=== PATIENT | female | born 1965 | race Caucasian/White ===

== ENCOUNTER → 2017-02-03 | Outpatient (CLI) | payer OTHER ==
[~2017-02-03] MED LIST: ADVIN50/60 INH; AMLO-114 PO; ATV/1 PO; BUPR100T8 PO; CALC600T9 PO; CALCTAB7 PO; CLON0.5T3 PO; CYCL10TA6 PO; CYM/30 PO; DSY/150 PO; DULO60CA44 PO; ERGO500037 PO; GABA-1218 PO; HYDR-3983 PO; HYDR-5688 PO; LISI-725 PO; LISI1TAB3 PO; LISI40TA PO; OMEP20CA9 PO; PRED20TA2 PO; PRLSR20 PO; SIMV20TA2 PO; SIMV20TA5 PO; TRAM-10 PO; TRAZ50TA35 PO; VNTHFA/IN INH
--- NOTE | 2017-02-03 10:56 | DIAGNOSTIC IMAGING REPORT ---
CERVICAL SPINE CT CT DOSE: 288.15 mGy.cm HISTORY: Pain. Neuropathy. THIN Slice, cervical Spondylosis, large OSTEOPHYTE TECHNIQUE: Multiaxial CT images of the cervical spine were performed and reformatted in the sagittal and coronal plane without the use of contrast. COMPARISON: None. FINDINGS: Vertebral body stature is normal. Reversal of normal cervical curvature. Significant degenerative disc change from C4 through C7. Mild degenerative change of the anterior arch of the C1-C2 complex. No significant compromise of the neuroforamina or spinal canal. C2-C3 level demonstrates very subtle posterior osteophytic formation showing no significant impact upon the cervical canal or neural contents. C3-C4 level is unremarkable. C4-C5 level shows mild posterior osteophytic reaction partially effacing the anterior subarachnoid space. Neural foramina are generally patent bilaterally. C5-C6 level shows broad-based posterior osteophytic reaction showing a slight impact with anterior cervical cord. There is minimal osteophytic narrowing of the neuroforamina bilaterally. C6-C7 level also shows posterior osteophytic reaction considered mild. Impact upon the anterior subarachnoid space is mild. No significant compromise of the neuroforamina. IMPRESSION: 1. Significant degenerative disc change from C4 through C7. 2. Broad-based posterior osteophytic reaction at C4-C5, C5-C6, and to a lesser extent C6-C7. 3. At all levels this shows partial effacement of the anterior subarachnoid space with mild impact upon the anterior cervical cord at C5-C6. 4. No significant compromise of the neuroforamina Electronically signed by: Jaciel Novoa M.D. 02/03/2017 10:55 AM Dictated Date/Time: 02/03/2017 10:50 AM
== END | disposition home or self-care (01) ==
LOC: C.CTS 10:34
PROVIDERS: ATTEND Orthopaedic Surgery Orthopaedic Surgery of the Spine
DX: M47.812 Spondylosis without myelopathy or radiculopathy, cervical region (principal); M50.321 Other cervical disc degeneration at C4-C5 level; M50.322 Other cervical disc degeneration at C5-C6 level; M50.323 Other cervical disc degeneration at C6-C7 level; M25.78 Osteophyte, vertebrae

== ENCOUNTER → 2017-02-17 | Outpatient (CLI) | payer OTHER ==
[~2017-02-17] MED LIST changes: -ATV/1 PO; -GABA-1218 PO; -LISI-725 PO; +OPTIRAY 320 IV PRN; -TRAM-10 PO
--- NOTE | 2017-02-17 15:18 | DIAGNOSTIC IMAGING REPORT ---
CT OF THE CHEST WITH IV CONTRAST CLINICAL HISTORY: Abnormal chest x-ray COMPARISON STUDY: Chest x-ray dated 02/16/2017 TECHNIQUE: Following the IV administration of 93 mL of Optiray-320, CT of the thorax was performed from the thoracic inlet to the lung bases. Images are reviewed in the axial, sagittal, and coronal planes. IV contrast was administered without complication. CT DOSE: 1067.99 mGy.cm FINDINGS: Thyroid: Imaged portions of the thyroid gland are normal in appearance. Thoracic aorta: The thoracic aorta is normal in course and caliber, noting standard 3-vessel arch anatomy. No aneurysm or dissection is seen. Pulmonary vasculature: The pulmonary trunk is normal in caliber. There are no central filling defects identified to suggest pulmonary embolus. Note that this examination was not protocoled for the evaluation of pulmonary emboli. HEART: The heart is normal in size and configuration, without pericardial effusion. Lungs and pleural spaces: No pleural effusions are visualized. There are no right infrahilar opacities to correlate with the chest x-ray finding. This was an all likelihood an artifact. There is mild pulmonary emphysema. There is a mixed solid and groundglass right apical opacity measuring 3 cm in long axis. A 6 week follow-up CT scan is recommended. Mediastinum: Right paratracheal lymph nodes are the upper limits of normal in diameter. Snow: There is no evidence of pathologic hilar adenopathy Axilla: There is no evidence of pathologic axillary adenopathy Upper abdomen: There is hepatic steatosis. Skeletal structures: There are no lytic or blastic osseous lesions. IMPRESSION: 1. CT scanning fails to confirm the presence of a right infrahilar opacity. This was in all likelihood artifactual 2. Incidentally identified partially solid and groundglass 3 cm right apical opacity. This could either be atelectatic, inflammatory, or neoplastic. A 6 week follow-up CT scan is recommended. 3. Hepatic steatosis Electronically signed by: Myron Ventura M.D. 02/17/2017 3:17 PM Dictated Date/Time: 02/17/2017 3:08 PM
== END | disposition home or self-care (01) ==
LOC: C.CTS 14:32
PROVIDERS: ATTEND Internal Medicine
DX: R91.8 Other nonspecific abnormal finding of lung field (principal); K76.0 Fatty (change of) liver, not elsewhere classified

== ENCOUNTER 2017-02-22 05:22 | Inpatient (IN) | payer OTHER ==
[2017-02-16 11:08] VITALS: BMI 47.0
--- NOTE | 2017-02-16 11:37 | PAT Medication Instructions ---
Service Date Feb 16, 2017. Current Home Medication List Albuterol Hfa (Ventolin Hfa), 2 PUFFS INH Q6H Amlodipine (Norvasc), 10 MG PO QAM Bupropion (Wellbutrin Sr), 250 MG PO QAM Bupropion (Wellbutrin Sr), 100 MG PO QPM Calcium Carbonate-Vitamin D (Calcium + D), 1 TAB PO BID Clonazepam (Klonopin), 0.5 MG PO BID PRN for RN Cyclobenzaprine Hcl (Flexeril), 10 MG PO TID Duloxetine HCl (Cymbalta), 1 CAP PO QAM Ergocalciferol (Vitamin D 82717 Unit), 50,000 UNIT PO WK Fluticasone Prop/Salmeterol (Advair Diskus 500/50 60 Dose), 1 PUFF INH BID Hydrocodone/Acetaminophen 5MG/325MG ([place] 5MG/325MG), 1 TABLET PO TID PRN for N Lisinopril (Zestril), 40 MG PO QAM Omeprazole (Prilosec), 20 MG PO BID Simvastatin (Zocor), 20 MG PO HS Trazodone Hcl (Trazodone), 150 MG PO HS Medication Instructions For Your Scheduled Surgery - Hold the following medications the morning of surgery: Lisinopril (Zestril), 40 MG PO QAM Ergocalciferol (Vitamin D 12514 Unit), 50,000 UNIT PO WK Calcium Carbonate-Vitamin D (Calcium + D), 1 TAB PO BID Cyclobenzaprine Hcl (Flexeril), 10 MG PO TID - Take the following medications the morning of surgery with a sip of water OTHERWISE NOTHING TO EAT OR DRINK AFTER MIDNIGHT: Amlodipine (Norvasc), 10 MG PO QAM Bupropion (Wellbutrin Sr), 250 MG PO QAM Albuterol Hfa (Ventolin Hfa), 2 PUFFS INH Q6H (use if needed; BRING TO HOSPITAL) Omeprazole (Prilosec), 20 MG PO BID Fluticasone Prop/Salmeterol (Advair Diskus 500/50 60 Dose), 1 PUFF INH BID Hydrocodone/Acetaminophen 5MG/325MG ([place] 5MG/325MG), 1 TABLET PO TID PRN ( may take if needed up to 4 hours prior to surgery) Duloxetine HCl (Cymbalta), 1 CAP PO QAM Clonazepam (Klonopin), 0.5 MG PO BID PRN - Take the following medications as scheduled the night before surgery: Bupropion (Wellbutrin Sr), 100 MG PO QPM Simvastatin (Zocor), 20 MG PO HS Trazodone Hcl (Trazodone), 150 MG PO HS Albuterol Hfa (Ventolin Hfa), 2 PUFFS INH Q6H Omeprazole (Prilosec), 20 MG PO BID Fluticasone Prop/Salmeterol (Advair Diskus 500/50 60 Dose), 1 PUFF INH BID Hydrocodone/Acetaminophen 5MG/325MG ([place] 5MG/325MG), 1 TABLET PO TID PRN for N Clonazepam (Klonopin), 0.5 MG PO BID PRN Calcium Carbonate-Vitamin D (Calcium + D), 1 TAB PO BID Cyclobenzaprine Hcl (Flexeril), 10 MG PO TID If you have any questions please call us at [phone] or [phone] or [phone]
[2017-02-16 12:10] LABS: URINE APPEARANCE CLEAR (CLEAR); URINE BILIRUBIN NEG (NEG); URINE COLOR YELLOW; URINE NITRITE NEG (NEG); URINE SPECIFIC GRAVITY 1.015 (1.000-1.030); UROBILINOGEN NEG (NEG)
[2017-02-16 12:12] LABS: BASO % 0.3 %; BASO ABS # 0.02 K/uL (0-0.2); COMPLETE YES; EOS % 2.9 %; HEMATOCRIT 41.8 % (37-47); LYMPH % 35.6 %; MEAN CELL VOLUME 92.7 fL (80-100); MEAN CORPUSCULAR HEMOGLOBIN 30.6 pg (25-34); MEAN PLATELET VOLUME 10.3 fL (7.4-10.4); MONO % 5.3 %; NEUT % 55.9 %; PLATELET COUNT 244 K/uL (130-400); RED BLOOD COUNT 4.51 M/uL (4.2-5.4); WHITE BLOOD COUNT 6.18 K/uL (4.8-10.8)
[2017-02-16 12:18] LABS: MANUAL MICROSCOPIC REQUIRED? NO; REVIEW REQ? NO
[2017-02-16 12:19] LABS: INR 0.9 (0.9-1.1); PARTIAL THROMBOPLASTIN RATIO 1.2
--- NOTE | 2017-02-16 12:22 | DIAGNOSTIC IMAGING REPORT ---
CHEST PREADMISSION(PA/LAT) CLINICAL HISTORY: Preoperative evaluation. COMPARISON STUDY: Chest radiograph December 04, 2012. FINDINGS: Lung volumes are normal. There is right infrahilar fullness which has developed since prior exam of December 04, 2012. A 2.2 cm nodular density is noted. No pneumothorax or pleural effusion is present. Cardiac size is normal. Mediastinal contours are normal. There is no evidence of pulmonary edema. IMPRESSION: Right infrahilar opacity which has developed since prior exam. While possibly artifactual, this raises the possibility of airspace disease or a pulmonary nodule. A chest CT is recommended. Electronically signed by: Deandre Luke M.D. 02/16/2017 12:20 PM Dictated Date/Time: 02/16/2017 12:17 PM
[2017-02-16 13:32] LABS: BUN/CREATININE RATIO 12.7 (10-20); CALCIUM 8.9 mg/dl (8.5-10.1); CREATININE 0.98 mg/dl (0.60-1.20); POTASSIUM 4.6 mmol/L (3.5-5.1)
--- NOTE | 2017-02-19 14:18 | HISTORY & PHYSICAL EXAMINATION ---
DATE OF ADMISSION: 02/22/2017 HISTORY OF PRESENT ILLNESS: She is being preoperatively prepared for an anterior cervical discectomy and fusion C4-C5 and C5-C6 cervical spine. She has had conservative care, she has failed with these efforts. She has a combination of cervical spine pain, neck and upper extremity difficulties and cervical headaches. PAST MEDICAL HISTORY: Positive for hypertension, high cholesterol, difficulty walking up the hill, numbness and tingling, anxiety. No liver or kidney disease, no carcinoma. Has had acid reflux and obesity. PAST SURGICAL HISTORY: Tubal ligation, bunion surgery. ALLERGIES: Negative. MEDICATIONS: Include hydrocodone, Flexeril, Wellbutrin, simvastatin, lisinopril, and trazodone. REVIEW OF SYSTEMS: She denies any blurred vision, double vision. Does have significant headaches. Denies any fevers, sweats, chills. Denies unexplained weight loss, gain. Denies chest pain, palpitations, angina. Denies asthma, wheezing, shortness of breath. Denies nausea, vomiting, urgency, frequency, dysuria. Her major complaint is musculoskeletal, neck and arm pain. OBJECTIVE: GENERAL: She is alert, oriented. She is 5 feet 5 inches, 220 pounds. She is in distress. HEENT: Essentially normal. Vascular structures normal. CARDIAC: Normal S1, S2, no S3. LUNGS: Clear to auscultation. No rales, rhonchi or wheezing. ABDOMEN: Soft, nontender. 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 Images demonstrate significant spondylosis at C4-C5, C5-C6, lesser at C6-C7. ASSESSMENT: Severe degenerative changes cervical spine with mild instability C4-C5 and C5-C6 with spinal cord compression. DISPOSITION: Includes a 2-level ACDF with iliac crest bone graft C4-C5 and C5-C6 cervical spine at [facility] coming up on February 22.
[2017-02-22] VITALS (16 sets, daily range): BP systolic 115–163; BP diastolic 62–79; PULSE 77–91; TEMP 36.2–36.8; O2SAT 92–96; Ht 162.6 cm; Wt 125.3 kg
[~2017-02-22] VITALS: Ht 162.6 cm; Wt 125.3 kg
[~2017-02-22 05:22] MED LIST changes: -CALCTAB7 PO; -DSY/150 PO; -DULO60CA44 PO; -HYDR-3983 PO; -LISI1TAB3 PO; -OPTIRAY 320 IV PRN; -PRED20TA2 PO; -PRLSR20 PO; -SIMV20TA2 PO
[2017-02-22] MEDS ORDERED: LACTATED RINGER'S 1000ML IV SCH (06:00)
[2017-02-22] MEDS ORDERED: NSS 1000ML IV SCH (06:00)
[2017-02-22] MEDS ORDERED: CEFAZOLIN 3000 MG/65 ML D5W 65 ML IV SCH (06:00)
[2017-02-22] MEDS ORDERED: GELATIN SPONGE SZ 100 ONE (06:50)
[2017-02-22] MEDS ORDERED: THROMBIN FOR SOLN 20000 UNIT KIT ONE (06:50)
[2017-02-22] MEDS ORDERED: BUPIVACAINE/EPINEPHRINE 0.5% MPF 1:200,000 30 ML VIAL ONE (06:50)
[2017-02-22] MEDS ORDERED: BACITRACIN 50000 UNIT VIAL ONE (06:51)
[2017-02-22] MEDS ORDERED: PROPOFOL IV EMULSION 10 MG/ML 20 ML VIAL IV ONE (07:01)
[2017-02-22] MEDS ORDERED: DEXAMETHASONE SOD INJ 4 MG/ML VIAL ONE (07:01)
[2017-02-22] MEDS ORDERED: MIDAZOLAM HCL 1 MG/ML 2ML VIAL ONE (07:01)
[2017-02-22] MEDS ORDERED: LIDOCAINE HCL 2% 2 ML VIAL (20MG/ML) ONE (07:01)
[2017-02-22] MEDS ORDERED: ONDANSETRON INJ 2 MG/ML 2 ML VIAL ONE (07:01)
[2017-02-22] MEDS ORDERED: FENTANYL CITRATE INJ 50 MCG/1 ML 2 ML VIAL ONE (07:01)
[2017-02-22] MEDS ORDERED: ROCURONIUM BROMIDE 10 MG/ML 5 ML VIAL ONE (07:02)
[2017-02-22] MEDS ORDERED: GLYCOPYRROLATE INJ 0.2 MG/ML VIAL ONE (07:02)
[2017-02-22] MEDS ORDERED: NEOSTIGMINE METHYLSULFATE 5 MG/5 ML SYR ONE (07:02)
[2017-02-22] MEDS ORDERED: MoRPHine SULFATE 2 MG/ML CARP ONE ×3 (07:05→10:46)
[2017-02-22] MEDS ORDERED: ATROPINE SULFATE 0.1 MG/ML 5ML SYR IV PRN (07:15)
[2017-02-22] MEDS ORDERED: ONDANSETRON INJ 2 MG/ML 2 ML VIAL IV PRN ×2 (07:15→10:00)
[2017-02-22] MEDS ORDERED: EpHEDrine SULFATE INJ 50 MG/ML AMP IV PRN (07:15)
--- NOTE | 2017-02-22 07:16 | History & Physical Bridge Note ---
H&P Re-Evaluation Bridge Note: I have examined the patient, reviewed the History & Physical and in the interval since the performance of the History & Physical I have noted the following changes of clinical significance: No changes noted
[2017-02-22] MEDS ORDERED: ALBUTEROL HFA INHALER 8.5 GM INH ONE (07:45)
[2017-02-22] MEDS ORDERED: LARYING-O-JET KIT (LTA) ONE ×2 (07:45)
[2017-02-22] MEDS ORDERED: VANCOMYCIN HCL 1000MG/20ML VIAL ONE (08:31)
--- NOTE | 2017-02-22 09:46 | DIAGNOSTIC IMAGING REPORT ---
INTRAOPERATIVE CERVICAL SPINE 3 VIEWS (no charge) CLINICAL HISTORY: ACDF C4-6 COMPARISON STUDY: No previous studies for comparison. FINDINGS: 3 intraoperative fluoroscopic spot images are provided for interpretation. 27 seconds of fluoroscopic time was utilized. The first image is inadequate from a technical standpoint for localization purposes. The subsequent 2 images demonstrate the first 3 cervical vertebral bodies. IMPRESSION: 3 intraoperative fluoroscopic spot images were acquired. Electronically signed by: Myron Ventura M.D. 02/22/2017 9:45 AM Dictated Date/Time: 02/22/2017 9:42 AM
--- NOTE | 2017-02-22 09:56 | [facility] Post Operative Brief Note ---
Immediate Operative Summary Operative Date Feb 22, 2017. Pre-Operative Diagnosis : Severe degenerative changes cervical spine with mild instability C4-C5 and C5-C6 with spinal cord compression Post-Operative Diagnosis : Severe degenerative changes cervical spine with mild instability C4-C5 and C5-C6 with spinal cord compression Procedure(s) Performed C4-C5, C5-C6, C6-C7 Anterior Cervical Discectomy and Fusion Surgeon Dr. Mirza García Plunger Scoop Operator Surgeon(s) Rom Howard PA-C Estimated Blood Loss 5 ml Findings cord compression cervical spine Specimens none per surgeon Complication(s) None Disposition Recovery Room / PACU
[2017-02-22] MEDS ORDERED: NALOXONE HCL 0.4 MG/1 ML VIAL/CARP IV PRN (10:00)
[2017-02-22] MEDS ORDERED: ACETAMINOPHEN IV 1,000 MG in EMPTY BAG 0 ML IV PRN (10:00)
[2017-02-22] MEDS ORDERED: RACEPINEPHRINE 2.25% NEBU SOLN 0.5 ML VIAL INH PRN (10:00)
[2017-02-22] MEDS ORDERED: MAGNESIUM HYDROXIDE SUSP 30 ML UDC PO PRN (10:00)
[2017-02-22] MEDS ORDERED: DEXAMETHASONE INJ 8 MG in SYRINGE 0 ML IV PRN (10:00)
[2017-02-22] MEDS: FENTANYL CITRATE INJ 50 MCG/1 ML 2 ML VIAL IV PRN ×4 (10:10→10:25)
[2017-02-22] MEDS: HYDROmorphone INJ 1 MG/ML SYR IV PRN ×11 (10:30→21:00)
[2017-02-22] MEDS ORDERED: ACETAMINOPHEN 1000 MG/100 ML IV IV ONE ×2 (10:41→10:45)
--- NOTE | 2017-02-22 11:08 | Anesthesiology Progress Note ---
Anesthesia Post Op Note Date & Time Feb 22, 2017 at 11:08 Vital Signs Pain Intensity: 9 Vital Signs Past 12 Hours Date Time Temp Pulse Resp B/P (MAP) Pulse Ox O2 Delivery O2 Flow Rate FiO2 02/22/17 10:21 159/93 02/22/17 10:18 83 16 02/22/17 10:18 83 16 94 02/22/17 10:16 161/75 02/22/17 10:13 80 19 93 02/22/17 10:13 80 19 02/22/17 10:10 163/84 02/22/17 10:08 80 19 02/22/17 10:08 80 19 93 02/22/17 10:07 163/84 02/22/17 10:03 85 20 02/22/17 10:03 85 20 96 02/22/17 10:02 160/100 02/22/17 09:58 79 20 02/22/17 09:58 79 20 92 02/22/17 09:57 152/98 02/22/17 09:55 151/78 02/22/17 09:53 36.1 80 15 151/78 94 Mask 10 02/22/17 05:41 36.5 77 18 118/65 Room Air 95 Notes Mental Status: alert / awake / arousable, participated in evaluation Pt Amnestic to Procedure: Yes Nausea / Vomiting: adequately controlled Pain: improving with treatment Airway Patency, RR, SpO2: stable & adequate BP & HR: stable & adequate Hydration State: stable & adequate Anesthetic Complications: no major complications apparent
[2017-02-22] MEDS ORDERED: IV FLUIDS COMPLETED PRN (11:15)
[2017-02-22] MEDS: SODIUM CHLORIDE 0.9% 1000ML 1,000 ML IV SCH (11:50)
--- NOTE | 2017-02-22 13:32 | OPERATIVE REPORT ---
DATE OF OPERATION: 02/22/2017 PREOPERATIVE DIAGNOSES: Cord compression, cervical spine C4-C5, C5-C6 with severe degenerative changes C6-C7. POSTOPERATIVE DIAGNOSES: Same. PROCEDURES: Include an anterior cervical discectomy and decompression of spinal cord at C4-5 and C5-C6 along with a decompression and fusion at C4-5, C5-C6, C6-C7 with a 3-level construct of the cervical spine, 3-level discectomy and fusion. SURGEON: Dr. García. GUSSET MAKER: Rom Howard PA-C. COMPLICATIONS: Zero. BLOOD LOSS: 5 mL. No graft taken from the iliac crest. IMPLANTS USED: By the [employer] called [employer]. The patient was taken to the operating room. She was placed and kept supine on the spinal table. We taped her down, put her in some 5 pounds of traction. We protected all soft tissues and skin areas with padding. We scrubbed her first and then prepped her as well, the cervical spine region. We draped her sterile. We commenced with surgery. We made a transverse skin incision roughly at the C5-C6 interval, dissecting the soft tissue. In the same plane was a fairly delicate dissection. She had significant to moderate amount of venous vessels in the pathway. We then were able to get to the 3-4 interval, marked this with a spinal needle. We then moved in a caudal direction for doing a complete discectomy at C4-5, C5-6 and C6-C7. At each and every level, we were back to and through the posterior longitudinal ligament. We were out laterally to the uncovertebral joints, all visible disc material was removed. I was able to fashion out each and every segment. We used the [employer] implant system. This was packed with the patient's own bone or autograft. These were placed into the vacated discectomy sites at C6-7, C5-6, C4-5. I also used some DBM demineralized bone matrix to also fill up the interspaces. The soft tissues were clear. We irrigated thoroughly, closed with 4-0 Monocryl suture. Sterile dressings applied all over a Ilan drain. The patient was then extubated to PACU stable in a cervical collar with no apparent complications with the procedure. The sponge and needle count was correct at the close. I attest to the content of the Intraoperative Record and any orders documented therein. Any exception s are noted below.
[2017-02-22] MEDS ORDERED: ALBUTEROL HFA 8 GM INHALER INH PRN (14:00)
[2017-02-22] MEDS: DEXAMETHASONE INJ 6 MG in SYRINGE 0 ML IV SCH ×2 (14:08→21:19)
[2017-02-22] MEDS: HYDROCODONE/ACETAMOPHEN 5/325MG TAB PO PRN ×3 (14:56→23:34)
[2017-02-22] MEDS: CEFAZOLIN IV 3,000 MG in DEXTROSE 5% 50ML 50 ML IV SCH ×2 (15:45→23:34)
[2017-02-22] MEDS: LORAZEPAM INJ 0.5 MG in SYRINGE 0.75 ML IV PRN (19:34)
[2017-02-22] MEDS: FLUTICASONE/SALMETEROL (ADVAIR) 500/50 INH 14 PUFF INH SCH (20:56)
[2017-02-22] MEDS: BuPROPion SR 100 MG TABCR PO SCH (20:57)
[2017-02-22] MEDS: DOCUSATE SODIUM 100 MG CAP PO SCH (20:58)
[2017-02-22] MEDS: CLONAZEPAM 0.5 MG TAB PO PRN (20:59)
[2017-02-22] MEDS: CALCIUM 600MG + VIT D 400 IU TAB PO SCH (21:18)
[2017-02-22] MEDS: SIMVASTATIN 20 MG TAB PO SCH (21:18)
[2017-02-23] VITALS (19 sets, daily range): BP systolic 103–160; BP diastolic 63–80; PULSE 71–96; TEMP 36.4–36.8; O2SAT 92–97
[2017-02-23] MEDS: SODIUM CHLORIDE 0.9% 1000ML 1,000 ML IV SCH (00:39)
[2017-02-23] MEDS: HYDROmorphone INJ 1 MG/ML SYR IV PRN ×5 (00:57→20:56)
[2017-02-23] MEDS ORDERED: COUGH DROP (SUGAR FREE) LOZ 24 LOZ/1 BOX PO PRN (01:30)
[2017-02-23] MEDS ORDERED: NURSING DECISION MEDICATION ORDER SCH (01:30)
[2017-02-23] MEDS: LORAZEPAM INJ 0.5 MG in SYRINGE 0.75 ML IV PRN (03:18)
[2017-02-23] MEDS: DEXAMETHASONE INJ 6 MG in SYRINGE 0 ML IV SCH (06:31)
[2017-02-23] MEDS: CEFAZOLIN IV 3,000 MG in DEXTROSE 5% 50ML 50 ML IV SCH (07:23)
--- NOTE | 2017-02-23 07:40 | Discharge Instructions ---
Discharge Instructions Date of Service Feb 23, 2017. Admission Reason for Admission: Cervical Spondylosis Discharge Discharge Diagnosis / Problem: cord compression Discharge Goals Goal(s): Improve function Activity Recommendations Activity Limitations: as noted below Lifting Limitations: until after follow-up appointment Exercise/Sports Limitations: until after follow-up appointment May Resume Sexual Activity: after follow-up appointment Shower/Bathe: keep incision dry . Instructions / Follow-Up Instructions / Follow-Up MEDICATIONS: Please take your prescriptions as instructed at your pre-op appointment. SPECIAL CARE: The following information is intended to answer some of the common questions and concerns regarding your surgery. Each patient is an individual and receives individual counselling throughout the course of treatment, from diagnosis to surgery all the way through recovery. What follows is not an exhaustive list, but should be a useful guide to some of the common questions and concerns patients have regarding their surgeries. These are not provided to keep you from calling us; rather, they give you something accurate and concrete to reference as you recover from your procedure. If you need us, we are available to you. As always, if you are not sure about something, call us at [phone]. MEDICAL EMERGENCIES: For these conditions, call 911 or go to your local hospital-based Emergency Department - not [facility] or equivalent. * Paralysis * Severe chest pain or difficulty breathing * Swelling or redness of either leg Spine procedures can be rather complex and though complications are rare, they do occur. In such cases, effective advice regarding emergency situations cannot always be addressed over the telephone. You may be referred to the emergency department for more effective management of your problem. Activity Limitations: It is important to give your body time to heal, so please limit your activities : * In general, don't do anything that moves your spine too much. You should avoid contact sports, twisting or heavy lifting while you recover. * 5-10 pounds is all you should attempt to lift. * You should not plan on driving for approximately 3 weeks and you should avoid traveling more than 30-45 minutes at a time. Longer trips should be broken down with walking breaks spaced appropriately. * Physical therapy is not usually required. * Walking and good posture practices will help you recover and regain your function. * Avoid straining or sudden changes in position. * In general, the goal is to take it easy and recover. Don't cause any new problems. Just relax. Showers: * Do not take a bath, use a Jacuzzi or hot tub or otherwise submerge your incision. * It is usually safe to take a shower 4-5 days after your surgery. * Your incision does not require any special creams or ointments. * Simply clean it with soap and water, dry and re-dress with a clean bandage afterwards. Incision: * Keep incision clean, dry and protected until your first follow-up appointment. * Some amount of drainage and redness is normal. Any drainage should be fairly clear and not have a foul odor. * If you feel anything is wrong or you have excessive drainage, please call us. * Your stitches and tony will be removed 10-14 days after your surgery. At the time of your first post-op visit. * Neck surgeries are typically closed with a suture underneath the skin. The steri-strips over the incision should be maintained until we see you in the office. Bracing: * You may be provided with a back or neck brace to encourage good posture and prevent injury. It will remind you not to do too much as you heal and will alert others to the fact that you have had a surgery. * Back braces may be removed for showers and when you are resting at home. They must be worn when you are walking around for any period of time or for travel. * For neck surgery, you will likely be provided with two cervical collars. The soft collar ([place] or foam rubber) is worn most commonly throughout the day and while sleeping. The plastic collar (provided at the hospital) is for showering/bathing. * Except while eating, collars should remain in place. More specifically, bracing is provided for a purpose and should be worn. * Please obtain your brace or collars prior to your operation and bring them to the hospital with you on the day of surgery. * You should also bring your collars to your post-op appointment with Dr. García. You should always take good care of your body and practice healthy habits, especially following surgery. You should: * Follow your doctor's treatment plan * Sit and stand properly with good posture (ears over shoulders, shoulders over hips) Don't slouch * Learn to lift correctly * Exercise regularly (low-impact aerobic exercise is especially good, but check with your doctor first) * Generally, be up and walking for 5-10 minutes at a time at least 3-4 times per day from the day you get home * Increasing walking to tolerance until you can walk for 20-30 minutes at a time * Attain and maintain a healthy body weight * Eat healthy foods ( a well-balanced, low-fat diet rich in fruits and vegetables) and get enough calcium * Avoid excessive use of alcohol When to call our office - If you notice any of the following: * Increased pain not relieve by pain medicine * Fevers greater then 100 degrees F, chills or flu symptoms * Increased redness around incision * Drainage from the incision that is not clear * Any foul smelling drainage * Swelling or fluid collection beneath the skin Miscellaneous: * In the hospital, you may be given a walker or cane for support while walking. These are temporary needs and are intended to prevent injuries due to falls. You may discontinue them when you feel strong and steady enough on your feet. * Sleep in a comfortable position. We find that many patients find a lounge chair or recliner with several pillows to be beneficial in the early post-operative period. * The support stockings should be used for 7-10 days and may be discontinued when you are back to walking more and conducting usual household activities. No problem is insignificant. We are here to help you and get you well. Contact us at [phone]. Definitions: Foraminotomy: If part of the disc or a bone spur (osteophyte) is pressing on a nerve as it leaves the vertebra (through an exit called the foramen), a foraminotomy may be done. Otomy means "to make an opening." A foraminotomy is making the opening of the foramen larger, so the nerve can exit without being compressed. Laminotomy: Similar to the foraminotomy, a laminotomy makes a larger opening, this time in your bony plate protecting your spinal canal and spinal cord (the lamina). The lamina may be pressing on your nerve, so the surgeon may make more room for the nerves using a laminotomy. Laminectomy: Sometimes, a laminotomy is not sufficient. The surgeon may need to remove all or part of the lamina. This procedure is called a laminectomy. This can often be done at many levels without any harmful effects. Current Hospital Diet Patient's current hospital diet: Regular Diet Discharge Diet Recommended Diet: Regular Diet Procedures Procedures Performed: C4-C5, C5-C6, C6-C7 Anterior Cervical Discectomy and Fusion Pending Studies Studies pending at discharge: no Medical Emergencies . Who to Call and When: Medical Emergencies: If at any time you feel your situation is an emergency, please call 911 immediately. . Non-Emergent Contact Non-Emergency issues call your: Surgeon Call Non-Emergent contact if: you have any medication questions . "Provider Documentation" section prepared by Mirza García. . VTE Core Measure Inpt VTE Proph given/why not?: Treatment not indicated
--- NOTE | 2017-02-23 08:10 | PROGRESS NOTE ---
DATE: 02/23/2017 SUBJECTIVE: Moderate complaints of pain, no confusion, shortness of breath, extremity difficulties. OBJECTIVE: Vital signs stable. Blood pressure is stable. Lab work not indicated. ASSESSMENT: Status post lumbar spine fusion L5-S1. DISPOSITION: Instructions, precautions, education here today. Up and ambulatory with walker. Tentatively discharged home for tomorrow.
--- NOTE | 2017-02-23 08:12 | PROGRESS NOTE ---
DATE: 02/23/2017 SUBJECTIVE: Moderate complaints of pain. No chest pain, shortness of breath or confusion. OBJECTIVE: Vital signs are stable. Blood pressure is stable. No significant swallowing difficulty. Lungs are clear. ASSESSMENT: Multilevel anterior cervical discectomy in an obese individual. DISPOSITION: We will watch her closely for 24 hours. She should be able to go home tomorrow, which will be 24 of February.
[2017-02-23] MEDS: FLUTICASONE/SALMETEROL (ADVAIR) 500/50 INH 14 PUFF INH SCH ×2 (08:31→20:59)
[2017-02-23] MEDS: DULOXETINE (CYMBALTA) 30 MG CAP PO SCH (08:32)
[2017-02-23] MEDS: DOCUSATE SODIUM 100 MG CAP PO SCH ×2 (08:32→21:00)
[2017-02-23] MEDS: AMLODIPINE BESYLATE 5 MG TAB PO SCH (08:33)
[2017-02-23] MEDS: BUPROPION PO SCH ×2 (08:33)
[2017-02-23] MEDS: LISINOPRIL 40 MG TAB PO SCH (08:34)
[2017-02-23] MEDS: CLONAZEPAM 0.5 MG TAB PO PRN (09:04)
[2017-02-23] MEDS: CALCIUM 600MG + VIT D 400 IU TAB PO SCH ×2 (09:04→21:00)
[2017-02-23] MEDS: HYDROCODONE/ACETAMOPHEN 5/325MG TAB PO PRN ×2 (11:04→17:07)
[2017-02-23] MEDS: BuPROPion SR 100 MG TABCR PO SCH (21:00)
[2017-02-23] MEDS: SIMVASTATIN 20 MG TAB PO SCH (21:00)
[2017-02-24] VITALS (7 sets, daily range): BP systolic 117–144; BP diastolic 67–82; PULSE 67–83; TEMP 36.5–36.6; O2SAT 90–99
[2017-02-24] MEDS: HYDROCODONE/ACETAMOPHEN 5/325MG TAB PO PRN ×2 (03:37→07:35)
[2017-02-24] MEDS ORDERED: BISACODYL 5 MG TABEC PO PRN (06:00)
[2017-02-24] MEDS ORDERED: BISACODYL 10 MG SUPP PR PRN (06:00)
[2017-02-24] MEDS: DOCUSATE SODIUM 100 MG CAP PO SCH (08:36)
[2017-02-24] MEDS: BUPROPION PO SCH ×2 (08:36)
[2017-02-24] MEDS: AMLODIPINE BESYLATE 5 MG TAB PO SCH (08:36)
[2017-02-24] MEDS: FLUTICASONE/SALMETEROL (ADVAIR) 500/50 INH 14 PUFF INH SCH (08:36)
[2017-02-24] MEDS: DULOXETINE (CYMBALTA) 30 MG CAP PO SCH (08:36)
[2017-02-24] MEDS: LISINOPRIL 40 MG TAB PO SCH (08:36)
[2017-02-24] MEDS: CALCIUM 600MG + VIT D 400 IU TAB PO SCH (08:37)
--- NOTE | 2017-02-24 09:13 | DISCHARGE SUMMARY ---
SUBJECTIVE: Minimal complaints of pain. Alert, oriented, no shortness of breath. No swallowing difficulty, appropriate speech. Neurologically intact. ASSESSMENT: Status post anterior cervical multilevel decompression and fusion for cord compression, stable. DISPOSITION: We will discharge her home today on all of her routine meds. She has a walker for support, [place] prescription. Followup examination in 10 days. Instructions, precautions have been provided. AMINAH
== END 2017-02-24 09:23 | disposition home or self-care (01) | DRG 473 ==
LOC: C.ACU 05:22 → C.3E 10:00 → ENRESERV 10:57
PROVIDERS: ADMIT Orthopaedic Surgery Orthopaedic Surgery of the Spine; ATTEND Orthopaedic Surgery Orthopaedic Surgery of the Spine
PROC: 0RT30ZZ Resection of Cervical Vertebral Disc, Open Approach (ICD-10-PCS; principal; 2017-02-22 07:30)
PROC: 0RG20AJ Fusion of 2 or more Cervical Vertebral Joints with Interbody Fusion Device, Posterior Approach, Anterior Column, Open Approach (ICD-10-PCS; principal; 2017-02-22 07:30)
DX: M47.12 Other spondylosis with myelopathy, cervical region (principal); I10 Essential (primary) hypertension; E78.5 Hyperlipidemia, unspecified; E66.9 Obesity, unspecified; K21.9 Gastro-esophageal reflux disease without esophagitis

== ENCOUNTER → 2017-04-07 | Outpatient (CLI) | payer OTHER ==
[~2017-04-07] MED LIST changes: +CALCTAB7 PO; +DSY/150 PO; +DULO60CA44 PO; +HYDR-3983 PO; +LISI1TAB3 PO; +OPTIRAY 320 IV PRN; +PRED20TA2 PO; +PRLSR20 PO; +SIMV20TA2 PO
--- NOTE | 2017-04-07 10:17 | DIAGNOSTIC IMAGING REPORT ---
(CHEST) THORAX WITH CT DOSE: 621.55 mGycm HISTORY: Lung nodule R91.8 Abnormal finding on lung imaging f/u to 3 cm right apical l TECHNIQUE: Multiaxial CT images of the chest were performed following the intravenous administration of contrast. A dose lowering technique was utilized adhering to the principles of ALARA. COMPARISON: 02/17/2017 FINDINGS: Unchanging groundglass density right pulmonary apex. No new or interval findings are present. Lungs otherwise are clear. No significant mediastinal or hilar adenopathy. Thoracic aorta is normal in course and caliber. Fatty infiltration of liver is again noted. IMPRESSION: Stable groundglass nodule right pulmonary apex. A [address] follow-up is suggested. The above report was generated using voice recognition software. It may contain grammatical, syntax or spelling errors. Electronically signed by: Jaciel Novoa M.D. 04/07/2017 10:16 AM Dictated Date/Time: 04/07/2017 10:10 AM
== END | disposition home or self-care (01) ==
LOC: C.CTS 09:46
PROVIDERS: ATTEND Internal Medicine
DX: R91.8 Other nonspecific abnormal finding of lung field (principal)

== ENCOUNTER 2017-06-13 14:49 | Emergency (ER) | payer OTHER ==
[~2017-06-13] VITALS: Ht 157.5 cm; Wt 131.7 kg
[~2017-06-13 14:49] MED LIST changes: -CALCTAB7 PO; -DSY/150 PO; -DULO60CA44 PO; -HYDR-3983 PO; -LISI1TAB3 PO; -OPTIRAY 320 IV PRN; -PRED20TA2 PO; -PRLSR20 PO; -SIMV20TA2 PO
[2017-06-13 14:58] VITALS: TEMP 36.8; Ht 157.5 cm; Wt 131.7 kg
[2017-06-13] MEDS ORDERED: KETOROLAC TROMETHAMINE 30 MG/ML VIAL IV STA (15:19)
[2017-06-13] MEDS ORDERED: ONDANSETRON INJ 2 MG/ML 2 ML VIAL IV STA (15:19)
[2017-06-13] MEDS ORDERED: MoRPHine SULFATE 4 MG/ML 1 ML CARP\\VIAL IV STA ×2 (15:19→16:54)
[2017-06-13 15:37] LABS: BASO % 0.3 %; BASO ABS # 0.02 K/uL (0-0.2); COMPLETE YES; EOS % 2.2 %; HEMATOCRIT 39.8 % (37-47); IG% 0.1 %; LYMPH % 40.6 %; LYMPH ABS # 2.97 K/uL (1.2-3.4); MEAN CELL VOLUME 92.8 fL (80-100); MEAN CORPUSCULAR HEMOGLOBIN 30.8 pg (25-34); MEAN CORPUSCULAR HGB CONC 33.2 g/dl (32-36); MONO % 5.6 %; NEUT % 51.2 %; PLATELET COUNT 239 K/uL (130-400); RED BLOOD COUNT 4.29 M/uL (4.2-5.4); WHITE BLOOD COUNT 7.31 K/uL (4.8-10.8)
[2017-06-13] MEDS ORDERED: PRLSR20 PO (15:39)
[2017-06-13] MEDS ORDERED: HYDR-3983 PO (15:39)
[2017-06-13] MEDS ORDERED: BUPR100T8 PO ×2 (15:39)
[2017-06-13] MEDS ORDERED: CYCL10TA6 PO (15:39)
[2017-06-13] MEDS ORDERED: SIMV20TA2 PO (15:39)
[2017-06-13] MEDS ORDERED: ADVIN50/60 INH (15:39)
[2017-06-13] MEDS ORDERED: CALC600T9 PO (15:39)
[2017-06-13] MEDS ORDERED: LISI1TAB3 PO (15:39)
[2017-06-13] MEDS ORDERED: DSY/150 PO (15:39)
[2017-06-13] MEDS ORDERED: ERGO500037 PO (15:39)
[2017-06-13] MEDS ORDERED: DULO60CA44 PO (15:39)
[2017-06-13] MEDS ORDERED: VNTHFA/IN INH (15:39)
[2017-06-13] MEDS ORDERED: AMLO-114 PO (15:39)
[2017-06-13 16:02] LABS: ALT/SGPT 53 U/L (12-78); AST/SGOT 23 U/L (15-37); BLOOD UREA NITROGEN 13 mg/dl (7-18); BUN/CREATININE RATIO 14.3 (10-20); CARBON DIOXIDE 23 mmol/L (21-32); CHLORIDE 108 mmol/L (98-107); CREATININE 0.94 mg/dl (0.60-1.20); GLUCOSE 142 mg/dl (70-99); POTASSIUM 4.1 mmol/L (3.5-5.1); SODIUM 140 mmol/L (136-145)
--- NOTE | 2017-06-13 16:03 | DIAGNOSTIC IMAGING REPORT ---
R PELVIS/UNILATERAL HIP 2-3VIEWS HISTORY: 51 years-old Female r hip pain acute right-sided hip pain status post fall COMPARISON: None available TECHNIQUE: AP view of the pelvis with 2 views of the right hip FINDINGS: The bony pelvis is intact without acute fracture or dislocation. 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 No acute fracture or dislocation is identified. Surgical clips are seen within the central pelvis. IMPRESSION: Mild degenerative changes of the hips and pelvis without acute fracture or dislocation identified. The above report was generated using voice recognition software. It may contain grammatical, syntax or spelling errors. Electronically signed by: Gilson Sahni M.D. 06/13/2017 4:02 PM Dictated Date/Time: 06/13/2017 4:00 PM
[2017-06-13 16:04] LABS: ALKALINE PHOSPHATASE 100 U/L (45-117)
[2017-06-13 16:13] LABS: URINE APPEARANCE CLEAR (CLEAR); URINE BILIRUBIN NEG (NEG); URINE COLOR YELLOW; URINE EPITHELIAL CELL AUTO >30 /lpf (0-5); URINE NITRITE NEG (NEG); URINE PH 5.5 (4.5-7.5); URINE SPECIFIC GRAVITY 1.016 (1.000-1.030); UROBILINOGEN NEG (NEG); ZZUR CULT IF INDIC CLEAN CATCH NO
[2017-06-13 16:20] LABS: MANUAL MICROSCOPIC REQUIRED? NO; REVIEW REQ? NO
--- NOTE | 2017-06-13 16:28 | DIAGNOSTIC IMAGING REPORT ---
BILATERAL LOWER EXTREMITY VENOUS DOPPLER HISTORY: Acute right-sided leg pain. r leg pain COMPARISON STUDY: None. FINDINGS: There is normal compressibility, flow, and augmentation within the right lower extremity deep venous system. IMPRESSION: No sonographic evidence of deep venous thrombosis within the right lower extremity. Electronically signed by: Gilson Sahni M.D. 06/13/2017 4:26 PM Dictated Date/Time: 06/13/2017 4:25 PM
[2017-06-13 16:46] VITALS: BP 121/56; PULSE 74; O2SAT 98
[2017-06-13] MEDS ORDERED: MoRPHine SULFATE 2 MG/ML CARP ONE (17:01)
--- NOTE | 2017-06-13 20:08 | EMERGENCY ROOM VISIT NOTE ---
History Report prepared by Fawad: Tyra Quevedo Under the Supervision of: Dr. Jerrod Winters D.O. First contact with patient: 15:00 Chief Complaint: GROIN PAIN Stated Complaint: PULLING IN GROIN R LEG History of Present Illness The patient is a 51 year old female who presents to the Emergency Room with complaints of persistent groin pain starting yesterday. She describes the pain as a pulling which goes down her right leg. She was not doing anything when the pain started. She has never had this before. She denies any weakness, numbness, difficulty urinating, change in bowel movement, fever, abdominal pain, nausea, vomiting, dysuria, or new back pain. She denies any recent trauma. She has a history of back pain. She denies any history of cancer. Pain is worse with movement and improves with resting. Absolutely no abdominal pain. Source of History: patient Onset: yesterday Position: other (groin) Quality: other (pulling) Timing: other (persistent) Associated Symptoms: No fevers, No nausea, No vomiting, No abdominal pain, No back pain, No urinary symptoms, No weakness, No numbness Note: Pt reports right leg pain. Pt denies change in bowel movement. Review of Systems See HPI for pertinent positives & negatives. A total of 10 systems reviewed and were otherwise negative. Past Medical & Surgical Medical Problems: (1) Cervical stenosis of spinal canal (2) Dyslipidemia (3) GERD (gastroesophageal reflux disease) (4) HTN (hypertension) (5) Hypertension Nos (6) Leg pain (7) Lumbago (8) Lumbar radiculopathy (9) Lumbar radiculopathy (10) Right Achilles tendinitis (11) Tobacco Use Disorder Surgical Problems: (1) H/O tubal ligation (2) Status post bunionectomy Family History Cancer Diabetes mellitus FH: lung disease Heart disease Hypertension Kidney disease Kidney stones Social History Smoking Status: Current Every Day Smoker Alcohol Use: none Marital Status: Occupation Status: unemployed Current/Historical Medications Scheduled Albuterol Hfa (Ventolin Hfa), 2 PUFFS INH Q6H Amlodipine (Norvasc), 10 MG PO DAILY Bupropion (Wellbutrin Sr), 250 MG PO QAM Bupropion (Wellbutrin Sr), 100 MG PO QPM Calcium Carbonate-Vitamin D (Calcium + D), 1 TAB PO BID Cyclobenzaprine Hcl (Flexeril), 10 MG PO TID Duloxetine Hcl (Cymbalta), 60 MG PO DAILY Ergocalciferol (Vitamin D 22703 Unit), 50,000 UNIT PO WK Fluticasone Prop/Salmeterol (Advair Diskus 500/50 60 Dose), 1 PUFF INH BID Lisinopril (Zestril), 30 MG PO DAILY Omeprazole (Prilosec), 20 MG PO DAILY Simvastatin (Zocor), 20 MG PO QPM Trazodone HCl (Trazodone HCl), 150 MG PO HS Scheduled PRN Hydrocodone/Acetaminophen 7.5MG/325MG ([place] 7.5MG/325MG), 1 TAB PO TID PRN for Pain Allergies Coded Allergies: Aspirin (Verified Allergy, Unknown, HIVES, 06/13/17) Physical Exam Vital Signs Date Time Temp Pulse Resp B/P (MAP) Pulse Ox O2 Delivery O2 Flow Rate FiO2 06/13/17 16:46 74 18 121/56 98 Room Air 06/13/17 14:58 36.8 86 20 149/84 97 Room Air Physical Exam GENERAL: morbidly obese, sitting up in bed, disheveled, no acute distress. EYE EXAM: normal conjunctiva OROPHARYNX: no exudate, no erythema, lips, buccal mucosa, and tongue normal and mucous membranes are moist NECK: supple, no nuchal rigidity, no adenopathy, non-tender LUNGS: Clear to auscultation. Normal chest wall mechanics HEART: no murmurs, S1 normal and S2 normal ABDOMEN: abdomen soft, non-tender, normo-active bowel sounds, no masses, no rebound or guarding. BACK: Back is symmetrical on inspection and there is no deformity, no midline tenderness, no CVA tenderness. SKIN: no rashes and no bruising UPPER EXTREMITIES: upper extremities are grossly normal. LOWER EXTREMITIES: Flexion extension of the hip, knee, ankle, EHL 5/5 bilaterally. Tenderness on the right medial leg tracking down to the medial knee and posterior right calf. NEURO EXAM: Normal sensorium, cranial nerves II-XII grossly intact, normal speech, no gross weakness of arms. Medical Decision & Procedures ER Provider Diagnostic Interpretation: Radiology results as stated below per my review and the radiologist's interpretation: R PELVIS/UNILATERAL HIP 2-3VIEWS HISTORY: 51 years-old Female r hip pain acute right-sided hip pain status post fall COMPARISON: None available TECHNIQUE: AP view of the pelvis with 2 views of the right hip FINDINGS: The bony pelvis is intact without acute fracture or dislocation. 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 No acute fracture or dislocation is identified. Surgical clips are seen within the central pelvis. IMPRESSION: Mild degenerative changes of the hips and pelvis without acute fracture or dislocation identified. The above report was generated using voice recognition software. It may contain grammatical, syntax or spelling errors. Electronically signed by: Gilson Sahni M.D. 06/13/2017 4:02 PM Dictated Date/Time: 06/13/2017 4:00 PM BILATERAL LOWER EXTREMITY VENOUS DOPPLER HISTORY: Acute right-sided leg pain. r leg pain COMPARISON STUDY: None. FINDINGS: There is normal compressibility, flow, and augmentation within the right lower extremity deep venous system. IMPRESSION: No sonographic evidence of deep venous thrombosis within the right lower extremity. Electronically signed by: Gilson Sahni M.D. 06/13/2017 4:26 PM Dictated Date/Time: 06/13/2017 4:25 PM Laboratory Results 06/13/17 15:20 Red Blood Count 4.29, Mean Corpuscular Volume 92.8, Mean Corpuscular Hemoglobin 30.8, Mean Corpuscular Hemoglobin Concent 33.2, Mean Platelet Volume 10.0, Neutrophils (%) (Auto) 51.2, Lymphocytes (%) (Auto) 40.6, Monocytes (%) (Auto) 5.6, Eosinophils (%) (Auto) 2.2, Basophils (%) (Auto) 0.3, Neutrophils # (Auto) 3.74, Lymphocytes # (Auto) 2.97, Monocytes # (Auto) 0.41, Eosinophils # (Auto) 0.16, Basophils # (Auto) 0.02 06/13/17 15:20 Test 06/13/17 15:20 06/13/17 16:00 White Blood Count 7.31 K/uL (4.8-10.8) Red Blood Count 4.29 M/uL (4.2-5.4) Hemoglobin 13.2 g/dL (12.0-16.0) Hematocrit 39.8 % (37-47) Mean Corpuscular Volume 92.8 fL (80-100) Mean Corpuscular Hemoglobin 30.8 pg (25-34) Mean Corpuscular Hemoglobin Concent 33.2 g/dl (32-36) Platelet Count 239 K/uL (130-400) Mean Platelet Volume 10.0 fL (7.4-10.4) Neutrophils (%) (Auto) 51.2 % Lymphocytes (%) (Auto) 40.6 % Monocytes (%) (Auto) 5.6 % Eosinophils (%) (Auto) 2.2 % Basophils (%) (Auto) 0.3 % Neutrophils # (Auto) 3.74 K/uL (1.4-6.5) Lymphocytes # (Auto) 2.97 K/uL (1.2-3.4) Monocytes # (Auto) 0.41 K/uL (0.11-0.59) Eosinophils # (Auto) 0.16 K/uL (0-0.5) Basophils # (Auto) 0.02 K/uL (0-0.2) RDW Standard Deviation 44.2 fL (36.4-46.3) RDW Coefficient of Variation 13.1 % (11.5-14.5) Immature Granulocyte % (Auto) 0.1 % Immature Granulocyte # (Auto) 0.01 K/uL (0.00-0.02) Anion Gap 9.0 mmol/L (3-11) Est Creatinine Clear Calc Drug Dose 91.5 ml/min Estimated GFR () 80.8 Estimated GFR (Non- 69.8 BUN/Creatinine Ratio 14.3 (10-20) Calcium Level 9.0 mg/dl (8.5-10.1) Total Bilirubin 0.2 mg/dl (0.2-1) Direct Bilirubin < 0.1 mg/dl (0-0.2) Aspartate Amino Transf (AST/SGOT) 23 U/L (15-37) Alanine Aminotransferase (ALT/SGPT) 53 U/L (12-78) Alkaline Phosphatase 100 U/L (45-117) Total Protein 7.1 gm/dl (6.4-8.2) Albumin 3.9 gm/dl (3.4-5.0) Lipase 98 U/L (73-393) Urine Color YELLOW Urine Appearance CLEAR (CLEAR) Urine pH 5.5 (4.5-7.5) Urine Specific [place] 1.016 (1.000-1.030) Urine Protein NEG (NEG) Urine Glucose (UA) NEG (NEG) Urine Ketones NEG (NEG) Urine Occult Blood NEG (NEG) Urine Nitrite NEG (NEG) Urine Bilirubin NEG (NEG) Urine Urobilinogen NEG (NEG) Urine Leukocyte Esterase NEG (NEG) Urine WBC (Auto) 0 /hpf (0-5) Urine RBC (Auto) 10-30 /hpf (0-4) Urine Hyaline Casts (Auto) 0 /lpf (0-5) Urine Epithelial Cells (Auto) >30 /lpf (0-5) Urine Bacteria (Auto) NEG (NEG) Urine Test NEG (NEG) Laboratory results per my review. Medications Administered Medications (Trade) Dose Ordered Sig/Miranda Route Start Time Stop Time Status Last Admin Dose Admin Ketorolac Tromethamine (Toradol Inj) 30 mg NOW STAT IV 06/13/17 15:19 06/13/17 15:20 DC 06/13/17 15:34 30 MG Ondansetron HCl (Zofran Inj) 4 mg NOW STAT IV 06/13/17 15:19 06/13/17 15:20 DC 06/13/17 15:33 4 MG Morphine Sulfate (MoRPHine SULFATE INJ) 4 mg NOW STAT IV 06/13/17 15:19 06/13/17 15:20 DC 06/13/17 15:34 4 MG Morphine Sulfate (MoRPHine SULFATE INJ) 2 mg STK-MED ONCE .ROUTE 06/13/17 17:01 06/13/17 17:02 DC 06/13/17 17:08 2 MG ED Course ED COURSE: Vital signs were reviewed and showed hypertension. The patients medical record was reviewed The above diagnostic studies were performed and reviewed. ED treatments and interventions as stated above. 1511: The patient was evaluated in room C10. A complete history and physical examination was performed. 1519: Morphine Sulfate 4 mg IV, Zofran Inj 4 mg IV, Toradol Inj 30 mg IV. 1648: Upon reevaluation, the patient is resting comfortably. I discussed my findings with the patient and she understands and agrees with the treatment plan. Based on the patients age, coexisting illnesses, exam and lab findings the decision to treat as an outpatient was made. The patient remained stable while under my care. The patient appeared well at the time of discharge. Medical Decision Differential diagnosis: Etiologies such as fracture, dislocation, neurovascular compromise, compartment syndrome, soft tissue injury, as well as others were entertained. Patient is a 51-year-old female who presents to ER for pulling in her right groin. No recorded trauma. On exam she has acute reproducible tenderness within right groin tracking distally to her knee and then into the posterior right calf. No weakness on exam. Neurologically intact. No abdominal pain. No partial hernia. Duplex was negative. X-ray show no acute fractures. Patient is able to and bili. Patient was updated at bedside and discharged to follow-up with PCP following morphine, Toradol and Zofran. Discussed with Pt concerning signs and symptoms to watch out for. Pt was instructed to follow up with their PCP and discussed with the patient their option to return to the ED at anytime for persistent or worsening symptoms. The appropriate anticipatory guidance and out-patient management, including indications for return to the emergency department, were explained at length to the patient and understood. Medication Reconcilliation Current Medication List: was personally reviewed by me Blood Pressure Screening Patient's blood pressure: Elevated blood pressure Blood pressure disposition: Elevated BP felt to be situational Impression Primary Impression: Muscle strain Scribe Attestation The scribe's documentation has been prepared under my direction and personally reviewed by me in its entirety. I confirm that the note above accurately reflects all work, treatment, procedures, and medical decision making performed by me. Departure Information Dispostion Home / Self-Care Referrals No Doctor, Assigned Forms HOME CARE DOCUMENTATION FORM, IMPORTANT VISIT INFORMATION, WORK / SCHOOL INSTRUCTIONS Patient Instructions ED Strain Groin, My [facility] Additional Instructions Please follow up with your primary care doctor with in the next 24 hours. Any worsening of your symptoms, please return to the ED immediately. This includes any fevers greater than 100.4, worsening pain, chest pain, shortness breath, persistent nausea, vomiting, blood in your stool, unable to eat or drink, or any other concerning signs or symptoms from your standpoint.
== END 2017-06-13 16:56 | disposition home or self-care (01) ==
LOC: C.EDB 14:50 → C.EDC 16:56
DX: S86.911A Strain of unspecified muscle(s) and tendon(s) at lower leg level, right leg, initial encounter (principal); X58.XXXA Exposure to other specified factors, initial encounter; I10 Essential (primary) hypertension; E78.5 Hyperlipidemia, unspecified; K21.9 Gastro-esophageal reflux disease without esophagitis; F17.200 Nicotine dependence, unspecified, uncomplicated; Z79.899 Other long term (current) drug therapy; Z98.51 Tubal ligation status; Z98.890 Other specified postprocedural states; Z88.6 Allergy status to analgesic agent; Z80.9 Family history of malignant neoplasm, unspecified; Z83.3 Family history of diabetes mellitus; Z82.49 Family history of ischemic heart disease and other diseases of the circulatory system; Z84.1 Family history of disorders of kidney and ureter

== ENCOUNTER 2017-06-22 20:40 | Emergency (ER) | payer OTHER ==
[~2017-06-22] VITALS: Ht 157.5 cm; Wt 132.4 kg
[~2017-06-22 20:40] MED LIST changes: -CLON0.5T3 PO; -CYM/30 PO; +DSY/150 PO; +DULO60CA44 PO; +HYDR-3983 PO; -HYDR-5688 PO; +LISI1TAB3 PO; -LISI40TA PO; -OMEP20CA9 PO; +PRLSR20 PO; +SIMV20TA2 PO; -SIMV20TA5 PO; -TRAZ50TA35 PO
[2017-06-22 20:52] VITALS: TEMP 36.9; Ht 157.5 cm; Wt 132.4 kg
[2017-06-22] MEDS ORDERED: KETOROLAC TROMETHAMINE 60 MG/2 ML VIAL IM STA (21:49)
--- NOTE | 2017-06-22 22:21 | DIAGNOSTIC IMAGING REPORT ---
AP PELVIS AND RIGHT HIP 3 VIEWS CLINICAL HISTORY: right hip pain COMPARISON STUDY: 06/13/2017 FINDINGS: There are surgical clips within the pelvis. No acute fractures or visualized. There are no erosive or destructive changes. There are minimal degenerative changes. There is no SI joint diastases. Degenerative changes are present within the lower lumbar spine. IMPRESSION: Mild degenerative change. No acute fractures or subluxations. Electronically signed by: Myron Ventura M.D. 06/22/2017 10:20 PM Dictated Date/Time: 06/22/2017 10:19 PM
[2017-06-22] MEDS ORDERED: CALCTAB7 PO (22:31)
[2017-06-22] MEDS ORDERED: PRED20TA2 PO (22:59)
[2017-06-22 23:12] VITALS: BP 134/70; PULSE 77; O2SAT 98
--- NOTE | 2017-06-23 06:04 | EMERGENCY ROOM VISIT NOTE ---
History First contact with patient: 21:34 Chief Complaint: SWELLING TO EXTREMITY Stated Complaint: RT LEG SWELLING History of Present Illness The patient is a 51 year old female who presents to the Emergency Room with complaints of worsening pain in her right hip. The patient has been seen and evaluated with this complaint previously in the emergency department. She evidently has a long-standing history of mid and upper back pain and takes Vicodin on a regular basis. This is not significantly improved her symptoms. The patient indicates that she was here about 10 days ago where ultrasound and x -ray were normal. She states that she did have a fall about 8 days ago, and continues to have persistent pain. She has a walker at home but does not regularly use this. She does not have numbness or paresthesias. No fever or chills. She rates her discomfort 8/10 that worsens with walking. Review of Systems More than 10 systems were reviewed and otherwise negative with the exception of history of present illness. Past Medical/Surgical History Medical Problems: (1) Cervical stenosis of spinal canal (2) Dyslipidemia (3) GERD (gastroesophageal reflux disease) (4) HTN (hypertension) (5) Hypertension Nos (6) Leg pain (7) Lumbago (8) Lumbar radiculopathy (9) Lumbar radiculopathy (10) Right Achilles tendinitis (11) Tobacco Use Disorder Surgical Problems: (1) H/O tubal ligation (2) Status post bunionectomy Family History Cancer Diabetes mellitus FH: lung disease Heart disease Hypertension Kidney disease Kidney stones Social History Smoking Status: Current Every Day Smoker Alcohol Use: none Marital Status: Occupation Status: unemployed Current/Historical Medications Scheduled Amlodipine (Norvasc), 10 MG PO DAILY Bupropion (Wellbutrin Sr), 250 MG PO QAM Bupropion (Wellbutrin Sr), 100 MG PO QPM Calcium Carbonate-Vitamin D (Calcium + D), 1 TAB PO BID Calcium Carbonate-Vitamin D W/ (Caltrate 600 Plus), 1 TAB PO DAILY Cyclobenzaprine Hcl (Flexeril), 10 MG PO TID Duloxetine Hcl (Cymbalta), 60 MG PO DAILY Fluticasone Prop/Salmeterol (Advair Diskus 500/50 60 Dose), 1 PUFF INH BID Lisinopril (Zestril), 30 MG PO DAILY Omeprazole (Prilosec), 20 MG PO BID Prednisone (Prednisone Tab), 2 TAB PO DAILY Simvastatin (Zocor), 20 MG PO QPM Trazodone HCl (Trazodone HCl), 150 MG PO HS Scheduled PRN Albuterol Hfa (Ventolin Hfa), 2 PUFFS INH Q6H PRN for Shortness of Breath Hydrocodone/Acetaminophen 7.5MG/325MG ([place] 7.5MG/325MG), 1 TAB PO TID PRN for Pain Physical Exam Vital Signs Date Time Temp Pulse Resp B/P (MAP) Pulse Ox O2 Delivery O2 Flow Rate FiO2 06/22/17 23:12 77 16 134/70 98 06/22/17 20:52 36.9 92 20 167/81 98 Room Air Physical Exam VITALS: Vitals are noted on the nurse's note and reviewed by myself. Vital signs stable. GENERAL: Well-developed, well-nourished, obese white female, who is in no acute distress and resting comfortably. Patient is cooperative with the examination. HEART: Regular rate and rhythm without murmurs gallops or rubs. LUNGS: Clear to auscultation bilaterally without wheezes, rales or rhonchi. No retractions or accessory muscle use. MUSCULOSKELETAL: Mild tenderness appreciated throughout the right hip and proximal femur. The patient is able to internally and externally rotate. There is no shortening of either leg. No evidence of right knee or posterior calf tenderness. No significant lower lumbar spine tenderness. No saddle paresthesias. NEURO: Patient was alert and oriented to person place and time. CN II through XII grossly intact. Deep tendon reflexes 2+ throughout. Medical Decision & Procedures ER Provider Diagnostic Interpretation: AP PELVIS AND RIGHT HIP 3 VIEWS CLINICAL HISTORY: right hip pain COMPARISON STUDY: 06/13/2017 FINDINGS: There are surgical clips within the pelvis. No acute fractures or visualized. There are no erosive or destructive changes. There are minimal degenerative changes. There is no SI joint diastases. Degenerative changes are present within the lower lumbar spine. IMPRESSION: Mild degenerative change. No acute fractures or subluxations. Medications Administered Medications (Trade) Dose Ordered Sig/Miranda Route Start Time Stop Time Status Last Admin Dose Admin Ketorolac Tromethamine (Toradol Inj) 60 mg NOW STAT IM 06/22/17 21:49 06/22/17 21:50 DC 06/22/17 21:58 60 MG Prednisone (PredniSONE TAB) 40 mg NOW STAT PO 06/22/17 22:58 06/22/17 22:59 DC 06/22/17 23:11 40 MG ED Course Physical exam and history were performed. Nursing notes, EMR, and Medication List were personally reviewed. Patient appears to have right hip pain ongoing for the past several weeks. She has been seen and evaluated in this department previously with this complaint. She evidently has had a fall since her last ER visit. She was given 60 mg IM Toradol. Hip and pelvis x-rays were performed. The patient's x-rays do not show evidence of acute fracture. She does have some arthritis which appears similar to previous. The patient did have some mild improvement of symptoms after the Toradol. Overall the patient appears well for discharge home. She has a walker at home that she has not been using regularly. She was instructed to do this. The patient has Vicodin at home which she may also continue. The patient needs to follow with her primary care physician or orthopedist for further care and management. She was otherwise invited back to the ER with any new, worsening, or concerning symptoms. The chart was completed utilizing [employer] Speech Voice Recognition Software. Grammatical errors, random word insertions, pronoun errors, and incomplete sentences are an occasional consequence of this system due to software limitations, ambient noise, and hardware issues. Any formal questions or concerns about the content, text, or information contained within the body of this dictation should be directly addressed to the provider for clarification. . Medical Decision Differential diagnosis includes, but is not limited to: Sprain, strain, fracture , dislocation, subluxation, contusion, infection, sciatica, and others [place] Drug Monitoring Program Search Results: patient reviewed within database Medication Reconcilliation Current Medication List: was personally reviewed by or Blood Pressure Screening Patient's blood pressure: Normal blood pressure Impression Primary Impression: Right hip pain Departure Information Dispostion Home / Self-Care Condition GOOD Prescriptions Prednisone (Prednisone Tab) 20 Mg Tab 2 TAB PO DAILY for 4 Days, #8 TAB Prov: Kalyan Prater PA-C 06/22/17 Forms HOME CARE DOCUMENTATION FORM, IMPORTANT VISIT INFORMATION Patient Instructions My [facility] Additional Instructions You were seen and evaluated today on an emergency basis only. This is not a substitute for, or an effort to provide, complete comprehensive medical care. It is not possible to recognize and treat all injuries or illnesses in a single emergency department visit. For this reason it is recommended that you followup with your primary care physician this week for ongoing care and evaluation. Continue your Vicodin and Flexeril at home as previously prescribed. Take prednisone 40 mg daily for the next 4 days. You are welcome to return to the emergency department anytime with new, worsening, or concerning symptoms.
== END 2017-06-22 23:12 | disposition home or self-care (01) ==
LOC: C.EDB 20:42 → C.EDC 23:12
DX: M25.551 Pain in right hip (principal); E78.5 Hyperlipidemia, unspecified; N88.2 Stricture and stenosis of cervix uteri; K21.9 Gastro-esophageal reflux disease without esophagitis; I10 Essential (primary) hypertension; M54.16 Radiculopathy, lumbar region; Z83.3 Family history of diabetes mellitus; Z82.49 Family history of ischemic heart disease and other diseases of the circulatory system; F17.200 Nicotine dependence, unspecified, uncomplicated

== ENCOUNTER 2019-10-14 22:25 | Inpatient (IN) ==
[2019-10-14] MEDS ORDERED: OPTIRAY 320 125ml IV PRN (22:56)
--- NOTE | 2019-10-14 23:09 | CT Scan Report ---
CT SCAN OF THE BRAIN WITHOUT IV CONTRAST CLINICAL HISTORY: Strokelike symptoms. COMPARISON STUDY: No priors. TECHNIQUE: Unenhanced axial CT scan of the brain is performed from the vertex to the skull base. A d ose lowering technique was utilized adhering to the principles of ALARA. FINDINGS: Brain parenchyma: There is mild subcortical and periventricular microangiopathic disease. There is no hemorrhage, mass effect, or evidence of acute territorial ischemia by CT criteria. Pollard-white matter differentiation is preserved. No extra-axial fluid collection is seen. Ventricles, sulci, cisterns: Normal in configuration. Intracranial vasculature: There is atherosclerotic calcification of the cavernous carotid arteries. Calvarium: Unremarkable. Sinuses and mastoids: The visualized paranasal sinuses are clear. The mastoid air cells are well pneu matized. Orbits: The bony orbits are grossly intact. IMPRESSION: There is no hemorrhage, mass effect, or evidence of acute territorial ischemia by CT deana coker. ACT 112: Negative or not required by law. Electronically signed by: Dave Giraldo M.D. 10/14/2019 11:07 PM
--- NOTE | 2019-10-14 23:22 | CT Scan Report ---
CT ANGIOGRAM OF THE BRAIN; CT ANGIOGRAM OF THE NECK CLINICAL HISTORY: Slurred speech. Left-sided weakness. COMPARISON STUDY: Unenhanced CT of the brain performed concurrently on 10/14/2019. TECHNIQUE: Following the IV administration of 118 of Optiray 320, CT angiogram of the head and neck w as performed from the aortic arch to the vertex. Images are reviewed in the axial, sagittal, and galilea nal planes. 3-D MIPS images are created and assessed. IV contrast was administered without complicati on. All measurements were calculated based on NASCET criteria. A dose lowering technique was utilize d adhering to the principles of ALARA. CT DOSE: 1254.15 mGy.cm FINDINGS: Brain parenchyma: The brain parenchyma is normal in appearance. There is no hemorrhage, mass effect, or evidence of acute territorial ischemia by CT criteria. There is no evidence of enhancing mass lesi on on the angiogram phase images. The ventricles, sulci, and cisterns are normal in configuration. Gr ay-white matter differentiation is preserved. No extra-axial fluid collection is seen. Thoracic aorta: There is mild atherosclerotic calcification of the thoracic aorta. Visualized portion s of the thoracic aorta are normal in caliber. The aortic arch demonstrates bovine variant anatomy. Right carotid arterial system: The right common carotid artery is widely patent, as are the right int ernal and external carotid arteries. There is tortuosity of the distal right internal carotid artery. There is a 3 mm aneurysm of the distal internal carotid artery in the neck, best seen on image #[id number]. Left carotid arterial system: The left common carotid artery is widely patent, as are the left internal control consultant al and external carotid arteries. Minimal calcified plaque is noted in the carotid bulb. Vertebral arteries: The vertebral arteries are widely patent bilaterally and codominant. Subclavian arteries: Widely patent bilaterally. Intracranial vasculature: There is atherosclerotic calcification of the cavernous carotid arteries. T he internal carotid arteries are patent at the skull base, as are the anterior and middle cerebral ar teries bilaterally. The vertebrobasilar system and posterior cerebral arteries are widely patent. The vertebral arteries are codominant. There is no aneurysm, high-grade stenosis, or focal vessel cut of f seen throughout the intracranial circulation. Jugular veins: Patent bilaterally. Dural sinuses: Patent. Lung apices: Mild emphysematous change is noted. The visualized upper lobe lung parenchyma is otherwi se clear as imaged. Soft tissues: The visualized pharyngeal soft tissues are normal in appearance noting angiographic pha se technique. The oropharyngeal airway appears widely patent. The salivary and thyroid glands are nor mal in appearance. No cervical lymphadenopathy is seen. Skeletal structures: The calvarium appears intact. The cervical spine is maintained noting multilevel spondylosis with evidence of multilevel anterior fusion. No lytic or blastic lesion is seen. Sinuses and mastoids: There is trace mucosal thickening in the right maxillary antrum. The paranasal sinuses are otherwise clear. The mastoid air cells are well pneumatized. IMPRESSION: 1. There is no hemorrhage, mass effect, or evidence of acute territorial ischemia by CT criteria noti ng angiographic phase technique. 2. Unremarkable CT angiogram of the brain. 3. There is a 3 mm aneurysm arising from the distal cervical portion of the right internal carotid ar olinda. 4. Otherwise unremarkable CT angiogram of the neck. ACT 112: Negative or not required by law. Electronically signed by: Dave Giraldo M.D. 10/14/2019 11:21 PM
[2019-10-14 23:23] LABS: Basophils # (auto) 0.02 K/uL (0-0.2); Basophils % (auto) 0.3 %; Eosinophils % (auto) 1.3 %; Hematocrit (blood only) 37.1 % (37-47); Hemoglobin 12.8 g/dL (12.0-16.0); Immature Granulocytes # (auto) 0.01 K/uL (0.00-0.02); Immature Granulocytes % (auto) 0.1 %; Lymphocytes # (auto) 1.74 K/uL (1.2-3.4); Lymphocytes % (auto) 22.9 %; Mean Corpuscular Hemoglobin 31.8 pg (25-34); Mean Corpuscular Hgb Conc 34.5 g/dL (32-36); Mean Corpuscular Volume 92.3 fL (80-100); Mean Platelet Volume 10.1 fL (7.4-10.4); Monocytes # (auto) 0.34 K/uL (0.11-0.59); Monocytes % (auto) 4.5 %; Neutrophils # (auto) 5.38 K/uL (1.4-6.5); Neutrophils % (auto) 70.9 %; Platelet Count 254 K/uL (130-400); RDW Coefficient of Variation 13.1 % (11.5-14.5); RDW Standard Deviation 44.4 fL (36.4-46.3); Red Blood Count 4.02 M/uL (4.2-5.4); White Blood Count 7.59 K/uL (4.8-10.8)
[2019-10-14 23:38] LABS: Partial Thromboplastin Ratio 0.8; Partial Thromboplastin Time 21.9 Seconds (21.0-31.0); Prothrombin Time 10.4 Seconds (9.0-12.0)
[2019-10-14 23:45] LABS: Alanine Aminotransferase 39 U/L (12-78); Albumin Level 3.6 gm/dl (3.4-5.0); Aspartate Aminotransferase 15 U/L (15-37); BUN Creatinine Ratio 16.1 (10-20); Blood Urea Nitrogen 24 mg/dl (7-18); Calcium 9.2 mg/dl (8.5-10.1); Carbon Dioxide 21 mmol/L (21-32); Chloride 105 mmol/L (98-107); Creatinine Clr Calc Pharmacy 56.1 ml/min; Est GFR (African American) 46.8; Est GFR (Non-African American) 40.4; Glucose 196 mg/dl (70-99); Magnesium 1.5 mg/dl (1.8-2.4); Potassium 3.4 mmol/L (3.5-5.1); Sodium 135 mmol/L (136-145)
[2019-10-14] MEDS ORDERED: POTASSIUM CHLORIDE 10 MEQ TABCR PO STA (23:47)
[2019-10-14 23:50] LABS: Albumin Globulin Ratio 1.2 (0.9-2); Alkaline Phosphatase 73 U/L (45-117); Bilirubin,Total 0.2 mg/dl (0.2-1); Globulin 2.9 gm/dl (2.5-4.0); Total Protein 6.5 gm/dl (6.4-8.2); Troponin I < 0.015 ng/ml (0-0.045)
[2019-10-14] MEDS ORDERED: OXYCODONE HCL IR 5 MG TAB (IMMEDIATE RELEASE) PO STA (23:59)
[2019-10-15] MEDS: MAGNESIUM SULFATE / D5W 1 GM/100 ML BAG IV SCH ×2 (00:18→01:15)
--- NOTE | 2019-10-15 01:38 | History & Physical Report ---
Date of Service October 15, 2019 Assessment & Plan (1) Acute cerebrovascular accident (CVA): Rabia Nowak is a 53 year old female with past medical hx of HTN, HLD, Chronic hip pain, DM2, Anxiety, current smoker 40 pack year hx, GERD who presented to [facility] with Slurred Speech and left sided weakness/numbness. - Concerning for CVA given symptoms with left sided weakness/numbness and suspect Broca's asphasia. Asphasia is resolving but weakness and numbness persist. Possible Left MCA infarct vs. Lacunar infarct in setting of a patient with DM and HTN. 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 - Neuro checks ordered per protocol - Allergy to ASA, will continue with Plavix - MRI and TTE ordered - Lipid panel and Hgb A1C ordered - NPO, speech consult, dysphagia screen ordered - Neuro consulted - Imaging here unremarkable except for 3mm aneurysm arising from the distal cervical portion of the right internal carotid artery on Neck/Head CTA - Fall precautions and Aspiration precautions - Other stroke w/o TPA protocols ordered per order set Code: Full Code DVT ppx: SCDs FENGI: NPO, Type 2 DM diet once passes dysphagia screen Dispo: PCU/Tele, Full admit (2) Hypomagnesemia: 1.5 in ED Treated in ED with IV Mag 1gm Trend in AM (3) Acute hypokalemia: 3.4 in ED Treated in ED with KCl 40meq PO Trend in AM (4) Elevated serum creatinine: Unsure of previous baseline, appears ENZO Will give IV Fluids NSS at 125ml/hr (5) Aneurysm of right internal carotid artery: 3 mm aneurysm arising from the distal cervical portion of the right internal carotid artery on Neck/Head CTA (6) Tobacco abuse: Smoking cessation education while here 40 pack year history Notes she has been cutting down (7) DM2 (diabetes mellitus, type 2): Hold home meds, she is on Metformin 1000mg qHS and GLP-1 agonist SS Novolog ordered Type 2 DM diet once passes dysphagia screen Cannot recall last A1C, Hgb A1C ordered for AM (8) Chronic right hip pain: Did receive Roxicodone in ED Will hold narcotic Analgesics to ensure accurate neuro checks History of Present Illness Chief Complaint: Left sided weakness/numbness/slurred speech Primary Care Provider: Ubaldo Jeronimo Caveat: History Limited by - Patient is vague historian. Rabia Nowak is a 53 year old female with past medical hx of HTN, HLD, Chronic hip pain, DM2, Anxiety, current smoker 40 pack year hx, GERD who presented to [facility] with Slurred Speech. Family member noticed slurred speech at approx 8pm, but notes that son noticed patient was having slurred speech earlier in the day and it is not known exactly what time patient's symptoms started. She notes that she had syncopal episode on Wednesday about 4 days ago and hit her right side of head. She went to see her PCP who ordered a workup with TTE, US Doppler, MRI, started her on Plavix because she is allergic to ASA. She had workup studies scheduled to be completed in 10 days. She did start taking her Plavix yesterday and took it today. She does not recall when symptoms started today. Currently, family notes her slurred speech is resolved. But she notes left sided numbness on entire right side of body from face to toes. She did not receive TPA here in ED. She had unremarkable imaging with Head CT, Head/Neck CTA except for a 3 mm aneurysm arising from the distal cervical portion of the right internal carotid artery. She denies chest pain. She notes she has hx of shortness of breath and nausea/vomiting. Allergies Allergy/AdvReac Type Severity Reaction Status Date / Time aspirin Allergy Unknown HIVES Verified 06/11/19 23:12 Home Medications Home Medications Medication Instructions Recorded Confirmed Type amlodipine 10 mg PO DAILY 05/26/18 10/14/19 History duloxetine 60 mg PO DAILY 05/26/18 10/14/19 History lisinopril 30 mg PO DAILY 05/26/18 10/14/19 History omeprazole 20 mg PO BID 05/26/18 10/14/19 History cyclobenzaprine 10 mg PO TID PRN 06/11/19 10/14/19 History albuterol sulfate [Ventolin HFA] 2 puff INHALATION Q6H PRN 10/14/19 10/14/19 History amitriptyline 25 mg PO HS 10/14/19 10/14/19 History bupropion HCl 150 mg PO BID 10/14/19 10/14/19 History fluticasone propion-salmeterol 1 inh INHALATION BID 10/14/19 10/14/19 History [Advair Diskus] hydrocodone-acetaminophen 1 tab PO Q12H PRN 10/14/19 10/14/19 History hydroxyzine HCl 25 mg PO QID PRN 10/14/19 10/14/19 History nystatin 1 applic TOPICAL BID 10/14/19 10/14/19 History simvastatin 20 mg PO HS 10/14/19 10/14/19 History trazodone 50 mg PO HS 10/14/19 10/14/19 History triamcinolone acetonide 1 applic TOPICAL BID 10/14/19 10/14/19 History Past Med/Surg History Medical History Fall (Inactive) Injury of hip, right (Inactive) Lumbar radiculopathy (Chronic) Surgical History H/O tubal ligation (Resolved) Status post bunionectomy (Resolved) Family History Other Cancer Diabetes Heart disease Hypertension Social History Preferred Language: Chinese Communication Ability: Effective 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: No Beliefs That Will Affect Care: None Current Living Situation: Family Other Information That Helps Us Care for You: No Feels Safe at Home: Yes Safety Concerns: Feels Safe At This Time Smoking Status: Current some day smoker Tobacco Type: cigarettes ; Cigarettes Per Day: 1 ; Do You Dip or Chew Tobacco: No ; Second Hand Exposure: No ; Tobacco Cessation Education Requested by Patient: No Hx Alcohol Use: No Hx Substance Use: No Review of Systems Review of Systems: All systems reviewed & are unremarkable except as noted in HPI & below Constitutional: no fever and no chills Eyes: no diplopia and no worsening vision Ear, Nose, Mouth, Throat: no nasal congestion and no sore throat Respiratory: no cough and no chest congestion Cardiovascular: + syncope; no chest pain Gastrointestinal: as per Subjective / HPI; no abdominal pain Genitourinary: no dysuria and no difficulty urinating Neurologic: as per Subjective / HPI Physical Exam Constitutional: + morbidly obese, cooperative and comfortable; no acute distress Eyes: PERRL, conjunctivae normal, anicteric sclerae ENMT: external ear and nose normal, oropharynx normal Neck: normal visual inspection and trachea midline Respiratory: normal respiratory effort, lungs clear to auscultation Cardiovascular: Rate/Rhythm: regular rate and regular rhythm Gastrointestinal (Abdomen): Percussion/Palpation: abdomen soft; abdomen nontender, no guarding and abdomen not rigid Musculoskeletal: Head/Neck/Chest: normocephalic right parietal tenderness without palpable hematoma Skin: warm and dry Neurologic: moves all extremities and awake Cranial Nerves: EOM intact bilaterally and symmetric palate elevation; + not able to elevate shoulders (left sided weakness) 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 Weakness to flexion/extension of LUE; Weakness to plantar/dorsi flexion. Psychiatric: A+Ox3, euthymic affect Results & Data Vital Signs (Past 12 Hours) Vital Signs Temp Pulse Resp BP Pulse Ox 10/15/19 00:31 80 21 131/83 95 10/15/19 00:26 84 20 140/77 97 10/14/19 23:40 79 20 114/66 96 10/14/19 23:30 81 17 118/81 97 10/14/19 23:29 81 20 123/70 93 10/14/19 23:08 81 19 109/64 97 10/14/19 22:46 85 14 119/57 L 100 10/14/19 22:31 36.5 C 95 H 16 116/66 99 Code Status & VTE Plan Code Status Full Code VTE Prophylaxis Plan VTE Prophylaxis will be ordered: Yes Supervising Physician Co-Signing Physician Notes Patient was seen and examined by me personally. I reviewed the chart, the orders and discussed the case in detail with Dr. Omer Antonio DO . I read this H&P and agree with its contents to entirety. Resident Activity Tracking Resident Involvement: Resident Care Provided Care Provided: Adult Hospital Medicine
--- NOTE | 2019-10-15 02:33 | Emergency Department Note ---
Entered by Braden Gomez acting as a scribe for History of Present Illness General Chief complaint: Stroke/CVA Symptoms Stated complaint: DIFFICULTY SPEAKING, WALKING, LIGHTHEADED Time Seen by Provider: 10/14/19 22:50 Source: patient and family History of Present Illness Onset (ago): hour(s) (sx noticed at 2100 (2 hours ago); last known well 1999 (3 hours ago)) Location: upper extremity, lower extremity and left Pain Consistency: + constant Maximum Pain Intensity: 9 Quality: + other (weakness and numbness) Associated symptoms: + other (slurred speech) The patient is a 53 y/o female who presents to the ED w/ CC of constant left sided weakness and numbness to her upper and lower extremities beginning at 2100 this evening. The patient's states she lost consciousness four days ago and fell. He notes he fell from standing height and his roman saw her hit her head. He states there was no bump to her head though. The states she described it as "everything went black" He reports she was evaluated by her PCP today and was supposed to have several tests conducted including a CT. The notes he last heard her speak normally three hours ago at 1999. He states he did not hear her speak again until 2099 when she was looking over her paperwork from today. The patient reports at this time she felt her speech slurring as well, and she developed a headache at this time. She notes she can understand what is being said, but she is having trouble expressing herself. The patient states she cannot feel anything on her left side, and she cannot lift her left arm or leg very well. The reports he had to help the patient walk to the ED, and she normally walks with a walker. He notes she did not have weakness or slurring her words this morning. The states the patient has been taking 81mg of aspirin and was just started on Plavix today for an unknown reason. He reports she is not on anything stronger than Plavix. The denies a history of a stroke and a history of bleeding. Home Medications Home Medications Medication Instructions Recorded Confirmed Type amlodipine 10 mg PO DAILY 05/26/18 10/14/19 History duloxetine 60 mg PO DAILY 05/26/18 10/14/19 History lisinopril 30 mg PO DAILY 05/26/18 10/14/19 History omeprazole 20 mg PO BID 05/26/18 10/14/19 History cyclobenzaprine 10 mg PO TID PRN 06/11/19 10/14/19 History albuterol sulfate [Ventolin HFA] 2 puff INHALATION Q6H PRN 10/14/19 10/14/19 History amitriptyline 25 mg PO HS 10/14/19 10/14/19 History bupropion HCl 150 mg PO BID 10/14/19 10/14/19 History fluticasone propion-salmeterol 1 inh INHALATION BID 10/14/19 10/14/19 History [Advair Diskus] hydrocodone-acetaminophen 1 tab PO Q12H PRN 10/14/19 10/14/19 History hydroxyzine HCl 25 mg PO QID PRN 10/14/19 10/14/19 History nystatin 1 applic TOPICAL BID 10/14/19 10/14/19 History simvastatin 20 mg PO HS 10/14/19 10/14/19 History trazodone 50 mg PO HS 10/14/19 10/14/19 History triamcinolone acetonide 1 applic TOPICAL BID 10/14/19 10/14/19 History Allergies Allergy/AdvReac Type Severity Reaction Status Date / Time aspirin Allergy Unknown HIVES Verified 06/11/19 23:12 Past Med/Surg History Medical History Fall (Inactive) Injury of hip, right (Inactive) Lumbar radiculopathy (Chronic) Surgical History H/O tubal ligation (Resolved) Status post bunionectomy (Resolved) Family History Other Cancer Diabetes Heart disease Hypertension Social History Preferred Language: Bruneian Feels Safe at Home: Yes Smoking Status: Former smoker Review of Systems See HPI for pertinent positives & negatives. and A total of 10 systems reviewed and were otherwise negative Physical Exam Vital Signs Vital Signs - 24 hr 10/14/19 22:31 10/14/19 22:46 10/14/19 23:08 Temperature 36.5 C Temperature Source Oral Pulse Rate 95 H 85 81 Pulse Rate from SpO2 Sensor 85 81 Respiratory Rate 16 14 19 Respiratory Effort / Characteristics Non-Labored Spontaneous Respiratory Depth Normal Respiratory Pattern Regular Blood Pressure 116/66 119/57 L 109/64 Blood Pressure Mean 82 74 75 Blood Pressure Position Sitting Pulse Oximetry 99 100 97 Oxygen Delivery Method Room Air Room Air Room Air Sepsis Recent Fever Within 48 Hours No Sepsis Action Taken by Nursing No Action Required 10/14/19 23:29 10/14/19 23:30 10/14/19 23:40 Temperature Temperature Source Pulse Rate 81 81 79 Pulse Rate from SpO2 Sensor 74 81 79 Respiratory Rate 20 17 20 Respiratory Effort / Characteristics Respiratory Depth Respiratory Pattern Blood Pressure 123/70 118/81 114/66 Blood Pressure Mean 78 100 77 Blood Pressure Position Pulse Oximetry 93 97 96 Oxygen Delivery Method Room Air Room Air Room Air Sepsis Recent Fever Within 48 Hours Sepsis Action Taken by Nursing 10/15/19 00:26 10/15/19 00:31 10/15/19 01:00 Temperature Temperature Source Pulse Rate 84 80 78 Pulse Rate from SpO2 Sensor 85 81 78 Respiratory Rate 20 21 21 Respiratory Effort / Characteristics Respiratory Depth Respiratory Pattern Blood Pressure 140/77 131/83 134/74 Blood Pressure Mean 95 98 105 Blood Pressure Position Pulse Oximetry 97 95 95 Oxygen Delivery Method Sepsis Recent Fever Within 48 Hours Sepsis Action Taken by Nursing 10/15/19 01:30 Temperature Temperature Source Pulse Rate 74 Pulse Rate from SpO2 Sensor 75 Respiratory Rate 17 Respiratory Effort / Characteristics Respiratory Depth Respiratory Pattern Blood Pressure 118/76 Blood Pressure Mean 96 Blood Pressure Position Pulse Oximetry 94 Oxygen Delivery Method Sepsis Recent Fever Within 48 Hours Sepsis Action Taken by Nursing Constitutional: Vital signs reviewed. Eyes: Pupils are equal round reactive to light. Conjunctiva are noninjected. ENT: Pharynx is clear without erythema or exudate. Mucous membranes are moist. N fawad supple without meningeal signs. Respiratory: Clear to auscultation bilaterally. Breath sounds are equal bilaterally. Cardiovascular: Regular rate and rhythm. No rubs or gallops. GI: Soft, nondistended and nontender. Bowel sounds are present. Musculoskeletal: No peripheral edema. No lower extremity tenderness. Integumentary: No cyanosis. Neurological: The patient is awake and alert. Cranial nerves II-XII are intact. Motor is 5 out of 5 to the right upper and lower extremities. Sensation is i ntact to light touch to the right extremities. Left sided pronator drift. No limb ataxia. Diminished sensation with neglect of the entire left side of the body. 3/5 strength in the left upper and left lower extremities. Slurred speech with some difficulty finding words and naming objects. Psychiatric: Normal affect. Course Course 2246: Past medical records reviewed. The patient was evaluated in room B01. A complete history and physical exam was performed. 2257: I discussed the patient's case with Lois Banerjee Tele-Stroke Neurology. She states the patient sounds like a tPA candidate. She will evaluate the patient via the Stroke Cart. 2301: I discussed the patients case with her and the risks and benefits of tPA administration. 2307: Dr. Miranda is evaluating the patient at this time. 2331: The patient was examined by Dr. Miranda. 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 Using shared decision making between the neurologist, myself, the patient, and the patient's , tPA was not administered. 2348: I reviewed the patient's case with Dr. Painting, [facility] Hospitalist. He will evaluate the patient for further management. 2355: I updated the patient of the treatment plan and of her symptoms. Her aphasia has improved. She is complaining of chronic back and hip pain. She is requesting oxycodone. Administered Medications Ioversol (Optiray 320 125ml) 118 ml IV ONCE PRN PRN Reason: Interaction Checking Stop: 10/18/19 22:55 Last Admin: 10/14/19 22:56 Dose: 118 ml Documented by: [id number] Discontinued Medications Magnesium Sulfate/Dextrose (Magnesium Sulfate / D5w) 1 gm in 100 mls @ 100 mls/hr IV Q1H [facility] Stop: 10/15/19 01:44 Last Infusion: 10/15/19 02:23 Dose: 0 mls/hr Documented by: [id number] Admin: 10/15/19 01:15 Dose: 100 mls/hr Documented by: [id number] Infusion: 10/15/19 01:15 Dose: 100 mls/hr Documented by: [id number] Admin: 10/15/19 00:18 Dose: 100 mls/hr Documented by: [id number] Oxycodone HCl (Roxicodone Immediate Rel) 5 mg PO NOW STA Stop: 10/15/19 00:00 Last Admin: 10/15/19 00:17 Dose: 5 mg Documented by: [id number] Potassium Chloride (Klor-Con M10) 40 meq PO NOW STA Stop: 10/14/19 23:48 Last Admin: 10/15/19 00:17 Dose: 40 meq Documented by: [id number] Critical Care Time Critical Care Time: Yes Total Critical Care Time: 40 I have personally spent 40 minutes of critical care time in the direct managem ent of this patient. This includes bedside care, interpretation of diagnostic studies, and testing, discussion with consultants, patient, and family members, and other required patient management activities. This 40 minutes is in excess of all separately billable procedures. Medical Decision Making Differential Diagnosis Differential diagnosis includes: CVA, atypical migraine, ICH, intracranial mass, metabolic derangement Medical Records Attestation: I reviewed the patient's medical records. I did perform a limited focused review of portions of the patient's old chart on the electronic medical record. The patient has had no recent pertinent visits to this hospital. Home Medications Current Medication List: was personally reviewed by me Laboratory Data Attestation: I reviewed the patient's lab results. Result diagrams: 10/14/19 23:13 10/14/19 23:13 Lab Results 10/14/19 10/14/19 10/14/19 Range/Units 23:13 23:13 23:13 WBC 7.59 (4.8-10.8) K/uL RBC 4.02 L (4.2-5.4) M/uL Hgb 12.8 (12.0-16.0) g/dL Hct 37.1 (37-47) % MCV 92.3 (80-100) fL MCH 31.8 (25-34) pg MCHC 34.5 (32-36) g/dL RDW Std Deviation 44.4 (36.4-46.3) fL RDW Coeff of Elizabeth 13.1 (11.5-14.5) % Plt Count 254 (130-400) K/uL MPV 10.1 (7.4-10.4) fL Immature Gran % (Auto) 0.1 % Neut % (Auto) 70.9 % Lymph % (Auto) 22.9 % Blair % (Auto) 4.5 % Eos % (Auto) 1.3 % Baso % (Auto) 0.3 % Immature Gran # (Auto) 0.01 (0.00-0.02) K/uL Neut # (Auto) 5.38 (1.4-6.5) K/uL Lymph # (Auto) 1.74 (1.2-3.4) K/uL Blair # (Auto) 0.34 (0.11-0.59) K/uL Eos # (Auto) 0.10 (0-0.5) K/uL Baso # (Auto) 0.02 (0-0.2) K/uL PT 10.4 (9.0-12.0) Seconds POC INR (0.9-1.1) INR 1.0 (0.9-1.1) APTT 21.9 (21.0-31.0) Seconds PTT Ratio 0.8 Sodium 135 L (136-145) mmol/L Potassium 3.4 L (3.5-5.1) mmol/L Chloride 105 (98-107) mmol/L Carbon Dioxide 21 (21-32) mmol/L Anion Gap 9.0 (3-11) BUN 24 H (7-18) mg/dl Creatinine 1.46 H (0.6-1.2) mg/dl Est Cr Clr Drug Dosing 56.1 ml/min Est GFR ( Amer) 46.8 Est GFR (Non-Af Amer) 40.4 BUN/Creatinine Ratio 16.1 (10-20) Glucose 196 H (70-99) mg/dl Calcium 9.2 (8.5-10.1) mg/dl Magnesium 1.5 L (1.8-2.4) mg/dl Total Bilirubin 0.2 (0.2-1) mg/dl AST 15 (15-37) U/L ALT 39 (12-78) U/L Alkaline Phosphatase 73 (45-117) U/L Troponin I < 0.015 (0-0.045) ng/ml Total Protein 6.5 (6.4-8.2) gm/dl Albumin 3.6 (3.4-5.0) gm/dl Globulin 2.9 (2.5-4.0) gm/dl Albumin/Globulin Ratio 1.2 (0.9-2) Blood Type Antibody Screen 10/14/19 10/14/19 Range/Units 23:13 23:22 WBC (4.8-10.8) K/uL RBC (4.2-5.4) M/uL Hgb (12.0-16.0) g/dL Hct (37-47) % MCV (80-100) fL MCH (25-34) pg MCHC (32-36) g/dL RDW Std Deviation (36.4-46.3) fL RDW Coeff of Elizabeth (11.5-14.5) % Plt Count (130-400) K/uL MPV (7.4-10.4) fL Immature Gran % (Auto) % Neut % (Auto) % Lymph % (Auto) % Blair % (Auto) % Eos % (Auto) % Baso % (Auto) % Immature Gran # (Auto) (0.00-0.02) K/uL Neut # (Auto) (1.4-6.5) K/uL Lymph # (Auto) (1.2-3.4) K/uL Blair # (Auto) (0.11-0.59) K/uL Eos # (Auto) (0-0.5) K/uL Baso # (Auto) (0-0.2) K/uL PT (9.0-12.0) Seconds POC INR 0.9 (0.9-1.1) INR (0.9-1.1) APTT (21.0-31.0) Seconds PTT Ratio Sodium (136-145) mmol/L Potassium (3.5-5.1) mmol/L Chloride (98-107) mmol/L Carbon Dioxide (21-32) mmol/L Anion Gap (3-11) BUN (7-18) mg/dl Creatinine (0.6-1.2) mg/dl Est Cr Clr Drug Dosing ml/min Est GFR ( Amer) Est GFR (Non-Af Amer) BUN/Creatinine Ratio (10-20) Glucose (70-99) mg/dl Calcium (8.5-10.1) mg/dl Magnesium (1.8-2.4) mg/dl Total Bilirubin (0.2-1) mg/dl AST (15-37) U/L ALT (12-78) U/L Alkaline Phosphatase (45-117) U/L Troponin I (0-0.045) ng/ml Total Protein (6.4-8.2) gm/dl Albumin (3.4-5.0) gm/dl Globulin (2.5-4.0) gm/dl Albumin/Globulin Ratio (0.9-2) Blood Type O Positive Antibody Screen NEGATIVE Imaging Data Radiologist's Impression: Radiology results as stated below per my review and the radiologist's interpretation: CT SCAN OF THE BRAIN WITHOUT IV CONTRAST CLINICAL HISTORY: Strokelike symptoms. COMPARISON STUDY: No priors. TECHNIQUE: Unenhanced axial CT scan of the brain is performed from the vertex to the skull base. A dose lowering technique was utilized adhering to the principles of ALARA. FINDINGS: Brain parenchyma: There is mild subcortical and periventricular microangiopathic disease. There is no hemorrhage, mass effect, or evidence of acute territorial ischemia by CT criteria. Pollard-white matter differentiation is preserved. No extra-axial fluid collection is seen. Ventricles, sulci, cisterns: Normal in configuration. Intracranial vasculature: There is atherosclerotic calcification of the mal nous carotid arteries. Calvarium: Unremarkable. Sinuses and mastoids: The visualized paranasal sinuses are clear. The mastoid air cells are well pneumatized. Orbits: The bony orbits are grossly intact. IMPRESSION: There is no hemorrhage, mass effect, or evidence of acute territorial ischemia by CT criteria. ACT 112: Negative or not required by law. Electronically signed by: Dave Giraldo M.D. 10/14/2019 11:[address] ANGIOGRAM OF THE BRAIN; CT ANGIOGRAM OF THE NECK CLINICAL HISTORY: Slurred speech. Left-sided weakness. COMPARISON STUDY: Unenhanced CT of the brain performed concurrently on 10/14/2019. TECHNIQUE: Following the IV administration of 118 of Optiray 320, CT angiogram of the head and neck was performed from the aortic arch to the vertex. Images are reviewed in the axial, sagittal, and coronal planes. 3-D MIPS images are created and assessed. IV contrast was administered without complication. All measurements were calculated based on NASCET criteria. A dose lowering technique was utilized adhering to the principles of ALARA. CT DOSE: 1254.15 mGy.cm FINDINGS: Brain parenchyma: The brain parenchyma is normal in appearance. There is no hemorrhage, mass effect, or evidence of acute territorial ischemia by CT criteria. There is no evidence of enhancing mass lesion on the angiogram phase images. The ventricles, sulci, and cisterns are normal in configuration. Pollard- white matter differentiation is preserved. No extra-axial fluid collection is seen. Thoracic aorta: There is mild atherosclerotic calcification of the thoracic aorta. Visualized portions of the thoracic aorta are normal in caliber. The aortic arch demonstrates bovine variant anatomy. Right carotid arterial system: The right common carotid artery is widely patent, as are the right internal and external carotid arteries. There is tortuosity of the distal right internal carotid artery. There is a 3 mm aneurysm of the distal internal carotid artery in the neck, best seen on image #278. Left carotid arterial system: The left common carotid artery is widely patent, as are the left internal and external carotid arteries. Minimal calcified plaque is noted in the carotid bulb. Vertebral arteries: The vertebral arteries are widely patent bilaterally and codominant. Subclavian arteries: Widely patent bilaterally. Intracranial vasculature: There is atherosclerotic calcification of the cavernous carotid arteries. The internal carotid arteries are patent at the skull base, as are the anterior and middle cerebral arteries bilaterally. The vertebrobasilar system and posterior cerebral arteries are widely patent. The vertebral arteries are codominant. There is no aneurysm, high-grade stenosis, or focal vessel cut off seen throughout the intracranial circulation. Jugular veins: Patent bilaterally. Dural sinuses: Patent. Lung apices: Mild emphysematous change is noted. The visualized upper lobe lung parenchyma is otherwise clear as imaged. Soft tissues: The visualized pharyngeal soft tissues are normal in appearance noting angiographic phase technique. The oropharyngeal airway appears widely patent. The salivary and thyroid glands are normal in appearance. No cervical lymphadenopathy is seen. Skeletal structures: The calvarium appears intact. The cervical spine is maintained noting multilevel spondylosis with evidence of multilevel anterior fusion. No lytic or blastic lesion is seen. Sinuses and mastoids: There is trace mucosal thickening in the right maxillary antrum. The paranasal sinuses are otherwise clear. The mastoid air cells are well pneumatized. IMPRESSION: 1. There is no hemorrhage, mass effect, or evidence of acute territorial ischemia by CT criteria noting angiographic phase technique. 2. Unremarkable CT angiogram of the brain. 3. There is a 3 mm aneurysm arising from the distal cervical portion of the ri ght internal carotid artery. 4. Otherwise unremarkable CT angiogram of the neck. ACT 112: Negative or not required by law. Electronically signed by: Dave Giraldo M.D. 10/14/2019 11:21 PM ECG Data Attestation: I personally reviewed and interpreted this ECG as follows: Indication: + other (stroke symptoms) Rate (beats per minute): 82 Rhythm: + normal sinus ECG Intervals/blocks: + Prolonged QT ECG ST segments: + Nonspecific ST abnormalities (and nonspecific T wave abnormalities in the anterioseptal leads.); no ST elevation ECG Findings: no PVCs Blood Pressure Blood Pressure Findings: Normal blood pressure Blood Pressure Disposition: did not require urgent referral Head Trauma GCS Score: 14 MDM Narrative A stroke alert for this patient was called by the triage nurse. I did immediately evaluate the patient as noted above. She is having strokelike symptoms which started at 9 PM. She has left-sided neglect and weakness with dysarthria and expressive aphasia I did call the pharmacy and had them mix IV TPA in anticipation of giving it. I did speak to the neurologist from [place] after initial evaluation. IV access was established. The patient was placed on a continuous contracts officer. I did order a stat CT of the head and CT angiogram of the head and neck. I did review the images myself as well as the radiology report as described above. There is no acute intracranial abnormality. CT angiogram was concerning for a 3 mm aneurysm of the right internal carotid artery. I did order and personally review the patient's 12- lead EKG as described above. She has no acute ischemia. I did order a urine analysis. I did order and review the patient's blood work as noted in the electronic medical record. Lab work is remarkable for some mild electrolyte abnormalities. She had low magnesium and potassium. I did treat her with IV magnesium as well as oral potassium. The patient was evaluated by Dr. Mendez of neurology from [facility]. After discussion with the patient and her it was decided that IV TPA would not be indicated at this time based on analysis of risks and benefits as well as the aneurysm in her right carotid artery. I did discuss the case with the hospitalist and behavioral health case manager. When I reassessed the patient her symptoms seem to be improving. Her speech seemed significantly improved and she is able to move her left arm much better than she was earlier. She is on Plavix but she was not given aspirin as she gets hives when she takes aspirin. Impression & Plan Acute cerebrovascular accident (CVA), Hypomagnesemia, Acute hypokalemia, Elevated serum creatinine, Aneurysm of right internal carotid artery, Acute headache, Syncope, Acute head injury Discharge Plan Visit Data Chief Complaint: Stroke/CVA Symptoms Stated Complaint: DIFFICULTY SPEAKING, WALKING, LIGHTHEADED ED Provider: Bunny Ovalles Discharge Problem: Acute cerebrovascular accident (CVA), Hypomagnesemia, Acute hypokalemia, Elevated serum creatinine, Aneurysm of right internal carotid artery, Acute he adache, Syncope, Acute head injury Patient Disposition: Being Evaluated by Hospitalist Discharge Problem: Acute headache Qualifiers: Headache type: unspecified Intractability: not intractable Qualified Code(s): R51 - Headache Syncope Qualifiers: Syncope type: unspecified Qualified Code(s): R55 - Syncope and collapse Acute head injury Qualifiers: Encounter type: initial encounter Qualified Code(s): S09.90XA - Unspecified injury of head, initial encounter The scribe's documentation has been prepared under my direction and personally reviewed by me in its entirety. I confirm that the note above accurately reflects all work, treatment, procedures, and medical decision making performed by me.
[2019-10-15] MEDS ORDERED: GLUCOSE 10 TABS/TUBE PO PRN (02:56)
[2019-10-15] MEDS ORDERED: CARBOHYDRATES FOR HYPOGLYCEMIA PO PRN (02:56)
[2019-10-15] MEDS ORDERED: DC ALL PREVIOUSLY ORDERED DIABETES MEDS ONE (02:56)
[2019-10-15] MEDS ORDERED: ALBUTEROL HFA 8 GM INHALER INH PRN (02:56)
[2019-10-15] MEDS ORDERED: CYCLOBENZAPRINE HCL 10 MG TAB PO PRN (02:56)
[2019-10-15] MEDS ORDERED: MAGNESIUM HYDROXIDE SUSP 30 ML UDC PO PRN (02:56)
[2019-10-15] MEDS ORDERED: ONDANSETRON INJ 2 MG/ML 2 ML VIAL IV PRN (02:56)
[2019-10-15] MEDS ORDERED: GLUCAGON FOR INJ 1 MG VIAL SQ PRN (02:56)
[2019-10-15] MEDS ORDERED: POLYETHYLENE (MIRALAX) 17 GM PACK PO PRN (02:56)
[2019-10-15] MEDS ORDERED: PHARMACIST DISCHARGE MED REC CONSULT PRN (02:56)
[2019-10-15] MEDS ORDERED: GLUCOSE 40% GEL 15 GM TUBE PO PRN (02:56)
[2019-10-15] MEDS ORDERED: NITROGLYCERIN SL 0.4 MG/TAB TAB SL PRN (02:56)
[2019-10-15] MEDS ORDERED: DEXTROSE 50% 50 ML SYRINGE IV PRN (02:56)
[2019-10-15] MEDS ORDERED: ACETAMINOPHEN 325 MG TAB PO PRN (02:56)
[2019-10-15] MEDS ORDERED: ALUMINUM/MAGNESIUM SUSP 30 ML UDC PO PRN (02:56)
[2019-10-15] MEDS: SODIUM CHLORIDE 0.9% 1000ML 1,000 ML IV SCH ×3 (04:07→22:23)
[2019-10-15] MEDS: INSULIN ASPART 100 UNITS/ML 3 ML PEN SC SCH ×5 (04:33→20:16)
[2019-10-15 05:15] LABS: Chol HDL Ratio 4; Cholesterol 174 mg/dl (0-200); HDL Cholesterol 45 mg/dl; LDL Cholesterol Calculated 80 mg/dl; Triglycerides 246 mg/dl (0-150); VLDL Cholesterol 49 mg/dl
--- NOTE | 2019-10-15 06:04 | Billing Data ---
Date of Service October 15, 2019 Coding Level of Care Code 98940 Initial Inpt Care Lvl 3
--- NOTE | 2019-10-15 08:40 | Neurology Consultation ---
Date of Consultation October 15, 2019 Assessment & Plan (1) Transient neurological symptoms: Rabia Nowak is a 53 yo woman w/ PMH of anxiety/depression, HTN, HLD, COPD, tobacco abuse, DM, h/o migraines, chronic pain syndrome/fibromyalgia with prior misuse of controlled medications, morbid obesity, and cervical/lumbar spinal stenosis who p/t [facility] with acute onset of L-sided numbness/weakness in LUE/LLE. # Transient LUE/LLE numbness a/w weakness, dysarthria and word finding difficulty: interestingly, aphasia localizes to a lesion in the left hemisphere usually, whereas L-sided weakness/numbness would localize to a lesion on the right hemisphere (with the one exception of thalamic aphasia). Given the associated headache with symptoms, cannot rule out migraine variant. Presentation a little suspicious for functional neurological disorder given that symptoms improved after she asked for and received oxycodone (and they did not localize well to a single lesion). If MRI brain confirms old lacunar strokes in bilateral centrum semiovale region, could represent recrudescence. If no acute infarct, would have PT evaluate for home services and ok to discharge from a neurological standpoint. Suspect that she may have had an event yesterday, however current symptoms are predominantly functional (except for headache). Symptom localization: L-sided weakness/numbness localizes to right hemisphere, aphasia/language difficulties localize to right hemisphere Stroke mechanism: n/a WorkUp: - CT head: no hemorrhage, small hypodensities in bilateral centrum semiovale (L>R) and mild to moderate SVID. - CTA head/neck: no LVO or high grade stenosis, tortuosity of bilateral ICAs, no clear aneurysm of either distal cervical ICA, dominant left vertebral artery - MRI brain: pending - TTE: pending - Telemetry: pending - A1c: pending - FLP: 80 - UDS: pending - Troponin, TSH: negative, pending - UA: pending Management: - Continuous cardiac monitoring, will consider Holter monitor as outpatient if telemetry here unrevealing - Vitals, Neurochecks, NIHSS per unit routine - BP parameters: SBP CAP 220, hold home anti-hypertensives for permissive HTN, IV Labetalol/Hydralazine PRN - Obtain MRI brain to evaluate for any acute stroke (CTH appears to show small, chronic lacunar infarcts) - Complete ischemic stroke workup with TTE without bubble, TSH, UDS - Consult speech, PT, OT for supportive management - Will baby counselor concerning stroke education, smoking cessation, healthy diet, physical activity, weight loss - Follow up with PCP for assistance with outpatient goals (BP <135/85, LDL <70, A1c <7) - Follow up in neurology clinic in 6-8 weeks Secondary Stroke Prevention: - Antiplatelet: plavix 75mg daily - Anticoagulation: Not indicated at this time - Statin: change to atorvastatin 40mg daily HTN: - BP parameters, as above - Hold home BP meds (lisinopril, amlodipine) for now in favor of permissive HTN, ok to restart home medications after 8pm on 10/15/19 with goal of lowering BP to normotension over next 3-4 days FEN/GI: - Diet: NPO until cleared by Speech evaluation - Monitor lytes and replete PRN Glucose Control: - Sliding scale insulin and accuchecks per primary team to avoid hyperglycemia Thank you for this interesting consult. Plan of care was discussed with primary team. Please call with any questions. (2) Migraine: (3) Tobacco abuse: (4) DM2 (diabetes mellitus, type 2): (5) Elevated serum creatinine: History of Present Illness Attending Physician: Aries Dickerson History of Present Illness Rabia Nowak is a 53 yo woman w/ PMH of anxiety/depression, HTN, HLD, COPD, tobacco abuse, DM, h/o migraines, chronic pain syndrome/fibromyalgia with prior misuse of controlled medications, morbid obesity, and cervical/lumbar spinal stenosis who p/t [facility] with acute onset of L-sided numbness/weakness in LUE/LLE. [employer] ~8pm on 10/14/19. Was evaluated earlier that day by PCP for syncopal event that occurred several days prior with plan to obtain an outpatient stroke workup. In the evening, she noticed dysarthria followed by headache, followed by word finding difficulty and LUE/LLE numbness. At baseline, she used a walker to ambulate. She is on aspirin 81mg daily and was started on plavix on 10/14/19. In the ED, BP 116/66, HR 95, afebrile, RR 16, satting 99% on room air. Labs notable for WBC 7.59, Hb 12.8, Plts 254, Na 135, K 3.4, BUN 24, Cr 1.46, glucose 196, INR 1.0, troponin negative, LFTs WNL, Mg low at 1.5. Independent review of CTH shows no hemorrhage, hypodensities in bilateral centrum semiovale (L>R) and mild to moderate SVID. CTA H&N shows no LVO or high grade stenosis, tortuosity of bilateral ICAs, no clear aneurysm of either distal cervical ICA, dominant left vertebral artery. She was not given tPA given concern for possible aneurysm and rapidly improving symptoms. She was admitted to the ICU for further management. MRI brain and A1c pending, LDL 80. On examination today, she reports that symptoms initially started a few days ago when she felt unwell and had a syncopal event. Endorses hitting her head during the event. Saw her PCP on for this, who ordered several tests in cluding an MRI brain that was scheduled for 10/25/19. She reports that she was feeling unwell again yesterday and had a severe, stabbing headache in the right frontal region a/w nausea, dizziness (like she was going to pass out) and unsteady gait. She later developed slurred speech, word finding difficulty and numbness/weakness in the left face/arm/leg. Unclear [employer] as found her around 8pm but pt reports that symptoms started earlier than that. She also endorses feeling "out of it" like brain fog. She does not take aspirin at home and was only recently started on plavix (2 days prior to presentation). She reports smoking 1-2 cigarettes per day. Did recently stop lexapro but denies any other medication changes. Denies fever, chills, URI symptoms. ROS+ for right hip pain (asking about a hip replacement), mild right sided headache (rates it 5/10), and being hungry. Allergies Allergy/AdvReac Type Severity Reaction Status Date / Time aspirin Allergy Unknown HIVES Verified 06/11/19 23:12 Home Medications Home Medications Medication Instructions Recorded Confirmed Type amlodipine 10 mg PO DAILY 05/26/18 10/14/19 History duloxetine 60 mg PO DAILY 05/26/18 10/14/19 History lisinopril 30 mg PO DAILY 05/26/18 10/14/19 History omeprazole 20 mg PO BID 05/26/18 10/14/19 History cyclobenzaprine 10 mg PO TID PRN 06/11/19 10/14/19 History albuterol sulfate [Ventolin HFA] 2 puff INHALATION Q6H PRN 10/14/19 10/14/19 History amitriptyline 25 mg PO HS 10/14/19 10/14/19 History bupropion HCl 150 mg PO BID 10/14/19 10/14/19 History fluticasone propion-salmeterol 1 inh INHALATION BID 10/14/19 10/14/19 History [Advair Diskus] hydrocodone-acetaminophen 1 tab PO Q12H PRN 10/14/19 10/14/19 History hydroxyzine HCl 25 mg PO QID PRN 10/14/19 10/14/19 History nystatin 1 applic TOPICAL BID 10/14/19 10/14/19 History simvastatin 20 mg PO HS 10/14/19 10/14/19 History trazodone 50 mg PO HS 10/14/19 10/14/19 History triamcinolone acetonide 1 applic TOPICAL BID 10/14/19 10/14/19 History Patient History Medical History Fall (Inactive) Injury of hip, right (Inactive) Lumbar radiculopathy (Chronic) Surgical History H/O tubal ligation (Resolved) Status post bunionectomy (Resolved) Family History Other Cancer Diabetes Heart disease Hypertension Social History Preferred Language: Peruvian Communication Ability: Effective Beaming Inspector Required: No Beliefs That Will Affect Care: None Current Living Situation: Family Other Information That Helps Us Care for You: No Feels Safe at Home: Yes Safety Concerns: Feels Safe At This Time Smoking Status: Current some day smoker Tobacco Type: cigarettes ; Cigarettes Per Day: 1 ; Do You Dip or Chew Tobacco: No ; Second Hand Exposure: No ; Tobacco Cessation Education Requested by Patient: No Hx Alcohol Use: No Hx Substance Use: No Review of Systems Review of Systems: 14 point review of systems completed and negative except as in HPI. Physical Exam Physical Exam: General Exam: GEN: NAD, sitting down in examination bed. CV: RRR on monitor, no significant peripheral edema. PULM: Nonlabored respirations on room air. Neuro Exam: MS: Awake and Alert. Oriented to person, place, and date. Speech fluent and appropriate without dysarthria or paraphasic errors. Language intact including naming, comprehension, repetition. Cognition and memory grossly intact. Attention intact. No neglect. CN: Visual hidalgo full. No extinction to double simultaneous stimuli. Normal fundoscopic exam. PERRLA OU. EOMI without nystagmus. Reports decreased facial sensation in the left V1/V2/V3, however, has splitting vibration (eg functional loss). Facial muscles full and symmetric. Hearing intact to conversation. Uvula midline with symmetric palatal elevation. Shoulder shrug normal. Tongue midline. MOTOR: Normal bulk and tone. Functional pronator drift in the LUE (drifts but does not pronate). RUE strength 5/5 at deltoids, biceps, triceps, wrist flexors and extensors, and hand grasp. LUE strength 5/5 at deltoids, biceps, triceps, wrist flexors and extensors, and hand grasp with giveaway weakness. BLE strength 5/5 at iliopsoas, hamstrings, quadriceps, tibialis anterior, and gastrocnemius bilaterally with giveaway weakness noted in the left iliopsoas/hamstrings/TA and positive jean-paul sign. REFLEXES: 1+ at biceps, triceps, brachioradialis, trace patella, and absent Achilles bilaterally. Flexor plantar responses bilaterally. SENSORY: Intact to LT throughout, no clear extinction to double simultaneous stimuli. Reports diminished sensation in left face/arm/leg to vibration, temperature and light tough (however does have splitting vibration in forehead and reports normal sensation in left hand distally) COORDINATION: No dysmetria or ataxia on [id number] bilaterally. Normal Mark bilaterally. GAIT: Deferred due to physical status. NIH STROKE SCALE 1A. Level of Consciousness (0-3) = 0 1B. LOC Questions (0-2) = 0 1C. LOC Commands (0-2) = 0 2. Best Horizontal Gaze (0-2) = 0 3. Visual Hidalgo (0-3) = 0 4. Facial Palsy (0-3) = 0 5. Motor Arm Right (0-4) = 0 Left (0-4) = 0 6. Motor Leg Right (0-4) = 0 Left (0-4) = 0 7. Limb Ataxia (0-2) = 0 8. Sensory (0-2) = 1 (though functional) 9. Best Language (0-3) = 0 10. Dysarthria (0-2) = 0 11. Extinction and Inattention (0-2) = 0 NIHSS TOTAL = 1 Results & Data Vital Signs (Past 12 Hours) Vital Signs Temp Pulse Pulse Resp BP BP Pulse Ox 10/15/19 03:30 36.4 C L 65 18 126/51 L 10/15/19 01:30 74 17 118/76 94 10/15/19 01:00 78 21 134/74 95 10/15/19 00:31 80 21 131/83 95 10/15/19 00:26 84 20 140/77 97 10/14/19 23:40 79 20 114/66 96 10/14/19 23:30 81 17 118/81 97 10/14/19 23:29 81 20 123/70 93 10/14/19 23:08 81 19 109/64 97 10/14/19 22:46 85 14 119/57 L 100 10/14/19 22:31 36.5 C 95 H 16 116/66 99 PG Care Time/CCT Total # of Minutes Spent Total Time Spent with Patient: Total time spent is greater than 50% in coordination of care (as documented) at patient's floor/unit and/or counseling patient: Coding Level of Care Code 76624 Inpt Consult Level 5 Diagnoses Transient neurological symptoms R29.818 Migraine G43.909 Tobacco abuse Z72.0 DM2 (diabetes mellitus, type 2) E11.9 Elevated serum creatinine R79.89
[2019-10-15] MEDS: PANTOprazole 40 MG TAB PO SCH ×2 (08:47→20:13)
[2019-10-15] MEDS: CLOPIDOGREL BISULFATE 75 MG TAB PO SCH (08:47)
[2019-10-15] MEDS: BuPROPion SR 150 MG TABCR PO SCH ×2 (08:47→20:13)
[2019-10-15] MEDS ORDERED: DULOXETINE HCL 60 MG CAP PO SCH (09:00)
--- NOTE | 2019-10-15 11:11 | XCELERA ---
[id number] [email or web address]\[email or web address]\[id number]
[2019-10-15] MEDS: FLUTICASONE/VILANTEROL 100/25MCG 14 PUFFS/INHALER INH SCH (12:38)
[2019-10-15] MEDS ORDERED: Nursing to Pharmacy Communication ONE (14:20)
[2019-10-15] MEDS ORDERED: OXYCODONE HCL IR 5 MG TAB (IMMEDIATE RELEASE) PO PRN ×2 (14:29)
--- NOTE | 2019-10-15 15:19 | Magnetic Resonance Report ---
MRI OF THE BRAIN COMBO CLINICAL HISTORY: Left-sided weakness and numbness. COMPARISON STUDY: CT of the brain dated 10/14/2019. TECHNIQUE: MRI of the brain was performed utilizing various T1 and T2-weighted sequences in the axial , sagittal, and coronal planes. Contrast-enhanced sequences were acquired following the administratio n of 12 cc of Gadavist. The examination is modestly degraded by motion artifact. FINDINGS: Brain parenchyma: There is mild/moderate and age advanced subcortical and periventricular microangiop athic disease. There is no hemorrhage or mass effect. There is no restricted diffusion to suggest acu te ischemia. No enhancing mass lesion is identified on the postcontrast images. Pollard-white matter dif ferentiation is preserved. No extra-axial fluid collection is seen. The cerebellar tonsils are normal in configuration. Ventricles, sulci, and cisterns: Normal in configuration. Pituitary and sella: Unremarkable. Intracranial vasculature: Normal flow voids are maintained at the skull base. Orbits: The bony orbits are grossly intact. Orbital contents are normal in appearance. Sinuses and mastoids: Clear. Calvarium: Unremarkable. Cervical cord: Partially visualized cervical spinal cord is normal in morphology and signal intensity . IMPRESSION: No acute intracranial abnormality. ACT 112: Negative or not required by law. Electronically signed by: Dave Giraldo M.D. 10/15/2019 3:12 PM
[2019-10-15] MEDS ORDERED: SIMVASTATIN 20 MG TAB PO SCH (21:00)
[2019-10-15] MEDS ORDERED: AMITRIPTYLINE HCL 25 MG TAB PO SCH (21:00)
--- NOTE | 2019-10-15 21:57 | Electrocardiogram Report ---
Test Reason : Blood Pressure : / mmHG Vent. Rate : 082 BPM Atrial Rate : 082 BPM P-R Int : 142 ms QRS Dur : 076 ms QT Int : 462 ms P-R-T Axes : 051 030 050 degrees QTc Int : 539 ms Normal sinus rhythm Nonspecific ST and T wave abnormality Prolonged QT Abnormal ECG When compared with ECG of 16-FEB-2017 11:48, T wave inversion more evident in Anterior leads QT has lengthened Confirmed by Ti Ritter ([id number]) on 10/15/2019 9:57:02 PM Referred By: REFERRED SELF Confirmed By:Ti Ritter
[2019-10-16 05:50] LABS: Basophils # (auto) 0.03 K/uL (0-0.2); Basophils % (auto) 0.4 %; Eosinophils # (auto) 0.25 K/uL (0-0.5); Eosinophils % (auto) 3.5 %; Hematocrit (blood only) 37.2 % (37-47); Hemoglobin 12.6 g/dL (12.0-16.0); Immature Granulocytes # (auto) 0.01 K/uL (0.00-0.02); Immature Granulocytes % (auto) 0.1 %; Lymphocytes # (auto) 2.96 K/uL (1.2-3.4); Lymphocytes % (auto) 41.2 %; Mean Corpuscular Hemoglobin 31.3 pg (25-34); Mean Corpuscular Hgb Conc 33.9 g/dL (32-36); Mean Corpuscular Volume 92.3 fL (80-100); Monocytes # (auto) 0.49 K/uL (0.11-0.59); Monocytes % (auto) 6.8 %; Neutrophils # (auto) 3.44 K/uL (1.4-6.5); Platelet Count 273 K/uL (130-400); RDW Standard Deviation 43.8 fL (36.4-46.3); Red Blood Count 4.03 M/uL (4.2-5.4); White Blood Count 7.18 K/uL (4.8-10.8)
[2019-10-16 06:28] LABS: Albumin Globulin Ratio 1.1 (0.9-2); Albumin Level 3.4 gm/dl (3.4-5.0); Bilirubin,Total 0.4 mg/dl (0.2-1); Calcium 8.9 mg/dl (8.5-10.1); Creatinine Clr Calc Pharmacy 85.7 ml/min; Est GFR (African American) 78.7; Est GFR (Non-African American) 67.9; Magnesium 1.9 mg/dl (1.8-2.4); Phosphorus 3.4 mg/dl (2.5-4.9); Potassium 4.3 mmol/L (3.5-5.1); Total Protein 6.4 gm/dl (6.4-8.2)
[2019-10-16 06:42] LABS: Estimated Average Glucose 108 mg/dl; Hemoglobin A1C 5.4 % (4.5-5.6)
--- NOTE | 2019-10-16 07:38 | Communication Note ---
Date of Service: October 15, 2019 Discussed with Neurologist who states that her exam does not appear to be of TIA or stroke origin. This appears to be functional. It is difficult to convince patient's that this is functional until all of the workup is completed. MRI is still pending. Patient though was able to move her two leg to move the food tray towards her when she was seated. However, she had weakness to extend her knee on examination. Her dorsiflex, plantar flex, eversion and inversion of ankle/foot were inconsistent during my examination. Awaiting MRI results.
[2019-10-16] MEDS: INSULIN ASPART 100 UNITS/ML 3 ML PEN SC SCH (07:59)
[2019-10-16] MEDS: BuPROPion SR 150 MG TABCR PO SCH (08:00)
[2019-10-16] MEDS: PANTOprazole 40 MG TAB PO SCH (08:00)
[2019-10-16] MEDS: CLOPIDOGREL BISULFATE 75 MG TAB PO SCH (08:00)
[2019-10-16] MEDS: FLUTICASONE/VILANTEROL 100/25MCG 14 PUFFS/INHALER INH SCH (08:00)
[2019-10-16] MEDS ORDERED: ESCITALOPRAM OXALATE 20 MG TAB PO SCH (09:00)
--- NOTE | 2019-10-16 09:37 | Discharge Summary ---
Date of Service October 16, 2019 Admission HPI Per Admitting Provider Caveat: History Limited by - Patient is vague historian. Rabia Nowak is a 53 year old female with past medical hx of HTN, HLD, Chronic hip pain, DM2, Anxiety, current smoker 40 pack year hx, GERD who presented to [facility] with Slurred Speech. Family member noticed slurred speech at approx 8pm, but notes that son noticed patient was having slurred speech earlier in the day and it is not known exactly what time patient's symptoms started. She notes that she had syncopal episode on Wednesday about 4 days ago and hit her right side of head. She went to see her PCP who ordered a workup with TTE, US Doppler, MRI, started her on Plavix because she is allergic to ASA. She had workup studies scheduled to be completed in 10 days. She did start taking her Plavix yesterday and took it today. She does not recall when symptoms started today. Currently, family notes her slurred speech is resolved. But she notes left sided numbness on entire right side of body from face to toes. She did not receive TPA here in ED. She had unremarkable imaging with Head CT, Head/Neck CTA except for a 3 mm aneurysm arising from the distal cervical portion of the right internal carotid artery. She denies chest pain. She notes she has hx of shortness of breath and nausea/vomiting. Principal Diagnosis Acute neurological symptoms, either TIA vs migraine variant Discharge Exam Constitutional WD/WN, vitals as above Eyes PERRL, conjunctivae normal, anicteric sclerae ENMT external ear and nose normal, oropharynx normal Neck trachea midline, no thyromegaly Respiratory normal respiratory effort, lungs clear to auscultation Cardiovascular RRR, no murmur, no edema Gastrointestinal (Abdomen) normal bowel sounds, soft, nontender, no hepatosplenomegaly Musculoskeletal no cyanosis or clubbing, extremities motor strength 5/5 Skin no rashes, warm and dry Neurologic patellar DTR's 2+ bilat, sensation intact and PERRL, EOMI, accommodation nl, no face palsy, no dysarthria Psychiatric A+Ox3, euthymic affect Lymphatic no cervical or axillary lymphadenopathy Discharge Data Allergies Allergy/AdvReac Type Severity Reaction Status Date / Time aspirin Allergy Unknown HIVES Verified 06/11/19 23:12 Consultations 10/14/19 23:47 ED Decision to Admit Stat 10/15/19 02:56 Consult Case Management - Discharge Planning Routine Consult Neurology Routine Ordered Studies 10/14/19 22:51 CT angio head w con Stat CT angio neck with con Stat CT head/brain wo con Stat 10/15/19 02:56 MR brain wo/w con Routine Hospital Course (1) Transient neurological symptoms: MRI brain without evidence of acute ischemic stroke symptoms completely resolved either represents a small TIA or migraine variant stroke work up performed, no evidence of carotid stenosis no afib on monitor normal echocardiogram Hb A1c at goal of 5.4%, diet controlled will treat with Plavix 75mg daily, Lipitor 40mg daily blood pressure control instructed to follow up with PCP in one week, neurology clinic in a month (2) Hypomagnesemia: resolved with replacement (3) Acute hypokalemia: resolved with replacement (4) Elevated serum creatinine: Cr at baseline at the time of discharge (5) 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 will need followed periodically (6) Tobacco abuse: patient quit smoking using Chantix she denies any active smoking again, discussed importance of no tobacco use as it raises risk of stroke (7) DM2 (diabetes mellitus, type 2): diet controlled HbA1c 5.4% (8) Chronic right hip pain: Total Time Total Time Spent Total Time Spent (In Minutes): 32 minutes Total Time Includes: Examination of the Patient, Discharge Planning, Medication Reconciliation and Communication With Other Providers Discharge Plan Discharge Items Patient Disposition: Home - Self-Care Reason For Visit: CVA Discharge Diagnosis: TIA Possible migraine variant Condition on Discharge: Good Goals: continue blood pressure control continue cholesterol control with Lipitor improve strength and mobility Activity: Resume your previous activity Non-emergency contact: Primary Care Provider Call non-emergency contact if: you have any medication questions and your symptoms worsen Follow-up/Referrals: Ubaldo Jeronimo PA-C [Primary Care Provider] - Diet: Carb Consistent or DM2 and Heart Healthy Addtl Attending Provider Instructions: Medications: - CLOPIDOGREL: 75mg daily for antiplatelet therapy, to prevent further TIA or stroke - ATORVASTATIN: 40mg daily, this replaces simvastatin, better prevention of future stroke or heart attack - PANTOPRAZOLE: replaces omeprazole because of interaction with clopidogrel Acute neurological deficits, either TIA or migraine variant MRI brain with no acute findings of stroke no severe carotid stenosis on imaging no atrial fibrillation on monitor HbA1c is at goal of 5.4% blood pressure is at goal recommendations from neurology for secondary stroke prevention continue Plavix 75mg daily change to atorvastatin 40mg daily continue lisinopril and amlodipine for blood pressure control continue low carb diet to control diabetes continue to abstain from cigarettes FOLLOW UP - call for appt with PCP in one week - follow up with neurology clinic in one month, [phone] Risk Factors for Stroke: You can reduce your chances of stroke by working with your medical provider to adopt a healthy lifestyle. Some specific ways to lower your chance of stroke are: * If you are a smoker, now is the time to stop smoking cigarettes * If you are diabetic, improve the control of your blood sugars * Avoid excessive amounts of alcohol * Control high blood pressure * Lose weight if you are overweight * Be sure to lead an active lifestyle * Eat a healthy diet low in salt, cholesterol and fat You should know about other risk factors for stroke that you are unable to control. These include: * Age 55 years or older * Male gender * Certain racial groups: , or / * Family History of Stroke, Mini stroke or Heart Attack * Sickle Cell Disease Follow Up: It is important for you to keep your follow up appointments with your medical provider. Who to Call and When: Medical Emergencies: Call 911 immediately if you experience any of the following warning signs and symptoms of Stroke: * Sudden numbness or weakness of the face, arm or leg, especially on one side of the body * Sudden confusion, trouble speaking or understanding * Sudden trouble seeing in one or both eyes * Sudden trouble walking, dizziness, loss of balance or coordination * Sudden severe headache with no cause Do not delay calling 911 if you experience any warning signs or symptoms of a stroke. Delay in seeking medical attention may affect what treatments can be given to you. . Pending Studies at Discharge: No Stand-Alone Forms: [facility], Smoking Cessation Medications and DC Order Prescriptions: New atorvastatin 40 mg tablet 40 mg PO DAILY 30 Days Qty: 30 RF: 3 clopidogrel 75 mg tablet 75 mg PO DAILY 30 Days Qty: 30 RF: 3 pantoprazole 40 mg Tablet,Delayed Release (Dr/Ec) 40 mg PO DAILY 30 Days Qty: 30 RF: 0 escitalopram oxalate 20 mg Tablet 20 mg PO QAM 30 Days Qty: 30 RF: 0 Continued hydrocodone-acetaminophen 7.5-325 mg Tablet 1 tab PO Q12H PRN (Reason: Pain) RF: 0 trazodone 50 mg Tablet 50 mg PO HS RF: 0 triamcinolone acetonide 0.1 % Cream 1 applic TOPICAL BID RF: 0 hydroxyzine HCl 25 mg Tablet 25 mg PO QID PRN (Reason: pruritis) RF: 0 albuterol sulfate [Ventolin HFA] 90 mcg/actuation Hfa Aerosol Inhaler 2 puff INHALATION Q6H PRN (Reason: sob/wheezing) RF: 0 fluticasone propion-salmeterol [Advair Diskus] 500-50 mcg/dose Blister With Device 1 inh INHALATION BID RF: 0 nystatin 100,000 unit/gram Cream 1 applic TOPICAL BID RF: 0 lisinopril 30 mg Tablet 30 mg PO DAILY RF: 0 amlodipine 10 mg Tablet 10 mg PO DAILY RF: 0 cyclobenzaprine 10 mg Tablet 10 mg PO TID PRN (Reason: muscle spasms) RF: 0 Discontinued amitriptyline 25 mg Tablet 25 mg PO HS RF: 0 bupropion HCl 150 mg Tablet Sustained-Release 12 Hr 150 mg PO BID RF: 0 simvastatin 20 mg Tablet 20 mg PO HS RF: 0 omeprazole 20 mg Capsule,Delayed Release(Dr/Ec) 20 mg PO BID RF: 0 duloxetine 60 mg Capsule,Delayed Release(Dr/Ec) 60 mg PO DAILY RF: 0 Discharge Orders: Discharge Order (Routine); Ordered 10/16/19 Ordered By: Jonh Hollis Admission Data Admit Date/Time: 10/15/19 01:22 Attending Provider: Jonh Hollis Admit Provider: Omer Antonio Primary Care Provider: Ubaldo Jeronimo Other Providers: Maciej Painting ; Ivette Reyes Other Interventions: Discharge Summary Assessment (RN) Last Done: 10/16/19 09:44 DC Date/Time DO NOT enter until pt leaves facility: 10/16/19 11:45 Coding Level of Care Code D/C Day Management >30 mins Diagnoses Transient neurological symptoms R29.818 Hypomagnesemia E83.42 Acute hypokalemia E87.6 Elevated serum creatinine R79.89 Aneurysm of right internal carotid artery I67.1 Tobacco abuse Z72.0 DM2 (diabetes mellitus, type 2) E11.9 Chronic right hip pain M25.551; G89.29
[2019-10-16] MEDS ORDERED: STROKE PATIENT DISCHARGE STA (09:43)
--- NOTE | 2019-10-16 09:43 | Neurology Progress Note ---
Date of Service October 16, 2019 Assessment & Plan (1) Transient neurological symptoms: Resolved left-sided weakness, etiology not entirely clear although patient may have had a TIA. Reported functional overlay to initial symptomatology confounds interpretation of symptoms to some extent. Nonetheless, patient does have evidence of chronic cerebrovascular disease on her neuroimaging and has a history of cardiovascular risk factors including type 2 diabetes mellitus, and tobacco use. To what extent her reported recent concussion contributed to her symptomatology is not entirely clear. She does appear to be back at her baseline at this point in time. Her MRI was negative for acute or subacute infarct. She does not endorse any postconcussive symptoms at this time. Patient should continue with clopidogrel 75 mg/day. This patient's recent hemoglobin A1c of 5.4 suggest that her diabetes is either well controlled or borderline, it looks like she is on metformin at home according to the admission history. Smoking cessation will need to be stressed in this patient. She should continue with simvastatin, consider increasing dosage to 40 mg/day. Patient's blood pressure does appear to be adequately controlled. No further immediate neurological recommendations. Patient may follow-up with Dr. Tanner in neurology clinic in 6 to 8 weeks. (2) Aneurysm of right internal carotid artery: Incidentally discovered 3 mm aneurysm arising from the distal cervical portion of the right internal carotid artery. Continued monitoring of this patient's blood pressure in the outpatient setting will be important. An aneurysm of the small size would not require surgical intervention. A follow-up CT angiogram of the head and neck in 6 to 12 months would be reasonable. Consider nonurgent outpatient neurosurgical referral as well. Subjective Follow-up for strokelike symptoms The patient is a 53-year-old female who had presented to the [facility] with acute left-sided weakness, slurred speech, and word finding difficulty. She had reported a syncopal episode about 4 days prior to her presentation to the emergency department likely complicated by concussion. Past medical history further complicated by anxiety, depression, migraines, chronic pain/fibromyalgia, prior misuse of controlled medications and some functional overlay with her symptoms including improvement in apparent neurologic deficits with administration of narcotic analgesics. The patient has completed the requested follow-up brain MRI. The study was done yesterday. I reviewed the images as well as the radiologist interpretation of this test. There is no evidence of acute or subacute infarct. There is mild to moderate subcortical and periventricular microangiopathic disease. The previously completed CT angiography of the head and neck revealed an incidental 3 mm aneurysm arising from the distal cervical portion of the right internal carotid artery and is otherwise unremarkable. An echocardiogram completed yesterday reveals a normal ejection fraction, 55 to 60%, no regional wall motion abnormalities. No atrial septal defect, PFO not completely excluded. Patient does have some cardiovascu lar risk factors including type 2 diabetes mellitus and tobacco use. She is taking several antihypertensives and a statin as an outpatient. She was recently started on clopidogrel. Currently, the patient indicates that she is feeling much improved. No headache, weakness, dysarthria, or speech changes reported at this time. I observed the patient ambulating in the hallway with a walker and with physical therapy this morning. Review of Systems Constitutional: no fever and no chills Neurologic: as per Subjective / HPI; no localized weakness, no loss of sensation, no headache(s), no confusion and no memory loss Physical Exam Physical Exam: The patient is a well-developed, well-nourished elderly female. She is alert and fully oriented. Recent and remote memory intact. Attention and concentration normal. Patient exhibits a normal spontaneous speech pattern. She is able to name objects and repeat phrases. Patient exhibits an age- appropriate fund of knowledge and normal comprehension of vocabulary. Visual lobato full to confrontation. Visual acuity normal. Pupils equal round reactive to light and accommodation. Eye movements normal. There is no facial droop or weakness. Hearing intact. Palate elevates to midline. Shoulder shrug intact. Tongue protrudes to midline. Sensation intact all modalities in all 4 limbs. Deep tendon reflexes intact and symmetrical for the arms and legs bilaterally. There is no dysdiadochokinesia or dysmetria [id number] or [id number] bilaterally. Gait and station normal. Patient exhibits normal muscle strength and tone for all 4 limbs. No atrophy. No abnormal movements observed. Results & Data Vital Signs (Past 12 Hours) Vital Signs Temp Pulse Pulse Resp BP BP Pulse Ox 10/16/19 07:05 36.5 C 76 20 121/71 96 10/16/19 03:18 36.9 C 59 L 18 119/60 95 10/16/19 00:11 65 10/15/19 23:18 37.0 C 65 18 124/50 L 91 PG Care Time/CCT Total # of Minutes Spent Total Time Spent with Patient: Total time spent is greater than 50% in coordi nation of care (as documented) at patient's floor/unit and/or counseling patient: Coding Level of Care Code 72174 Subseq Hosp Care Lvl 2 Diagnoses Transient neurological symptoms R29.818 Aneurysm of right internal carotid artery I67.1
--- NOTE | 2019-10-16 10:27 | Pharmacy Report ---
Pharmacist Stroke Counseling - Date of Service October 16, 2019 - Scope: Pharmacy has been consulted to provide medication discharge counseling for this patient admitted with [ischemic stroke] [hemorrhagic stroke] [transient ischemic attack] as per the Pharmacist Discharge Counseling for Stroke Patients Prot ocol. - Medications on Discharge: Home Medications Medication Instructions Recorded Confirmed amlodipine 10 mg PO DAILY 05/26/18 10/14/19 lisinopril 30 mg PO DAILY 05/26/18 10/14/19 cyclobenzaprine 10 mg PO TID PRN 06/11/19 10/14/19 albuterol sulfate [Ventolin HFA] 2 puff INHALATION Q6H PRN 10/14/19 10/14/19 fluticasone propion-salmeterol 1 inh INHALATION BID 10/14/19 10/14/19 [Advair Diskus] hydrocodone-acetaminophen 1 tab PO Q12H PRN 10/14/19 10/14/19 hydroxyzine HCl 25 mg PO QID PRN 10/14/19 10/14/19 nystatin 1 applic TOPICAL BID 10/14/19 10/14/19 trazodone 50 mg PO HS 10/14/19 10/14/19 triamcinolone acetonide 1 applic TOPICAL BID 10/14/19 10/14/19 New Rx's Medication Instructions Recorded atorvastatin 40 mg PO DAILY 30 Days #30 tab 10/16/19 clopidogrel 75 mg PO DAILY 30 Days #30 tab 10/16/19 escitalopram oxalate 20 mg PO QAM 30 Days #30 tab 10/16/19 - ON PRIOR TO ADMISSION pantoprazole 40 mg PO DAILY 30 Days #30 tab 10/16/19 - Action: The above medications, specifically ones for stroke treatment/prophylaxis, have been reviewed in detail with the patient and/or patient brand representative(s) prior to discharge. This includes indication, common adverse reactions, drug interactions, and medication administration. Medication counseling has been employed using the teach-back method to ensure understanding. - Outcome: The patient and/or patient brand representative(s) have demonstrated understanding of the medications. Please note, they are aware that the pharmacist will call them within 72 hours post-discharge to confirm that the appropriate medications are being taken and answer any further medication related questions the patient might have at that time. Contact information Individual to be contacted: patient Relationship to patient (if applicable): n/a Phone number: [phone] Best time to call: any Additional comments: Contacted provider and changing omeprazole to pantoprazole due to drug interaction with plavix. Patient aware that protonix replaces omeprazole and that atorvastatin replaces simvastatin. Talked about organizing pill bottles at home. When reviewing medication list on discharge patient states she is no longer on amitriptyline, duloxetine, or buproprion. States duloxetine got replaced with lexapro 20 mg daily - did notify discharging provider to these changes so discharge papers up to date. Neuro recommending plavix and smoking ce ssation on discharge. Of note, patient with allergy to aspirin. Patient aware that we will call her post discharge to follow up. Thank you for allowing pharmacy to be involved in the care of this patient. Please call [phone] or [phone] with any additional questions
--- NOTE | 2019-10-18 14:49 | Pharmacy Report ---
Pharmacist Post D/C Phone Note - Phone Note: Date of phone call: October 18, 2019. Individual with whom pharmacist spoke to: SHREE TEJEDA The following questions were reviewed during the phone call with responses listed below each: Can you tell me the medications that you are currently taking as well as when and how you take each medication? -See Table Below When have you missed any doses of your medications? - no What side effects are you having from your medications, specifically, the new medications you were started on? - none What questions do you have about your medications? - none What problems are you having obtaining your medications? - atorvastatin is costing her more than simvastatin - she is paying out of pocket so told her to try and check around with different pharmacies When is your next appointment with your primary care doctor? - 10/26 Additional comments: - Patient friendly to talk with today. Was able to review all of her medications with her on discharge and did update medication to reflect all of the medications she is currently taking. Told her to take an updated medication list with her to her PCP's visit. Patient agreed. Has replaced her simvastatin with atorvastatin and than replaced her omeprazole with protonix. Patient feeling better - no concerns/questions. As per the Pharmacist Discharge Counseling for Stroke Patients Protocol, this phone call has been completed within 72 hours of discharge. Thank you for allowing us to be involved in the care of this patient. - Home Medications: Home Medications Medication Instructions Recorded Confirmed amlodipine 10 mg PO DAILY 05/26/18 10/14/19 cyclobenzaprine 10 mg PO TID PRN 06/11/19 10/14/19 albuterol sulfate [Ventolin HFA] 2 puff INHALATION Q6H PRN 10/14/19 10/14/19 fluticasone propion-salmeterol 1 inh INHALATION BID 10/14/19 10/14/19 [Advair Diskus] hydrocodone-acetaminophen 1 tab PO Q12H PRN 10/14/19 10/14/19 hydroxyzine HCl 25 mg PO QID PRN 10/14/19 10/14/19 nystatin 1 applic TOPICAL BID 10/14/19 10/14/19 trazodone 150 mg PO HS 10/14/19 10/18/19 triamcinolone acetonide 1 applic TOPICAL BID 10/14/19 10/14/19 cholecalciferol (vitamin D3) 50,000 unit PO WK 10/18/19 10/18/19 gabapentin 600 mg PO TID 10/18/19 10/18/19 lisinopril-hydrochlorothiazide 1 tab PO DAILY 10/18/19 10/18/19 metformin 1,000 mg PO DAILY 10/18/19 10/18/19 semaglutide [Ozempic] 0.5 mg SUBCUT WK 10/18/19 10/18/19 sucralfate [Carafate] 1 g PO QID 10/18/19 10/18/19 topiramate 50 mg PO BID 10/18/19 10/18/19 New Rx's Medication Instructions Recorded atorvastatin 40 mg PO DAILY 30 Days #30 tab 10/16/19 clopidogrel 75 mg PO DAILY 30 Days #30 tab 10/16/19 escitalopram oxalate 20 mg PO QAM 30 Days #30 tab 10/16/19 pantoprazole 40 mg PO DAILY 30 Days #30 tab 10/16/19
== END 2019-10-16 11:45 | disposition home or self-care (01) | DRG 69 ==
LOC: ED 22:25 → SUATTDRO 10-15 01:22 → 1E 10-15 01:22 → 2E 10-15 14:17

== ENCOUNTER 2020-10-17 14:57 | Inpatient (IN) ==
[2020-10-17] MEDS ORDERED: ONDANSETRON INJ 2 MG/ML 2 ML VIAL IV STA (15:18)
[2020-10-17] MEDS ORDERED: MoRPHine SULFATE 4 MG/ML 1 ML CARP\\VIAL IV STA ×3 (15:18→18:08)
--- NOTE | 2020-10-17 15:21 | Emergency Department Note ---
History of Present Illness General Chief complaint: Ankle Pain Stated complaint: L ANKLE INJURY Time Seen by Provider: 10/17/20 15:11 History of Present Illness Maximum Pain Intensity: 8 This is a 54-year-old female that presents to the emergency department via private vehicle with complaints "left ankle injury". The patient notes earlier today at 1 PM she was accidentally knocked to the ground when dogs struck the back of her leg. She notes that she fell. She twisted the left ankle. She notes that the left ankle was in an odd position after the injury. She rates current pain is an 8/10. She noted initially some numbness/tingling in the foot but that seems to have improved and notes pain with any movement. She denies any left knee or left proximal [place]in[place] pain. She denies striking the head or loss of consciousness. Pain is worse with movement or attempting ambulation. Home Medications Medication Instructions Recorded Confirmed Type amlodipine 10 mg PO QAM 05/26/18 10/17/20 History albuterol sulfate [Ventolin HFA] 2 puff INHALATION Q6H PRN 10/14/19 10/17/20 History nystatin 1 applic TOPICAL BID 10/14/19 10/17/20 History triamcinolone acetonide 1 applic TOPICAL BID 10/14/19 10/17/20 History atorvastatin 40 mg PO DAILY 30 Days #30 tab 10/16/19 10/17/20 Rx cholecalciferol (vitamin D3) 50,000 unit PO WK 10/18/19 10/17/20 History gabapentin 600 mg PO TID 10/18/19 10/17/20 History lisinopril-hydrochlorothiazide 1 tab PO QAM 10/18/19 10/17/20 History semaglutide [Ozempic] 0.5 mg SUBCUT WK 10/18/19 10/17/20 History sucralfate [Carafate] 1 g PO QID 10/18/19 10/17/20 History clopidogrel 75 mg PO QAM 10/17/20 10/17/20 History cyclobenzaprine 10 mg PO TID PRN 10/17/20 10/17/20 History escitalopram oxalate 20 mg PO QAM 10/17/20 10/17/20 History ibuprofen 800 mg PO TID PRN 10/17/20 10/17/20 History lorazepam 0.5 mg PO BID PRN 10/17/20 10/17/20 History ondansetron HCl 4 mg PO .Q6-8HRS PRN 10/17/20 10/17/20 History pantoprazole 20 mg PO BID 10/17/20 10/17/20 History trazodone 150 mg PO HS 10/17/20 10/17/20 History Allergies Allergy/AdvReac Type Severity Reaction Status Date / Time aspirin Allergy Unknown Hives Verified 10/17/20 18:30 Past Med/Surg History Medical History (Updated 10/17/20 @ 22:47 by Nilo Todd PA-C) Fall Injury of hip, right Lumbar radiculopathy Surgical History H/O tubal ligation Status post bunionectomy Family History Other Cancer Diabetes Heart disease Hypertension Social History Smoking Status: Current every day smoker Tobacco Type: Cigarettes Cigarettes Per Day: 3; Second Hand Exposure: Yes; Do You Dip or Chew Tobacco: No; Tobacco Cessation Education Requested by Patient: No Hx Alcohol Use: No Hx Substance Use: No Preferred Language: [place] Communication Ability: Effective 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 Household Appliances Required: No Beliefs That Will Affect Care: None marital status: Current Living Situation: Spouse and Family Other Information That Helps Us Care for You: No Feels Safe at Home: Yes Safety Concerns: Feels Safe At This Time Assistive Devices: Glasses Assistive Devices Comment: uses CPAP, not with patient Review of Systems A total of 10 systems reviewed and were otherwise negative Physical Exam Vital Signs Vital Signs - 24 hr 10/17/20 15:09 Temperature 36.3 C L Temperature Source Temporal Artery Scan Pulse Rate 76 Respiratory Rate 18 Respiratory Effort / Characteristics Non-Labored Spontaneous Respiratory Depth Normal Respiratory Pattern Regular Blood Pressure 119/77 Blood Pressure Mean 91 Blood Pressure Position Sitting Pulse Oximetry 98 Oxygen Delivery Method Room Air Sepsis Recent Fever Within 48 Hours No Sepsis New/Unexplained Change in Mental Status N/A Sepsis Action Taken by Nursing No Action Required VITAL SIGNS - Vital signs and nursing notes were reviewed. Stable and afebrile. GENERAL -54-year-old female appearing her stated age who is in no acute distress. Communicates well with provider and answers questions appropriately. SKIN -small superficial 2 cm in length abrasion to the left anterior ankle. No evidence of open fracture or large break in the integument. HEAD - NC/AT. EXTREMITIES - No clubbing or peripheral cyanosis. No pretibial edema present. Skin as above. Circumferential left ankle edema. Left ankle tenderness. No mid or proximal left trinidad tenderness. No left knee tenderness. Left dorsalis pedis pulse intact. Cap refill of the left foot toes within normal limits. +5/5 strength noted in UE/LE bilaterally. Course Administered Medications Oxycodone/Acetaminophen (Oxycodone/Acetaminophen 5mg/325mg Tab) 1 - 2 tab PO Q4H PRN PRN Reason: Pain Stop: 10/31/20 21:31 Last Admin: 10/17/20 22:21 Dose: 2 tab Documented by: [id number] Topiramate (Topiramate 50 Mg Tab) 50 mg PO BID SAMMI Stop: 11/16/20 21:31 Last Admin: 10/17/20 22:07 Dose: Not Given Documented by: [id number] Discontinued Medications Morphine Sulfate (Morphine Sulfate 4 Mg/Ml 1 Ml Carp\\Vial) 4 mg IV NOW STA Stop: 10/17/20 15:19 Last Admin: 10/17/20 15:32 Dose: 4 mg Documented by: [id number] Morphine Sulfate (Morphine Sulfate 4 Mg/Ml 1 Ml Carp\\Vial) 4 mg IV NOW STA Stop: 10/17/20 16:26 Last Admin: 10/17/20 17:05 Dose: 4 mg Documented by: [id number] Morphine Sulfate (Morphine Sulfate 4 Mg/Ml 1 Ml Carp\\Vial) 4 mg IV NOW STA Stop: 10/17/20 18:09 Last Admin: 10/17/20 18:17 Dose: 4 mg Documented by: [id number] Ondansetron HCl (Ondansetron Inj 2 Mg/Ml 2 Ml Vial) 4 mg IV NOW STA Stop: 10/17/20 15:19 Last Admin: 10/17/20 15:32 Dose: 4 mg Documented by: [id number] Medical Decision Making Imaging Data Radiologist's Impression: LEFT ANKLE 3 VIEWS CLINICAL HISTORY: Fall with left ankle injury. FINDINGS: 3 views of the left ankle are obtained. No prior studies are available for comparison at the time of dictation. The skeletal structures are well mineralized. There is a comminuted oblique fracture of the distal fibular shaft which extends to the joint space. There is lateral distraction of the talus at the tibiotalar articulation. The medial joint space is widened measuring approximately 1 cm. No tibial fracture is clearly identified. There is a joint effusion. A large plantar calcaneal enthesophyte is observed. IMPRESSION: 1. Distal fibular fracture as above with associated ankle joint dislocation. 2. There is associated joint effusion and soft tissue edema. Electronically signed by: Dave Giraldo M.D. 10/17/2020 3:41 PM XR ankle LT min 3V routine CLINICAL HISTORY: post reduction. Left ankle fracture. COMPARISON STUDY: Left ankle 10/17/2020. FINDINGS: Slight improved anatomic alignment status post reduction of the oblique, displaced distal left fibular fracture. 8 mm of lateral displacement of the talus in relation to the tibia remains. There is diffuse soft tissue swelling. Overlying splint material obscures fine bony detail. There is a plantar heel spur. IMPRESSION: Slight improved anatomic alignment status post reduction of the lateral malleolus fracture. 8 mm of lateral displacement of the talus remains. ACT 112: Negative or not required by law. Electronically signed by: Jorge Barnard M.D. 10/17/2020 8:19 PM MDM Narrative Patient was seen and evaluated as above in room C9. Review was performed of nursing notes and vital signs. I did review pertinent previous visits and patient history. After obtaining a thorough history and physical examination the above work up was performed. Patient presents to us today with an isolated left ankle injury. This occurred after she was knocked down earlier today by dogs. She denies any dog bite or scratch. On examination the patient does have circumferential edema to the left ankle. She is neurovascularly intact distal to this. This appears to be an isolated injury noting no tenderness or evidence of injury to the mid or proximal left trin[place] or left foot. There is an abrasion overlying the left anterior trinidad but this appears to be superficial and does not appear to be associated with deep structures and do not suspect open fracture. This area was cleansed and was verified to be superficial. Options of care were discussed with the patient. Given her level of pain it was felt that IV analgesics would be reasonable. She was given IV morphine and Zofran. Ice packs were ordered. X-ray of the left ankle was ordered. Distal fibular fracture as above with associated ankle joint dislocation noted. Patient was given several rounds of IV analgesics. I discussed the findings with the on-call orthopedist, Dr. Hernandez. We agreed upon attempting reduction as well as well-padded splint. Decision was then made to admit the patient for surgical intervention tomorrow. This was felt to be the patient's best interest. Patient also in agreement. Procedure: Consent was obtained. Patient was medicated with IV morphine. With the patient's left knee in a slightly flexed position I then dorsiflex the left foot passively and was able to reduce the left ankle. A well-padded splint was applied. She was neurovascularly intact. Repeat x-ray was obtained. Unfortunately, there was only minimally improvement. I discussed this with her orthopedist. At this time given her plan for surgical intervention with neurovascular status preserved it is felt that this would be acceptable for the time being with surgical intervention tomorrow While in the department, I personally reevaluated the patient several times and each time the patient was found to be resting comfortably. Please refer to further documentation regarding her stay. In the evaluation and treatment of this patient, the following differential diagnoses were considered: Ankle Fracture, Ankle Sprain, Distal Fibula Fracture, Distal Tibia Fracture, Foot Fracture, [place] Fracture, among others.. Impression & Plan Closed left ankle fracture Discharge Plan Visit Data Chief Complaint: Ankle Pain Stated Complaint: L ANKLE INJURY ED Provider: Gabriel Penaloza ED Midlevel Provider: Nilo Todd Discharge Problem: Closed left ankle fracture Patient Disposition: Admitted As Inpatient Discharge Instructions Interventions: ED Discharge Assessment Last Done: 10/17/20 21:18
--- NOTE | 2020-10-17 15:42 | XRay Report ---
LEFT ANKLE 3 VIEWS CLINICAL HISTORY: Fall with left ankle injury. FINDINGS: 3 views of the left ankle are obtained. No prior studies are available for comparison at th e time of dictation. The skeletal structures are well mineralized. There is a comminuted oblique frac ture of the distal fibular shaft which extends to the joint space. There is lateral distraction of th e talus at the tibiotalar articulation. The medial joint space is widened measuring approximately 1 c m. No tibial fracture is clearly identified. There is a joint effusion. A large plantar calcaneal ent hesophyte is observed. IMPRESSION: 1. Distal fibular fracture as above with associated ankle joint dislocation. 2. There is associated joint effusion and soft tissue edema. Electronically signed by: Dave Giraldo M.D. 10/17/2020 3:41 PM
[2020-10-17] MEDS ORDERED: PHARMACY GLYCEMIC MGMT CONSULT PRN (17:48)
--- NOTE | 2020-10-17 17:56 | History & Physical Report ---
Date of Service October 17, 2020 Assessment & Plan (1) Closed left ankle fracture: Patient was informed that she has an ankle fracture of her left ankle that is going to require surgical fixation. Decision for surgery was made and the patient will be admitted to [facility]. The risks, benefits, recovery time were discussed with the patient and we will proceed with fixation tomorrow afternoon. She will be NPO after midnight. Try to discharge her to home tomorrow night or Wednesday morning. Dr. Rom Hernandez was at bedside during interview and exam. Plan was agreed upon by all parties. Present on Admission?: Yes History of Present Illness Patient is a 54 year old female who injured her left ankle this afternoon. She states that she was struck in the back of her legs by a dog and fell. She twisted her left ankle and felt a lot of pain. She was unable to ambulate. She arrived a [facility] ER for evaluation. She denies any prior injury or surgery to her left ankle. Primary Care Provider: Ubaldo Jeronimo Allergies Allergy/AdvReac Type Severity Reaction Status Date / Time aspirin Allergy Unknown Hives Verified 10/17/20 18:30 Home Medications Medication Instructions Recorded Confirmed Type amlodipine 10 mg PO QAM 05/26/18 10/17/20 History albuterol sulfate [Ventolin HFA] 2 puff INHALATION Q6H PRN 10/14/19 10/17/20 History nystatin 1 applic TOPICAL BID 10/14/19 10/17/20 History triamcinolone acetonide 1 applic TOPICAL BID 10/14/19 10/17/20 History atorvastatin 40 mg PO DAILY 30 Days #30 tab 10/16/19 10/17/20 Rx cholecalciferol (vitamin D3) 50,000 unit PO WK 10/18/19 10/17/20 History gabapentin 600 mg PO TID 10/18/19 10/17/20 History lisinopril-hydrochlorothiazide 1 tab PO QAM 10/18/19 10/17/20 History semaglutide [Ozempic] 0.5 mg SUBCUT WK 10/18/19 10/17/20 History sucralfate [Carafate] 1 g PO QID 10/18/19 10/17/20 History clopidogrel 75 mg PO QAM 10/17/20 10/17/20 History cyclobenzaprine 10 mg PO TID PRN 10/17/20 10/17/20 History escitalopram oxalate 20 mg PO QAM 10/17/20 10/17/20 History ibuprofen 800 mg PO TID PRN 10/17/20 10/17/20 History lorazepam 0.5 mg PO BID PRN 10/17/20 10/17/20 History ondansetron HCl 4 mg PO .Q6-8HRS PRN 10/17/20 10/17/20 History pantoprazole 20 mg PO BID 10/17/20 10/17/20 History trazodone 150 mg PO HS 10/17/20 10/17/20 History Past Med/Surg History Medical History Fall Injury of hip, right Lumbar radiculopathy Surgical History H/O tubal ligation Status post bunionectomy Family History Other Cancer Diabetes Heart disease Hypertension Social History Smoking Status: Current every day smoker Tobacco Type: Cigarettes Cigarettes Per Day: 3; Second Hand Exposure: Yes; Do You Dip or Chew Tobacco: No; Tobacco Cessation Education Requested by Patient: No Hx Alcohol Use: No Hx Substance Use: No Preferred Language: Pashto Communication Ability: Effective Plant Operator/Shift Supervisor Required: No Beliefs That Will Affect Care: None marital status: Current Living Situation: Spouse and Family Other Information That Helps Us Care for You: No Feels Safe at Home: Yes Safety Concerns: Feels Safe At This Time Assistive Devices: Glasses Assistive Devices Comment: uses CPAP, not with patient Review of Systems Review of Systems: All systems reviewed & are unremarkable except as noted in HPI & below Physical Exam Constitutional: WD/WN, vitals as above + obese Eyes: PERRL, conjunctivae normal, anicteric sclerae ENMT: external ear and nose normal, oropharynx normal Neck: trachea midline, no thyromegaly Respiratory: normal respiratory effort Cardiovascular: RRR, no murmur, no edema Gastrointestinal (Abdomen): normal bowel sounds, soft, nontender, no hepatosplenomegaly Musculoskeletal: Left ankle swelling; eccymosis around ankle joint. Neurovascularly intact; Limited ROM with pain. Moderate deformity Skin: no rashes, warm and dry Psychiatric: A+Ox3, euthymic affect Results & Data Results & Data ([facility]) Vital Signs (Past 12 Hours) Vital Signs Temp Pulse Resp BP Pulse Ox 10/17/20 15:09 36.3 C L 76 18 119/77 98 Diagnostic Findings X-rays of the left ankle show a fracture of the distal fibula. There is lateral translation of the tibiotalar joint. There is some medial clear space widening. Code Status & VTE Plan VTE Prophylaxis Plan VTE Prophylaxis will be ordered: No Supervising Physician Co-Signing Physician Notes I personally was present for the history and physical examination of the patient. We discussed the surgery including risk, benefits, and alternatives to the procedure. We elected to admit her to the hospital for open reduction internal fixation the following day. I agree with the above history and physical examination.
--- NOTE | 2020-10-17 20:20 | XRay Report ---
XR ankle LT min 3V routine CLINICAL HISTORY: post reduction. Left ankle fracture. COMPARISON STUDY: Left ankle 10/17/2020. FINDINGS: Slight improved anatomic alignment status post reduction of the oblique, displaced distal l eft fibular fracture. 8 mm of lateral displacement of the talus in relation to the tibia remains. The re is diffuse soft tissue swelling. Overlying splint material obscures fine bony detail. There is a p lantar heel spur. IMPRESSION: Slight improved anatomic alignment status post reduction of the lateral malleolus fractu re. 8 mm of lateral displacement of the talus remains. ACT 112: Negative or not required by law. Electronically signed by: Jorge Barnard M.D. 10/17/2020 8:19 PM
[2020-10-17] MEDS ORDERED: ACETAMINOPHEN 325 MG TAB PO PRN (21:32)
[2020-10-17] MEDS ORDERED: NON-FORMULARY MEDICATION (Semaglutide [Ozempic] 0.25 mg or 0.5 mg(2 mg/1.5 mL) Pen Injecto SQ SCH (21:32)
[2020-10-17] MEDS ORDERED: ONDANSETRON INJ 2 MG/ML 2 ML VIAL IV PRN (21:32)
[2020-10-17] MEDS ORDERED: HYDROmorphone HCL 2 MG TAB PO PRN (21:32)
[2020-10-17] MEDS ORDERED: hydrOXYzine HCl 25 MG TAB PO PRN (21:32)
[2020-10-17] MEDS ORDERED: ALBUTEROL HFA 8 GM INHALER INH PRN (21:32)
[2020-10-17] MEDS ORDERED: CYCLOBENZAPRINE HCL 10 MG TAB PO PRN (21:38)
[2020-10-17] MEDS ORDERED: DEXTROSE 50% 50 ML SYRINGE IV PRN (21:45)
[2020-10-17] MEDS ORDERED: GLUCOSE 10 TABS/TUBE PO PRN (21:45)
[2020-10-17] MEDS ORDERED: CARBOHYDRATES FOR HYPOGLYCEMIA PO PRN (21:45)
[2020-10-17] MEDS ORDERED: GLUCOSE 40% GEL 15 GM TUBE PO PRN (21:45)
[2020-10-17] MEDS ORDERED: GLUCAGON FOR INJ 1 MG VIAL IM PRN (21:45)
[2020-10-17] MEDS: TOPIRAMATE 50 MG TAB PO SCH (22:07)
[2020-10-17] MEDS: oxyCODONE/ACETAMINOPHEN 5mg/325mg TAB PO PRN (22:21)
[2020-10-17] MEDS ORDERED: INSULIN ASPART 100 UNITS/ML 3 ML PEN SC ONE (23:00)
[2020-10-17 23:05] LABS: Basophils # (auto) 0.04 K/uL (0-0.2); Basophils % (auto) 0.3 %; Eosinophils # (auto) 0.22 K/uL (0-0.5); Eosinophils % (auto) 1.6 %; Hematocrit (blood only) 41.1 % (37-47); Hemoglobin 14.1 g/dL (12.0-16.0); Immature Granulocytes # (auto) 0.02 K/uL (0.00-0.02); Immature Granulocytes % (auto) 0.1 %; Lymphocytes # (auto) 2.85 K/uL (1.2-3.4); Lymphocytes % (auto) 21.1 %; Mean Corpuscular Hemoglobin 32.3 pg (25-34); Mean Corpuscular Hgb Conc 34.3 g/dL (32-36); Mean Corpuscular Volume 94.3 fL (80-100); Mean Platelet Volume 10.7 fL (7.4-10.4); Monocytes # (auto) 0.81 K/uL (0.11-0.59); Neutrophils # (auto) 9.56 K/uL (1.4-6.5); Neutrophils % (auto) 70.9 %; Platelet Count 272 K/uL (130-400); Red Blood Count 4.36 M/uL (4.2-5.4)
[2020-10-17 23:13] LABS: Prothrombin Time 10.1 Seconds (9.0-12.0)
[2020-10-17 23:22] LABS: BUN Creatinine Ratio 15.2 (10-20); Calcium 9.3 mg/dl (8.5-10.1); Creatinine Clr Calc Pharmacy 66.8 ml/min; Est GFR (African American) 56.6; Est GFR (Non-African American) 48.9
[2020-10-17] MEDS: TRIAMCINOLONE ACET 0.1% CR 15 GM TUBE TOP SCH (23:41)
[2020-10-17] MEDS: GABAPENTIN 600 MG TAB PO SCH (23:41)
[2020-10-17] MEDS: traZODone HCL 100 MG TAB PO SCH (23:41)
[2020-10-17] MEDS: SUCRALFATE 1 GM TAB PO SCH (23:41)
[2020-10-17] MEDS: NYSTATIN CR 15 GM TUBE EXT SCH (23:42)
[2020-10-18] MEDS: oxyCODONE/ACETAMINOPHEN 5mg/325mg TAB PO PRN ×2 (02:51→07:32)
--- NOTE | 2020-10-18 06:33 | History & Physical Report ---
Date of Service October 18, 2020 Assessment & Plan (1) Closed left ankle fracture: She will be admitted to the orthopedic service. We will plan to do an open reduction internal fixation of the left ankle tomorrow. She understands the risk, benefits, and alternatives to procedures like to proceed. Questions were answered at bedside. Postoperatively she will be placed in a splint and either discharged home on Wednesday or Wednesday. She is currently n.p.o. We will hold her Plavix for now. History of Present Illness Chief Complaint: Left ankle fracture. Primary Care Provider: Ubaldo Jeronimo Rabia Reagan is a pleasant 54-year-old female who was struck in the back of her leg by her dog yesterday. She fell to the ground. She had a twisting injury to her left ankle. She had immediate pain. She came to the emergency room and radiographs demonstrated a unstable left ankle fracture. Orthopedics was consulted to evaluate and treat.. Allergies Allergy/AdvReac Type Severity Reaction Status Date / Time aspirin Allergy Unknown Hives Verified 10/17/20 18:30 Home Medications Medication Instructions Recorded Confirmed Type amlodipine 10 mg PO QAM 05/26/18 10/17/20 History albuterol sulfate [Ventolin HFA] 2 puff INHALATION Q6H PRN 10/14/19 10/17/20 History nystatin 1 applic TOPICAL BID 10/14/19 10/17/20 History triamcinolone acetonide 1 applic TOPICAL BID 10/14/19 10/17/20 History atorvastatin 40 mg PO DAILY 30 Days #30 tab 10/16/19 10/17/20 Rx cholecalciferol (vitamin D3) 50,000 unit PO WK 10/18/19 10/17/20 History gabapentin 600 mg PO TID 10/18/19 10/17/20 History lisinopril-hydrochlorothiazide 1 tab PO QAM 10/18/19 10/17/20 History semaglutide [Ozempic] 0.5 mg SUBCUT WK 10/18/19 10/17/20 History sucralfate [Carafate] 1 g PO QID 10/18/19 10/17/20 History clopidogrel 75 mg PO QAM 10/17/20 10/17/20 History cyclobenzaprine 10 mg PO TID PRN 10/17/20 10/17/20 History escitalopram oxalate 20 mg PO QAM 10/17/20 10/17/20 History ibuprofen 800 mg PO TID PRN 10/17/20 10/17/20 History lorazepam 0.5 mg PO BID PRN 10/17/20 10/17/20 History ondansetron HCl 4 mg PO .Q6-8HRS PRN 10/17/20 10/17/20 History pantoprazole 20 mg PO BID 10/17/20 10/17/20 History trazodone 150 mg PO HS 10/17/20 10/17/20 History Past Med/Surg History Medical History Fall Injury of hip, right Lumbar radiculopathy Surgical History H/O tubal ligation Status post bunionectomy Family History Other Cancer Diabetes Heart disease Hypertension Social History Smoking Status: Current every day smoker Tobacco Type: Cigarettes Cigarettes Per Day: 3; Second Hand Exposure: Yes; Do You Dip or Chew Tobacco: No; Tobacco Cessation Education Requested by Patient: No Hx Alcohol Use: No Hx Substance Use: No Preferred Language: Maltese Communication Ability: Effective Turret Lathe Set Up Operator Required: No Beliefs That Will Affect Care: None marital status: Current Living Situation: Spouse and Family Other Information That Helps Us Care for You: No Feels Safe at Home: Yes Safety Concerns: Feels Safe At This Time Assistive Devices: Glasses Assistive Devices Comment: uses CPAP, not with patient Review of Systems All systems reviewed & are unremarkable except as noted in HPI & below. Physical Exam On physical examination of the left ankle, there is some moderate deformity. There are no abrasions, lesions, or lacerations of the skin. There are no open wounds. She has motion of all of her toes. She is neurovascularly intact.. Constitutional WD/WN, vitals as above Eyes PERRL, conjunctivae normal, anicteric sclerae ENMT external ear and nose normal, oropharynx normal Neck trachea midline, no thyromegaly Respiratory normal respiratory effort Cardiovascular RRR, no murmur, no edema Gastrointestinal (Abdomen) normal bowel sounds, soft, nontender, no hepatosplenomegaly Psychiatric A+Ox3, euthymic affect Results & Data Results & Data Laboratory Results H & H 10/17/20 Range/Units 22:47 Hgb 14.1 (12.0-16.0) g/dL Hct 41.1 (37-47) % Coagulation 10/17/20 Range/Units 22:47 INR 1.0 (0.9-1.1) . Diagnostic Findings X-rays of the left ankle show a laterally displaced left ankle fracture. Is a fracture of the distal aspects of the fibula. There is some translation l aterally of the tibiotalar joint. There is some medial clear space widening.. PG Care Time/CCT Total # of Minutes Spent Total Time Spent with Patient: Total time spent is greater than 50% in coordination of care (as documented) at patient's floor/unit and/or counseling patient: Coding Level of Care Code 09797 Initial Inpt Care Lvl 2 (57 - DECISION FOR SURGERY) Diagnoses Closed left ankle fracture S82.892A
[2020-10-18] MEDS: INSULIN ASPART 100 UNITS/ML 3 ML PEN SC SCH ×4 (06:50→21:00)
--- NOTE | 2020-10-18 07:27 | XRay Report ---
XR chest 1V portable CLINICAL HISTORY: Preoperative evaluation. COMPARISON STUDY: Chest CT April 07, 2017. FINDINGS: Lung volumes are normal. Lungs are clear. There is no pneumothorax or pleural effusion. Car diac size is normal. Mediastinal contours are normal. There is no evidence for pulmonary edema. Incid ental note is made of postoperative findings within the cervical spine. IMPRESSION: No acute cardiopulmonary findings. ACT 112: Negative or not required by law. Electronically signed by: Deandre Luke M.D. 10/18/2020 7:26 AM
[2020-10-18] MEDS: FLUTICASONE/VILANTEROL 200/25MCG 14 PUFFS/INHALER INH SCH (07:33)
--- NOTE | 2020-10-18 08:34 | Anesthesiology Consultation ---
Date of Service October 18, 2020 Assessment & Plan Chart Review Chart Review: Acceptable Risk for Surgery and Patient NOT seen in Pre Admission Testing Consults Requested none History Surgery Operation Date: 10/18/20 09:35 Proposed Procedures p Left Open Reduction Internal Fixation Distal Fibula - Kalyan Caldera MD Height/Weight Height: 5 ft 4 in Weight: 124.3 kg Allergies Allergy/AdvReac Type Severity Reaction Status Date / Time aspirin Allergy Unknown Hives Verified 10/17/20 18:30 Medications Home Medications Medication Instructions Recorded Confirmed Last Taken amlodipine 10 mg PO QAM 05/26/18 10/17/20 10/17/20 albuterol sulfate [Ventolin HFA] 2 puff INHALATION Q6H PRN 10/14/19 10/17/20 Unknown nystatin 1 applic TOPICAL BID 10/14/19 10/17/20 Unknown triamcinolone acetonide 1 applic TOPICAL BID 10/14/19 10/17/20 Unknown atorvastatin 40 mg PO DAILY 30 Days #30 tab 10/16/19 10/17/20 10/17/20 cholecalciferol (vitamin D3) 50,000 unit PO WK 10/18/19 10/17/20 10/11/20 gabapentin 600 mg PO TID 10/18/19 10/17/20 10/17/20 12:30 lisinopril-hydrochlorothiazide 1 tab PO QAM 10/18/19 10/17/20 10/17/20 semaglutide [Ozempic] 0.5 mg SUBCUT WK 10/18/19 10/17/20 10/11/20 sucralfate [Carafate] 1 g PO QID 10/18/19 10/17/20 10/17/20 12:30 clopidogrel 75 mg PO QAM 10/17/20 10/17/20 10/17/20 cyclobenzaprine 10 mg PO TID PRN 10/17/20 10/17/20 Unknown escitalopram oxalate 20 mg PO QAM 10/17/20 10/17/20 10/17/20 ibuprofen 800 mg PO TID PRN 10/17/20 10/17/20 Unknown lorazepam 0.5 mg PO BID PRN 10/17/20 10/17/20 Unknown ondansetron HCl 4 mg PO .Q6-8HRS PRN 10/17/20 10/17/20 Unknown pantoprazole 20 mg PO BID 10/17/20 10/17/20 10/17/20 AM DOSE trazodone 150 mg PO HS 10/17/20 10/17/20 10/16/20 Active Medications Generic Name Dose Route Start Last Admin Trade Name Freq PRN Reason Stop Dose Admin Fluticasone/Vilanterol 1 puffs 10/18/20 09:00 10/18/20 07:33 Fluticasone/Vilanterol 200/25mcg 14 Puffs/Inhaler INH 11/17/20 08:59 1 puffs DAILY SAMMI Administration Gabapentin 600 mg 10/17/20 21:32 10/17/20 23:41 Gabapentin 600 Mg Tab PO 11/16/20 21:31 600 mg TID SAMMI Administration Insulin Aspart 0 units 10/18/20 06:00 10/18/20 06:50 Insulin Aspart 100 Units/Ml 3 Ml Pen SC 11/17/20 05:59 Not Given Q6 SAMMI Nystatin 1 appln 10/17/20 21:32 10/17/20 23:42 Nystatin Cr 15 Gm Tube EXT 11/16/20 21:31 1 appln BID SAMMI Administration Ondansetron HCl 4 mg 10/17/20 21:32 10/18/20 07:44 Ondansetron Inj 2 Mg/Ml 2 Ml Vial IV 11/16/20 21:31 4 mg Q6H PRN Administration Nausea/Vomiting Oxycodone/Acetaminophen 1 - 2 tab 10/17/20 21:32 10/18/20 07:32 Oxycodone/Acetaminophen 5mg/325mg Tab PO 10/31/20 21:31 2 tab Q4H PRN Administration Pain Sucralfate 1 gm 10/17/20 21:32 10/17/20 23:41 Sucralfate 1 Gm Tab PO 11/16/20 21:31 1 gm QID SAMMI Administration Topiramate 50 mg 10/17/20 21:32 10/17/20 22:07 Topiramate 50 Mg Tab PO 11/16/20 21:31 Not Given BID SAMMI Trazodone HCl 150 mg 10/17/20 21:40 10/17/20 23:41 Trazodone Hcl 100 Mg Tab PO 11/16/20 21:39 150 mg HS SAMMI Administration Triamcinolone Acetonide 1 appln 10/17/20 21:32 10/17/20 23:41 Triamcinolone Acet 0.1% Cr 15 Gm Tube TOP 11/16/20 21:31 1 appln BID SAMMI Administration NPO Date Last Intake of Fluids: 10/17/20 Time Last Intake of Fluids: 23:30 Date Last Intake of Solids: 10/17/20 Time Last Intake of Solids: 22:00 Past Medical History Medical History Fall Injury of hip, right Lumbar radiculopathy Exercise / Class Metabolic Activity III < 4 Walking/Shop/Light housework Past Family History Family History Other Cancer Diabetes Heart disease Hypertension Past Surgical History Surgical History H/O tubal ligation Status post bunionectomy Past Anesthesia History No Hx of Anesthesia Complications and No Family Hx of Anesthesia Complications History of PONV No Hx of PONV and No Hx of Motion Sickness Social History Smoking Status: Current every day smoker tobacco type: cigarettes Smoking cigarettes per day: 3 Do You Dip or Chew Tobacco: No Hx Alcohol Use: No Hx Substance Use: No Physical Exam Vital Signs Last Vital Signs Temp 36.3 C L 10/18/20 07:19 Pulse 72 10/18/20 07:19 Resp 16 10/18/20 07:19 BP 99/61 L 10/18/20 07:19 Pulse Ox 92 10/18/20 07:19 Testing Laboratory Results 10/17/20 22:47 10/17/20 22:47 PT 10.1 Seconds (9.0-12.0) 10/17/20 22:47 INR 1.0 (0.9-1.1) 10/17/20 22:47 Blood Type O Positive 10/17/20 22:47 Antibody Screen NEGATIVE 10/17/20 22:47 10/18/20 10/17/20 06:42 22:16 POC Glucose 111 H 109 H Electrocardiogram Date: 10/18/20 Findings: + NSR @ (at 68;NS T wave abnl.;prolonged QT) Chest X-Ray Date: 10/18/20 Findings: + NAD Echocardiogram Date: 10/15/19 EF: 55% LV Function: normal RWMA: + none Other Findings: + diastolic dysfunction (grade 1) Valvular Disease: + no significant valvular disease
[2020-10-18] MEDS ORDERED: ERGOCALCIFEROL 50,000 UNITS 1250 MCG CAP PO SCH (09:00)
[2020-10-18] MEDS ORDERED: CLOPIDOGREL BISULFATE 75 MG TAB PO SCH (09:00)
[2020-10-18] MEDS ORDERED: metFORMIN HCL 500 MG TAB PO SCH (09:00)
--- NOTE | 2020-10-18 12:02 | History & Physical Bridge Note ---
Date of Service October 18, 2020 History & Physical Bridge Note I have examined the patient, reviewed the History & Physical and in the interval since the performance of the History & Physical I have noted the following changes of clinical significance: no changes noted
[2020-10-18] MEDS ORDERED: fentaNYL citrate 100 MCG/2 ML VIAL ONE ×2 (12:25→12:51)
[2020-10-18] MEDS ORDERED: PROPOFOL IV EMULSION 10 MG/ML 20 ML VIAL IV ONE (12:25)
[2020-10-18] MEDS ORDERED: MIDAZOLAM HCL 1 MG/ML 2ML VIAL ONE (12:25)
[2020-10-18] MEDS ORDERED: BUPIVACAINE/EPINEPHRINE 0.5% MPF 1:200,000 30 ML VIAL ONE (12:25)
[2020-10-18] MEDS ORDERED: BACITRACIN INJ 50,000 UNIT VIAL ONE (12:26)
[2020-10-18] MEDS ORDERED: ROCURONIUM BROMIDE 10 MG/ML 5 ML VIAL IV ONE (13:02)
[2020-10-18] MEDS ORDERED: ONDANSETRON INJ 2 MG/ML 2 ML VIAL ONE (13:02)
[2020-10-18] MEDS ORDERED: SUCCINYLCHOLINE 100MG/5ML SYR IV ONE (13:02)
--- NOTE | 2020-10-18 13:37 | Electrocardiogram Report ---
Test Reason : Blood Pressure : / mmHG Vent. Rate : 068 BPM Atrial Rate : 068 BPM P-R Int : 148 ms QRS Dur : 080 ms QT Int : 442 ms P-R-T Axes : 066 039 013 degrees QTc Int : 469 ms Normal sinus rhythm Nonspecific T wave abnormality Prolonged QT Abnormal ECG When compared with ECG of 14-OCT-2019 22:50, Nonspecific T wave abnormality now evident in Inferior leads QT has shortened Confirmed by Deangelo Franklin ([id number]) on 10/18/2020 1:36:41 PM Referred By: REFERRED SELF Confirmed By:Deangelo Franklin
--- NOTE | 2020-10-18 13:57 | Fluoroscopy Report ---
FL ankle LT 2V HISTORY: 54 years-old Female LT ORIF DISTAL FIBULA FX COMPARISON: Left ankle radiographs 10/17/2020 TECHNIQUE: 4 spot fluoroscopic images of the left ankle were obtained utilizing 10.1 seconds fluorosc opy time FINDINGS: Lateral plate and screw fusion of the distal fibula fixating the acute distal fibular fracture which now demonstrates improved near anatomic alignment. Hardware appears intact. Expected postsurgical sof t tissue swelling and deep tissue air. Mild marginal spurring of the ankle with mild tibiotalar osteo arthritis. IMPRESSION: Fluoroscopic assistance as above. ACT 112: Negative or not required by law. The above report was generated using voice recognition software. It may contain grammatical, syntax o r spelling errors. Electronically signed by: Gilson Sahni M.D. 10/18/2020 1:56 PM
[2020-10-18] MEDS ORDERED: GLYCOPYRROLATE 0.2 MG/ML VIAL ONE (14:03)
[2020-10-18] MEDS ORDERED: NEOSTIGMINE METHYLSULFATE 5 MG/5 ML SYR ONE (14:03)
--- NOTE | 2020-10-18 14:16 | Pharmacy Report ---
Glycemic Ortho Sign Off Note - Date of Service October 18, 2020 - Scope Glycemic Pharmacist consulted for glycemic control and to write orders per [facility] inpatient glycemic control protocol. - Objective Accuchecks BSG (last 24hrs):: 10/17/20 10/17/20 10/18/20 22:16 22:47 06:42 Glucose 126 H POC Glucose 109 H 111 H - Assessment * Pt is maintained antidiabeticagentas anoutpatient with excellent control per recent A1c * Recommended regimen for inpatient use is SQ insulin * Low stress weight based insulin dosing appropriate since patient has minimal risk factors for insulin resistance (i.e. no steroids). * Appropriate to DC insulin and resume outpatient antidiabetic regimen at discharge * Goal is to maintain BSGs <200 mg/dl (ideally <150 mg/dl) to prevent post op complications - Plan For Inpatient Glycemic Control * Basal insulin * Not needed based on A1c, pre-op BSGs, and minimal risk factors for insulin resistance * Bolus insulin * Utilize low stress weight based NovoLog parameters per scale ACHS * Plan to utilize Novolog 110-140 / CF 35 / CR 12 * Pharmacy has entered glycemic orders and is signing off of the glycemic consult. We will no longer be making adjustments to inpatient regimen. Please feel free to re-consult if needed. Thank you.
--- NOTE | 2020-10-18 14:24 | Operative Report ---
Post Operative Report Pre & Post Diagnosis Operation Date: 10/18/20 09:35 Pre-Op Diagnosis: Left unstable King B/distal Fibula Fracture Post-Op Diagnosis: Left unstable King Bdistal Fibula Fracture I identified the patient and participated in the time-out.: Yes Procedure Operation Date: 10/18/20 09:35 Actual Procedures p Open Reduction Internal Fixation Left Distal Fibula Fracture(Left) - Kalyan Caldera MD Surgeon Kalyan Caldera MD Mechanical Design Drafter CHIQUIS Melvin Estimated Blood Loss 20 Findings Consistent with Post-Op Diagnosis Fluids 900 cc. Specimens None. Drains None. Anesthesia Type General Complications none Disposition Accompanied Patient To Recovery: No Disposition: Recovery Room Indications Patient is a 54-year-old female with multiple medical comorbidities who sustained a fall yesterday. She is brought to the emergency room where x-rays were obtained of the ankle revealed an unstable King B ankle fracture with disruption of the mortise. Patient was unable to get around safely and was admitted to the hospital, medically optimized, and indicated for surgical treatment. Description of Procedure Operative implants consist of: 1. Synthes 8 hole one third semitubular stainless steel locking plate. 2. 3.5 fully threaded cortical screws x4. 3. 4.0 partially-threaded cancellous lag screw x1. 4. 4.0 fully threaded cancellous screws x2. The patient was taken to the operating identified and placed on the operating table supine position but all contact areas were properly padded. IV antibiotics tried by anesthesia team. A general anesthetic was implemented as this patient is on Plavix preoperatively. The left lower extremity splint was then removed. A left thigh tourniquet was then placed. The left lower extremity was then scrubbed with Hibiclens and then prepped with ChloraPrep and draped in usual sterile fashion. The left leg was elevated exsanguinated with use of an Esmarch and turns placed at 300 mmHg. A direct lateral approach to the fibula was then performed to longitudinal tibial incision over the posterior lateral border the fibula. Sharp dissection was carried out through subcutaneous tissue down to the bone. I then identified the fracture easily. The lateral fibula was cleaned of soft tissues. The fracture was opened up and the clot was removed. I then reduced the fracture and held it with 2 reduction clamps. I placed a single anterior to posterior cancellous lag screw to temporarily fix the fracture. 8 hole one third semitubular plate was then contoured to the lateral aspect of the fibula and fixed proximally with four 3.5 fully threaded cortical screws and distally with two 4.0 fully threaded cancellous screws. X-rays brought in. The fracture is anatomically aligned. I stressed the mortise and there were no signs of gapping of the syndesmosis or medial clear space. She did have what appeared to have fracture at the distal tib-fib syndesmosis probably one of the inferior tib-fib ligament avulsion. This was put back in approximate placed and I did not feel this required additional fixation. The mortise was stable to stress testing. Attention drawn toward closing. The wound was irrigated cups ounce of normal saline. I did inject locally with 30 cc of half percent Marcaine with epinephrine. The periosteum of the lateral aspect of the fibula was then closed with 0 Vicryl suture in [id number] fashion but the tourniquet was then let down for tourniquet time of 34 minutes. Hemostasis assured use electrocautery. The wounds once again irrigated the subcutaneous tissue was then closed with 2 Dexon suture in a buried interrupted fashion skin was closed with 3-0 nylon suture in simple fashion. The leg was then cleaned and dried a sterile dressing composed Xeroform, 4 x 4's, sterile cast padding and a well-padded posterior and stirrup splint were applied. Patient then brought out of general incision transferred to the patient tolerated procedure well and there were no complications. Barry Melvin, my physician ssn/ssbn assistant navigator, was present for the entire procedure. His assistance was required for proper patient positioning, prepping and draping, retraction, performing the technical details of the operation, reducing the fracture, placement of the hardware, closure of the wound, and placement of the sterile bandage. I attest to the content of the Intraoperative Record and any orders documented therein. Any exceptions are noted below.
[2020-10-18] MEDS ORDERED: FLUMAZENIL 0.1 MG/1 ML 10 ML VIAL IV PRN (14:28)
[2020-10-18] MEDS ORDERED: NALOXONE HCL 0.4 MG/1 ML VIAL/CARP IV PRN ×2 (14:28→15:50)
[2020-10-18] MEDS ORDERED: HYDROmorphone INJ 1 MG/ML SYRINGE IV PRN (14:28)
[2020-10-18] MEDS ORDERED: PROMETHAZINE HCL 12.5 MG in SODIUM CHLORIDE 0.9% 50 ML IV PRN (14:28)
[2020-10-18] MEDS ORDERED: ePHEDrine sulfate 50 MG/ML AMP IV PRN (14:28)
[2020-10-18] MEDS ORDERED: ATROPINE SULFATE 0.1 MG/ML 10ML SYR IV PRN (14:28)
[2020-10-18] MEDS ORDERED: LABETALOL HCL IV 5 MG/ML 20ML IV PRN (14:28)
[2020-10-18] MEDS ORDERED: ONDANSETRON INJ 2 MG/ML 2 ML VIAL IV PRN ×2 (14:28→15:50)
[2020-10-18] MEDS ORDERED: ROPIVACAINE 0.5% 5 MG/ML 30 ML VIAL ONE (14:33)
[2020-10-18] MEDS ORDERED: HYDROmorphone INJ 2 MG/ML SYR/VIAL ONE (14:34)
[2020-10-18] MEDS ORDERED: BUPIVACAINE 0.5 % 5 MG/1 ML MPF 30ML VIAL ONE (14:34)
[2020-10-18] MEDS ORDERED: EPINEPHrine INJ 1 MG/ML AMP ONE (14:34)
[2020-10-18] MEDS ORDERED: diphenhydrAMINE 50 MG/ML VIAL ONE (14:53)
[2020-10-18] MEDS ORDERED: diphenhydrAMINE 50 MG/ML VIAL IV PRN (15:00)
--- NOTE | 2020-10-18 15:15 | Anesthesiology Progress Note ---
Date of Service October 18, 2020 Anesthesia Post Procedure Vital Signs Vital Signs: Temp Pulse Pulse Resp BP Pulse Ox 10/18/20 15:05 90 16 134/71 94 10/18/20 14:55 90 19 144/68 H 96 10/18/20 14:45 83 13 154/69 H 96 10/18/20 14:35 90 14 165/74 H 96 10/18/20 14:25 89 16 156/71 H 97 10/18/20 14:17 36.5 C 90 19 158/69 H 92 10/18/20 10:54 36.6 C 71 18 129/65 93 10/18/20 07:19 36.3 C L 72 16 99/61 L 92 10/17/20 23:35 36.4 C L 70 14 101/65 92 10/17/20 21:35 36.7 C 85 15 110/79 92 10/17/20 19:10 72 18 103/69 94 Pain Intensity Left Ankle: Pain Intensity: 8 Left Leg: Pain Intensity: 4 Transfer of Care Handoff Completed per policy Notes Mental Status: alert / awake / arousable Patient Amnestic to Procedure: Yes Nausea / Vomiting: adequately controlled Pain: adequately controlled Airway Patency, RR, SpO2: stable & adequate BP & HR: stable & adequate Hydration State: stable & adequate Anesthetic Complications: no major complications apparent
[2020-10-18] MEDS ORDERED: ALUMINUM/MAGNESIUM SUSP 30 ML UDC PO PRN (15:50)
[2020-10-18] MEDS ORDERED: LORazepam 0.5 MG TAB PO PRN (15:50)
[2020-10-18] MEDS ORDERED: METOCLOPRAMIDE HCL INJ 5 MG/ML 2 ML VIAL IV PRN (15:50)
[2020-10-18] MEDS ORDERED: bisacodyL 10 MG SUPP PR PRN (15:50)
[2020-10-18] MEDS ORDERED: FLEXERIL HOME PACK 10 MG VIAL PO PRN (15:50)
[2020-10-18] MEDS ORDERED: MAGNESIUM HYDROXIDE SUSP 30 ML UDC PO PRN (15:50)
[2020-10-18] MEDS ORDERED: ONDANSETRON 4 MG OD TAB PO PRN (15:59)
[2020-10-18] MEDS: HYDROmorphone INJ 0.5 MG/0.5 ML SYR IV PRN ×2 (16:21→20:51)
[2020-10-18] MEDS: SUCRALFATE 1 GM TAB PO SCH ×3 (16:57→20:53)
[2020-10-18] MEDS: TRIAMCINOLONE ACET 0.1% CR 15 GM TUBE TOP SCH ×2 (16:57→20:54)
[2020-10-18] MEDS: ATORVASTATIN 40 MG TAB PO SCH (16:57)
[2020-10-18] MEDS: GABAPENTIN 600 MG TAB PO SCH ×2 (16:58→20:53)
[2020-10-18] MEDS: amLODIPine BESYLATE 5 MG TAB PO SCH (16:58)
[2020-10-18] MEDS: LISINOPRIL/HCTZ 20/25MG 1 TAB PO SCH (16:58)
[2020-10-18] MEDS: NYSTATIN CR 15 GM TUBE EXT SCH ×2 (16:58→20:54)
[2020-10-18] MEDS: TOPIRAMATE 50 MG TAB PO SCH ×2 (16:59→20:54)
[2020-10-18] MEDS: SODIUM CHLORIDE 0.9% 1000ML 1,000 ML IV SCH (17:11)
[2020-10-18] MEDS: KETOROLAC 30 MG/ML VIAL IV SCH ×2 (17:12→23:12)
[2020-10-18] MEDS: diphenhydrAMINE Capsule 25 MG CAP PO PRN (17:12)
[2020-10-18] MEDS: traZODone HCL 100 MG TAB PO SCH (20:52)
[2020-10-18] MEDS: PANTOprazole 40 MG TAB PO SCH (20:53)
[2020-10-18] MEDS: DOCUSATE SODIUM 100 MG CAP PO SCH (20:53)
[2020-10-18] MEDS ORDERED: SENNA 8.6 MG TAB PO SCH (21:00)
[2020-10-18] MEDS ORDERED: traZODone HCL 50 MG TAB PO SCH (21:00)
[2020-10-18] MEDS ORDERED: PANTOprazole 40 MG TAB PO SCH (21:00)
[2020-10-18] MEDS: ceFAZolin 2000MG 2,000 MG/15 ML SYR IV SCH (23:07)
[2020-10-19] MEDS: SODIUM CHLORIDE 0.9% 1000ML 1,000 ML IV SCH (02:11)
[2020-10-19] MEDS: KETOROLAC 30 MG/ML VIAL IV SCH (05:11)
[2020-10-19] MEDS: ceFAZolin 2000MG 2,000 MG/15 ML SYR IV SCH (05:11)
[2020-10-19] MEDS: SUCRALFATE 1 GM TAB PO SCH ×2 (07:59→11:47)
[2020-10-19] MEDS: diphenhydrAMINE Capsule 25 MG CAP PO PRN (08:02)
[2020-10-19] MEDS: oxyCODONE/ACETAMINOPHEN 5mg/325mg TAB PO PRN ×2 (08:02→11:47)
[2020-10-19] MEDS ORDERED: MULTIVITAMIN TAB PO SCH (09:00)
[2020-10-19] MEDS ORDERED: ESCITALOPRAM OXALATE 20 MG TAB PO SCH (09:00)
[2020-10-19] MEDS ORDERED: CLOPIDOGREL BISULFATE 75 MG TAB PO SCH (09:00)
[2020-10-19] MEDS: INSULIN ASPART 100 UNITS/ML 3 ML PEN SC SCH (09:12)
[2020-10-19] MEDS: FLUTICASONE/VILANTEROL 200/25MCG 14 PUFFS/INHALER INH SCH (09:14)
[2020-10-19] MEDS: DOCUSATE SODIUM 100 MG CAP PO SCH (09:15)
[2020-10-19] MEDS: TRIAMCINOLONE ACET 0.1% CR 15 GM TUBE TOP SCH (09:16)
[2020-10-19] MEDS: ATORVASTATIN 40 MG TAB PO SCH (09:17)
[2020-10-19] MEDS: GABAPENTIN 600 MG TAB PO SCH (09:18)
[2020-10-19] MEDS: amLODIPine BESYLATE 5 MG TAB PO SCH (09:19)
[2020-10-19] MEDS: NYSTATIN CR 15 GM TUBE EXT SCH (09:19)
[2020-10-19] MEDS: LISINOPRIL/HCTZ 20/25MG 1 TAB PO SCH (09:20)
[2020-10-19] MEDS: PANTOprazole 40 MG TAB PO SCH (09:20)
[2020-10-19] MEDS: TOPIRAMATE 50 MG TAB PO SCH (09:21)
--- NOTE | 2020-10-19 09:52 | Progress Notes ---
DATE: 10/19/2020 SUBJECTIVE: A 54-year-old white female postop day 1 from ORIF of the left ankle fracture. She is doing pretty well. Pain seems to be improved significantly. No new complaints. No chest pain or shortness of breath. Not feeling dizzy or lightheaded. OBJECTIVE: VITAL SIGNS: Temperature 36.6. Vital signs stable. GENERAL: Shows a pleasant, middle-aged female. She is sitting up in bed, looks pretty comfortable this morning. EXTREMITIES: Examination of the left leg reveals the splint to be in place. No drainage. Fairly minimal toe swelling. She can dorsiflex and plantarflex her foot appropriately. She is neurologically intact. ASSESSMENT: A 54-year-old female with multiple medical comorbidities postop day 1 from ORIF of a left ankle fracture. She seems to be doing okay pain dang. She needs some therapy. PLAN: 1. DVT prophylaxis including thigh-high TEDs, SCDs, and she is back on her Plavix. 2. PT/OT. She is going to be strictly nonweightbearing on this left leg for 2 weeks to get the wound healed. 3. Pain control, doing well with current pain regimen. 4. Disposition: Plan to discharge to home later today after therapy.
--- NOTE | 2020-10-25 08:46 | Discharge Summary ---
Date of Service October 25, 2020 Discharge Data Consultations 10/17/20 21:32 Consult Case Management - Discharge Planning Routine 10/18/20 15:50 Consult Case Management - Discharge Planning Routine Procedures Performed Operation Date: 10/18/20 09:35 Actual Procedures p Open Reduction Internal Fixation Left Distal Fibula Fracture(Left) - Kalyan Caldera MD Hospital Course (1) Closed left ankle fracture: This patient is a 55 year old female admitted on 10/17/20 and underwent open reduction internal fixation of her left ankle fracture on 10/18/20. She tolerated the procedure well and there were no complications. Transferred to the PACU post op and later to the orthopedic floor for further care. She was given ancef for antibiotic prophylaxis. She was also given CONY stockings, SCDs, and plavix for DVT prophylaxis. Hemoglobin, hematocrit, and vital signs were monitored during her hospital stay and remained stable. Did not require any blood transfusions. There were no complications during her hospital stay. By post op day #1 the patient was tolerating a diabetic diet, pain was reasonably controlled with oral pain medicine, and she was participating in physical therapy. On post op day #1 the patient was discharged home. She was given printed discharge instructions including prescriptions for extra strength tylenol, and dilaudid. Continue physical therapy, Non weight bearing left lower extremity. Continue CONY stockings. Follow up approximately 2 weeks post op or sooner if there are problems or concerns. Coding Level of Care Code None Diagnoses Closed left ankle fracture S82.892A
--- NOTE | 2020-10-30 10:07 | Coding Query ---
BMI To promote full compliance with coding requirements relating to patient care, physician participation is requested in all cases of children's institution attendant uncertainty. Please assist us with the question(s) below: Please place an X within the parenthesis (x). If other, please document: BMI 47 was documented in this record for this patient and the Anesthesia Record documents Morbid Obesity. If the BMI is significant, please check the box that provides a more specific associated diagnosis: ( ) Overweight/Obese ( ) Obesity (x ) Morbid obesity ( ) Obesity Hypoventilation Syndrome (OHS) ( ) Heathy weight, not significant ( ) Underweight/Thin ( ) Other, please specify Thank you Tati BURR
== END 2020-10-19 12:38 | disposition home or self-care (01) | DRG 493 ==
LOC: ED 14:57 → 3N 17:43

== ENCOUNTER 2023-12-26 22:55 | Inpatient (IN) ==
--- OUTSIDE RECORDS SUMMARY | 2023-12-26 23:00 | External Medical Summary | Summary of Care ---
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 90 Tab 1 05/10/2017 Active Additional Information Patient not taking.Reported on 10/03/2020 ADVAIR DISKUS 500-50 MCG/DOSE inhaler Inhale 1 Puff by mouth 2 times a day. 3 05/19/2017 Active VENTOLIN HFA 108 (90 Base) MCG/ACT inhaler INHALE 2 PUFFS EVERY 4-6 HOURS NEEDED. 5 05/29/2017 Active nystatin 464959 UNIT/GM creamIndications:James matitis APPLY TOPICALLY TO AFFECTED AREA 2 TIMES A DAY. 45 g 2 07/06/2017 Active triamcinolone acetonide (ARISTOCORT) 0.1 % creamIndications:James matitis APPLY TOPICALLY TO AFFECTED AREA 2 TIMES A DAY. TO AFFECTED AREA. 60 g 2 08/11/2017 Active traZODone (DESYREL) 50 MG TabletIndications:In somnia, unspecified type TAKE 1 TAB BY MOUTH AT BEDTIME. 30 Tab 5 08/09/2017 Active Additional Information Patient not taking.Reported on 10/03/2020 cyclobenzaprine (FLEXERIL) 10 MG TabletIndications:Ba ckache TAKE 1 TAB BY MOUTH 3 TIMES A DAY NEEDED FOR MUSCLE SPASMS. 30 Tab 5 09/29/2017 Active amLODIPine (NORVASC) 10 MG Tablet TAKE 1 TAB BY MOUTH DAILY. 90 Tab 1 06/10/2018 Active Cholecalciferol (D3-50) 1.25 MG (55300 UT) Capsule 0 11/22/2017 Active escitalopram (LEXAPRO) 20 MG Tablet 20 mg daily. 0 11/13/2019 Active Lisinopril-hydroCHLO ROthiazide 20-25 MG per tablet Take by mouth daily. 0 07/26/2019 Acti ve ibuprofen (MOTRIN) 800 MG Tablet 800 mg 3 times a day as needed. 0 11/01/2018 Active pantoprazole (PROTONIX) 20 MG TBEC Take 20 mg by mouth 2 times a day. 0 11/15/2019 Active ondansetron (ZOFRAN) 4 MG Tablet every 8 hours as needed for Nausea. 0 03/12/2019 Active Semaglutide,0.25 or 0.5MG/DOS, (OZEMPIC, 0.25 OR 0.5 MG/DOSE,) 2 MG/1.5ML SOPN once a week. 0 02/16/2019 Active sucralfate (CARAFATE) 1 GM Tablet 4 times a day. 0 11/14/2019 Active Varenicline Tartrate (CHANTIX CONTINUING MONTH RUSS) 1 MG Tablet 0 06/13/2019 Active traZODone (DESYREL) 150 MG Tablet 0 Active atorvaSTATin (LIPITOR) 40 MG Tablet Take by mouth. 0 10/16/2019 Active Pregabalin (LYRICA) 150 MG Capsule Take 150 mg by mouth 2 times a day. 0 Active QUEtiapine Fumarate 50 MG Oral Tablet (SEROquel) Take 50 mg by mouth at bedtime. 0 Active documented as of this encounter (statuses as of 09/27/2023) Active Problems Problem Noted Date Diagnosed Date MEDICATION USE AGREEMENT 09/01/2017 Body mass index (BMI) of 45.0 to 49.9 in adult 1 Overview: Per Obesity protocol #1 Unspecified inflammatory spondylopathy, lumbar r egion 06/07/2017 Unspecified inflammatory spondylopathy, lumbar r egion 04/22/2017 [facility] RESEARCH OTHER*[id number] 11/27/2015 TERMINATED MEDICATION USAGE AGREEMENT 11/12/2015 Depression 03/01/2015 DDD (degenerative disc disease), lumbar 11/30/19 15 HTN, goal below 140/90 02/02/2012 Tobacco use disorder 02/12/2009 Esophageal reflux 01/07/2009 Anxiety state 01/07/2009 Menstruation, irregular 01/07/2009 Dysmenorrhea 01/07/2009 Absence of menstruation 01/07/2009 documented as of this encounter (statuses as of 09/27/2023) Resolved Problems Problem Noted Date Diagnosed Date Resolved Date Body mass index (BMI) of 40. 0 to 44.9 in adult 04/22/2017 06/17/2017 Overview: Per Obesity protocol #1 ICD-10 update of inactive term MEDICATION USE AGREEMENT 11/01/2014 Encounter for examination fo r normal comparison and control in clinical research program 10/06/2012 02/23/2013 Overview: Diagnosis changed due to Research Module. Go to Snapshot for study details. BMI 40.0-44.9, adult 02/09/2012 015 BMI 35-39 ISOLATED (SEE ACTUAL BMI) 02/24/2010 01/31/2020 Overview: Per Obesity Protocol, #19 documented as of this encounter (statuses as of 09/27/2023) Immunizations Name Administration Dates Next Due COVID-19 mRNA, LNP-s, No Pre serve, 2-Dose Series (Peak 10) 07/23/2021,12/12/2020,11/16/2020 Pneumococcal Polysaccharide PPV23 (Pneumovax) 11/29/2014 Seasonal Influenza, PF, 6 M & above, IM , (FluLaval or Fluzone) 08/30/2020,06/07/2017 Seasonal Influenza, Quadriva lent, No Preserve, IM 06/19/2016 Seasonal Influenza, Split, I IV3, With Preserve, Inj 05/27/2015,06/28/2010 TDAP (age 10 and older)(Boostrix) 08/25/2016 TDAP (age 11 and older)(Adacel) 06/16/2010(Defer red: Patient Refused) documented as of this encounter Social History Tobacco Use Types Packs/Day Years Used Date Smoking Tobacco: Former Cigarettes 30 Q uit: 11/02/2019 Smokeless Tobacco: Never Alcohol Use Standard Drinks/Week Comments No 0 (1 standard drink = 0.6 oz pur e alcohol) Sex and Gender Information Value Date Recorded Sex Assigned at Not on file Gender Identity Not on file Sexual Orientation Not on file documented as of this encounter Plan of Treatment Health Maintenance Due Date Last Done Comments Hepatitis B (1 of 3 - 3-dose series) 1964 HIV Screening 1979 Albumin/Creatinine Ratio 1982 Hepatitis C Screening 1982 HPV/Co-Test 1994 Mammogram 2004 Cologuard 2009 Colonoscopy 2009 Colorectal Cancer Screening 2009 Fecal Occult Blood Test 2009 Sigmoidoscopy 2009 Zoster Vaccines (1 of 2) 2014 GFR 11/26/2016 11/27/2015, 02/11, 12/31/2014, Additional history exists Cervical Cancer Screening 12/31/2017 Pap Smear 12/31/2017 12/31/2014, 12/13, 01/07/2009, Additional history exists Depression Screening 06/07/2018 06/07/2017 Diabetes Screening 11/26/2018 11/27/2015, 0 11/27/2015, 03/01/2015, Additional history exists Lipid Panel 11/26/2020 11/27/2015, 02/11, 12/31/2014, Additional history exists COVID-19 Vaccine ( season) 2023 07/23/2021, 12/12/2020, 11/16/2020 Influenza Vaccine (FLU shot) (#1) 2023 08/30/2020, 08/29/2020, 06/13/2019, Additional history exists DTaP,Tdap,and Td Vaccines (2 - Td or Tdap) 08/25/2026 08/25/2016 Pneumococcal Vaccine: Pediatrics (0 to 5 Years) and At-Risk Patients (6 to 64 Years) Aged Out 11/01/2018, 11/29/2014 No longer eligibl e based on patient's age to complete this topic GARDASIL-HPV IMMUNIZATION SERIES Aged Out No longer eligible based on patient's age to complete this topic MENINGOCOCCAL (MENACTRA/MENVEO) Aged Out No longer eligible based on patient's age to complete this topic documented as of this encounter Medical Devices Not on filedocumented as of this encounter 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
--- OUTSIDE RECORDS SUMMARY | 2023-12-26 23:00 | External Medical Summary | Continuity of Care Document ---
Author Name Unknown Organization [place] Address [address] [place] [address] Phone [phone] Problems Active Problems Provider Date Mixed hyperlipidemia Ralph Braxton DO Onset : 09/21/2017 Essential hypertension Ralph Braxton DO Ons et: 09/21/2017 Chronic pain syndrome Ralph Braxton DO Onse t: 09/21/2017 Body mass index 40+ - severely obese Ralph Nguyen DO Onset: 09/21/2017 Vitamin D deficiency Ralph Braxton DO Onset : 10/05/2017 Spinal stenosis of lumbosacral region Ralph Braxton DO Onset: 10/05/2017 Tobacco user Ralph Braxton DO Onset: Morbid obesity Ralph Braxton DO Onset: Localized, primary osteoarthritis Ubaldo eaton PA-C Onset: 03/22/2018 Type II diabetes mellitus uncontrolled Ubaldo Jeronimo PA-C Onset: 03/22/2018 Localized, primary osteoarth ritis of the pelvic region and thigh Ubaldo Jeronimo PA-C Onset: 06/21/2018 Gastro-esophageal reflux dis ease with esophagitis Ubaldo Jeronimo PA-C Onset: 09/20/2018 Moderate recurrent major depression Ubaldo Smith PA-C Onset: 09/20/2018 Nicotine dependence, cigaret millicent, with other nicotine-induced disorders Ubaldo Jeronimo PA-C Onset: 11/01/2018 Screening mammography Ubaldo Jeronimo PA-C On set: 02/16/2019 Screening for malignant neoplasm of colon Ubaldo Jeronimo PA-C Onset: 02/16/2019 Arthralgia of the pelvic region and thigh Ubaldo Jeronimo PA-C Onset: 06/13/2019 Polyneuropathy Ubaldo Jeronimo PA-C Onset: 1 Generalized anxiety disorder Ubaldo Jeronimo PA-C Onset: 10/20/2019 Smoker Ubaldo Jeronimo PA-C Onset: 0 11/01/2018 History of cerebrovascular accident Ubaldo Smith PA-C Onset: 07/30/2022 Solitary sacroiliitis Ubaldo Jeronimo PA-C On set: 07/30/2022 Social History Type Date Description Comments Sex Unknown Tobacco Use Reviewed: 08/19/23 Current Cigar ette Smoker 1 Pack Daily Smoking Status Reviewed: 08/19/23 Current Cigar ette Smoker 1 Pack Daily Tobacco Use Reviewed: 08/19/23 Never Smoked Cigars Tobacco Use Reviewed: 08/19/23 Never Smoked A Pipe Smokeless Tobacco 08/19/2023 Never Used Smokeless To bacco ETOH Use Denies alcohol use Recreational Drug Use Denies Drug Use Allergies and adverse reactions Active Allergies Criticality Reaction | Severity Comments Date Aspirin Unable to assess criticality Urticaria 09/21/2017 Medications Active Medications SIG Qnty Indications Order ing Provider Date Tiqywlucep91bh Tablets two tablets x 5 days then one tablet daily x 5 days 15tabs Mishel Bernabe MD 10/08/2023 Amoxicillin/Clavulan ate Lbnnwfize164-876zz Tablets Take 1 Tablet By Mouth Twice A Day For 10 Days 20tabs Mishel Bernabe MD 10/08/2023 Wyecebdv098tv Tablets one by mouth now repeat one week as needed 2tabs Mishel Bernabe MD 10/08/2023 Brxenaoo530958Tyqm/G M Cream Apply To Affected Area Twice A Day 90units Mishel Bernabe MD 10/05/2023 Trazodone ZRC569qc Tablets Take 1 Tablet AT Bedtime 90tabs Mishel Bernabe MD 04/25/2023 Ozempic (0.25 Or 0.5 MG/Dose)2mg/3ML Solution Pen-Inject 0.5mg sq weekly 9ml E11.65 Mishel newberry MD 03/21/2023 Freestyle Yevgeniy 3/Sensor/Glucose Monitoring Fnwfsu8Uupjuz Misc use as directed e11.65 3units Mishel Bernabe MD 12/16/2022 Quetiapine Fhmxhbqk31ye Tablets Take 1 Tablet By Mouth Everyday AT Bedtime 90tabs Mishel Bernabe MD 11/05/2022 Clotrimazole/Betamet hasone Dipropionate1-0.05% Cream Apply To Affected Area Twice A Day as Needed 135units Mishel Bernabe MD 10/20/2022 Vijmzsnjwsief063eh Tablets Take 1 Tablet By Mouth Twice A Day as Needed 180tabs Mishel Bernabe MD 10/19/2022 Vitamin D3 1,250 mcgCapsule Take 1 Capsule By Mouth Once A Week 12caps E55.9 Mishel Bernabe MD 07/13/2022 Klor-Con F7367Mnc Tablets ER Take 1 Tablet By Mouth Every Day AT Night 90tabs E87.6 Mishel Bernabe MD 06/23/2022 Tramadol GGU39ez Tablets Take 1 Tablet By Mouth Twice A Day as Needed For Severe Pain 45tabs Mishel Bernabe MD 06/19/2022 Ljgjrkpvryu34pf Tablets Take 1 Tablet By Mouth AT Bedtime For Sleep 90tabs Mishel Bernabe MD 04/10/2022 Lidocaine Viscous HCL2% Solution apply 2ml to both cheeks, then swish and swallow up to three times daily 300units Mishel Bernabe MD 03/12/2022 Albuterol Sulfate MLW657(90Base) mcg/Act Aerosol Inhale 2 Puffs By Mouth Every 4-6 Hours as Needed Wheezing 25.5units Juventino Sibley MD 12/19/[address] Take 1 Tablet By Mouth Every Day 90tabs K21.0 Rolf Snell JR, MD 12/04/2021 Chexpkoalo22ui Tablets Take 1 Tablet By Mouth Every Day 90tabs Juventino Sibley MD 11/17/2021 Pjgbhrcfis61dw Tablets Take 1 By Mouth Every Day as Needed For Fluid 90tabs Juventino Sibley MD 02/17/2021 Rollator Ultra-LightMisc use as directed 1units Juventino Sibley MD 021 Aqfcpdnapb3so Tablets Take 1 Tablet By Mouth Four Times A Day 360tabs Juventino Sibley MD 12/04/2020 Trelegy Zuftlgj408-67.5-25mc g/Act Aerosol Inhale 1 puff By Mouth Daily 60units Juventino Sibley MD 12/03/2020 Clopidogrel Vcrviuylh42wg Tablets Take 1 Tablet By Mouth Every Day 90tabs Juventino Sibley MD 03/24/2020 Triamcinolone Acetonide0.1% Cream Apply To Affected Area Twice A Day Until Resolved--Then Use When Flaring 30units Rolf Snell JR, MD 11/30/2019 Net Zero AquaLifetoBiotronics3D Ultra 2w/Device Kit test sugars as advised dx: e11.65 1units Rolf Snell JR, MD 11/23/2019 Onetouch UltraStrips Use To Test Twice Daily Dx: E11.65 100units Rolf Snell JR, MD 11/23/2019 Onetouch Ultrasoft LancetsMisc use up to 2 times daily Dx: E11.9 100units Rolf Snell JR, MD 11/23/2019 Escitalopram Akntizp96yy Tablets Take 1 Tablet By Mouth Every Day 90tabs F33.1 Mishel Bernabe MD 11/13/2019 Amlodipine Ezigrfho67vy Tablets Take 1 Tablet By Mouth Every Day 90tabs Mishel Bernabe MD 10/31/2019 Atorvastatin Lsuqasj16lq Tablets Take 1 Tablet By Mouth Every Day 90tabs Juventino Sibley MD 10/16/2019 Ondansetron HCL4mg Tablets Take 1 Tablet By Mouth Every 6-8 Hours as Needed For Nausea 45tabs Mishel Bernabe MD 03/12/2019 Pen [place] 5/16"31G X 8 mm Misc use daily with Victoza 100units E11.65 Rolf Snell JR, MD 11/01/2018 Crzkdhdil663am Tablets take one tablet by mouth three times a day with food for pain 90tabs Mishel Bernabe MD 11/01/2018 Glucometer One Touch UltraDevice use to test once daily and when symptomatic. 1units E11.9 Rolf Snell JR, MD 11/03/2017 [place]ets [facility] [place] Use to test once daily and when symptomatic. 60units Ralph J Irais, DO 11/03/2017 Test Strips For Glucose MeterStrips Check sugars daily and when symptomatic 60units Ralph Ramos Irais, DO 11/03/2017 History Medications Amoxicillin/Clavulanate Zgqwconxt893-282dy Tablets Take 1 Tablet By Mouth Twice A Day For 10 Days 20tabs Mishel Bernabe MD 04/21/2023 - 08/19/2023 Medications Administered in Office Medication SIG Qnty Indications Ordering Provider Date Injection Kenalog 10 MG NDC [id number] Ubaldo Jeronimo, P A-C 08/19/2023 Injection Kenalog 10 MG NDC [id number] Ubaldo Jeronimo, P A-C 03/12/2022 Injection Kenalog 10 MG NDC [id number] Ubaldo Jeronimo, P A-C 01/15/2022 Injection Kenalog 10 MG NDC [id number] Ubaldo Jeronimo, P A-C 10/27/2021 Injection Kenalog 10 MG NDC [id number] Ubaldo Jeronimo, P A-C 07/17/2021 Injection Kenalog 10 MG NDC [id number] Ubaldo Jeronimo, P A-C 04/29/2021 Injection Kenalog 10 MG NDC [id number] Ubaldo Jeronimo, P A-C 02/17/2021 Injection Kenalog 10 MG NDC [id number] Ubaldo Jeronimo, P A-C 12/03/2020 Injection Kenalog 10 MG NDC [id number] Ubaldo Jeronimo, P A-C 08/30/2020 Injection Kenalog 10 MG NDC [id number] Ubaldo Jeronimo, P A-C 05/30/2020 Injection Kenalog 10 MG NDC [id number] Ubaldo Jeronimo, P A-C 02/13/2020 Injection Dexamethasone Sodium Phosphate, 1 MGInjection Ubaldo Jeronimo, PA-C 10/2019 Injection Kenalog 10 MG NDC [id number] Ubaldo Landon Lazdafnea, P A-C 11/30/2019 Injection Kenalog 10 MG NDC [id number] Ubaldo Landon Lazorka, P A-C 06/21/2018 Injection Kenalog 10 MG NDC [id number] Ubaldo Landon Lazorka, P A-C 06/21/2018 Injection Kenalog 10 MG NDC [id number] Ubaldo Landon Lazorka, P A-C 12/02/2017 Injection Kenalog 10 MG NDC [id number] Ubaldo Landon Lazdafnea, P A-C 12/02/2017 Injection Dexamethasone Sodium Phosphate, 1 MGInjection Ubaldo Landon Lazorka, PA-C 11/12 Injection Dexamethasone Sodium Phosphate, 1 MGInjection Ubaldo Landon Lazorka, PA-C 11/12 Immunizations CPT Code Status Date Vaccine Lot # [id number] Given 08/19/2023 Influenza Virus Vaccine, Quadrivalent (Cciiv4), Derived From Cell [id number] Given 07/23/2021 Pfizer Sars-Cov -2 (Cov-19) vacc 30mcg/0.3ML 12Y+ EMR Doc Only [id number] Given 07/17/2021 Influenza Virus Vaccine, Quadrivalent (Cciiv4), Derived From 6 Given 12/12/2020 Pfizer Sars-Cov -2 (Cov-19) vacc 30mcg/0.3ML 12Y+ EMR Doc Only 51511 Given 11/16/2020 Pfizer Sars-Cov -2 (Cov-19) vacc 30mcg/0.3ML 12Y+ EMR Doc Only U-FLU Given 08/30/2020 Influenza,Unspecified [id number] Given 08/30/2020 Influenza Virus Vaccine, Quadrivalent (Cciiv4), Derived From 1 Given 06/13/2019 Influenza Virus Vaccine, Quadrivalent (Cciiv4), Derived From Cell [id number] U-FLU Given 06/13/2019 Influenza,Unspecified 87831 Given 11/01/2018 Pneumococcal Vaccine/Pneu movax 23 [id number] 84762 Given 09/20/2018 Influenza Virus Vaccine, Quadrivalent (Cciiv4), Derived From Cell U-FLU Given 06/07/2017 Influenza,Unspecified 37591 Given 08/25/2016 Tdap (Tetanus, diphtheria & acel. pertussis) Adacel or Boostrix U-FLU Given 06/19/2016 Influenza,Unspecified U-FLU Given 05/27/2015 Influenza,Unspecified 73246 Given 11/29/2014 Pneumococcal Vaccine/Pneu movax 23 U-FLU Given 06/28/2010 Influenza,Unspecified Vital Signs Date Vital Result Comment 10/08/2023 10:27am Body Temperature 99.4 F Heart Rate 78 /min Respiratory Rate 22 /min Weight 180.00 lb Weight 81.648 kg 08/19/2023 11:14am BP Systolic 130 mmHg BP Diastolic 82 mmHg Body Temperature 97.5 F Heart Rate 98 /min Respiratory Rate 17 /min Weight 182.38 lb Weight 82.725 kg Height 64 inches 5'4" BMI (Body Mass Index) 31.3 kg/m2 O2 % BldC Oximetry 99 % [place] Body Weight 120 lb Results Test Acquired Date Facility Test Result H/L Range N ote CBC W/Diff 08/19/2023 [facility] [address] [place] [address] [phone] WBC 8.7 10^3/M3 3.1-9.2 RBC 4.34 10^6/M3 3.70-5.50 HGB 14.3 GR/DL 11.5-16.1 HCT 43.0 % 34.5-47.8 MCV 99.1 CUMICR High 82.6-95.8 MCH 33.1 PICOGR High 27.9-32.9 MCHC 33.3 % 32.6-35.4 RDW 14.8 % High 11.4-14.6 PLT 281 10^3/M3 140-350 MPV 9.6 CUMICR 7.0-10.6 %Neut 65.7 % 40.0-75.0 %Lymph 26.9 % 17.0-45.0 %[place] 4.7 % 1.0-11.0 %Eos 1.5 % 0.0-6.0 %[place] 1.2 % 0.0-2.0 #Neut 5.7 10^3/M3 1.5-8.0 #Lymph 2.3 10^3/M3 0.8-3.2 #[place] 0.4 10^3/M3 0.0-0.8 #Eos 0.1 10^3/m3 0.0-0.4 #Baso 0.1 10^3/m3 0.0-0.2 Comp. Met 08/19/2023 [facility] [address] [place], [place] [id number] [phone] Glucose 107 mg/dL 70-110 BUN 16 mg/dL 6-25 Creatinine 0.9 mg/dL 0.5-1.2 Sodium 141 mEq/L 135-145 Potassium 3.1 mEq/L Low 3.5-5.0 Chloride 108 mEq/L High 95-107 Co-2 19 mEq/L Low 24-31 Alk Phos 61 IU/L 43-122 Alt(SGPT) 18 IU/L 10-40 Ast(Sgot) 15 IU/L 3-42 T.Bilirubin 0.5 mg/dL 0.1-1.3 Calcium 10.2 mg/dL 8.5-10.6 Tot.Protein 6.5 g/dL 5.8-8.0 Albumin 4.5 g/dL 3.0-5.2 Globulin 2.0 g/dL 2.0-3.4 GFR 68 ML/MIN/1.73SQM >60 Lipid 08/19/2023 [facility] [address] [place] [address] [phone] Cholesterol 186 mg/dL 0-200 1 Triglyceride 152 mg/dL High 0-150 2 HDLD 59 mg/dL See Comment 3 Measured LDL 99 mg/dL 0-130 4 Calc VLDL 30.4 mg/dL See Comment 5 Chol/HDL 3.2 RATIO See Comment 6 Non-HDL 127 mg/dL See Comment 7 Laboratory test finding 08/19/2023 [facility] [address] [place] [address] [phone] TSH 1.27 uIU/mL 0.50-6.00 Urinalysis,Cult If Indicated 08/19/2023 [facility] [address] [place], [place] [id number] [phone] RFLX Culture NO Hba1c 08/19/2023 [facility] [address] [place] [address] [phone] A1c 4.50 % Low 4.70-6.50 8 Microalbumin Urine 08/19/2023 [facility] [address] [place] [address] [phone] Urine Creat 226 mg/dL Comment Microalbumin 3.9 mg/dL High 0.0-1.8 9 ug/mgCREATININE 17 ug/mg 0-29 Iron Panel([employer]) 08/19/2023 [facility] [address] [place], [place] [id number] [phone] Iron 127 g /dL 25-140 % Saturation 40 % High 30-35 Tibc 08/19/2023 [facility] [address] [place] [address] [phone] Tibc 316 g /dL 260-400 Transferrin 226 mg/dL 200-400 Urinalysis 08/19/2023 [facility] [address] [place], [place] [id number] [phone] Color YELLOW Appearance CLEAR Clear Spec.Grav. 1.028 High 1.005-1.025 Leukocytes SMALL Abnormal Negative Nitrite NEGATIVE Negative PH 6.5 6.0-7.5 Protein TRACE Abnormal Negative Urine Glucose NEGATIVE Negative Ketone NEGATIVE Negative Urobilinogen NORMAL E.U./DL Normal Bilirubin NEGATIVE Negative Blood NEGATIVE Negative WBC-U 3-5 /HPF 0-5/HPF RBC-U NONE SEEN /HPF 0-5/HPF Bacteria TRACE None Seen Hyaline Casts 21-50 /LPF Abnormal None Seen Squamous 3-5 /HPF 0-5/HPF Granular Cast 0-5 /LPF Abnormal Not Present Caox Crystal 1+ /HPF Abnormal Not Present 1 CHOLESTEROL Less than 200mg/dl Low risk 201-239 mg/dl Borderline risk Equal to or greater 240mg/dl High risk 2 TRIGLYCERIDES Less than 150mg/dl Normal 150-199mg/dl Borderline 200-499mg/dl High Greater than 500mg/dl Very High 3 HDL <40mg/dl Elevated Risk 41-59mg/dl Risk >=60mg/dl Least Risk 4 LDL <100mg/dl Optimal 100-129mg/dl Near Optimal 130-159mg/dl Borderline High 160-189mg/dl High >=190 Very High 5 VLDL Less than 30mg/dl Normal 6 CHOL/HDL <4.0 Optimal 4.0-5.0 Borderline >6.0 High Risk 7 NON-HDL 30mg/dl higher than LDL Target 8 MEAN GLUCOSE IN mg/d L/A1c% POOR CONTROL FAIR CONTROL GOOD CONTROL EXCELLENT CONTROL 360-14 210-9 180-8 120-6 330-13 150-7 90-5 300-12 270-11 240-10 9 *[facility] USES MICROALBUMIN/CREATINE RATIO : *<30 ug/mg CREATININE IS CLASSIFIED NORMAL *30-300 ug/mg CREATININE IS CLASSIFIED CLINICAL MICROALBUMINURIA *>300 ug/mg CREATININE IS CLASSIFIED CLINICAL ALBUMINURIA CLASSIFICATION OF A PATIENT SHOULD BE BASED ON TWO OF THREE ABNORMAL RESULTS COLLECTED WITHIN A 3 TO 6 MONTH TIME FRAME* Procedures Date Code Description Status 08/19/2023 J3301 Injection Kenalog 10 MG [facility] [id number] Completed 08/19/2023 G0008 Influenza Admin Completed 08/19/2023 18292 Venipuncture Routine Complet ed 08/19/2023 3079F PVRP Diastolic BP 80-89 MMHG Completed 08/19/2023 3075F PVRP Systolic BP 130 To 139 MMHG Completed 08/19/2023 3044F PVRP HGB-A1c <7.0% Completed 08/19/2023 93824 Inject/Drain Arthrocentesis Major Joint/Bursa Completed 04/21/2023 3078F PVRP Diastolic BP <80 mmHg C ompleted 04/21/2023 3074F PVRP Systolic BP <130 mmHg C ompleted 04/21/2023 3044F PVRP HGB-A1c <7.0% Completed Medical Devices Description No Information Available Encounters Type Date Location Provider Dx Diagnosis Office Visit 10/08/2023 10:15a Mil Jeronimo PA-C J01.00 Acute maxillary sinusitis, unspecified J20.9 Acute bronchitis, un specified Office Visit 08/19/2023 11:15a Mil Jeronimo PA-C E11.9 Type 2 diabetes mellitus without complications R53.83 Other fatigue I10 Essential (primary) hypertension E78.2 Mixed hyperlipidemia D64.9 Anemia, unspecified K92.1 Melena R04.2 Hemoptysis E11.65 Type 2 diabetes millie itus with hyperglycemia Z23 Encounter for immuni zation Office Visit 04/21/2023 12:00p [place] Ubaldo Jeronimo, PA-C I10 Essential (primary) hypertension E78.2 Mixed hyperlipidemia E11.65 Type 2 diabetes millie itus with hyperglycemia M70.52 Other bursitis of kn ee, left knee J01.00 Acute maxillary sinu sitis, unspecified E11.42 Type 2 diabetes millie itus with diabetic polyneuropathy Assessments Date Code Description Provider 10/08/2023 J01.00 Acute maxillary sinusitis, u nspecified Ubaldo Jeronimo, PA-C 10/08/2023 J20.9 Acute bronchitis, unspecifie d Ubaldo Jeronimo, PA-C 08/19/2023 E11.9 Type 2 diabetes mellitus without complications BRENDA Lawton-C 08/19/2023 R53.83 Other fatigue Ubaldo eaton, PA-C 08/19/2023 I10 Essential (primary) hyperten sarwat Jeronimo, PA-C 08/19/2023 E78.2 Mixed hyperlipidemia Ubaldo Jeronimo, PA-C 08/19/2023 D64.9 Anemia, unspecified Ubaldo Jeronimo, PA-C 08/19/2023 K92.1 Melena Ubaldo medrano, PA-C 08/19/2023 R04.2 Hemoptysis Ubaldo medrano, PA-C 08/19/2023 E11.65 Type 2 diabetes mellitus wit h hyperglycemia BRENDA Lawton-C 08/19/2023 Z23 Encounter for immunization Rachel Jeronimo, PA-C 04/21/2023 I10 Essential (primary) hyperten sarwat Ubaldo Jeronimo, PA-C 04/21/2023 E78.2 Mixed hyperlipidemia Ubaldo Jeronimo, PA-C 04/21/2023 E11.65 Type 2 diabetes mellitus wit h hyperglycemia Ubaldo Jeronimo, PA-C 04/21/2023 M70.52 Other bursitis of knee, left knee BRENDA Lawton-C 04/21/2023 J01.00 Acute maxillary sinusitis, u nspecified Ubaldo Jeronimo PA-C 04/21/2023 E11.42 Type 2 diabetes mellitus with diabetic polyneuropathy Ubaldo Jeronimo PA-C Plan of Treatment Future Appointment(s):* 11/18/2023 1:00 pm - Ubaldo Jeronimo PA-C at [place] 10/08/2023 - Ubaldo Jeronimo PA-C* J01.00 Acute maxillary sinusitis, unspecified* Comments:* Antihistamine if needed Increase rest and fluids Probiotics Finish entire course ofantibiotics * Follow up:* As needed if symptoms not resolving * Recommendations:* Drink plenty of fluids. Thnx-tlq-ghznplw decongestant as needed. Call the office if worsening or noimprovement. * J20.9 Acute bronchitis, unspecified* Comments:* Cough and deep breathe Advised smoking cessation * All* New Medication:* Amoxicillin/Clavulanate Potassium 875-125 mg - TAKE 1 TABLET BY MOUTH TWICE A DAY FOR 10 DAYS * Prednisone 10 mg - two tablets x 5 days then one tablet daily x 5 days * Diflucan 150 mg - one by mouth now repeat one week as needed Functional Status Description No Information Available Mental Status Description No Information Available Referrals Refer to Reason for Referral Status Appt Saima Miguel PA-C Closed [facility] Gastroenterology [address] [place] [address] [address] [phone]
--- OUTSIDE RECORDS SUMMARY | 2023-12-26 23:00 | External Medical Summary | Continuity of Care Document ---
Author Name Unknown Organization [place] Address [address] [place] [address] Phone [phone] Problems Active Problems Provider Date Mixed hyperlipidemia Ralph Braxton DO Onset : 09/21/2017 Essential hypertension Ralph Braxton DO Ons et: 09/21/2017 Chronic pain syndrome Ralph Braxton DO Onse t: 09/21/2017 Body mass index 40+ - severely obese Ralph Nguyen DO Onset: 09/21/2017 Vitamin D deficiency Ralph Braxton DO Onset : 10/05/2017 Spinal stenosis of lumbosacral region Rlaph Braxton DO Onset: 10/05/2017 Tobacco user Ralph [...] SIG Qnty Indications Order ing Provider Date Qldbgsyfin83am Tablets two tablets x 5 days then one tablet daily x 5 days 15tabs Mishel Bernabe MD 10/08/2023 Amoxicillin/Clavulan ate Vtxiedmcj003-443du Tablets Take 1 Tablet By Mouth Twice A Day For 10 Days 20tabs Mishel Bernabe MD 10/08/2023 Igotofme910mv Tablets one by mouth now repeat one week as needed 2tabs Mishel Bernabe MD 10/08/2023 Zpkmdytq889541Lifv/G M Cream Apply To Affected Area Twice A Day 90units Mishel Bernabe MD 10/05/2023 Trazodone JVG702ng Tablets Take 1 Tablet AT Bedtime 90tabs Mishel Bernabe MD 04/25/2023 Ozempic (0.25 Or 0.5 MG/Dose)2mg/3ML Solution Pen-Inject 0.5mg sq weekly 9ml E11.65 Mishel newberry MD 03/21/2023 Freestyle Yevgeniy 3/Sensor/Glucose Monitoring Rwxgal4Hrynjp Misc use as directed e11.65 3units Mishel Bernabe MD 12/16/2022 Quetiapine Exdisqki64hn Tablets Take 1 Tablet By Mouth Everyday AT Bedtime 90tabs Mishel Bernabe MD 11/05/2022 Clotrimazole/Betamet hasone Dipropionate1-0.05% Cream Apply To Affected Area Twice A Day as Needed 135units Mishel Beranbe MD 10/20/2022 Jptkrpdncgndy780on Tablets Take 1 Tablet By Mouth Twice A Day as Needed 180tabs Mishel Bernabe MD 10/19/2022 Vitamin D3 1,250 mcgCapsule Take 1 Capsule By Mouth Once A Week 12caps E55.9 Mishel Bernabe MD 07/13/2022 Klor-Con S9468Bly Tablets ER Take 1 Tablet By Mouth Every Day AT Night 90tabs E87.6 Mishel Bernabe MD 06/23/2022 Tramadol KJD16jn Tablets Take 1 Tablet By Mouth Twice A Day as Needed For Severe Pain 45tabs Mishel Bernabe MD 06/19/2022 Qkohdyejsza88tu Tablets Take 1 Tablet By Mouth AT Bedtime For Sleep 90tabs Mishel Bernabe MD 04/10/2022 Lidocaine Viscous HCL2% Solution apply 2ml to both cheeks, then swish and swallow up to three times daily 300units Mishel Bernabe MD 03/12/2022 Albuterol Sulfate IFR629(90Base) mcg/Act Aerosol Inhale 2 Puffs By Mouth Every 4-6 Hours as Needed Wheezing 25.5units Juventino Sibley MD 12/19/[address] Take 1 Tablet By Mouth Every Day 90tabs K21.0 Rolf Snell JR, MD 12/04/2021 Ygsuxjyjwm33mp Tablets Take 1 Tablet By Mouth Every Day 90tabs Juventino Sibley MD 11/17/2021 Xwtzdaslxu71zr Tablets Take 1 By Mouth Every Day as Needed For Fluid 90tabs Juventino Sibley MD 02/17/2021 Rollator Ultra-LightMisc use as directed 1units Juventino Sibley MD 021 Cuhetazpwn6az Tablets Take 1 Tablet By Mouth Four Times A Day 360tabs Juventino Sibley MD 12/04/2020 Trelegy Ephbxmj043-00.5-25mc g/Act Aerosol Inhale 1 puff By Mouth Daily 60units Juventino Sibley MD 12/03/2020 Clopidogrel Duppcwkij45zu Tablets Take 1 Tablet By Mouth Every Day 90tabs Juventino Sibley MD 03/24/2020 Triamcinolone Acetonide0.1% Cream Apply To Affected Area Twice A Day Until Resolved--Then Use When Flaring 30units Rolf Snell JR, MD 11/30/2019 [employer] Ultra 2w/Device Kit test sugars as advised dx: e11.65 1units Rolf Snell JR, MD 11/23/2019 Onetouch UltraStrips Use To Test Twice Daily Dx: E11.65 100units Rolf Snell JR, MD 11/23/2019 [employer] Ultrasoft LancetsMisc use up to 2 times daily Dx: E11.9 100units Rolf Snell JR, MD 11/23/2019 Escitalopram Jhnzcba19fw Tablets Take 1 Tablet By Mouth Every Day 90tabs F33.1 Mishel Bernabe MD 11/13/2019 Amlodipine Tkmahcsv23fm Tablets Take 1 Tablet By Mouth Every Day 90tabs Mishel Bernabe MD 10/31/2019 Atorvastatin Czgikxu94re Tablets Take 1 Tablet By Mouth Every Day 90tabs Juventino Sibley MD 10/16/2019 Ondansetron HCL4mg Tablets Take 1 Tablet By Mouth Every 6-8 Hours as Needed For Nausea 45tabs Mishel Bernabe MD 03/12/2019 Pen Brady 5/16"31G X 8 mm Misc use daily with Victoza 100units E11.65 Rolf Snell JR, MD 11/01/2018 Zrwgjqbas768zf Tablets take one tablet by mouth three times a day with food for pain 90tabs Mishel Bernabe MD 11/01/2018 Glucometer One Touch UltraDevice use to test once daily and when symptomatic. 1units E11.9 Rolf Snell JR, MD 11/03/2017 Lancets [facility] Safety[place]isc Use to test once daily and when symptomatic. 60units Ralph J Irais, DO 11/03/2017 Test Strips For Glucose MeterStrips Check sugars daily and when symptomatic 60units Ralph Ramos Irais, DO 11/03/2017 History Medications Amoxicillin/Clavulanate Qjunppxoj077-174fh Tablets Take 1 Tablet By Mouth Twice A Day For 10 Days 20tabs Mishel Bernabe MD 04/21/2023 - 08/19/2023 Medications Administered in Office Medication SIG Qnty Indications Ordering Provider Date Injection Kenalog 10 MG NDC [id number] Ubaldo Jeronimo, P A-C 08/19/2023 Injection Kenalog 10 MG NDC [id number] Ubaldo Jeronimo, P A-C 03/12/2022 Injection Kenalog 10 MG NDC 49410831701Eufidbfsv Ubaldo Jeronimo, P A-C 01/15/2022 Injection Kenalog 10 MG NDC [id number] Ubaldo Jeronimo, P A-C 10/27/2021 Injection Kenalog 10 MG NDC [id number] Ubaldo Jeronimo, P A-C 07/17/2021 Injection Kenalog 10 MG NDC 35166492795Gtdcltmxd Ubaldo Jeronimo, P A-C 04/29/2021 Injection Kenalog 10 MG NDC 16104802097Faujoihhp Ubaldo Jeronimo, P A-C 02/17/2021 Injection Kenalog 10 MG NDC [id number] Ubaldo Jeronimo, P A-C 12/03/2020 Injection Kenalog 10 MG NDC [id number] Ubaldo Jeronimo, P A-C 08/30/2020 Injection Kenalog 10 MG NDC [id number] Ubaldo Jeronimo, P A-C 05/30/2020 Injection Kenalog 10 MG NDC [id number] Ubaldo Jeronimo, P A-C 02/13/2020 Injection Dexamethasone Sodium Phosphate, 1 MGInjection Ubaldo Jeronimo, PA-C 10/2019 Injection Kenalog 10 MG NDC 72049477036Esvlgcwjg Ubaldo Landon Lazdafnea, P A-C 11/30/2019 Injection Kenalog 10 MG NDC [id number] Ubaldo Landon Lazorka, P A-C 06/21/2018 Injection Kenalog 10 MG NDC [id number] Ubaldo Landon Lazorka, P A-C 06/21/2018 Injection Kenalog 10 MG NDC [id number] Ubaldo Landon Lazorka, P A-C 12/02/2017 Injection Kenalog 10 MG NDC [id number] Ubaldo Landon Lazdafnea, P A-C 12/02/2017 Injection Dexamethasone Sodium Phosphate, 1 MGInjection Ubaldo Landon Lazorka, PA-C 11/12 Injection Dexamethasone Sodium Phosphate, 1 MGInjection Ubaldo Landon Lazorka, PA-C 11/12 Immunizations CPT Code Status Date Vaccine Lot # [id number] Given 08/19/2023 Influenza Virus Vaccine, Quadrivalent (Cciiv4), Derived From Cell [id number] Given 07/23/2021 Pfizer Sars-Cov -2 (Cov-19) vacc 30mcg/0.3ML 12Y+ EMR Doc Only 91633 Given 07/17/2021 Influenza Virus Vaccine, Quadrivalent (Cciiv4), Derived From 9 Given 12/12/2020 Pfizer Sars-Cov -2 (Cov-19) vacc 30mcg/0.3ML 12Y+ EMR Doc Only 74761 Given 11/16/2020 Pfizer Sars-Cov -2 (Cov-19) vacc 30mcg/0.3ML 12Y+ EMR Doc Only U-FLU Given 08/30/2020 Influenza,Unspecified [phone] 68641 Given 08/30/2020 Influenza Virus Vaccine, Quadrivalent (Cciiv4), Derived From 7 Given 06/13/2019 Influenza Virus Vaccine, Quadrivalent (Cciiv4), Derived From Cell [id number] U-FLU Given 06/13/2019 Influenza,Unspecified 87086 Given 11/01/2018 Pneumococcal Vaccine/Pneu movax 23 [id number] 16504 Given 09/20/2018 Influenza Virus Vaccine, Quadrivalent (Cciiv4), Derived From Cell U-FLU Given 06/07/2017 Influenza,Unspecified 10291 Given 08/25/2016 Tdap (Tetanus, diphtheria & acel. pertussis) Adacel or Boostrix U-FLU Given 06/19/2016 Influenza,Unspecified U-FLU Given 05/27/2015 Influenza,Unspecified 28644 Given 11/29/2014 Pneumococcal Vaccine/Pneu movax 23 U-FLU [...] kg/m2 O2 % BldC Oximetry 99 % [place] Body Weight 120 lb Results Test Acquired Date Facility Test Result H/L Range N ote CBC W/Diff 08/19/2023 [facility] [address] [place] [address] [phone] WBC 8.7 10^3/M3 3.1-9.2 RBC 4.34 10^6/M3 3.70-5.50 HGB 14.3 GR/DL 11.5-16.1 HCT 43.0 % 34.5-47.8 MCV 99.1 CUMICR High 82.6-95.8 MCH 33.1 PICOGR High 27.9-32.9 MCHC 33.3 % 32.6-35.4 RDW 14.8 % High 11.4-14.6 PLT 281 10^3/M3 140-350 MPV 9.6 CUMICR 7.0-10.6 %Neut 65.7 % 40.0-75.0 %Lymph 26.9 % 17.0-45.0 %Adams 4.7 % 1.0-11.0 %Eos 1.5 % 0.0-6.0 %Baso 1.2 % 0.0-2.0 #Neut 5.7 10^3/M3 1.5-8.0 #Lymph 2.3 10^3/M3 0.8-3.2 #Adams 0.4 10^3/M3 0.0-0.8 #Eos 0.1 10^3/m3 0.0-0.4 #Baso 0.1 10^3/m3 0.0-0.2 Comp. Met 08/19/2023 [facility] [address] [place], [place] [id number] [phone] Glucose 107 mg/dL 70-110 BUN 16 mg/dL [...] 2.0-3.4 GFR 68 ML/MIN/1.73SQM >60 Lipid 08/19/2023 [facility] [address] [place] [address] [phone] Cholesterol 186 mg/dL 0-200 1 Triglyceride 152 mg/dL High 0-150 2 HDLD 59 mg/dL See Comment 3 Measured LDL 99 mg/dL 0-130 4 Calc VLDL 30.4 mg/dL See Comment 5 Chol/HDL 3.2 RATIO See Comment 6 Non-HDL 127 mg/dL See Comment 7 Laboratory test finding 08/19/2023 [facility] [address] [place] [address] [phone] TSH 1.27 uIU/mL 0.50-6.00 Urinalysis,Cult If Indicated 08/19/2023 [facility] [address] [place], [place] [id number] [phone] RFLX Culture NO Hba1c 08/19/2023 [facility] [address] [place] [address] [phone] A1c 4.50 % Low 4.70-6.50 8 Microalbumin Urine 08/19/2023 [facility] [address] [place] [address] [phone] Urine Creat 226 mg/dL Comment Microalbumin 3.9 mg/dL High 0.0-1.8 9 ug/mgCREATININE 17 ug/mg 0-29 Iron Panel([employer]) 08/19/2023 [facility] [address] [place], [place] [id number] [phone] Iron 127 g /dL 25-140 % Saturation 40 % High 30-35 Tibc 08/19/2023 [facility] [address] [place] [address] [phone] Tibc 316 g /dL 260-400 Transferrin 226 mg/dL 200-400 Urinalysis 08/19/2023 [facility] [address] [place], [place] [id number] [phone] Color YELLOW Appearance CLEAR Clear Spec.Grav. 1.028 [...] 150-7 90-5 300-12 270-11 240-10 9 *[facility] [employer] USES MICROALBUMIN/CREATINE RATIO : *<30 ug/mg CREATININE IS CLASSIFIED NORMAL *30-300 ug/mg CREATININE IS CLASSIFIED CLINICAL MICROALBUMINURIA *>300 ug/mg CREATININE IS CLASSIFIED CLINICAL ALBUMINURIA CLASSIFICATION OF A PATIENT SHOULD BE BASED ON TWO OF THREE ABNORMAL RESULTS COLLECTED WITHIN A 3 TO 6 MONTH TIME FRAME* Procedures Date Code Description Status 08/19/2023 J3301 Injection Kenalog 10 MG [facility] [id number] Completed 08/19/2023 G0008 Influenza Admin Completed 08/19/2023 50942 Venipuncture Routine Complet ed 08/19/2023 3079F PVRP Diastolic BP 80-89 MMHG Completed 08/19/2023 3075F PVRP Systolic BP 130 To 139 MMHG Completed 08/19/2023 3044F PVRP HGB-A1c <7.0% Completed 08/19/2023 39424 Inject/Drain Arthrocentesis Major Joint/Bursa Completed 04/21/2023 3078F [...] for immuni zation Office Visit 04/21/2023 12:00p [place] Ubaldo Jeronimo, PA-C I10 Essential (primary) hypertension [...] 1:00 pm - Ubaldo Jeronimo PA-C at [place] 10/08/2023 - Ubaldo Jeronimo PA-C* J01.00 Acute maxillary sinusitis, unspecified* Comments:* Antihistamine if needed Increase rest and fluids Probiotics Finish entire course ofantibiotics * Follow up:* As needed if symptoms not resolving * Recommendations:* Drink plenty of fluids. Vsfj-ejo-nhdewrq decongestant as needed. Call the office if [...] Referral Status Appt Saima Miguel PA-C Closed [facility] [address] [place] [address] [address] [phone]
--- OUTSIDE RECORDS SUMMARY | 2023-12-26 23:00 | External Medical Summary | Summary of Care ---
Author Name Unknown Organization [facility] Address [address] [facility] [place] [address] Phone [phone] Care Team Providers Care Applied Anthropologist Name Role Phone Ubaldo Jeronimo PA-C Primary Care Provide r Encounter Details Date Type Department Care Team (Late st Contact Info) Description 11/02/2023 Population Health External Data Unspecified Department Allergies Active Allergy Reactions Criticality Noted Date Comments Aspirin 09/08/2001 documented as of this encounter (statuses as of 11/03/2023) Medications Medication Sig Dispensed Refills Start Date [...] 4-6 HOURS NEEDED. 5 05/29/2017 Active nystatin 648224 UNIT/GM creamIndications:James matitis APPLY TOPICALLY TO AFFECTED [...] 1 06/10/2018 Active Cholecalciferol (D3-50) 1.25 MG (76167 UT) Capsule 0 11/22/2017 Active escitalopram (LEXAPRO) [...] as of this encounter (statuses as of 11/03/2023) Active Problems Problem Noted Date Diagnosed Date MEDICATION USE AGREEMENT 09/01/2017 Body mass index (BMI) of 45.0 to 49.9 in adult 1 Overview: Per Obesity protocol #1 Unspecified inflammatory spondylopathy, lumbar r egion 06/07/2017 Unspecified inflammatory spondylopathy, lumbar r egion 04/22/2017 [employer] OTHER*[id number] 11/27/2015 TERMINATED MEDICATION USAGE AGREEMENT 11/12/2015 Depression 03/01/2015 DDD (degenerative disc disease), lumbar 11/30/19 15 HTN, goal below 140/90 02/02/2012 Tobacco use disorder 02/12/2009 Esophageal reflux 01/07/2009 Anxiety state 01/07/2009 Menstruation, irregular 01/07/2009 Dysmenorrhea 01/07/2009 Absence of menstruation 01/07/2009 documented as of this encounter (statuses as of 11/03/2023) Resolved Problems Problem Noted Date Diagnosed Date [...] as of this encounter (statuses as of 11/03/2023) Immunizations Name Administration Dates Next Due COVID-19 mRNA, LNP-s, No Pre serve, 2-Dose Series ([employer]) 07/23/2021,12/12/2020,11/16/2020 Pneumococcal Polysaccharide PPV23 (Pneumovax) 11/29/2014 Seasonal [...] Used Date Smoking Tobacco: Former Cigarettes 30 0 11/02/1989 - 11/02/2019 Smokeless Tobacco: Never Alcohol Use Standard Drinks/Week Comments No 0 (1 standard drink = 0.6 oz pur e alcohol) Sex and Gender Information Value Date Recorded Sex Assigned at Not on file Gender Identity Not on file Sexual Orientation Not on file documented as of this encounter Plan of Treatment Health Maintenance Due Date Last Done Comments HIV Screening 1979 Albumin/Creatinine Ratio 1982 Hepatitis C Screening 1982 Hepatitis B (1 of 3 - 19+ 3-dose series) 1983 HPV/Co-Test 1994 Mammogram 2004 Cologuard 2009 Colonoscopy [...] filedocumented as of this encounter Care Teams Applied Anthropologist Relationship Specialty Start Date End Date Ubaldo Jeronimo PA-C PCP - General Physician Log Feeder 12/01/19 documented as of this encounter
--- OUTSIDE RECORDS SUMMARY | 2023-12-26 23:00 | External Medical Summary | Summary of Care ---
Author Name Unknown Organization [facility] Address [address] [facility] [place] [address] Phone [phone] Care Team Providers Care Museum Host/Hostess Name Role Phone Ubaldo Jeronimo PA-C Primary Care Provide r Encounter Details Date Type Department Care Team (Late st Contact Info) Description 12/09/2023 Population Health External Data Unspecified Department Allergies Active Allergy Reactions Criticality Noted Date Comments Aspirin 09/08/2001 documented as of this encounter (statuses as of 12/14/2023) Medications Medication Sig Dispensed Refills Start Date [...] 4-6 HOURS NEEDED. 5 05/29/2017 Active nystatin 254408 UNIT/GM creamIndications:James matitis APPLY TOPICALLY TO AFFECTED [...] 1 06/10/2018 Active Cholecalciferol (D3-50) 1.25 MG (40921 UT) Capsule 0 11/22/2017 Active escitalopram (LEXAPRO) [...] as of this encounter (statuses as of 12/14/2023) Active Problems Problem Noted Date Diagnosed Date MEDICATION USE AGREEMENT 09/01/2017 Body mass index (BMI) of 45.0 to 49.9 in adult 1 Overview: Per Obesity protocol #1 Unspecified inflammatory spondylopathy, lumbar r egion 06/07/2017 Unspecified inflammatory spondylopathy, lumbar r egion 04/22/2017 [employer] OTHER*[id number] 11/27/2015 TERMINATED MEDICATION USAGE AGREEMENT 11/12/2015 Depression 03/01/2015 DDD (degenerative disc disease), lumbar 11/30/19 15 HTN, goal below 140/90 02/02/2012 Tobacco use disorder 02/12/2009 Esophageal reflux 01/07/2009 Anxiety state 01/07/2009 Menstruation, irregular 01/07/2009 Dysmenorrhea 01/07/2009 Absence of menstruation 01/07/2009 documented as of this encounter (statuses as of 12/14/2023) Resolved Problems Problem Noted Date Diagnosed Date [...] as of this encounter (statuses as of 12/14/2023) Immunizations Name Administration Dates Next Due COVID-19 mRNA, LNP-s, No Pre serve, 2-Dose Series ([employer]) 07/23/2021,12/12/2020,11/16/2020 Pneumococcal Polysaccharide PPV23 (Pneumovax) 11/29/2014 Seasonal [...] filedocumented as of this encounter Care Teams Museum Host/Hostess Relationship Specialty Start Date End Date Ubaldo Jeronimo PA-C PCP - General Physician Biomedical Equipment Support Specialist 12/01/19 documented as of this encounter
--- NOTE | 2023-12-26 23:16 | Emergency Department Note ---
History of Present Illness General Chief complaint: Vomiting Stated complaint: VOMITING, DIARRHEA, ABD PAIN Time Seen by Provider: 12/26/23 23:06 History of Present Illness Maximum Pain Intensity: 8 This 58-year-old female presents ER complaining of abdominal pain, weakness, nausea, vomiting, unintentional weight loss for the past few months steadily getting worse. She states she feels quite weak. She is on Ozempic. She continues to smoke. Patient denies fever, chills, cough, congestion, flulike illness. Home Medications Medication Instructions Recorded Confirmed Type amlodipine 10 mg tablet 10 mg PO QAM 05/26/18 12/27/23 History albuterol sulfate 90 mcg/actuation 2 puff inhalation Q6H PRN 10/14/19 12/27/23 History aerosol inhaler (Ventolin HFA) Shortness Of Breath Or Wheezing nystatin 100,000 unit/gram topical 1 applic topical BID PRN fungal 10/14/19 12/27/23 History cream rash cholecalciferol (vitamin D3) 1,250 50,000 unit PO WK 10/18/19 12/27/23 History mcg (50,000 unit) capsule lisinopril 20 1 tab PO QAM 10/18/19 12/27/23 History mg-hydrochlorothiazide 25 mg tablet sucralfate 1 gram tablet (Carafate) 1 g PO QID 10/18/19 12/27/23 History clopidogrel 75 mg tablet 75 mg PO QAM 10/17/20 12/27/23 History cyclobenzaprine 10 mg tablet 10 mg PO TID PRN Muscle Spasm 10/17/20 12/27/23 History escitalopram oxalate 20 mg tablet 20 mg PO QAM 10/17/20 12/27/23 History ibuprofen 800 mg tablet 800 mg PO TID PRN Pain 10/17/20 12/27/23 History lorazepam 0.5 mg tablet 0.5 mg PO BID PRN Severe Anxiety 10/17/20 12/27/23 History ondansetron HCl 4 mg tablet 4 mg PO .Q6-8HRS PRN Nausea 10/17/20 12/27/23 History pantoprazole 20 mg tablet,delayed 20 mg PO BID 10/17/20 12/27/23 History release trazodone 150 mg tablet 150 mg PO HS 10/17/20 12/27/23 History tramadol 50 mg tablet 50 mg PO Q6 PRN pain #30 tabs 11/13/20 12/27/23 Rx atorvastatin 40 mg tablet 40 mg PO HS 12/27/23 12/27/23 History fluticasone fur. 200 mcg-umeclid 1 inh inhalation DAILY PRN 12/27/23 12/27/23 History 62.5 mcg-vilant 25 mcg Shortness Of Breath Or Wheezing inhalat.powder (Trelegy Ellipta) methocarbamol 750 mg tablet 750 mg PO BID PRN Muscle Spasm 12/27/23 12/27/23 History potassium chloride 10 mEq 10 meq PO HS 12/27/23 12/27/23 History tablet,extended release(part/cryst) (Siria Jackson) Allergies Allergy/AdvReac Type Severity Reaction Status Date / Time aspirin Allergy Unknown Hives Verified 10/17/20 18:30 Past Med/Surg History Medical History Closed left ankle fracture Fall Injury of hip, right Lumbar radiculopathy Surgical History Status post bunionectomy H/O tubal ligation Family History Other Cancer Diabetes Heart disease Hypertension Social History Smoking Status: Current every day smoker Tobacco Type: Cigarettes Cigarettes Per Day: 3; Second Hand Exposure: Yes; Do You Dip or Chew Tobacco: No; Hx Alcohol Use: No Hx Substance Use: No Preferred Language: Uzbek Communication Ability: Effective Health Care Marketing Manager Required: No Beliefs That Will Affect Care: None marital status: Current Living Situation: Spouse and Family Feels Safe at Home: Yes Assistive Devices: Glasses Review of Systems A total of 10 systems reviewed and were otherwise negative Physical Exam Vital Signs Vital Signs - 24 hr 12/26/23 23:01 Temperature 36.4 C L Temperature Source Temporal Artery Scan Pulse Rate 69 Respiratory Rate 20 Respiratory Effort / Characteristics Non-Labored Spontaneous Respiratory Depth Normal Blood Pressure 94/62 L Blood Pressure Mean 72 Blood Pressure Position Sitting Pulse Oximetry 100 Oxygen Delivery Method Room Air Sepsis Recent Fever Within 48 Hours No Sepsis New/Unexplained Change in Mental Status N/A Sepsis Action Taken by Nursing No Action Required VITALS: Vitals are noted on the nurse's note and reviewed by myself. Vital signs stable. GENERAL: Pleasant female with family present, in no acute distress, nondiaphoretic, well-developed well-nourished. SKIN: Capillary reflex less than 2 seconds. HEENT: Normocephalic. PERRLA. EOMI. Nares patent. Mucous membranes moist. Neck is supple without nuchal rigidity. HEART: Regular rate and rhythm LUNGS: Clear to auscultation bilaterally without wheezes, rales or rhonchi. No retractions or accessory muscle use. ABDOMEN: Positive bowel sounds x 4. Normal tympanic percussion. Soft, tender mid abdomen, without masses or organomegaly. No guarding or rebound tenderness. no CVA tenderness MUSCULOSKELETAL: No gross musculoskeletal defects. NEURO: Patient was alert and oriented to person place and time. No focal neurological deficits. Course Administered Medications Potassium Chloride (K Deejay / Wtr) 10 meq in 100 mls @ 100 mls/hr IV Q1H SAMMI Stop: 12/27/23 03:44 Last Admin: 12/27/23 01:15 Dose: 100 mls/hr Documented By: Infusion: 12/27/23 00:55 Dose: Infused Documented By: Admin: 12/26/23 23:55 Dose: 100 mls/hr Documented By: KG Discontinued Medications Sodium Chloride (Nss) 1,000 mls @ 999 mls/hr IV .Q1H1M STA Stop: 12/27/23 00:12 Last Admin: 12/26/23 23:38 Dose: 999 mls/hr Documented By: KG Famotidine (Pepcid 20mg Iv Push) 20 mg in 5 mls @ 2.5 mls/min IV NOW STA Stop: 12/26/23 23:13 Last Admin: 12/26/23 23:39 Dose: 2.5 mls/min Documented By: KG Magnesium Sulfate/Dextrose (Magnesium Sulfate / D5w) 1 gm in 100 mls @ 100 mls/hr IV NOW STA Stop: 12/27/23 00:44 Last Admin: 12/27/23 01:16 Dose: 100 mls/hr Documented By: Infusion: 12/27/23 00:54 Dose: Infused Documented By: Admin: 12/26/23 23:54 Dose: 100 mls/hr Documented By: KG Lactated Ringer's (Lr) 1,000 mls @ 999 mls/hr IV .Q1H1M ONE Stop: 12/27/23 00:45 Last Admin: 12/26/23 23:55 Dose: 999 mls/hr Documented By: KG Ondansetron HCl (Ondansetron Inj 2 Mg/Ml 2 Ml Vial) 4 mg IV NOW STA Stop: 12/26/23 23:13 Last Admin: 12/26/23 23:39 Dose: 4 mg Documented By: KG Potassium Chloride (Potassium Chloride 20 Meq/15 Ml Udc) 40 meq PO NOW STA Stop: 12/26/23 23:45 Last Admin: 12/26/23 23:54 Dose: 40 meq Documented By: KG Critical Care Time Critical Care Time: Yes Total Critical Care Time: 35 I have personally spent 35 minutes of critical care time in the direct management of this patient. This includes bedside care, interpretation of diagnostic studies, and testing, discussion with consultants, patient, and family members, and other required patient management activities. This 35 minutes is in excess of all separately billable procedures. Medical Decision Making Medical Records Attestation: I reviewed the patient's medical records. Home Medications Current Medication List: was personally reviewed by me Laboratory Data Attestation: I reviewed the patient's lab results. 12/26/23 23:10 12/26/23 23:10 Lab Results 12/26/23 12/26/23 12/26/23 Range/Units 23:10 23:35 23:40 WBC 13.71 H (4.8-10.8) K/ul RBC 3.52 L (4.20-5.40) M/uL Hgb 11.6 L (12.0-16.0) g/dl POC Hgb 10.5 L (12.0-16.0) g/dl Hct 32.6 L (37.0-47.0) % POC Hct 31 L (37-47) % MCV 92.6 (80.0-100.0) fL MCH 33.0 (25.0-34.0) pg MCHC 35.6 (32.0-36.0) g/dL RDW Std Deviation 43.1 (36.4-46.3) fL RDW Coeff of Elizabeth 12.7 (11.5-14.5) % Plt Count 324 (130-400) K/uL MPV 10.3 (9.4-12.4) fL Immature Gran % (Auto) 0.5 % Neut % (Auto) 66.6 % Lymph % (Auto) 26.6 % Yancey % (Auto) 5.0 % Eos % (Auto) 0.9 % Baso % (Auto) 0.4 % Neut # (Auto) 9.13 H (1.40-6.50) K/uL Lymph # (Auto) 3.65 H (1.20-3.40) K/uL Yancey # (Auto) 0.68 H (0.11-0.59) K/uL Eos # (Auto) 0.13 (0.00-0.50) K/uL Baso # (Auto) 0.05 (0.00-0.20) K/uL Immature Gran # (Auto) 0.07 (0.01-0.20) K/uL VBG pH 7.16 L (7.36-7.41) VBG pCO2 26 L (38-50) mmHg VBG pO2 31 mmHg VBG HCO3 9 mmol/L VBG O2 Saturation 61.3 % VBG Base Excess -17.8 mEq/L POC Sodium 140 (135-144) mmol/L Sodium 136 (136-145) mmol/L POC Potassium 2.2 L* (3.3-5.0) mmol/L Potassium 2.4 L* (3.5-5.1) mmol/L POC Chloride 119 H (101-112) mmol/L Chloride 116 H (98-107) mmol/L Carbon Dioxide 10 L (21-32) mmol/L POC Total CO2 11 L (24-31) mmol/L Anion Gap 10 (3-11) POC Anion Gap 13.0 L (16-25) mmol/L POC BUN 30 H (7-18) mg/dl BUN 35 H (6-23) mg/dl Creatinine 2.48 H (0.6-1.2) mg/dl POC Creatinine 2.7 H (0.6-1.3) mg/dl Est Cr Clr Drug Dosing 23.9 ml/min Est GFR ( Amer) 23.8 ml/min Est GFR (Non-Af Amer) 20.5 ml/min BUN/Creatinine Ratio 14.1 (10-20) Glucose 100 H (70-99(Fasting)) mg/dl POC Glucose (other) 89 (70-99) mg/dl Calcium 10.6 H (8.6-10.3) mg/dl POC Ioniz Calcium Donnell 1.61 H* (1.12-1.32) mmol/l Magnesium 1.1 L (1.7-2.4) mg/dl Total Bilirubin 0.3 (0.2-1.0) mg/dl AST 19 (13-39) U/L ALT 13 (7-52) U/L Alkaline Phosphatase 54 (34-104) U/L Troponin I High Sens 8.5 (0-14) pg/ml Total Protein 6.8 (6.0-8.3) gm/dl Albumin 4.4 (3.4-5.0) gm/dl Globulin 2.4 L (2.5-4.0) gm/dl Albumin/Globulin Ratio 1.8 (0.9-2) Lipase 43 (11-82) U/L Imaging Data Attestation: I personally reviewed and interpreted this imaging study as follows: Radiologist's Impression: Abdomen/Pelvis CT 12/26/23 23:46 Exam(s): CT ABDOMEN + PELVIS Without Contrast EXAM: CT Abdomen and Pelvis Without Intravenous Contrast CLINICAL HISTORY: Reason for exam: mid abd pain, unintentional weight loss,ENZO. TECHNIQUE: Axial computed tomography images of the abdomen and pelvis without intravenous contrast. CTDI is 25.16 mGy and DLP is 1159.71 mGy-cm. Automated exposure control was utilized for the study. A dose lowering technique was utilized adhering to the principles of ALARA. COMPARISON: No relevant prior studies available. FINDINGS: ABDOMEN: Liver: Unremarkable. Gallbladder and bile ducts: Gallstones. No gallbladder wall thickening or pericholecystic edema or fluid. No ductal dilation. Pancreas: Unremarkable. No ductal dilation. Spleen: Unremarkable. No splenomegaly. Adrenals: Unremarkable. No mass. Kidneys and ureters: Unremarkable. No obstructing stones. No hydronephrosis. Stomach and bowel: Unremarkable. No obstruction. No mucosal thickening. PELVIS: Appendix: No findings to suggest acute appendicitis. Bladder: Unremarkable. No stones. ABDOMEN and PELVIS: Intraperitoneal space: Unremarkable. No free air. No significant fluid collection. Bones/joints: No acute findings. Soft tissues: Unremarkable. Vasculature: Unremarkable. No abdominal aortic aneurysm. Lymph nodes: Unremarkable. No enlarged lymph nodes. IMPRESSION: No acute findings in the abdomen or pelvis. Gallstones. Electronically signed by: Rolf Morin MD 12/27/23 00:56 AM MDM Narrative Prior records/ancillary studies reviewed and summarized above. Nursing notes reviewed. Additional history obtained from family. The patient's history was concerning for unintentional weight loss, nausea, abdominal pain and generalized weakness. Differential diagnosis: Etiologies such as side effect of Ozempic, malignancy, gallbladder, metabolic, infection, hypo/hyperglycemia, electrolyte abnormalities, cardiac sources, intracerebral event, toxicologic, neurologic, as well as others were entertained. Physical examination: As above. ER treatment provided: IV Lock An order was placed for continuous cardiac monitoring. The monitor shows a rate of 60-100 with a sinus rhythm per my interpretation. IV fluids, Zofran, Pepcid, potassium, magnesium and second line was placed On reassessment the patient felt better. Diagnostics interpretation by me: ECG: Ordered for weakness EKG: Normal sinus, U wave in V2 and V3, no acute ST depression, impression sinus bradycardia with U wave present independently interpreted by myself concerning for low potassium and magnesium The labs Independently Interpreted by myself revealed hypokalemia, low magnesium, acute kidney injury I-STAT concerning for acute kidney injury with creatinine of 2.7. Potassium is 2.2 and patient was immediately given potassium by mouth and through the IV. A second line was placed. VBG was reviewed and patient is acidotic Imaging studies: Chest x-ray with no acute consolidation, pneumothorax or free air per my independent interpretation CT as above Consultation: A consultation was placed with the hospitalist. The case was discussed and diagnostics were reviewed. The patient was evaluated in the ER for further treatment. Exam and history seem consistent with metabolic acidosis with hypokalemia, low magnesium and acute kidney injury. She was hydrated as above. Electrolytes were replaced as above. Medicine was consulted and the case was discussed. Patient will be admitted to the medical service for further evaluation and workup. Patient is agreeable. She was reassessed multiple times. She did improve. By the evaluation outlined above emergent etiologies such as cardiac sources, intracerebral event, toxologic, neurologic, as well as others were deemed relatively unlikely. The pt informed about the findings as listed above. All questions were answered and pleased with the treatment. The chart was completed utilizing [employer] Speech voice recognition software. Grammatical errors, random word insertions, pronoun errors, and incomplete sentences are an occassional consequence of this system due to software limitations, ambient noise, and hardware issues. Any formal questions or concerns about the content, text, or information contained within the body of this dictation should be directly addressed to the physician assistant grocery store manager for clarification. Impression & Plan ENZO (acute kidney injury), Hypomagnesemia, Hypokalemia, Metabolic acidosis, Abnormal weight loss, Abdominal pain, acute, Weakness Discharge Plan Visit Data Chief Complaint: Vomiting Stated Complaint: VOMITING, DIARRHEA, ABD PAIN ED Provider: Mendy Lewis ED Midlevel Provider: Viki Ayala Discharge Problem: ENZO (acute kidney injury), Hypomagnesemia, Hypokalemia, Metabolic acidosis, Abnormal weight loss, Abdominal pain, acute, Weakness Patient Disposition: Admitted As Inpatient Condition: Fair Forms Stand Alone Forms: [facility] [place] [employer] Prescriptions Prescriptions: No Action tramadol 50 mg tablet 50 mg PO Q6 PRN (Reason: pain) Qty: 30 0RF albuterol sulfate [Ventolin HFA] 90 mcg/actuation Hfa Aerosol Inhaler 2 puff INHALATION Q6H PRN (Reason: Shortness Of Breath Or Wheezing) nystatin 100,000 unit/gram Cream 1 applic TOPICAL BID PRN (Reason: fungal rash) Rx Instructions: Apply to affected area(s) lisinopril-hydrochlorothiazide 20-25 mg Tablet 1 tab PO QAM sucralfate [Carafate] 1 gram Tablet 1 g PO QID cholecalciferol (vitamin D3) 1,250 mcg (50,000 unit) capsule 50,000 unit PO WK Rx Instructions: TAKE THIS MEDICATION EVERY WEDNESDAY amlodipine 10 mg Tablet 10 mg PO QAM cyclobenzaprine 10 mg tablet 10 mg PO TID PRN (Reason: Muscle Spasm) ibuprofen 800 mg tablet 800 mg PO TID PRN (Reason: Pain) Rx Instructions: TAKE THIS MEDICATION WITH FOOD ondansetron HCl 4 mg tablet 4 mg PO .Q6-8HRS PRN (Reason: Nausea) pantoprazole 20 mg tablet,delayed release (DR/EC) 20 mg PO BID lorazepam 0.5 mg tablet 0.5 mg PO BID PRN (Reason: Severe Anxiety) trazodone 150 mg tablet 150 mg PO HS escitalopram oxalate 20 mg tablet 20 mg PO QAM clopidogrel 75 mg tablet 75 mg PO QAM atorvastatin 40 mg tablet 40 mg PO HS methocarbamol 750 mg tablet 750 mg PO BID PRN (Reason: Muscle Spasm) Trelegy Ellipta 200-62.5-25 mcg blister with device 1 inh INHALATION DAILY PRN (Reason: Shortness Of Breath Or Wheezing) potassium chloride [Klor-Con M10] 10 mEq tablet,ER particles/crystals 10 meq PO HS Referrals Referrals: Ubaldo Jeronimo, PAValdoC [Primary Care Provider] -
[2023-12-26 23:34] LABS: Basophils # (auto) 0.05 K/uL (0.00-0.20); Basophils % (auto) 0.4 %; Eosinophils # (auto) 0.13 K/uL (0.00-0.50); Eosinophils % (auto) 0.9 %; Hematocrit (blood only) 32.6 % (37.0-47.0); Hemoglobin 11.6 g/dl (12.0-16.0); Immature Granulocytes # (auto) 0.07 K/uL (0.01-0.20); Immature Granulocytes % (auto) 0.5 %; Lymphocytes # (auto) 3.65 K/uL (1.20-3.40); Lymphocytes % (auto) 26.6 %; Mean Corpuscular Hgb Conc 35.6 g/dL (32.0-36.0); Mean Corpuscular Volume 92.6 fL (80.0-100.0); Mean Platelet Volume 10.3 fL (9.4-12.4); Monocytes # (auto) 0.68 K/uL (0.11-0.59); Neutrophils # (auto) 9.13 K/uL (1.40-6.50); Neutrophils % (auto) 66.6 %; Platelet Count 324 K/uL (130-400); RDW Coefficient of Variation 12.7 % (11.5-14.5); RDW Standard Deviation 43.1 fL (36.4-46.3); Red Blood Count 3.52 M/uL (4.20-5.40); White Blood Count 13.71 K/ul (4.8-10.8)
[2023-12-26] MEDS: SODIUM CHLORIDE 0.9% 1,000 ML IV STA (23:38)
[2023-12-26] MEDS: ONDANSETRON INJ 2 MG/ML 2 ML VIAL IV STA (23:39)
[2023-12-26] MEDS: FAMOTIDINE 20MG IV PUSH 20 MG/5 ML SYR IV STA (23:39)
[2023-12-26 23:42] LABS: Base Excess VBG -17.8 mEq/L; HCO3 VBG 9 mmol/L; Oxygen Saturation VBG 61.3 %; PCO2 VBG 26 mmHg (38-50); PO2 VBG 31 mmHg; pH VBG 7.16 (7.36-7.41)
[2023-12-26 23:53] LABS: iSTAT Creatinine 2.7 mg/dl (0.6-1.3); iSTAT Hemoglobin 10.5 g/dl (12.0-16.0); iSTAT Ionized Calcium 1.61 mmol/l (1.12-1.32); iSTAT Potassium 2.2 mmol/L (3.3-5.0)
[2023-12-26] MEDS: POTASSIUM CHLORIDE 20 MEQ/15 ML UDC PO STA (23:54)
[2023-12-26] MEDS: MAGNESIUM SULFATE / D5W 1 GM/100 ML BAG IV STA (23:54)
[2023-12-26] MEDS: POTASSIUM CHLORIDE / WTR 10 MEQ/100 ML PLCT IV SCH (23:55)
[2023-12-26] MEDS: LACTATED RINGER'S 1,000 ML IV ONE (23:55)
[2023-12-27 00:16] LABS: Albumin Globulin Ratio 1.8 (0.9-2); Albumin Level 4.4 gm/dl (3.4-5.0); BUN Creatinine Ratio 14.1 (10-20); Bilirubin,Total 0.3 mg/dl (0.2-1.0); Calcium 10.6 mg/dl (8.6-10.3); Creatinine Clr Calc Pharmacy 23.9 ml/min; Est GFR (African American) 23.8 ml/min; Est GFR (Non-African American) 20.5 ml/min; Globulin 2.4 gm/dl (2.5-4.0); Magnesium 1.1 mg/dl (1.7-2.4); Potassium 2.4 mmol/L (3.5-5.1); Total Protein 6.8 gm/dl (6.0-8.3); Troponin I High Sensitivity 8.5 pg/ml (0-14)
--- NOTE | 2023-12-27 00:57 | CT Scan Report ---
Exam(s): CT ABDOMEN + PELVIS Without Contrast EXAM: CT Abdomen and Pelvis Without Intravenous Contrast CLINICAL HISTORY: Reason for exam: mid abd pain, unintentional weight loss,ENZO. TECHNIQUE: Axial computed tomography images of the abdomen and pelvis without intravenous contrast. CTDI is 25.16 mGy and DLP is 1159.71 mGy-cm. Automated exposure control was utilized for the study. A dose lowering technique was utilized adhering to the principles of ALARA. COMPARISON: No relevant prior studies available. FINDINGS: ABDOMEN: Liver: Unremarkable. Gallbladder and bile ducts: Gallstones. No gallbladder wall thickening or pericholecystic edema or fluid. No ductal dilation. Pancreas: Unremarkable. No ductal dilation. Spleen: Unremarkable. No splenomegaly. Adrenals: Unremarkable. No mass. Kidneys and ureters: Unremarkable. No obstructing stones. No hydronephrosis. Stomach and bowel: Unremarkable. No obstruction. No mucosal thickening. PELVIS: Appendix: No findings to suggest acute appendicitis. Bladder: Unremarkable. No stones. ABDOMEN and PELVIS: Intraperitoneal space: Unremarkable. No free air. No significant fluid collection. Bones/joints: No acute findings. Soft tissues: Unremarkable. Vasculature: Unremarkable. No abdominal aortic aneurysm. Lymph nodes: Unremarkable. No enlarged lymph nodes. IMPRESSION: No acute findings in the abdomen or pelvis. Gallstones. Electronically signed by: Rolf Morin MD 12/27/23 00:56 AM
[2023-12-27] MEDS: MAGNESIUM SULFATE / D5W 1 GM/100 ML BAG IV SCH ×2 (01:15→08:29)
[2023-12-27] MEDS ORDERED: NON-FORMULARY MEDICATION (Fluticasone-Umeclidin-Vilanter [Trelegy Ellipta] 200-62.5-25 mcg INH PRN (01:28)
[2023-12-27] MEDS ORDERED: ALBUTEROL HFA 8 GM INHALER INH PRN (01:28)
[2023-12-27] MEDS ORDERED: LORazepam 0.5 MG TAB PO PRN (01:28)
[2023-12-27] MEDS: SODIUM CHLORIDE 0.9% 1,000 ML IV SCH (02:09)
[2023-12-27] MEDS: MAGNESIUM SULFATE / D5W 1 GM/100 ML BAG IV ONE (02:18)
[2023-12-27 02:45] LABS: Phosphorus 3.8 mg/dl (2.5-4.9)
--- NOTE | 2023-12-27 04:07 | History & Physical Report ---
Date of Service December 27, 2023 Assessment & Plan (1) Nausea vomiting and diarrhea: Plan: 58yo female with one week of nausea, vomiting and diarrhea. Patient appears profoundly dehydrated with electrolyte abnormalities. Hypotension on arrival. Significant acidosis with pH=7.16 on VBG. No anion gap on chemistry - likely from diarrhea. -Admit to PCU -Check stool PCR and c. diff -Continue IVF - NSS at 100mL/hr x 3 L ordered -Protonix 40mg IV daily -Continue Sucralfate 1gm PO QID -Zofran PRN - patient with prolonged QT interval on initial EKG. Will repeat in AM to assess QT interval after electrolyte repletion -HCO3=10. If persistent acidosis would consider administration of HCO3 and workup for RTA (2) Hypomagnesemia: Plan: Mg=1.1, likely secondary to poor oral intake and diarrhea losses -4gm Magnesium given -Repeat Mg in AM (3) Hypercalcemia: Plan: Likely secondary to dehydration, patient on HCTZ as well -Check PO4 -Check PTH -Repeat chemistry in AM - hopefully Ca improves with hydration. If persistent would proceed with remainder of hypercalcemia workup - Vitamin D level, PTHrP, etc (4) Acute hypokalemia: Plan: K=2.4 -Given 80mEq so far -Repeat chemistry in AM -Cautious repletion given ENZO (5) ENZO (acute kidney injury): Plan: Likely secondary to pre-renal azotemia, volume loss from persistent diarrhea -Continue IVF -Check urine Na and Cr -Renal dosing where needed -Avoid nephrotoxic agents -Hold Lisinopril/HCTZ (6) Hyperlipidemia: Plan: Chronic. Stable -Continue Atorvastatin (7) DM2 (diabetes mellitus, type 2): Plan: Patient completed 8 months of Ozempic - reports she has lost 130+ pounds. Now not on any medications Admission and Anticipated Discharge Date Admission Date: December 27, 2023 History of Present Illness Chief Complaint: diarrhea, vomiting Primary Care Provider: Ubaldo Camarillo Merary Nowak is a 58yo female with DM, HTN, HLP and prior TIA presenting with one week of nausea, vomiting and diarrhea. Patient reports several daily episodes of non-bloody/non-bilious emesis and multiple episodes of non-bloody diarrhea. Her diarrhea is profuse and watery, occurs throughout the day and at night too. She has had some fecal incontinence. No recent hospitalization or antibiotic use. No sick contacts. Drinks bottled water. She has had some weakness and fatigue. Poor appetite and decreased oral intake for the last 8 months. She was previously on Ozempic and feels that this decreased her appetite - she lost over 130#. She stopped the Ozempic 9 days ago. She has some vague lower abdominal pain Patient denies fever, chills, chest pain, cough or SOB. Denies urinary complaints. No bone pain, sweats. ER Course: NSS x 1L LR x 1L Pepcid 20mg IV Zofran 4mg IV Magnesium x 4 gm KCl 40mEq PO + 10mg IV x 4 runs (80mEq total) Allergies Allergy/AdvReac Type Severity Reaction Status Date / Time aspirin Allergy Unknown Hives Verified 10/17/20 18:30 Home Medications Medication Instructions Recorded Confirmed Type amlodipine 10 mg tablet 10 mg PO QAM 05/26/18 12/27/23 History albuterol sulfate 90 mcg/actuation 2 puff inhalation Q6H PRN 10/14/19 12/27/23 History aerosol inhaler (Ventolin HFA) Shortness Of Breath Or Wheezing nystatin 100,000 unit/gram topical 1 applic topical BID PRN fungal 10/14/19 12/27/23 History cream rash cholecalciferol (vitamin D3) 1,250 50,000 unit PO WK 10/18/19 12/27/23 History mcg (50,000 unit) capsule lisinopril 20 1 tab PO QAM 10/18/19 12/27/23 History mg-hydrochlorothiazide 25 mg tablet sucralfate 1 gram tablet (Carafate) 1 g PO QID 10/18/19 12/27/23 History clopidogrel 75 mg tablet 75 mg PO QAM 10/17/20 12/27/23 History cyclobenzaprine 10 mg tablet 10 mg PO TID PRN Muscle Spasm 10/17/20 12/27/23 History escitalopram oxalate 20 mg tablet 20 mg PO QAM 10/17/20 12/27/23 History ibuprofen 800 mg tablet 800 mg PO TID PRN Pain 10/17/20 12/27/23 History lorazepam 0.5 mg tablet 0.5 mg PO BID PRN Severe Anxiety 10/17/20 12/27/23 History ondansetron HCl 4 mg tablet 4 mg PO .Q6-8HRS PRN Nausea 10/17/20 12/27/23 History pantoprazole 20 mg tablet,delayed 20 mg PO BID 10/17/20 12/27/23 History release trazodone 150 mg tablet 150 mg PO HS 10/17/20 12/27/23 History tramadol 50 mg tablet 50 mg PO Q6 PRN pain #30 tabs 11/13/20 12/27/23 Rx atorvastatin 40 mg tablet 40 mg PO HS 12/27/23 12/27/23 History fluticasone fur. 200 mcg-umeclid 1 inh inhalation DAILY PRN 12/27/23 12/27/23 History 62.5 mcg-vilant 25 mcg Shortness Of Breath Or Wheezing inhalat.powder (Trelegy Ellipta) methocarbamol 750 mg tablet 750 mg PO BID PRN Muscle Spasm 12/27/23 12/27/23 History potassium chloride 10 mEq 10 meq PO HS 12/27/23 12/27/23 History tablet,extended release(part/cryst) (Siria Jackson) Past Med/Surg History Medical History (Updated 12/27/23 @ 03:55 by Miya Caldera DO) Hyperlipidemia DM2 (diabetes mellitus, type 2) HTN (hypertension) Closed left ankle fracture Injury of hip, right Lumbar radiculopathy Surgical History Status post bunionectomy H/O tubal ligation Family History Other Cancer Diabetes Heart disease Hypertension Social History Smoking Status: Current every day smoker Tobacco Type: Cigarettes Cigarettes Per Day: 3; Second Hand Exposure: Yes; Do You Dip or Chew Tobacco: No; Hx Alcohol Use: No Hx Substance Use: No Preferred Language: Norwegian Communication Ability: Effective Chemistry Research Assistant Required: No Beliefs That Will Affect Care: None marital status: Current Living Situation: Spouse and Family Feels Safe at Home: Yes Assistive Devices: Glasses Review of Systems Review of Systems: All systems reviewed & are unremarkable except as noted in HPI & below Physical Exam Physical Exam: General: patient appears frail, chronically ill, NAD, non-toxic in appearance, AA&O x 4 Skin: warm, dry, intact, no rashes or lesions HEENT: NC/AT, PERRL, EOMI, anicteric sclera, conjunctiva without injection, external ear normal to inspection and nontender, nares patent, dry mucus membranes, dentition intact, no oropharyngeal lesions, neck supple, trachea midline, no LAD, no thyromegaly, no JVD Heart: +S1/S2, regular, no m/r/g Lungs: equal air entry bilaterally, no rales/rhonchi/wheezes Abd: +BS, soft, NT/ND, no masses/organomegaly/ascites Ext: warm, 2+ pulses in UE/LE bilaterally, no clubbing/cyanosis or edema Neuro: nonfocal, patient AA&O x 4, speech intact, no facial droop, moving all extremities on command with equal strength 5/5 Results & Data Results & Data Vital Signs (Past 12 Hours) Vital Signs Temp Pulse Resp BP Pulse Ox O2 Del Method 12/26/23 23:30 60 12/26/23 23:01 36.4 C L 69 20 94/62 L 100 Room Air Laboratory Results Laboratory Results WBC 13.71 K/ul (4.8-10.8) H 12/26/23 23:10 RBC 3.52 M/uL (4.20-5.40) L 12/26/23 23:10 Hgb 11.6 g/dl (12.0-16.0) L 12/26/23 23:10 POC Hgb 10.5 g/dl (12.0-16.0) L 12/26/23 23:40 Hct 32.6 % (37.0-47.0) L 12/26/23 23:10 POC Hct 31 % (37-47) L 12/26/23 23:40 MCV 92.6 fL (80.0-100.0) 12/26/23 23:10 MCH 33.0 pg (25.0-34.0) 12/26/23 23:10 MCHC 35.6 g/dL (32.0-36.0) 12/26/23 23:10 RDW Std Deviation 43.1 fL (36.4-46.3) 12/26/23 23:10 RDW Coeff of Elizabeth 12.7 % (11.5-14.5) 12/26/23 23:10 Plt Count 324 K/uL (130-400) 12/26/23 23:10 MPV 10.3 fL (9.4-12.4) 12/26/23 23:10 Immature Gran % (Auto) 0.5 % 12/26/23 23:10 Neut % (Auto) 66.6 % 12/26/23 23:10 Lymph % (Auto) 26.6 % 12/26/23 23:10 [place] % (Auto) 5.0 % 12/26/23 23:10 Eos % (Auto) 0.9 % 12/26/23 23:10 Baso % (Auto) 0.4 % 12/26/23 23:10 Neut # (Auto) 9.13 K/uL (1.40-6.50) H 12/26/23 23:10 Lymph # (Auto) 3.65 K/uL (1.20-3.40) H 12/26/23 23:10 [place] # (Auto) 0.68 K/uL (0.11-0.59) H 12/26/23 23:10 Eos # (Auto) 0.13 K/uL (0.00-0.50) 12/26/23 23:10 Baso # (Auto) 0.05 K/uL (0.00-0.20) 12/26/23 23:10 Immature Gran # (Auto) 0.07 K/uL (0.01-0.20) 12/26/23 23:10 VBG pH 7.16 (7.36-7.41) L 12/26/23 23:35 VBG pCO2 26 mmHg (38-50) L 12/26/23 23:35 VBG pO2 31 mmHg 12/26/23 23:35 VBG HCO3 9 mmol/L 12/26/23 23:35 VBG O2 Saturation 61.3 % 12/26/23 23:35 VBG Base Excess -17.8 mEq/L 12/26/23 23:35 POC Sodium 140 mmol/L (135-144) 12/26/23 23:40 Sodium 136 mmol/L (136-145) 12/26/23 23:10 POC Potassium 2.2 mmol/L (3.3-5.0) L* 12/26/23 23:40 Potassium 2.4 mmol/L (3.5-5.1) L* 12/26/23 23:10 POC Chloride 119 mmol/L (101-112) H 12/26/23 23:40 Chloride 116 mmol/L (98-107) H 12/26/23 23:10 Carbon Dioxide 10 mmol/L (21-32) L 12/26/23 23:10 POC Total CO2 11 mmol/L (24-31) L 12/26/23 23:40 Anion Gap 10 (3-11) 12/26/23 23:10 POC Anion Gap 13.0 mmol/L (16-25) L 12/26/23 23:40 POC BUN 30 mg/dl (7-18) H 12/26/23 23:40 BUN 35 mg/dl (6-23) H 12/26/23 23:10 Creatinine 2.48 mg/dl (0.6-1.2) H 12/26/23 23:10 POC Creatinine 2.7 mg/dl (0.6-1.3) H 12/26/23 23:40 Est Cr Clr Drug Dosing 23.9 ml/min 12/26/23 23:10 Est GFR ( Amer) 23.8 ml/min 12/26/23 23:10 Est GFR (Non-Af Amer) 20.5 ml/min 12/26/23 23:10 BUN/Creatinine Ratio 14.1 (10-20) 12/26/23 23:10 Glucose 100 mg/dl (70-99(Fasting)) H 12/26/23 23:10 POC Glucose (other) 89 mg/dl (70-99) 12/26/23 23:40 Osmolality 290 mOsm/kg (280-300) 12/27/23 Unknown Calcium 10.6 mg/dl (8.6-10.3) H 12/26/23 23:10 POC Ioniz Calcium Donnell 1.61 mmol/l (1.12-1.32) H* 12/26/23 23:40 Phosphorus 3.8 mg/dl (2.5-4.9) 12/26/23 23:10 Magnesium 1.1 mg/dl (1.7-2.4) L 12/26/23 23:10 Total Bilirubin 0.3 mg/dl (0.2-1.0) 12/26/23 23:10 AST 19 U/L (13-39) 12/26/23 23:10 ALT 13 U/L (7-52) 12/26/23 23:10 Alkaline Phosphatase 54 U/L (34-104) 12/26/23 23:10 Total Creatine Kinase 142 U/L (26-192) 12/26/23 23:10 Troponin I High Sens 8.5 pg/ml (0-14) 12/26/23 23:10 Total Protein 6.8 gm/dl (6.0-8.3) 12/26/23 23:10 Albumin 4.4 gm/dl (3.4-5.0) 12/26/23 23:10 Globulin 2.4 gm/dl (2.5-4.0) L 12/26/23 23:10 Albumin/Globulin Ratio 1.8 (0.9-2) 12/26/23 23:10 Lipase 43 U/L (11-82) 12/26/23 23:10 PTH Intact 4.4 pg/ml (12.0-88.0) L 12/27/23 02:12 Impressions Abdomen/Pelvis CT 12/26/23 23:46 Exam(s): CT ABDOMEN + PELVIS Without Contrast EXAM: CT Abdomen and Pelvis Without Intravenous Contrast CLINICAL HISTORY: Reason for exam: mid abd pain, unintentional weight loss,ENZO. TECHNIQUE: Axial computed tomography images of the abdomen and pelvis without intravenous contrast. CTDI is 25.16 mGy and DLP is 1159.71 mGy-cm. Automated exposure control was utilized for the study. A dose lowering technique was utilized adhering to the principles of ALARA. COMPARISON: No relevant prior studies available. FINDINGS: ABDOMEN: Liver: Unremarkable. Gallbladder and bile ducts: Gallstones. No gallbladder wall thickening or pericholecystic edema or fluid. No ductal dilation. Pancreas: Unremarkable. No ductal dilation. Spleen: Unremarkable. No splenomegaly. Adrenals: Unremarkable. No mass. Kidneys and ureters: Unremarkable. No obstructing stones. No hydronephrosis. Stomach and bowel: Unremarkable. No obstruction. No mucosal thickening. PELVIS: Appendix: No findings to suggest acute appendicitis. Bladder: Unremarkable. No stones. ABDOMEN and PELVIS: Intraperitoneal space: Unremarkable. No free air. No significant fluid collection. Bones/joints: No acute findings. Soft tissues: Unremarkable. Vasculature: Unremarkable. No abdominal aortic aneurysm. Lymph nodes: Unremarkable. No enlarged lymph nodes. IMPRESSION: No acute findings in the abdomen or pelvis. Gallstones. Electronically signed by: Rolf Morin MD 12/27/23 00:56 AM Code Status & VTE Plan VTE Prophylaxis Plan VTE Prophylaxis will be ordered: Yes PG Care Time/CCT Total # of Minutes Spent Total Time Spent with Patient: Total time spent is greater than 50% in coordination of care (as documented) at patient's floor/unit and/or counseling patient: Coding Level of Care Code 79678 INT INP/OBS CARE 3/75MIN Diagnoses Nausea vomiting and diarrhea R11.2; R19.7 Hypomagnesemia E83.42 Hypercalcemia E83.52 Acute hypokalemia E87.6 ENZO (acute kidney injury) N17.9 Hyperlipidemia E78.5 DM2 (diabetes mellitus, type 2) E11.9
[2023-12-27 06:47] LABS: Base Excess VBG -19.7 mEq/L; HCO3 VBG 8 mmol/L; Oxygen Saturation VBG 72.7 %; PCO2 VBG 26 mmHg (38-50); PO2 VBG 45 mmHg; pH VBG 7.11 (7.36-7.41)
[2023-12-27] MEDS ORDERED: STAT IV/IM STA (07:05)
--- NOTE | 2023-12-27 07:08 | Hospitalist Progress Note ---
Date of Service December 27, 2023 Assessment & Plan (1) Nausea vomiting and diarrhea: Plan: 58yo female with one week of nausea, vomiting and diarrhea. Patient appears profoundly dehydrated with electrolyte abnormalities. Hypotension on arrival. Significant acidosis with pH=7.16 on VBG. No anion gap on chemistry - likely from diarrhea. -Check stool PCR and c. diff CT abdomen and pelvis with no acute changes, gallstones without changes -Protonix 40mg IV daily -Continue Sucralfate 1gm PO QID replete hypomagnesemia, hypokalemia - (2) Hypercalcemia: Plan: Likely secondary to dehydration, patient on HCTZ as well -suppressed PTH, normal phos, repeat Ca++ - (3) ENZO (acute kidney injury): Plan: Likely secondary to pre-renal azotemia, volume loss from persistent diarrhea -Continue IVF -Check urine Na and Cr -Renal dosing where needed -Avoid nephrotoxic agents -Hold Lisinopril/HCTZ non anion gap acidosis delta delta less than 1, nephrology assisting in managment, on bicarb infusion (4) DM2 (diabetes mellitus, type 2): Plan: Patient completed 8 months of Ozempic - reports she has lost 130+ pounds. Now not on any medications (5) Hyperlipidemia: Plan: Chronic. Stable -Continue Atorvastatin Admission and Anticipated Discharge Date Admission Date: December 27, 2023 Subjective Pt feels somewhat improved able to tolerate some po water and juice appreciate nephrology input no further diarrhea according to patient Physical Exam Physical Exam: pt is awake and alert cardiac is regular lungs are clear abd is soft, hyperactive and non tender Results & Data Results & Data Vital Signs (Past 12 Hours) Vital Signs Temp Pulse Resp BP Pulse Ox O2 Del Method 12/27/23 06:20 50 L 16 98 12/27/23 06:10 51 L 16 96 12/27/23 06:00 89/41 L 12/27/23 06:00 46 L 17 98 12/27/23 05:50 47 L 17 98 12/27/23 05:40 50 L 16 100 12/27/23 05:36 87/54 L 12/27/23 05:36 49 L 17 99 12/27/23 05:30 76/33 L 12/27/23 05:30 49 L 14 98 12/27/23 05:28 47 L 16 98 12/27/23 05:20 47 L 15 98 12/27/23 05:10 46 L 16 98 12/27/23 05:07 50 L 16 98 12/27/23 05:05 47 L 17 99 12/27/23 05:03 47 L 17 12/27/23 05:02 47 L 18 98 12/27/23 05:00 47 L 16 98 12/27/23 04:50 50 L 17 99 12/27/23 04:40 49 L 17 99 12/27/23 04:32 89 18 98 12/27/23 04:32 92/67 L 12/27/23 04:30 17 98 12/27/23 04:20 54 L 15 99 12/27/23 04:10 49 L 17 98 12/27/23 04:00 97/49 L 12/27/23 04:00 52 L 18 98 12/27/23 03:50 50 L 17 97 12/27/23 03:40 51 L 17 96 12/27/23 03:30 51 L 17 98 12/27/23 03:30 92/54 L 12/27/23 03:20 50 L 16 97 12/27/23 03:10 50 L 16 97 12/27/23 03:00 82/51 L 12/27/23 03:00 49 L 18 98 12/27/23 02:50 51 L 17 98 12/27/23 02:40 52 L 18 98 12/27/23 02:30 86/50 L 12/27/23 02:30 51 L 19 99 12/27/23 02:20 52 L 17 98 12/27/23 02:10 54 L 21 99 12/27/23 02:00 56 L 19 98 12/27/23 02:00 90/56 L 12/27/23 01:50 58 L 20 100 12/27/23 01:40 55 L 16 100 12/27/23 01:30 99/53 L 12/27/23 01:30 56 L 22 100 12/27/23 01:20 60 16 100 12/27/23 01:11 18 100 12/27/23 01:00 102/49 L 12/27/23 01:00 69 17 100 12/27/23 00:50 81 18 100 12/27/23 00:46 99/58 L 12/27/23 00:46 69 10 L 12/27/23 00:40 63 18 100 12/27/23 00:30 58 L 16 100 12/27/23 00:26 82 8 L 12/27/23 00:10 62 16 100 12/27/23 00:00 54 L 16 12/27/23 00:00 97/56 L 12/26/23 23:50 63 17 100 12/26/23 23:47 56 L 18 100 12/26/23 23:47 93/45 L 12/26/23 23:40 53 L 20 100 12/26/23 23:31 61 20 98 12/26/23 23:30 98/48 L 12/26/23 23:30 60 12/26/23 23:01 97.5 F L 69 20 94/62 L 100 Room Air Laboratory Results reviewed cbc reviewed chemistry discussed case with nephrology PG Care Time/CCT Total # of Minutes Spent Total Time Spent with Patient: Total time spent is greater than 50% in coordination of care (as documented) at patient's floor/unit and/or counseling patient: Coding Level of Care Code 78469 SUB INP/OBS CARE 2/35MIN Diagnoses Nausea vomiting and diarrhea R11.2; R19.7 Hypercalcemia E83.52 ENZO (acute kidney injury) N17.9 DM2 (diabetes mellitus, type 2) E11.9 Hyperlipidemia E78.5
--- NOTE | 2023-12-27 07:20 | XRay Report ---
XR chest 1V portable CLINICAL HISTORY: Chest pain, nonspecific COMPARISON STUDY: Chest radiograph June 17, 2022. Chest CT September 14, 2023. FINDINGS: Lung volumes are normal. Lungs are clear. There is no pneumothorax or pleural effusion. Car diac size is normal. Mediastinal contours are normal. There is no evidence for pulmonary edema. IMPRESSION: No acute cardiopulmonary findings. ACT 112: Negative or not required by law. Electronically signed by: Deandre Luke M.D. 12/27/2023 7:19 AM
[2023-12-27 07:21] LABS: BUN Creatinine Ratio 16.6 (10-20); Calcium 9.5 mg/dl (8.6-10.3); Est GFR (African American) 37.9 ml/min; Est GFR (Non-African American) 32.7 ml/min; Magnesium 1.8 mg/dl (1.7-2.4); Potassium 2.9 mmol/L (3.5-5.1)
[2023-12-27] MEDS ORDERED: POTASSIUM CHLORIDE / WTR 10 MEQ/100 ML PLCT IV SCH (07:45)
[2023-12-27] MEDS ORDERED: MAGNESIUM SULFATE / D5W 1 GM/100 ML BAG IV ONE (07:45)
[2023-12-27] MEDS: SODIUM BICARB 8.4% INJ 50 MEQ/50 ML SYR IV STA (08:12)
[2023-12-27] MEDS: SODIUM BICARBONATE 8.4% 75 MEQ in SODIUM CHLORIDE 0.45 % 1,000 ML IV SCH (08:12)
[2023-12-27] MEDS: POTASSIUM CHLORIDE CRTAB 20 MEQ TABCR PO SCH (08:29)
--- NOTE | 2023-12-27 08:49 | Electrocardiogram Report ---
Test Reason : Blood Pressure : / mmHG Vent. Rate : 059 BPM Atrial Rate : 059 BPM P-R Int : 148 ms QRS Dur : 092 ms QT Int : 548 ms P-R-T Axes : 055 -02 011 degrees QTc Int : 542 ms Sinus bradycardia with occasional Premature ventricular complexes Nonspecific T wave abnormality Abnormal ECG When compared with ECG of 17-JUN-2022 13:35, Premature ventricular complexes are now Present Borderline criteria for Anterior infarct are no longer Present Borderline criteria for Anterolateral infarct are no longer Present Nonspecific T wave abnormality no longer evident in Lateral leads QT has lengthened Confirmed by Matthew Marcum ([id number]) on 12/27/2023 8:48:28 AM Referred By: REFERRED SELF Confirmed By:Kiel Marcum
[2023-12-27] MEDS: HEPARIN SOD 5,000 UNIT/0.5 ML VIAL SQ SCH (09:01)
[2023-12-27] MEDS: CLOPIDOGREL BISULFATE 75 MG TAB PO SCH (09:01)
[2023-12-27] MEDS: SUCRALFATE 1 GM TAB PO SCH (09:01)
[2023-12-27] MEDS: ESCITALOPRAM OXALATE 20 MG TAB PO SCH (09:01)
[2023-12-27] MEDS: FLUTICASONE FUROATE 200MCG 14 PUFFS/INHALER INH SCH (09:02)
[2023-12-27] MEDS: UMECLIDINIUM/VILANTEROL 62.5/25MCG 7 PUFFS/INHALER INH SCH (09:02)
[2023-12-27 09:07] LABS: Base Excess ABG -15.6 mEq/L (-9-1.8); HCO3 ABG 10 mmol/L (19-24); Oxygen Saturation ABG 98.5 % (90-95); PCO2 ABG 22 mmHg (35-46); PO2 ABG 95 mmHg (80-95); pH ABG 7.25 (7.35-7.45)
[2023-12-27 09:08] LABS: Allen Test Pos (Pos)
--- NOTE | 2023-12-27 09:43 | Nephrology Progress Note ---
Date of Service December 27, 2023 Assessment & Plan (1) Nausea vomiting and diarrhea: Plan: This is a 58 year old female with nausea, vomiting and diarrhea of a week. Upon presentation to the ED she had a non anion gap metabolic acidosis (7.16), electrolyte abnormalities, and elevated creatinine. She has no history of kidney disease, so this is likely a combination of prerenal and acute tubular necrosis causing ENZO in the context of diarrhea, limited oral food intake, and semaglutide use. Her nausea and vomiting has improved, she is able to tolerate food. Diarrhea is still ongoing. -Continue IV fluids, switch from 1/2 NS to NaHCO3 150 mEq/L 125 ml/hr -K repletion to avoid hypokalemia (2) Hypercalcemia: Plan: Likely secondary to dehydration. The patient does not report taking hydroch lorothiazide since the summer. -Ca has improved with hydration (9.5), consider resolved. (3) ENZO (acute kidney injury): Plan: Likely a combination of pre-renal and ATN in the context of persistent diarrhea causing volume depletion. Creatinine levels are improving, reassuring. -Continue IVF -Avoid nephrotoxic agents (4) DM2 (diabetes mellitus, type 2): Plan: The patient completed 8 months of Ozempic and lost 130+ lb. She stopped taking Ozempic a week ago because it was making her feel sick recently. -Urinalysis is negative for ketones, no need for insulin Admission and Anticipated Discharge Date Admission Date: December 27, 2023 Jonh Camarillo is a 58 year old female with a history of DMII who presented last night to the ED with abdominal pain, nausea, vomiting, fatigue, and diarrhea of a week. Labs showed hypomagnesemia (1.1 mg/dl), hypokalemia (2.4 mmol/L), hyperchloremia (116 mmol/L) hypercalcemia (10.6 mg/dl), elevated serum creatinine (2.48 mg/dl), and non-anion gap metabolic acidosis (pH 7.16, pCO2 26 mmHg) likely in the context of ENZO complicated by semaglutide use. She stopped taking her semaglutide a week ago because it was making her feel sick. She has not been able to eat much during this time. Sodium was 136 mmol/L. CT abdomen/pelvis was unremarkable. She received a HCO3 50 meq push and then a combination of 75 meq in 1/2 NS 100 mL/hr. She also received KCl 80 mEq and IV Mg 2 gm. This AM she feels much better. She was able to eat a few pieces of toast and is still having diarrhea. She denies leg edema, difficulty breathing, changes in urination, and cardiac concerns. She does not drink alcohol. She reports that has not taken her lisinopril-hydrochlorothiazide since the summer, and only does so when her ankles are swollen. She takes about 800 mg of ibuprofen every day. AM labs have improved, showing pH of 7.11, HCO3 10 mmol/L, potassium 2.9 mmol/L, chloride 123 mmol/L, creatinine 1.69 mg/dl, magnesium 1.8 mg/dl, calcium 9.5 mg/dl. Urinalysis was negative for ketones but had trace protein, blood, and leukocyte esterase. Review of Systems Review of Systems: All systems reviewed & are unremarkable except as noted in HPI & below Physical Exam Constitutional: WD/WN, vitals as above Respiratory: normal respiratory effort, lungs clear to auscultation Cardiovascular: RRR, no murmur, no edema Extremities: no edema Gastrointestinal (Abdomen): normal bowel sounds, soft, nontender, no hepatosplenomegaly Results & Data Vital Signs (Past 12 Hours) Vital Signs Temp Pulse Resp BP Pulse Ox O2 Del Method 12/27/23 07:26 50 L 12/27/23 06:20 50 L 16 98 12/27/23 06:10 51 L 16 96 12/27/23 06:00 89/41 L 12/27/23 06:00 46 L 17 98 12/27/23 05:50 47 L 17 98 12/27/23 05:40 50 L 16 100 12/27/23 05:36 87/54 L 12/27/23 05:36 49 L 17 99 12/27/23 05:30 76/33 L 12/27/23 05:30 49 L 14 98 12/27/23 05:28 47 L 16 98 12/27/23 05:20 47 L 15 98 12/27/23 05:10 46 L 16 98 12/27/23 05:07 50 L 16 98 12/27/23 05:05 47 L 17 99 12/27/23 05:03 47 L 17 12/27/23 05:02 47 L 18 98 12/27/23 05:00 47 L 16 98 12/27/23 04:50 50 L 17 99 12/27/23 04:40 49 L 17 99 12/27/23 04:32 89 18 98 12/27/23 04:32 92/67 L 12/27/23 04:30 17 98 12/27/23 04:20 54 L 15 99 12/27/23 04:10 49 L 17 98 12/27/23 04:00 97/49 L 12/27/23 04:00 52 L 18 98 12/27/23 03:50 50 L 17 97 12/27/23 03:40 51 L 17 96 12/27/23 03:30 51 L 17 98 12/27/23 03:30 92/54 L 12/27/23 03:20 50 L 16 97 12/27/23 03:10 50 L 16 97 12/27/23 03:00 82/51 L 12/27/23 03:00 49 L 18 98 12/27/23 02:50 51 L 17 98 12/27/23 02:40 52 L 18 98 12/27/23 02:30 86/50 L 12/27/23 02:30 51 L 19 99 12/27/23 02:20 52 L 17 98 12/27/23 02:10 54 L 21 99 12/27/23 02:00 56 L 19 98 12/27/23 02:00 90/56 L 12/27/23 01:50 58 L 20 100 12/27/23 01:40 55 L 16 100 12/27/23 01:30 99/53 L 12/27/23 01:30 56 L 22 100 12/27/23 01:20 60 16 100 12/27/23 01:11 18 100 12/27/23 01:00 102/49 L 12/27/23 01:00 69 17 100 12/27/23 00:50 81 18 100 12/27/23 00:46 99/58 L 12/27/23 00:46 69 10 L 12/27/23 00:40 63 18 100 12/27/23 00:30 58 L 16 100 12/27/23 00:26 82 8 L 12/27/23 00:10 62 16 100 12/27/23 00:00 54 L 16 12/27/23 00:00 97/56 L 12/26/23 23:50 63 17 100 12/26/23 23:47 56 L 18 100 12/26/23 23:47 93/45 L 12/26/23 23:40 53 L 20 100 12/26/23 23:31 61 20 98 12/26/23 23:30 98/48 L 12/26/23 23:30 60 12/26/23 23:01 36.4 C L 69 20 94/62 L 100 Room Air
[2023-12-27 10:05] LABS: Appearance Urine Clear (Clear); Bacteria Urine Automated None Seen (None Seen); Bilirubin Urine Negative (Negative); Blood Urine Trace (Negative); Cast Urine Automated 0-2 /lpf (0-2); Color Urine Yellow; Epithelial Cell Urine Auto 0-2 /hpf (0-2); Glucose Urine UA Negative (Negative); Ketones Urine Negative (Negative); Leukocyte Esterase Urine Trace (Negative); Nitrite Urine Negative (Negative); Protein Urine Trace (Negative); RBC Urine Automated 0-2 /hpf (0-2); Specific Gravity Urine 1.008 (1.000-1.030); Urobilinogen Urine Negative (Negative); WBC Urine Automated 0-5 /hpf (0-5); pH Urine 6.5 (4.5-7.5)
[2023-12-27 11:20] LABS: BUN Creatinine Ratio 17.9 (10-20); Calcium 9.7 mg/dl (8.6-10.3); Creatinine Clr Calc Pharmacy 42.3 ml/min; Est GFR (African American) 47.5 ml/min; Potassium 2.8 mmol/L (3.5-5.1)
[2023-12-27] MEDS: PANTOprazole 40 MG in SYRINGE 0 ML IV SCH (11:23)
[2023-12-27] MEDS: ONDANSETRON INJ 2 MG/ML 2 ML VIAL IV PRN (12:45)
--- NOTE | 2023-12-27 12:46 | Nephrology Consultation ---
Date of Consultation December 27, 2023 Assessment & Plan (1) ENZO (acute kidney injury): Non-oliguric. Baseline creatinine normal. Clinical presentation consistent with dehydration and ATN. Creatinine improving. Volume status acceptable. 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 Medications appropriate for kidney function. Lisinopril held. Avoid NSAIDS. Document strict I/O's and repeat metabolic profile this afternoon. (2) Metabolic acidosis: NAGMA in the setting of GI losses and ENZO. Continue NaHCO3 replacement. IVF switched to w + 150 mEq NaHCO3 @ 150 ml/hr. Monitor potassium closely and replace as needed. (3) Hypercalcemia: In setting of dehydration. Unclear if HCTZ contributing. Rabia Reagan states that she has not been taking the medication. If she had, it would be advised to avoid moving forward pending outpatient follow up. (4) Hypokalemia: Replacement IV and PO provided. Follow up labs pending. (5) Hypomagnesemia: IV replacement provided. Recheck this afternoon. (6) Nausea vomiting and diarrhea: Ozempic discontinued. History of Present Illness Attending Physician: Bunny Guaman MD History of Present Illness Rabia is a 58 year old female with a history of DMII who presented to the ED last night with abdominal pain, nausea, vomiting, fatigue, and diarrhea of a week. Labs showed hypomagnesemia (1.1 mg/dl), hypokalemia (2.4 mmol/L), hyperchloremia (116 mmol/L) hypercalcemia (10.6 mg/dl), elevated serum creatinine (2.48 mg/dl), and non-anion gap metabolic acidosis (pH 7.16, pCO2 26 mmHg) likely in the context of ENZO complicated by semaglutide use. She stopped taking her semaglutide a week ago because it was making her feel sick. She has not been able to eat much during this time. Sodium was 136 mmol/L. CT abdomen/pelvis was unremarkable. She received a HCO3 50 meq push and then a combination of 75 meq in 1/2 NS 100 mL/hr. She also received KCl 80 mEq and IV Mg 2 gm. This AM she feels much better. She was able to eat a few pieces of toast and is still having diarrhea. She denies leg edema, difficulty breathing, changes in urination, and cardiac concerns. She does not drink alcohol. She reports that has not taken her lisinopril-hydrochlorothiazide since the summer, and only does so when her ankles are swollen. She takes about 800 mg of ibuprofen every day. AM labs have improved, showing pH of 7.11, HCO3 10 mmol/L, potassium 2.9 mmol/L, chloride 123 mmol/L, creatinine 1.69 mg/dl, magnesium 1.8 mg/dl, calcium 9.5 mg/dl. Urinalysis was negative for ketones but had trace protein, blood, and leukocyte esterase. The case was discussed with Dr. Guaman this morning. Plan of care reviewed. Rabia Reagan is non-oliguric. She is tolerating IV fluid and electrolyte replacement well. Allergies Allergy/AdvReac Type Severity Reaction Status Date / Time aspirin Allergy Unknown Hives Verified 10/17/20 18:30 Home Medications Medication Instructions Recorded Confirmed Type amlodipine 10 mg tablet 10 mg PO QAM 05/26/18 12/27/23 History albuterol sulfate 90 mcg/actuation 2 puff inhalation Q6H PRN 10/14/19 12/27/23 History aerosol inhaler (Ventolin HFA) Shortness Of Breath Or Wheezing nystatin 100,000 unit/gram topical 1 applic topical BID PRN fungal 10/14/19 12/27/23 History cream rash cholecalciferol (vitamin D3) 1,250 50,000 unit PO WK 10/18/19 12/27/23 History mcg (50,000 unit) capsule lisinopril 20 1 tab PO QAM 10/18/19 12/27/23 History mg-hydrochlorothiazide 25 mg tablet sucralfate 1 gram tablet (Carafate) 1 g PO QID 10/18/19 12/27/23 History clopidogrel 75 mg tablet 75 mg PO QAM 10/17/20 12/27/23 History cyclobenzaprine 10 mg tablet 10 mg PO TID PRN Muscle Spasm 10/17/20 12/27/23 History escitalopram oxalate 20 mg tablet 20 mg PO QAM 10/17/20 12/27/23 History ibuprofen 800 mg tablet 800 mg PO TID PRN Pain 10/17/20 12/27/23 History lorazepam 0.5 mg tablet 0.5 mg PO BID PRN Severe Anxiety 10/17/20 12/27/23 Hi story ondansetron HCl 4 mg tablet 4 mg PO .Q6-8HRS PRN Nausea 10/17/20 12/27/23 History pantoprazole 20 mg tablet,delayed 20 mg PO BID 10/17/20 12/27/23 History release trazodone 150 mg tablet 150 mg PO HS 10/17/20 12/27/23 History tramadol 50 mg tablet 50 mg PO Q6 PRN pain #30 tabs 11/13/20 12/27/23 Rx atorvastatin 40 mg tablet 40 mg PO HS 12/27/23 12/27/23 History fluticasone fur. 200 mcg-umeclid 1 inh inhalation DAILY PRN 12/27/23 12/27/23 History 62.5 mcg-vilant 25 mcg Shortness Of Breath Or Wheezing inhalat.powder (Trelegy Ellipta) methocarbamol 750 mg tablet 750 mg PO BID PRN Muscle Spasm 12/27/23 12/27/23 History potassium chloride 10 mEq 10 meq PO HS 12/27/23 12/27/23 History tablet,extended release(part/cryst) (Klor-Con M) Patient History Medical History Hyperlipidemia DM2 (diabetes mellitus, type 2) HTN (hypertension) Closed left ankle fracture Injury of hip, right Lumbar radiculopathy Surgical History Status post bunionectomy H/O tubal ligation Family History Other Cancer Diabetes Heart disease Hypertension Social History Smoking Status: Current every day smoker Tobacco Type: Cigarettes Cigarettes Per Day: 3; Second Hand Exposure: Yes; Do You Dip or Chew Tobacco: No; Tobacco Cessation Education Requested by Patient: No Hx Alcohol Use: No Hx Substance Use: No Preferred Language: Belgian Communication Ability: Effective 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 Beliefs That Will Affect Care: None marital status: Current Living Situation: Family Other Information That Helps Us Care for You: No Feels Safe at Home: Yes Safety Concerns: Feels Safe At This Time Assistive Devices: None Review of Systems Review of Systems: All systems reviewed & are unremarkable except as noted in HPI & below Physical Exam Constitutional: well developed; no acute distress Eyes: no scleral abnormality and no corneal abnormality ENMT: Mouth: + dry oral mucous membranes Neck: normal visual inspection and trachea midline Respiratory: normal respiratory effort Auscultation: lungs clear to aus cultation bilaterally Cardiovascular: Rate/Rhythm: regular rate and + bradycardic Heart Sounds: normal S1 and normal S2 Extremities: no edema Musculoskeletal: Extremities: no cyanosis and no clubbing Skin: normal turgor; no jaundice Neurologic: Motor/Sensory: no tremor and no asterixis Psychiatric: Orientation: alert and oriented x 3 Results & Data Vital Signs (Past 12 Hours) Vital Signs Temp Pulse Pulse Resp BP BP Pulse Ox 12/27/23 11:33 37.0 C 46 L 17 90/50 L 95 12/27/23 10:00 62 19 102/51 L 12/27/23 09:40 12/27/23 09:01 63 13 12/27/23 09:00 67 18 12/27/23 08:35 56 L 14 85 L 12/27/23 07:26 50 L 12/27/23 07:00 48 L 16 99 12/27/23 06:20 50 L 16 98 12/27/23 06:10 51 L 16 96 12/27/23 06:00 89/41 L 12/27/23 06:00 46 L 17 98 12/27/23 05:50 47 L 17 98 12/27/23 05:40 50 L 16 100 12/27/23 05:36 87/54 L 12/27/23 05:36 49 L 17 99 12/27/23 05:30 76/33 L 12/27/23 05:30 49 L 14 98 12/27/23 05:28 47 L 16 98 12/27/23 05:20 47 L 15 98 12/27/23 05:10 46 L 16 98 12/27/23 05:07 50 L 16 98 12/27/23 05:05 47 L 17 99 12/27/23 05:03 47 L 17 12/27/23 05:02 47 L 18 98 12/27/23 05:00 47 L 16 98 12/27/23 04:50 50 L 17 99 12/27/23 04:40 49 L 17 99 12/27/23 04:32 89 18 98 12/27/23 04:32 92/67 L 12/27/23 04:30 17 98 12/27/23 04:20 54 L 15 99 12/27/23 04:10 49 L 17 98 12/27/23 04:00 97/49 L 12/27/23 04:00 52 L 18 98 12/27/23 03:50 50 L 17 97 12/27/23 03:40 51 L 17 96 12/27/23 03:30 51 L 17 98 12/27/23 03:30 92/54 L 12/27/23 03:20 50 L 16 97 12/27/23 03:10 50 L 16 97 12/27/23 03:00 82/51 L 12/27/23 03:00 49 L 18 98 12/27/23 02:50 51 L 17 98 12/27/23 02:40 52 L 18 98 12/27/23 02:30 86/50 L 12/27/23 02:30 51 L 19 99 12/27/23 02:20 52 L 17 98 12/27/23 02:10 54 L 21 99 12/27/23 02:00 56 L 19 98 12/27/23 02:00 90/56 L 12/27/23 01:50 58 L 20 100 12/27/23 01:40 55 L 16 100 12/27/23 01:30 99/53 L 12/27/23 01:30 56 L 22 100 12/27/23 01:20 60 16 100 12/27/23 01:11 18 100 12/27/23 01:00 102/49 L 12/27/23 01:00 69 17 100 12/27/23 00:50 81 18 100 12/27/23 00:46 99/58 L 12/27/23 00:46 69 10 L Pulse Ox O2 Del Method O2 Del Method 12/27/23 11:33 Room Air 12/27/23 10:00 12/27/23 09:40 95 Room Air 12/27/23 09:01 12/27/23 09:00 12/27/23 08:35 12/27/23 07:26 12/27/23 07:00 12/27/23 06:20 12/27/23 06:10 12/27/23 06:00 12/27/23 06:00 12/27/23 05:50 12/27/23 05:40 12/27/23 05:36 12/27/23 05:36 12/27/23 05:30 12/27/23 05:30 12/27/23 05:28 12/27/23 05:20 12/27/23 05:10 12/27/23 05:07 12/27/23 05:05 12/27/23 05:03 12/27/23 05:02 12/27/23 05:00 12/27/23 04:50 12/27/23 04:40 12/27/23 04:32 12/27/23 04:32 12/27/23 04:30 12/27/23 04:20 12/27/23 04:10 12/27/23 04:00 12/27/23 04:00 12/27/23 03:50 12/27/23 03:40 12/27/23 03:30 12/27/23 03:30 12/27/23 03:20 12/27/23 03:10 12/27/23 03:00 12/27/23 03:00 12/27/23 02:50 12/27/23 02:40 12/27/23 02:30 12/27/23 02:30 12/27/23 02:20 12/27/23 02:10 12/27/23 02:00 12/27/23 02:00 12/27/23 01:50 12/27/23 01:40 12/27/23 01:30 12/27/23 01:30 12/27/23 01:20 12/27/23 01:11 12/27/23 01:00 12/27/23 01:00 12/27/23 00:50 12/27/23 00:46 12/27/23 00:[address] ABDOMEN + PELVIS Without Contrast FINDINGS: ABDOMEN: Liver: Unremarkable. Gallbladder and bile ducts: Gallstones. No gallbladder wall thickening or pericholecystic edema or fluid. No ductal dilation. Pancreas: Unremarkable. No ductal dilation. Spleen: Unremarkable. No splenomegaly. Adrenals: Unremarkable. No mass. Kidneys and ureters: Unremarkable. No obstructing stones. No hydronephrosis. Stomach and bowel: Unremarkable. No obstruction. No mucosal thickening. PELVIS: Appendix: No findings to suggest acute appendicitis. Bladder: Unremarkable. No stones. ABDOMEN and PELVIS: Intraperitoneal space: Unremarkable. No free air. No significant fluid collection. Bones/joints: No acute findings. Soft tissues: Unremarkable. Vasculature: Unremarkable. No abdominal aortic aneurysm. Lymph nodes: Unremarkable. No enlarged lymph nodes. IMPRESSION: No acute findings in the abdomen or pelvis. Gallstones. PG Care Time/CCT Total # of Minutes Spent Total Time Spent with Patient: Total time spent is greater than 50% in coordination of care (as documented) at patient's floor/unit and/or counseling patient: Coding Level of Care Code 10348 IN/OBS CONSULT LVL 4,60M Diagnoses ENZO (acute kidney injury) N17.9 Metabolic acidosis E87.20 Hypercalcemia E83.52 Hypokalemia E87.6 Hypomagnesemia E83.42 Nausea vomiting and diarrhea R11.2; R19.7
[2023-12-27] MEDS: SODIUM BICARBONATE 8.4% 150 MEQ in WATER, STERILE 1,000 ML IV SCH (13:31)
[2023-12-27 15:25] LABS: BUN Creatinine Ratio 16.3 (10-20); Calcium 9.2 mg/dl (8.6-10.3); Est GFR (African American) 47.1 ml/min; Est GFR (Non-African American) 40.7 ml/min; Potassium 2.7 mmol/L (3.5-5.1)
[2023-12-27] MEDS: POTASSIUM CHLORIDE / WTR 10 MEQ/100 ML PLCT IV SCH ×2 (15:56→21:10)
[2023-12-27] MEDS: CYCLOBENZAPRINE HCL 10 MG TAB PO PRN (17:37)
[2023-12-27 18:28] LABS: BUN Creatinine Ratio 15.2 (10-20); Calcium 9.3 mg/dl (8.6-10.3); Creatinine Clr Calc Pharmacy 42.9 ml/min; Est GFR (African American) 48.4 ml/min; Est GFR (Non-African American) 41.7 ml/min; Potassium 2.7 mmol/L (3.5-5.1)
[2023-12-27 20:31] LABS: BUN Creatinine Ratio 15.6 (10-20); Calcium 9.1 mg/dl (8.6-10.3); Creatinine Clr Calc Pharmacy 43.9 ml/min; Est GFR (African American) 49.7 ml/min; Est GFR (Non-African American) 42.9 ml/min; Potassium 2.7 mmol/L (3.5-5.1)
[2023-12-27] MEDS: ATORVASTATIN 40 MG TAB PO SCH (20:41)
[2023-12-27] MEDS: traZODone HCL 50 MG TAB PO SCH (20:41)
[2023-12-27] MEDS: POTASSIUM CHLORIDE CRTAB 20 MEQ TABCR PO ONE (21:10)
[2023-12-27 23:21] LABS: BUN Creatinine Ratio 18.2 (10-20); Calcium 9.1 mg/dl (8.6-10.3); Creatinine Clr Calc Pharmacy 53.8 ml/min; Est GFR (African American) 63.6 ml/min; Est GFR (Non-African American) 54.9 ml/min; Potassium 3.1 mmol/L (3.5-5.1)
[2023-12-28 07:29] LABS: Estimated Average Glucose 88 mg/dl; Hemoglobin A1C 4.7 % (4.5-5.6)
[2023-12-28 07:36] LABS: BUN Creatinine Ratio 17.7 (10-20); Calcium 9.1 mg/dl (8.6-10.3); Creatinine Clr Calc Pharmacy 62.9 ml/min; Est GFR (Non-African American) 64.7 ml/min; Potassium 2.9 mmol/L (3.5-5.1)
[2023-12-28] MEDS: POTASSIUM CHLORIDE CRTAB 20 MEQ TABCR PO SCH ×2 (08:44→20:31)
[2023-12-28] MEDS: POTASSIUM CHLORIDE / WTR 10 MEQ/100 ML PLCT IV SCH ×2 (08:44→18:14)
[2023-12-28] MEDS: MAGNESIUM SULFATE / D5W 1 GM/100 ML BAG IV ONE ×2 (08:45→17:34)
[2023-12-28 09:13] LABS: Adenovirus F 40/41 PCR Not Detected (NotDetected); Astrovirus PCR Not Detected (NotDetected); Campylobacter PCR Not Detected (NotDetected); Cryptosporidium PCR Not Detected (NotDetected); Cyclospora cayetanensis PCR Not Detected (NotDetected); Entamoeba histolytica PCR Not Detected (NotDetected); Enteroaggregative E.coli(EAEC) Not Detected (NotDetected); Enteropathogenic E.coli (EPEC) Not Detected (NotDetected); Enterotoxigenic E.coli (ETEC) Not Detected (NotDetected); Giardia lamblia PCR Not Detected (NotDetected); Norovirus GI/GII PCR Not Detected (NotDetected); Plesiomonas shigelloides PCR Not Detected (NotDetected); Rotavirus A PCR Not Detected (NotDetected); Salmonella PCR Not Detected (NotDetected); Sapovirus PCR Not Detected (NotDetected); Shiga-like Toxin E.coli (STEC) Not Detected (NotDetected); Shigella/Enteroinvasive E.coli Not Detected (NotDetected); Vibrio cholerae PCR Not Detected (NotDetected); Vibrio species PCR Not Detected (NotDetected); Yersinia enterocolitica PCR Not Detected (NotDetected)
[2023-12-28 10:46] LABS: Base Excess VBG -4.9 mEq/L; HCO3 VBG 20 mmol/L; Oxygen Saturation VBG 83.2 %; PCO2 VBG 33 mmHg (38-50); PO2 VBG 48 mmHg; pH VBG 7.38 (7.36-7.41)
--- NOTE | 2023-12-28 11:01 | Nephrology Progress Note ---
Date of Service December 28, 2023 Assessment & Plan (1) ENZO (acute kidney injury): Plan: Clinical presentation consistent with dehydration. Creatinine normalized. Volume status acceptable. Medications appropriate for kidney function. Lisinopril held. Avoid NSAIDS. Document strict I/O's and repeat metabolic profile tomorrow AM. (2) Metabolic acidosis: Plan: NAGMA in the setting of GI losses and ENZO. IVF switched to Plasma-lyte @ 100 ml/hr. Additional IV magnesium and potassium replacement provided this AM. I discussed the plan of care with Dr. Guaman this morning. (3) Hypercalcemia: Plan: Improved with IVF. Prospective monitoring. Avoid thiazide diuretics. (4) Hypokalemia: Plan: Replacement IV and PO provided. Monitor twice daily. (5) Hypomagnesemia: Plan: IV replacement provided. Admission and Anticipated Discharge Date Admission Date: December 27, 2023 Subjective No acute events overnight. Some improvement in appetite -- tolerating clear liquids reasonably well. Nausea improved. Diarrhea improved. Stool remains very loose. Denies melena or hematochezia. No abdominal pain. Denies fluid retention or edema. Review of Systems Review of Systems: All systems reviewed & are unremarkable except as noted in HPI & below Physical Exam Constitutional: well developed; no acute distress Eyes: no scleral abnormality and no corneal abnormality ENMT: external ear and nose normal, oropharynx normal Neck: normal visual inspection and trachea midline Respiratory: normal respiratory effort Auscultation: lungs clear to auscultation bilaterally Cardiovascular: Rate/Rhythm: regular rate and + bradycardic Heart Sounds: normal S1 and normal S2 Extremities: no edema Musculoskeletal: Extremities: no cyanosis and no clubbing Skin: normal turgor; no jaundice Neurologic: Motor/Sensory: no tremor and no asterixis Psychiatric: Orientation: alert and oriented x 3 Results & Data Vital Signs (Past 12 Hours) Vital Signs Temp Pulse Pulse Resp BP BP Pulse Ox 12/28/23 09:34 12/28/23 07:37 36.7 C 62 18 110/62 100 12/28/23 03:33 36.6 C 54 L 18 92/47 L 98 12/27/23 23:43 53 L 12/27/23 23:18 36.4 C L 51 L 16 93/57 L 96 Pulse Ox O2 Del Method O2 Del Method 12/28/23 09:34 98 Room Air 12/28/23 07:37 Room Air 12/28/23 03:33 Room Air 12/27/23 23:43 12/27/23 23:18 Room Air Laboratory Results Laboratory Results - last 24 hr 12/27/23 12/27/23 12/27/23 10:27 14:51 17:04 VBG pH VBG pCO2 VBG pO2 VBG HCO3 VBG O2 Saturation VBG Base Excess Sodium 140 140 141 Potassium 2.8 L 2.7 L 2.7 L Chloride 121 H 123 H 121 H Carbon Dioxide 12 L 12 L 13 L Anion Gap 7 5 7 BUN 25 H 23 21 Creatinine 1.40 H 1.41 H 1.38 H Est Cr Clr Drug Dosing 42.3 42.0 42.9 Est GFR ( Amer) 47.5 47.1 48.4 Est GFR (Non-Af Amer) 41.0 40.7 41.7 BUN/Creatinine Ratio 17.9 16.3 15.2 Glucose 103 H 124 H 104 H Estimat Average Glucose Hemoglobin A1c Calcium 9.7 9.2 9.3 Stl C. cayetanensis PCR Stool Rotavirus A PCR Stl Adenov F 40/41 PCR Stool Astrovirus (PCR) Stool Campylobacter PCR Stl C. diff Tox B Gene Stool Cryptosporidium PCR Stl E.coli Shiga Tox PCR Stl Enterotoxigenic E PCR Stool EPEC (PCR) Stool EAEC (PCR) Stl E. histolytica PCR Stool Giardia Lamblia PCR Stool Salmonella PCR Stool Sapovirus (PCR) Stl P. shigelloides PCR Stl Shigella/EIEC PCR St Y.enterocolitica PCR Stool Vibrio (PCR) Stl Vibrio cholerae PCR Stl Norovirus GI/GII PCR 12/27/23 12/27/23 12/28/23 19:20 22:48 06:09 VBG pH VBG pCO2 VBG pO2 VBG HCO3 VBG O2 Saturation VBG Base Excess Sodium 140 140 143 Potassium 2.7 L 3.1 L 2.9 L Chloride 120 H 121 H 118 H Carbon Dioxide 14 L 14 L 20 L Anion Gap 6 5 5 BUN 21 20 17 Creatinine 1.35 H 1.10 0.96 Est Cr Clr Drug Dosing 43.9 53.8 62.9 Est GFR ( Amer) 49.7 63.6 75.0 Est GFR (Non-Af Amer) 42.9 54.9 64.7 BUN/Creatinine Ratio 15.6 18.2 17.7 Glucose 129 H 94 83 Estimat Average Glucose 88 Hemoglobin A1c 4.7 Calcium 9.1 9.1 9.1 Stl C. cayetanensis PCR Stool Rotavirus A PCR Stl Adenov F 40/41 PCR Stool Astrovirus (PCR) Stool Campylobacter PCR Stl C. diff Tox B Gene Stool Cryptosporidium PCR Stl E.coli Shiga Tox PCR Stl Enterotoxigenic E PCR Stool EPEC (PCR) Stool EAEC (PCR) Stl E. histolytica PCR Stool Giardia Lamblia PCR Stool Salmonella PCR Stool Sapovirus (PCR) Stl P. shigelloides PCR Stl Shigella/EIEC PCR St Y.enterocolitica PCR Stool Vibrio (PCR) Stl Vibrio cholerae PCR Stl Norovirus GI/GII PCR 12/28/23 12/28/23 07:32 10:39 VBG pH 7.38 VBG pCO2 33 L VBG pO2 48 VBG HCO3 20 VBG O2 Saturation 83.2 VBG Base Excess -4.9 Sodium Potassium Chloride Carbon Dioxide Anion Gap BUN Creatinine Est Cr Clr Drug Dosing Est GFR ( Amer) Est GFR (Non-Af Amer) BUN/Creatinine Ratio Glucose Estimat Average Glucose Hemoglobin A1c Calcium Stl C. cayetanensis PCR Not Detected Stool Rotavirus A PCR Not Detected Stl Adenov F 40/ PCR Not Detected Stool Astrovirus (PCR) Not Detected Stool Campylobacter PCR Not Detected Stl C. diff Tox B Gene Negative Cdiff Gene Stool Cryptosporidium PCR Not Detected Stl E.coli Shiga Tox PCR Not Detected Stl Enterotoxigenic E PCR Not Detected Stool EPEC (PCR) Not Detected Stool EAEC (PCR) Not Detected Stl E. histolytica PCR Not Detected Stool Giardia Lamblia PCR Not Detected Stool Salmonella PCR Not Detected Stool Sapovirus (PCR) Not Detected Stl P. shigelloides PCR Not Detected Stl Shigella/EIEC PCR Not Detected St Y.enterocolitica PCR Not Detected Stool Vibrio (PCR) Not Detected Stl Vibrio cholerae PCR Not Detected Stl Norovirus GI/GII PCR Not Detected PG Care Time/CCT Total # of Minutes Spent Total Time Spent with Patient: Total time spent is greater than 50% in coordination of care (as documented) at patient's floor/unit and/or counseling patient: Coding Level of Care Code 07936 SUB INP/OBS CARE 350MIN Diagnoses ENZO (acute kidney injury) N17.9 Metabolic acidosis E87.20 Hypercalcemia E83.52 Hypokalemia E87.6 Hypomagnesemia E83.42
[2023-12-28] MEDS: PLASMA-LYTE A 1,000 ML IV SCH (12:06)
--- NOTE | 2023-12-28 13:59 | Hospitalist Progress Note ---
Date of Service December 28, 2023 Assessment & Plan (1) Nausea vomiting and diarrhea: Plan: 58yo female with one week of nausea, vomiting and diarrhea. Patient appears profoundly dehydrated with electrolyte abnormalities. Hypotension on arrival. Significant acidosis with pH=7.16 on VBG. No anion gap on chemistry - likely from diarrhea. -stool PCR and c. diff negative on 12/28/2023 CT abdomen and pelvis with no acute changes, gallstones without changes -Protonix 40mg IV daily -Continue Sucralfate 1gm PO QID replete hypomagnesemia, hypokalemia -Sodium bicarb drip discontinued on 12/28/2023, Plasma-Lyte initiated (2) Hypercalcemia: Plan: Likely secondary to dehydration, patient on HCTZ as well -suppressed PTH, normal phos, repeat Ca++ now normalized - (3) ENZO (acute kidney injury): Plan: Likely secondary to pre-renal azotemia, volume loss from persistent diarrhea Holding JIE inhibitor and diuretics renal functions improving acid-base balance is also improving non anion gap acidosis delta delta less than 1, nephrology assisting in management, on Plasma-Lyte transitioned from bicarb on 12/28/2023 (4) DM2 (diabetes mellitus, type 2): Plan: Patient completed 8 months of Ozempic - reports she has lost 130+ pounds. Now not on any medications (5) Hyperlipidemia: Plan: Chronic. Stable -Continue Atorvastatin Admission and Anticipated Discharge Date Admission Date: December 27, 2023 Subjective Patient is feeling better able to tolerate p.o. intake Did have 1 loose bowel movement. Renal medicine is following discussed case with him this morning Continue to replete electrolytes continue bicarbonate drip Physical Exam Physical Exam: Awake alert appropriate. Card exam is regular murmur Lungs are clear without wheezes or crackles Abdomen NABS soft nontender Extremities are without edema Results & Data Results & Data Vital Signs (Past 12 Hours) Vital Signs Temp Pulse Pulse Resp BP BP Pulse Ox 12/28/23 11:26 97.9 F 64 18 103/65 100 12/28/23 09:34 12/28/23 08:00 53 L 12/28/23 07:37 98.1 F 62 18 110/62 100 12/28/23 03:33 97.9 F 54 L 18 92/47 L 98 Pulse Ox O2 Del Method O2 Del Method 12/28/23 11:26 Room Air 12/28/23 09:34 98 Room Air 12/28/23 08:00 12/28/23 07:37 Room Air 12/28/23 03:33 Room Air Laboratory Results Reviewed CBC reviewed chemistry reviewed VBG Discussed case with nephrology PG Care Time/CCT Total # of Minutes Spent Total Time Spent with Patient: Total time spent is greater than 50% in coordination of care (as documented) at patient's floor/unit and/or counseling patient: Coding Level of Care Code 07507 SUB INP/OBS CARE 3/50MIN Diagnoses Nausea vomiting and diarrhea R11.2; R19.7 Hypercalcemia E83.52 ENZO (acute kidney injury) N17.9 DM2 (diabetes mellitus, type 2) E11.9 Hyperlipidemia E78.5
[2023-12-28] MEDS: ACETAMINOPHEN 325 MG TAB PO PRN (14:26)
[2023-12-28 15:51] LABS: BUN Creatinine Ratio 16.7 (10-20); Calcium 9.2 mg/dl (8.6-10.3); Est GFR (African American) 81.1 ml/min; Potassium 2.7 mmol/L (3.5-5.1)
[2023-12-28] MEDS ORDERED: LORazepam 0.25 MG in SYRINGE 0.125 ML IV PRN (16:29)
[2023-12-28] MEDS: SODIUM BICARBONATE 650 MG TAB PO SCH (20:31)
[2023-12-29 06:48] LABS: BUN Creatinine Ratio 14.1 (10-20); Creatinine Clr Calc Pharmacy 85.1 ml/min; Est GFR (African American) 108.1 ml/min; Est GFR (Non-African American) 93.2 ml/min; Magnesium 1.6 mg/dl (1.7-2.4); Phosphorus 1.2 mg/dl (2.5-4.9); Potassium 3.3 mmol/L (3.5-5.1)
[2023-12-29] MEDS ORDERED: POTASSIUM PHOS 3 MMOL/1 ML INFUSION IV STA (07:28)
[2023-12-29] MEDS: MAGNESIUM SULFATE / D5W 1 GM/100 ML BAG IV SCH (08:25)
[2023-12-29] MEDS: POTASSIUM PHOSPHATE 24 MMOL in SODIUM CHLORIDE 0.9% 500 ML IV ONE (08:30)
[2023-12-29 08:45] LABS: Estimated Average Glucose 88 mg/dl; Hemoglobin A1C 4.7 % (4.5-5.6)
--- NOTE | 2023-12-29 10:54 | Nephrology Progress Note ---
Date of Service December 29, 2023 Assessment & Plan (1) ENZO (acute kidney injury): Plan: Clinical presentation consistent with dehydration. Creatinine normalized. Volume status acceptable. Medications appropriate for kidney function. Lisinopril held. Avoid NSAIDS. Document strict I/O's and repeat metabolic profile tomorrow AM. (2) Metabolic acidosis: Plan: NAGMA in the setting of GI losses and ENZO. IVF switched to Plasma-lyte @ 100 ml/hr. Additional IV magnesium and potassium replacement provided this AM. I discussed the plan of care with Dr. Guaman this morning. (3) Hypercalcemia: Plan: Improved with IVF. Prospective monitoring. Avoid thiazide diuretics. (4) Hypokalemia: Plan: Replacement IV and PO provided. Monitor twice daily. (5) Hypomagnesemia: Plan: IV replacement provided. (6) Hypophosphatemia: Plan: Replacement ordered. Repeat tomorrow. Admission and Anticipated Discharge Date Admission Date: December 27, 2023 Subjective No acute events overnight. Rabia was seen and evaluated with her at the bedside. She feels well. A couple of loose bowel movements reported. Denies abdominal pain or diarrhea. Appetite improving. No fluid retention or edema. No lightheadedness or dizziness. Review of Systems Review of Systems: All systems reviewed & are unremarkable except as noted in HPI & below Physical Exam Constitutional: well developed; no acute distress Eyes: no scleral abnormality and no corneal abnormality ENMT: external ear and nose normal, oropharynx normal Mouth: oral mucous membranes not dry Neck: normal visual inspection and trachea midline Respiratory: normal respiratory effort Auscultation: lungs clear to auscultation bilaterally Cardiovascular: Rate/Rhythm: regular rate and + bradycardic Heart Sounds: normal S1 and normal S2 Extremities: no edema Musculoskeletal: Extremities: no cyanosis and no clubbing Skin: normal turgor; no jaundice Neurologic: Motor/Sensory: no tremor and no asterixis Psychiatric: Orientation: alert and oriented x 3 Results & Data Vital Signs (Past 12 Hours) Vital Signs Temp Pulse Pulse Resp BP BP Pulse Ox 12/29/23 07:30 36.7 C 58 L 18 92/58 L 99 12/29/23 07:00 76 12/29/23 03:40 36.5 C 55 L 18 108/68 99 12/28/23 23:59 59 L 12/28/23 23:58 36.9 C 55 L 18 96/54 L 97 O2 Del Method 12/29/23 07:30 Room Air 12/29/23 07:00 12/29/23 03:40 Room Air 12/28/23 23:59 12/28/23 23:58 Room Air Laboratory Results Laboratory Results - last 24 hr 12/28/23 12/29/23 15:06 05:55 Sodium 140 143 Potassium 2.7 L 3.3 L D Chloride 114 H 116 H Carbon Dioxide 18 L 22 Anion Gap 8 5 BUN 15 10 Creatinine 0.90 0.71 Est Cr Clr Drug Dosing 67.0 85.1 Est GFR ( Amer) 81.1 108.1 Est GFR (Non-Af Amer) 70.0 93.2 BUN/Creatinine Ratio 16.7 14.1 Glucose 102 H 84 Estimat Average Glucose 88 Hemoglobin A1c 4.7 Osmolality 292 Calcium 9.2 9.0 Phosphorus 1.2 L* Magnesium 1.6 L PG Care Time/CCT Total # of Minutes Spent Total Time Spent with Patient: Total time spent is greater than 50% in coordination of care (as documented) at patient's floor/unit and/or counseling patient: Coding Level of Care Code 58120 SUB INP/OBS CARE 3/50MIN Diagnoses ENZO (acute kidney injury) N17.9 Metabolic acidosis E87.20 Hypercalcemia E83.52 Hypokalemia E87.6 Hypomagnesemia E83.42 Hypophosphatemia E83.39
--- NOTE | 2023-12-29 16:17 | Hospitalist Progress Note ---
Date of Service December 29, 2023 Assessment & Plan (1) Nausea vomiting and diarrhea: Plan: 58yo female with one week of nausea, vomiting and diarrhea. Patient appears profoundly dehydrated with electrolyte abnormalities. Hypotension on arrival. Significant acidosis with pH=7.16 on VBG. No anion gap on chemistry - likely from diarrhea. -stool PCR and c. diff negative on 12/28/2023 CT abdomen and pelvis with no acute changes, gallstones without changes -Protonix 40mg IV daily -Continue Sucralfate 1gm PO QID replete hypomagnesemia, phosphorous -Sodium bicarb drip discontinued on 12/28/2023, Plasma-Lyte initiated (2) Hypercalcemia: Plan: Likely secondary to dehydration, patient on HCTZ as well -suppressed PTH, normal phos, repeat Ca++ now normalized - (3) ENZO (acute kidney injury): Plan: Likely secondary to pre-renal azotemia, volume loss from persistent diarrhea Holding JIE inhibitor and diuretics renal functions improving acid-base balance is also improving non anion gap acidosis delta delta less than 1, nephrology assisting in management, on Plasma-Lyte transitioned from bicarb on 12/28/2023 (4) DM2 (diabetes mellitus, type 2): Plan: Patient completed 8 months of Ozempic - reports she has lost 130+ pounds. Now not on any medications (5) Hyperlipidemia: Plan: Chronic. Stable -Continue Atorvastatin Admission and Anticipated Discharge Date Admission Date: December 27, 2023 Subjective Patient feels very fatigued and tired today, phosphorous is low and will be augmented pt has not diarrhea, eating po well Physical Exam Physical Exam: Awake alert appropriate. Card exam is regular murmur Lungs are clear without wheezes or crackles Abdomen NABS soft nontender Extremities are without edema Results & Data Results & Data Vital Signs (Past 12 Hours) Vital Signs Temp Pulse Pulse Resp BP Pulse Ox O2 Del Method 12/29/23 11:47 98.1 F 54 L 18 103/58 L 99 Room Air 12/29/23 07:30 98.1 F 58 L 18 92/58 L 99 Room Air 12/29/23 07:00 76 Laboratory Results review chemistry replete phos review low magnesium and repleted PG Care Time/CCT Total # of Minutes Spent Total Time Spent with Patient: Total time spent is greater than 50% in coordination of care (as documented) at patient's floor/unit and/or counseling patient: Coding Level of Care Code 20367 SUB INP/OBS CARE 2MIN Diagnoses Nausea vomiting and diarrhea R11.2; R19.7 Hypercalcemia E83.52 ENZO (acute kidney injury) N17.9 DM2 (diabetes mellitus, type 2) E11.9 Hyperlipidemia E78.5
[2023-12-30 07:38] LABS: Albumin Level 3.3 gm/dl (3.4-5.0); BUN Creatinine Ratio 10.1 (10-20); Calcium 9.2 mg/dl (8.6-10.3); Creatinine Clr Calc Pharmacy 89.2 ml/min; Est GFR (African American) 110.4 ml/min; Est GFR (Non-African American) 95.3 ml/min; Magnesium 1.4 mg/dl (1.7-2.4); Phosphorus 2.6 mg/dl (2.5-4.9); Potassium 3.2 mmol/L (3.5-5.1)
[2023-12-30] MEDS: MAGNESIUM SULFATE / D5W 1 GM/100 ML BAG IV SCH (09:18)
[2023-12-30] MEDS: POTASSIUM CHLORIDE / WTR 10 MEQ/100 ML PLCT IV ONE (09:19)
--- NOTE | 2023-12-30 12:19 | Nephrology Progress Note ---
Date of Service December 30, 2023 Assessment & Plan (1) ENZO (acute kidney injury): Plan: Due to dehydration. Creatinine normalized. Volume status acceptable. Medications appropriate for kidney function. Lisinopril held. It would be acceptable to restart the medication at this time but Rabia remains hypotensive. Please arrange outpatient follow up in the nephrology clinic within the next 2 weeks. (2) Metabolic acidosis: Plan: Attributed to GI losses. Improved with replacement. IVF and oral NaHCO3 stopped yesterday. (3) Hypercalcemia: Plan: Improved with IVF. Prospective monitoring. Avoid thiazide diuretics. Outpatient follow up. (4) Hypokalemia: Plan: Additional IV magnesium and potassium replacement ordered this AM. Once potassium acceptable, discharge with outpatient follow up would be considered acceptable. (5) Hypomagnesemia: Plan: IV replacement provided this AM. Repeat labs next week. Follow up in the outpatient nephrology clinic within 2 weeks of discharge. Admission and Anticipated Discharge Date Admission Date: December 27, 2023 Subjective No acute events overnight. Diarrhea resolved. Appetite improved. Rabia states that she feels well this morning. She states that some mild nausea persists but she would really like to go home. Review of Systems Review of Systems: All systems reviewed & are unremarkable except as noted in HPI & below Physical Exam Constitutional: well developed; no acute distress Eyes: no scleral abnormality and no corneal abnormality ENMT: external ear and nose normal, oropharynx normal Mouth: oral mucous membranes not dry Neck: normal visual inspection and trachea midline Respiratory: normal respiratory effort Auscultation: lungs clear to auscultation bilaterally Cardiovascular: Rate/Rhythm: + bradycardic Heart Sounds: normal S1 and normal S2 Extremities: no edema Musculoskeletal: Extremities: no cyanosis and no clubbing Skin: normal turgor; no jaundice Neurologic: Motor/Sensory: no tremor and no asterixis Psychiatric: Orientation: alert and oriented x 3 Results & Data Vital Signs (Past 12 Hours) Vital Signs Temp Pulse Pulse Resp BP BP Pulse Ox 12/30/23 11:36 36.8 C 51 L 18 97/56 L 96 12/30/23 09:04 48 L 12/30/23 07:24 36.9 C 53 L 16 115/74 98 12/30/23 03:12 36.9 C 50 L 16 91/49 L 99 O2 Del Method 12/30/23 11:36 Room Air 12/30/23 09:04 12/30/23 07:24 Room Air 12/30/23 03:12 Room Air Laboratory Results Laboratory Results - last 24 hr 12/30/23 06:32 Sodium 142 Potassium 3.2 L Chloride 116 H Carbon Dioxide 21 Anion Gap 5 BUN 7 Creatinine 0.69 Est Cr Clr Drug Dosing 89.2 Est GFR ( Amer) 110.4 Est GFR (Non-Af Amer) 95.3 BUN/Creatinine Ratio 10.1 Glucose 88 Calcium 9.2 Phosphorus 2.6 D Magnesium 1.4 L Albumin 3.3 L PG Care Time/CCT Total # of Minutes Spent Total Time Spent with Patient: Total time spent is greater than 50% in coordination of care (as documented) at patient's floor/unit and/or counseling patient: Coding Level of Care Code 41350 SUB INP/OBS CARE 3/50MIN Diagnoses ENZO (acute kidney injury) N17.9 Metabolic acidosis E87.20 Hypercalcemia E83.52 Hypokalemia E87.6 Hypomagnesemia E83.42
[2023-12-30] MEDS: MAGNESIUM OXIDE 400 MG TAB PO SCH (13:15)
[2023-12-30] MEDS: POTASSIUM CHLORIDE CRTAB 20 MEQ TABCR PO STA (13:15)
[2023-12-30 15:04] LABS: BUN Creatinine Ratio 10.5 (10-20); Calcium 9.3 mg/dl (8.6-10.3); Est GFR (African American) 99.5 ml/min; Est GFR (Non-African American) 85.9 ml/min; Potassium 3.4 mmol/L (3.5-5.1)
--- NOTE | 2023-12-30 15:49 | Communication Note ---
1.) Toxic GE due to Ozempic therapy causing dehydration, electrolyte deficiencies and acute renal failure 58-year-old female with a several month history of nausea, vomiting, diarrhea, and unintentional weight loss who presents with profound weakness. Metabolic acidosis Risk Factor(s): Age, Ozempic therapy, Treatment: DC of Ozempic, IVF bolus, IV sodium bicarb, IV potassium phosphate, IV potassium, IV Plasma-Lyte, IV Zofran, IV magnesium, IV lactated Ringer's, 2.) Severe malnutrition due to prolonged nausea, vomiting, and diarrhea Several month history of unintentional weight loss of approximately 130 pounds per patient account, patient presents profoundly weak Risk Factor(s): Age, unintentional weight loss, several month history of nausea, vomiting, and diarrhea Treatment: Daily weights, strict I's and O's, discontinuation of Ozempic,
--- NOTE | 2023-12-30 15:55 | Discharge Summary ---
Date of Service December 30, 2023 Admission HPI Per Admitting Provider Rabia Nowak is a 58yo female with DM, HTN, HLP and prior TIA presenting with one week of nausea, vomiting and diarrhea. Patient reports several daily episodes of non-bloody/non-bilious emesis and multiple episodes of non-bloody diarrhea. Her diarrhea is profuse and watery, occurs throughout the day and at night too. She has had some fecal incontinence. No recent hospitalization or antibiotic use. No sick contacts. Drinks bottled water. She has had some weakness and fatigue. Poor appetite and decreased oral intake for the last 8 months. She was previously on Ozempic and feels that this decreased her appetite - she lost over 130#. She stopped the Ozempic 9 days ago. She has some vague lower abdominal pain Patient denies fever, chills, chest pain, cough or SOB. Denies urinary complaints. No bone pain, sweats. ER Course: NSS x 1L LR x 1L Pepcid 20mg IV Zofran 4mg IV Magnesium x 4 gm KCl 40mEq PO + 10mg IV x 4 runs (80mEq total) Discharge Data Allergies Allergy/AdvReac Type Severity Reaction Status Date / Time aspirin Allergy Unknown Hives Verified 10/17/20 18:30 Consultations 12/27/23 00:13 ED Decision to Admit Stat 12/27/23 08:06 Consult Nephrology Routine Ordered Studies 12/26/23 23:46 CT Abdomen and Pelvis [CT abd pelvis wo con] Stat Hospital Course (1) Nausea vomiting and diarrhea: -Toxic GE due to Ozempic therapy causing dehydration, electrolyte deficiencies and acute renal failure - Severe malnutrition due to prolonged nausea, vomiting, and diarrhea 58yo female with one week of nausea, vomiting and diarrhea. Patient appears profoundly dehydrated with electrolyte abnormalities. Hypotension on arrival. Significant acidosis with pH=7.16 on VBG. No anion gap on chemistry - likely from diarrhea. -stool PCR and c. diff negative on 12/28/2023 CT abdomen and pelvis with no acute changes, gallstones without changes -Protonix 40mg IV daily -Continue Sucralfate 1gm PO QID replete hypomagnesemia, phosphorous -Sodium bicarb drip discontinued on 12/28/2023, Plasma-Lyte initiated (2) Hypercalcemia: Likely secondary to dehydration, patient on HCTZ as well -suppressed PTH, normal phos, repeat Ca++ now normalized - (3) ENZO (acute kidney injury): Likely secondary to pre-renal azotemia, volume loss from persistent diarrhea Holding JIE inhibitor and diuretics renal functions improving acid-base balance is also improving non anion gap acidosis delta delta less than 1, nephrology assisting in management, on Plasma-Lyte transitioned from bicarb on 12/28/2023 (4) DM2 (diabetes mellitus, type 2): Patient completed 8 months of Ozempic - reports she has lost 130+ pounds. Now not on any medications (5) Hyperlipidemia: Chronic. Stable -Continue Atorvastatin Discharge Plan Discharge Items Reason For Visit: DIARRHEA, WEAKNESS Condition on Discharge: Fair Follow-up/Referrals: Ubaldo Jeronimo PA-C [Primary Care Provider] - Medications and DC Order Prescriptions: No Action tramadol 50 mg tablet 50 mg PO Q6 PRN (Reason: pain) Qty: 30 0RF albuterol sulfate [Ventolin HFA] 90 mcg/actuation Hfa Aerosol Inhaler 2 puff INHALATION Q6H PRN (Reason: Shortness Of Breath Or Wheezing) nystatin 100,000 unit/gram Cream 1 applic TOPICAL BID PRN (Reason: fungal rash) Rx Instructions: Apply to affected area(s) lisinopril-hydrochlorothiazide 20-25 mg Tablet 1 tab PO QAM sucralfate [Carafate] 1 gram Tablet 1 g PO QID cholecalciferol (vitamin D3) 1,250 mcg (50,000 unit) capsule 50,000 unit PO WK Rx Instructions: TAKE THIS MEDICATION EVERY WEDNESDAY amlodipine 10 mg Tablet 10 mg PO QAM cyclobenzaprine 10 mg tablet 10 mg PO TID PRN (Reason: Muscle Spasm) ibuprofen 800 mg tablet 800 mg PO TID PRN (Reason: Pain) Rx Instructions: TAKE THIS MEDICATION WITH FOOD ondansetron HCl 4 mg tablet 4 mg PO .Q6-8HRS PRN (Reason: Nausea) pantoprazole 20 mg tablet,delayed release (DR/EC) 20 mg PO BID lorazepam 0.5 mg tablet 0.5 mg PO BID PRN (Reason: Severe Anxiety) trazodone 150 mg tablet 150 mg PO HS escitalopram oxalate 20 mg tablet 20 mg PO QAM clopidogrel 75 mg tablet 75 mg PO QAM atorvastatin 40 mg tablet 40 mg PO HS methocarbamol 750 mg tablet 750 mg PO BID PRN (Reason: Muscle Spasm) Trelegy Ellipta 200-62.5-25 mcg blister with device 1 inh INHALATION DAILY PRN (Reason: Shortness Of Breath Or Wheezing) potassium chloride [Klor-Con M10] 10 mEq tablet,ER particles/crystals 10 meq PO HS Admission Data Admit Date/Time: 12/27/23 01:14 Attending Provider: Aries Dickerson Admit Provider: Miya Caldera Primary Care Provider: Ubaldo Jeronimo Other Providers: Miya Caldera; Ricardo Murillo Coding Diagnoses Nausea vomiting and diarrhea R11.2; R19.7 Hypercalcemia E83.52 ENZO (acute kidney injury) N17.9 DM2 (diabetes mellitus, type 2) E11.9 Hyperlipidemia E78.5
[2023-12-30] MEDS: POTASSIUM CHLORIDE CRTAB 20 MEQ TABCR PO SCH (16:28)
== END 2023-12-30 17:05 | disposition home or self-care (01) | DRG 393 ==
LOC: ED 22:55 → SUATTDRO 12-27 01:14 → EDINP 12-27 01:14 → 2S 12-27 01:29

== ENCOUNTER 2024-03-09 05:07 | Observation (INO) ==
--- NOTE | 2024-02-18 16:18 | PAT Medication Instructions ---
Medication Instructions Date of Service February 18, 2024 Home Medications Medication Instructions Recorded magnesium oxide 400 mg (241.3 mg 400 mg PO BID #10 tabs 12/30/23 magnesium) tablet albuterol sulfate 90 mcg/actuation aerosol inhaler (Ventolin HFA) 2 puff inhalation Q6H PRN nystatin 100,000 unit/gram topical cream 1 applic topical BID PRN cholecalciferol (vitamin D3) 1,250 mcg (50,000 unit) capsule 50,000 unit PO WK sucralfate 1 gram tablet (Carafate) 1 g PO QID clopidogrel 75 mg tablet 75 mg PO QAM cyclobenzaprine 10 mg tablet 10 mg PO TID PRN escitalopram oxalate 20 mg tablet 20 mg PO QAM ondansetron HCl 4 mg tablet 4 mg PO .Q6-8HRS PRN pantoprazole 20 mg tablet,delayed release 20 mg PO QAM trazodone 150 mg tablet 150 mg PO HS fluticasone fur. 200 mcg-umeclid 62.5 mcg-vilant 25 mcg inhalat.powder (Trelegy Ellipta) 1 inh inhalation DAILY PRN magnesium oxide 400 mg (241.3 mg magnesium) tablet 400 mg PO BID Continue as directed fluticasone fur. 200 mcg-umeclid 62.5 mcg-vilant 25 mcg inhalat.powder (Trelegy Ellipta) 1 inh inhalation DAILY PRN(if needed) ASK your prescriber and surgeon clopidogrel 75 mg tablet 75 mg PO QAM(in order for spinal or epidural anesthesia, plavix needs to be stopped 7 days before surgery. Please check if okay with doctor that prescribes this to you) STOP taking 24 hours before surgery nystatin 100,000 unit/gram topical cream 1 applic topical BID PRN DO NOT take the morning of surgery cholecalciferol (vitamin D3) 1,250 mcg (50,000 unit) capsule 50,000 unit PO WK sucralfate 1 gram tablet (Carafate) 1 g PO QID magnesium oxide 400 mg (241.3 mg magnesium) tablet 400 mg PO BID Take morning of surgery With a small sip of water, OTHERWISE NOTHING TO EAT OR DRINK AFTER MIDNIGHT: albuterol sulfate 90 mcg/actuation aerosol inhaler (Ventolin HFA) 2 puff inhalation Q6H PRN(use if needed; please bring with you to hospital day of surgery if possible) cyclobenzaprine 10 mg tablet 10 mg PO TID PRN(if needed) ondansetron HCl 4 mg tablet 4 mg PO .Q6-8HRS PRN(if needed) escitalopram oxalate 20 mg tablet 20 mg PO QAM pantoprazole 20 mg tablet,delayed release 20 mg PO QAM Take evening before surgery albuterol sulfate 90 mcg/actuation aerosol inhaler (Ventolin HFA) 2 puff inhalation Q6H PRN(if needed) cyclobenzaprine 10 mg tablet 10 mg PO TID PRN(if needed) ondansetron HCl 4 mg tablet 4 mg PO .Q6-8HRS PRN(if needed) sucralfate 1 gram tablet (Carafate) 1 g PO QID trazodone 150 mg tablet 150 mg PO HS magnesium oxide 400 mg (241.3 mg magnesium) tablet 400 mg PO BID Other Notes If you have any questions please call us at [phone] or [phone] or [phone] or [phone]
--- NOTE | 2024-02-24 11:52 | Anesthesiology Consultation ---
Date of Service February 24, 2024 Assessment & Plan (1) Encounter for pre-operative examination: - Check BSG AM DOS - Infectious disease screening: Per assessment on 02/24/24: No known recent infectious disease contacts or current infectious disease symptoms. - Outpatient joint assessment: Pt currently scheduled for inpatient pathway. If surgeon requests review for outpatient joint pathway, patient is not recommended candidate for outpatient joint program from anesthesia standpoint based on available information. - Plavix instructions: patient made aware that for neuraxial anesthesia, Plavix needs to be held 7 days prior to surgery. Patient voiced understanding/will check if okay with prescriber. - Recent [facility] admission: 12/2023 [facility] admission r/t Toxic GE/dehydration/electrolyte abnormalities felt to be r/t Ozempic. Feeling well since discharge. Electrolytes normalized. Patient on Magnesium supplementation since discharge. Preop labs note magnesium mildly improved but still low at 1.1. Potassium critically low at 2.3- critical level messaged to Dr. Caldera per lab notation (Zee at surgeon's office confirms surgeon aware). Preop testing faxed by PAT dental secretary to PCP. Spoke with Rosa Elena at PCP office- she will forward hypokalemia finding to PCP to review/address. Awaiting PCP optimization regarding electrolyte abnormalities. Repeat labs planned to be done 03/02 by PCP per PAT dental secretary documentation (Ubaldo CANDELARIO/Mil Hensley). Chart Review Chart Review: Patient seen in Pre Admission Testing Teaching & Discussion Pre-Anesthesia Teaching/Discussion Notes: Instructed NPO after midnight before surgery,except medications with 15 cc of water. Medication instructions provided according to the PAT guidelines. History Surgery Operation Date: 03/09/24 07:00 Proposed Procedures p Right Total Hip Arthroplasty - Kalyan Caldera MD Height/Weight Height: 5 ft 5 in Weight: 73.3 kg Allergies Allergy/AdvReac Type Severity Reaction Status Date / Time semaglutide [From Ozempic] AdvReac Toxic GE, Verified 02/24/24 13:46 dehydration, electrolyte abnormaities, ARF Medications Home Medications Medication Instructions Recorded Confirmed Last Taken albuterol sulfate 90 mcg/actuation 2 puff inhalation Q6H PRN 10/14/19 02/17/24 Unknown aerosol inhaler (Ventolin HFA) Shortness Of Breath Or Wheezing nystatin 100,000 unit/gram topical 1 applic topical BID PRN fungal 10/14/19 02/17/24 Unknown cream rash cholecalciferol (vitamin D3) 1,250 50,000 unit PO WK 10/18/19 02/17/24 12/24/23 mcg (50,000 unit) capsule sucralfate 1 gram tablet (Carafate) 1 g PO QID 10/18/19 02/17/24 12/26/23 3 doses clopidogrel 75 mg tablet 75 mg PO QAM 10/17/20 02/17/24 12/26/23 cyclobenzaprine 10 mg tablet 10 mg PO TID PRN Muscle Spasm 10/17/20 02/17/24 Unknown escitalopram oxalate 20 mg tablet 20 mg PO QAM 10/17/20 02/17/24 12/26/23 ondansetron HCl 4 mg tablet 4 mg PO .Q6-8HRS PRN Nausea 10/17/20 02/17/24 12/26/23 pantoprazole 20 mg tablet,delayed 20 mg PO QAM 10/17/20 02/17/24 12/26/23 release am trazodone 150 mg tablet 150 mg PO HS 10/17/20 02/17/24 12/25/23 fluticasone fur. 200 mcg-umeclid 1 inh inhalation DAILY PRN 12/27/23 02/17/24 Unknown 62.5 mcg-vilant 25 mcg Shortness Of Breath Or Wheezing inhalat.powder (Trelegy Ellipta) magnesium oxide 400 mg (241.3 mg 400 mg PO BID #10 tabs 12/30/23 02/17/24 Unknown magnesium) tablet Wheeled Walker #1 ea 02/29/24 Unknown Past Medical History Medical History (Updated 02/24/24 @ 13:46 by Debbie Richmond) Aneurysm of right internal carotid artery Neck CTA 06/2022: There is unchanged appearance of a 3 mm aneurysm arising from the mid cervical portion of the DILIP Degenerative joint disease of right hip Depression GERD (gastroesophageal reflux disease) History of asthma History of hypertension "Resolved" after weight loss History of TIA (transient ischemic attack) TIA vs migraine variant per [facility] admission notes Reason for Plavix Hx of diabetes mellitus Diet controlled since weight loss Hx of hyperlipidemia "Resolved" after weight loss Hypomagnesemia Taking magnesium supplementation Lumbar radiculopathy Migraine Osteoarthritis Exercise / Class Metabolic Activity II 4-5 Yardwork/Stairs/Walk up hill (one FS: no CP, no SOB) Past Family History Family History Other Cancer Diabetes Heart disease Hypertension Past Surgical History Surgical History H/O tubal ligation History of ankle surgery (10/2020) Left distal fibula fracture Hx of cervical spine surgery [facility] Hx of tubal ligation S/P bunionectomy Right Status post bunionectomy Past Anesthesia History No Hx of Anesthesia Complications * Sister: "cries" with anesthesia emergence History of PONV No Hx of PONV and No Hx of Motion Sickness Social History Smoking Status: Current every day smoker tobacco type: cigarettes Smoking cigarettes per day: 6 cigs/day Do You Dip or Chew Tobacco: No Hx Alcohol Use: No Hx Substance Use: No substance use type: does not use Review of Systems Rare palpitations. Patient denies chest pain, shortness of breath, dyspnea on exertion, fever, chills, cough, wheezing. Physical Exam Vital Signs BP 111/67 P 65 TEMP 98.5 SP02 99%RA RESP 18 Physical Full cervical extension range of motion. Full TMJ range of motion. TMD > 3.5 finger breaths Mallampati Score 1 Dentition: upper full plate, partial lower Lungs: clear throughout to auscultation Cardiac: regular rate and rhythm, no murmurs noted Spine: normal Carotid arteries: negative bruit Extremities: no LE edema Lab Results Anesthesia Preop Results Results Anesthesia Widget: WBC 7.79 K/ul (4.8-10.8) 02/24/24 Hgb 12.7 g/dl (12.0-16.0) 02/24/24 Hct 36.0 % (37.0-47.0) L 02/24/24 Plt 243 K/uL (130-400) 02/24/24 Na 140 mmol/L (136-145) 02/24/24 K 2.3 mmol/L (3.5-5.1) L* 02/24/24 Cl 114 mmol/L (98-107) H 02/24/24 CO2 18 mmol/L (21-32) L 02/24/24 BUN 14 mg/dl (6-23) 02/24/24 Creat 0.92 mg/dl (0.6-1.2) 02/24/24 Glucose Level 147 mg/dl (70-99(Fasting)) H 02/24/24 PT 10.6 Seconds (9.0-12.0) 02/24/24 PTT 25 Seconds (21-31) 02/24/24 INR 1.0 (0.9-1.1) 02/24/24 Blood Type O Positive 02/24/24 Antibody Screen NEGATIVE 02/24/24 Testing Laboratory Results Magnesium (02/24/24): 1.1 HGBA1C (12/28/22): 4.7% Electrocardiogram Date: 12/26/23 SB with occasional PVCs at 59bpm. NS TWA. Chest X-Ray Date: 12/27/23 FINDINGS: Lung volumes are normal. Lungs are clear. There is no pneumothorax or pleural effusion. Cardiac size is normal. Mediastinal contours are normal. There is no evidence for pulmonary edema. IMPRESSION: No acute cardiopulmonary findings. Echocardiogram Date: 10/15/19 EF 55-60%. No RWMA. No LVH. No significant valvular disease. Other Testing Neck/Head CTA Date: 06/17/2022 There is no hemorrhage, mass effect, or evidence of acute territorial ischemia by CT criteria. Unremarkable CT angiogram of the brain. There is no aneurysm, high-grade stenosis, or focal vessel cut off seen throughout the intracranial circulation. There is unchanged appearance of a 3 mm aneurysm arising from the mid cervical portion of the right internal carotid artery. Otherwise unremarkable CT angiogram of the neck.
[2024-03-09] MEDS: LR 500ML BOLUS, THEN 15ML/HR IV SCH (05:40)
[2024-03-09] MEDS: ACETAMINOPHEN 500 MG TAB PO SCH ×2 (05:44→13:07)
[2024-03-09] MEDS: CeleBREX 200 MG CAP PO SCH (05:44)
[2024-03-09] MEDS: LR 60ML/HR IV SCH (05:44)
[2024-03-09] MEDS: METOCLOPRAMIDE HCL 10 MG TABLET PO SCH (05:44)
[2024-03-09] MEDS: dexAMETHasone**PF** 10 MG/ML VIAL IV SCH (05:44)
[2024-03-09] MEDS: FAMOTIDINE 20 MG TAB PO SCH (05:44)
[2024-03-09] MEDS: Scopolamine 1 MG TDSY TD SCH (05:45)
[2024-03-09] MEDS ORDERED: BUPIVACAINE 0.5 % 5 MG/1 ML PF 10ML VIAL ONE (06:15)
[2024-03-09] MEDS ORDERED: ONDANSETRON INJ 2 MG/ML 2 ML VIAL ONE (06:34)
[2024-03-09] MEDS ORDERED: LIDOCAINE 2% 2 ML VIAL/AMP(20MG/ML) INFIL ONE (06:34)
[2024-03-09] MEDS ORDERED: fentaNYL citrate PF 100 MCG/2 ML VIAL ONE ×2 (06:34→08:06)
[2024-03-09] MEDS ORDERED: MIDAZOLAM HCL 1 MG/ML 2ML VIAL ONE ×2 (06:34→07:12)
[2024-03-09] MEDS ORDERED: PROPOFOL IV EMULSION 10 MG/ML 20 ML VIAL IV ONE ×3 (06:34→06:35)
[2024-03-09] MEDS ORDERED: MoRPHine SULFATE PF 1 MG/ML 10 ML AMP/VIAL ONE (06:37)
[2024-03-09] MEDS: TRANEXAMIC ACID 1,000 MG **IV Pre-op IV SCH (06:47)
--- NOTE | 2024-03-09 06:50 | History & Physical Bridge Note ---
Date of Service March 09, 2024 History & Physical Bridge Note I have examined the patient, reviewed the History & Physical and in the interval since the performance of the History & Physical I have noted the following changes of clinical significance: no changes noted
[2024-03-09] MEDS: ceFAZolin 2000MG 2,000 MG/15 ML SYR IV SCH (06:57)
[2024-03-09] MEDS ORDERED: ATROPINE SULFATE 0.1 MG/ML 10ML SYR IV PRN (06:58)
[2024-03-09] MEDS ORDERED: HYDROmorphone INJ 2 MG/ML SYR/VIAL IV PRN (06:58)
[2024-03-09] MEDS ORDERED: fentaNYL citrate PF 100 MCG/2 ML VIAL IV PRN (06:58)
[2024-03-09] MEDS ORDERED: ePHEDrine sulfate 50 MG/ML AMP IV PRN (06:58)
[2024-03-09] MEDS ORDERED: ONDANSETRON INJ 2 MG/ML 2 ML VIAL IV PRN ×2 (06:58→09:37)
[2024-03-09] MEDS ORDERED: PROMETHAZINE HCL 6.25 MG in SODIUM CHLORIDE 0.9% 50 ML IV PRN (06:58)
[2024-03-09] MEDS ORDERED: ePHEDrine sulfate 50 MG/5 ML SYR ONE (07:22)
[2024-03-09] MEDS: BUPIVACAINE/EPINEPHRINE 0.5% MPF 1:200,000 30 ML VIAL ONE (07:31)
--- OUTSIDE RECORDS SUMMARY | 2024-03-09 07:42 | External Medical Summary | Continuity of Care Document ---
Author Name Unknown Organization [facility] Address [address] [place] [address] Phone [phone] Care Team Providers Care Time Clock Mechanic Name Role Phone Kalyan Caldera MD Care Team Information Receive r [phone] Neftaly Paredes M.D. Care Team Information Frameman [phone] Problems Active Problems Provider Date Mixed hyperlipidemia [...] Description Comments Sex Unknown Tobacco Use Reviewed: 01/05/24 Current Cigar ette Smoker 1 Pack Daily Smoking Status Reviewed: 01/05/24 Current Cigar ette Smoker 1 Pack Daily Tobacco Use Reviewed: 01/05/24 Never Smoked Cigars Tobacco Use Reviewed: 01/05/24 Never Smoked A Pipe Smokeless Tobacco 01/05/2024 Never Used Smokeless To bacco ETOH Use Denies alcohol use Recreational Drug Use Denies Drug Use Allergies and adverse reactions Active Allergies Criticality Reaction | Severity Comments Date Aspirin Unable to assess criticality Urticaria 09/21/2017 Medications Active Medications SIG Qnty Indications Order ing Provider Date Lorazepam0.5mg Tablets take one tablet daily as needed for severe anxiety 10tabs Mishel Bernabe MD 02/29/2024 Klor-Con [id number] Tablets ER 1 by mouth twice daily 180tabs Mishel Bernabe MD 02/24/2024 Magnesium Oxide (Elemental)400mg Tablets 2 tablets twice daily 360tabs Mishel Bernabe MD 01/17/2024 Fgcpvsyiayw020bp Tablets One By Mouth Now Repeat One Week as Needed 2tabs Mishel Bernabe MD 01/17/2024 Tramadol MVO34bv Tablets Take 1 Tablet By Mouth Twice A Day as Needed For Severe Pain 45tabs Mishel Bernabe MD 01/13/2024 Trazodone BZF738wz Tablets Take 1 Tablet AT Bedtime 90tabs Mishel Bernabe MD 04/25/2023 Freestyle Yevgeniy 3/Sensor/Glucose Monitoring Mcuksm5Ixhqpz Misc use as directed e11.65 3units Mishel Bernabe MD 12/16/2022 Quetiapine Wwseieli62iy Tablets Take 1 Tablet By Mouth Everyday AT Bedtime 90tabs Mishel Bernabe MD 11/05/2022 Clotrimazole/Betamet hasone Dipropionate1-0.05% Cream Apply To Affected Area Twice A Day as Needed 135units Mishel Bernabe MD 10/20/2022 Vitamin D3 1,250 mcgCapsule Take 1 Capsule By Mouth Once A Week 12caps E55.9 Mishel Bernabe MD 07/13/2022 Zadawaxzetm74cg Tablets Take 1 Tablet By Mouth AT Bedtime For Sleep 90tabs Mishel Bernabe MD 04/10/2022 Lidocaine Viscous HCL2% Solution apply 2ml to both cheeks, then swish and swallow up to three times daily 300units Mishel Bernabe MD 03/12/2022 Albuterol Sulfate CAJ573(90Base) mcg/Act Aerosol Inhale 2 Puffs By Mouth Every 4-6 Hours as Needed Wheezing 25.5units Juventino Sibley MD 12/19/[address] Take 1 Tablet By Mouth Every Day 90tabs K21.0 Mishel Bernabe MD 12/04/2021 Rollator Ultra-LightMisc use as directed 1units Juventino Sibley MD 021 Sotjkcelsl5yc Tablets Take 1 Tablet By Mouth Four Times A Day 360tabs Juventino Sibley MD 12/04/2020 Trelegy Jerkgax021-42.5-25mc g/Act Aerosol Inhale 1 puff By Mouth Daily 60units Juventino Sibley MD 12/03/2020 Clopidogrel Uvjhbosnu13xl Tablets Take 1 Tablet By Mouth Every Day 90tabs Juventino Sibley MD 03/24/2020 Triamcinolone Acetonide0.1% Cream Apply To Affected Area Twice A Day Until Resolved--Then Use When Flaring 30units Rolf Snell JR, MD 11/30/2019 Onetouch Ultra 2w/Device Kit test sugars as advised dx: e11.65 1units Rolf Snell JR, MD 11/23/2019 Onetouch Ultrasoft LancetsMisc use up to 2 times daily Dx: E11.9 100units Rolf Snell JR, MD 11/23/2019 Onetouch UltraStrips Use To Test Twice Daily Dx: E11.65 100units Rolf Snell JR, MD 11/23/2019 Escitalopram Upoamfv40ey Tablets Take 1 Tablet By Mouth Every Day 90tabs F33.1 Mishel Bernabe MD 11/13/2019 Atorvastatin Sqpmtzp13rw Tablets Take 1 Tablet By Mouth Every Day 90tabs Juventino Sibley MD 10/16/2019 Ondansetron HCL4mg Tablets Take 1 Tablet By Mouth Every 6-8 Hours as Needed For Nausea 45tabs Mishel Bernabe MD 03/12/2019 Pen [place] 5/16"31G X 8 mm Misc use daily with Victoza 100units E11.65 Rolf Snell JR, MD 11/01/2018 Glucometer One Touch UltraDevice use to test once daily and when symptomatic. 1units E11.9 Rolf Snell JR, MD 11/03/2017 Lancets Bullseye SafetyMisc Use to test once daily and when symptomatic. 60units Ralph Braxton, DO 11/03/2017 Test Strips For Glucose MeterStrips Check sugars daily and when symptomatic 60units Ralph Braxton, DO 11/03/2017 History Medications Sodium Kpujvvswsez928ie Tablets Take 1 Tablet By Mouth Every Day Unknown 12/30/2023 - 01/06/2024 Magnesium Pwjep249db Tablets 1 by mouth twice a day for 5 days. Unknown 12/30/2023 - 01/04/2024 Potassium Chloride EG49Ilr Tablets ER Take 2 Tablets By Mouth Every Day for 4 days. Unknown 12/30/2023 - 01/04/2024 Amoxicillin/Clavulanate Tyosmhyth176-086cv Tablets Take 1 Tablet By Mouth Twice A Day For 10 Days 20tabs Mishel Bernabe MD 11/17/2023 - 11/27/2023 Mvczuyypfq95sr Tablets two tablets x 5 days then one tablet daily x 5 days 15baljeet Bernabe MD 11/17/2023 - 01/05/2024 Amoxicillin/Clavulanate Myujvipfm872-214ef Tablets Take 1 Tablet By Mouth Twice A Day For 10 Days 20baljeet Bernabe MD 10/08/2023 - 01/03/2024 Xlkfhewirz23su Tablets two tablets x 5 days then one tablet daily x 5 days 15baljeet Bernabe MD 10/08/2023 - 01/05/2024 Jerxxwqz184zk Tablets one by mouth now repeat one week as needed 2baljeet Bernabe MD 10/08/2023 - 01/05/2024 Oxftafmz265547Brnm/GM Cream Apply To Affected Area Twice A Day 90units Mishel Bernabe MD 10/05/2023 - 01/05/2024 Medications Administered in Office Medication SIG Qnty Indications Ordering Provider Date Injection Kenalog 10 MG NDC [id number] Ubaldo Jeronimo, P A-C 08/19/2023 Injection Kenalog 10 MG NDC [id number] Ubaldo Jeronimo, P A-C 03/12/2022 Injection Kenalog 10 MG NDC [id number] Ubaldo Jeronimo, P A-C 01/15/2022 Injection Kenalog 10 MG NDC [id number] Ubaldo Jeronimo, P A-C 10/27/2021 Injection Kenalog 10 MG NDC [id number] Ubaldo Jeronimo, P A-C 07/17/2021 Injection Kenalog 10 MG NDC [id number] Ubaldo Jeronimo, P A-C 04/29/2021 Injection Kenalog 10 MG NDC [id number] Ubaldo Jeronimo, P A-C 02/17/2021 Injection Kenalog 10 MG NDC [id number] Ubaldo Jeronimo, P A-C 12/03/2020 Injection Kenalog 10 MG NDC [id number] Ubaldo Jeronimo, P A-C 08/30/2020 Injection Kenalog 10 MG NDC [id number] Ubaldo Landon Lazorka, P A-C 05/30/2020 Injection Kenalog 10 MG NDC [id number] Ubaldo Landon Lazorka, P A-C 02/13/2020 Injection Dexamethasone Sodium Phosphate, 1 MGInjection Ubaldo CaraRd Lazorka, PA-C 10/2019 Injection Kenalog 10 MG NDC [id number] Ubaldo Landon Lazorka, P A-C 11/30/2019 Injection Kenalog 10 MG NDC [id number] Ubaldo Landon Lazorka, P A-C 06/21/2018 Injection Kenalog 10 MG NDC [id number] Ubaldo Landon Lazorka, P A-C 06/21/2018 Injection Kenalog 10 MG NDC [id number] Ubaldo Landon Lazorka, P A-C 12/02/2017 Injection Kenalog 10 MG NDC [id number] Ubaldo Landon Lazorka, P A-C 12/02/2017 Injection Dexamethasone Sodium Phosphate, 1 MGInjection Ubaldo CaraRd Lazorka, PA-C 11/12 Injection Dexamethasone Sodium Phosphate, 1 MGInjection Ubaldo CaraRd Lazorka, PA-C 11/12 Immunizations CPT Code Status Date Vaccine Lot # [id number] Given 08/19/2023 Influenza Virus Vaccine, Quadrivalent (Cciiv4), Derived From Cell [id number] Given 07/23/2021 Pfizer Sars-Cov -2 (Cov-19) vacc 30mcg/0.3ML 12Y+ EMR Doc Only 95610 Given 07/17/2021 Influenza Virus Vaccine, Quadrivalent (Cciiv4), Derived From 6 Given 12/12/2020 Pfizer Sars-Cov -2 (Cov-19) vacc 30mcg/0.3ML 12Y+ EMR Doc Only 94408 Given 11/16/2020 Pfizer Sars-Cov -2 (Cov-19) vacc 30mcg/0.3ML 12Y+ EMR Doc Only U-FLU Given 08/30/2020 Influenza,Unspecified [id number] 19813 Given 08/30/2020 Influenza Virus Vaccine, Quadrivalent (Cciiv4), Derived From 0 Given 06/13/2019 Influenza Virus Vaccine, Quadrivalent (Cciiv4), Derived From Cell [id number] U-FLU Given 06/13/2019 Influenza,Unspecified 79524 Given 11/01/2018 Pneumococcal Vaccine/Pneu movax 23 [id number] Given 09/20/2018 Influenza Virus Vaccine, Quadrivalent (Cciiv4), Derived From Cell U-FLU Given 06/07/2017 Influenza,Unspecified 20068 Given 08/25/2016 Tdap (Tetanus, diphtheria & acel. pertussis) Adacel or Boostrix U-FLU Given 06/19/2016 Influenza,Unspecified U-FLU Given 05/27/2015 Influenza,Unspecified 83284 Given 11/29/2014 Pneumococcal Vaccine/Pneu movax 23 U-FLU Given 06/28/2010 Influenza,Unspecified Vital Signs Date Vital Result Comment 01/13/2024 1:22pm BP Systolic 130 mmHg BP Diastolic 78 mmHg Body Temperature 98.1 F Heart Rate 78 /min Respiratory Rate 22 /min Weight 165.00 lb Weight 74.844 kg Height 54 inches 4'6" BMI (Body Mass Index) 39.8 kg/m2 O2 % BldC Oximetry 97 % [place] Body Weight 100 lb 01/05/2024 12:55pm BP Systolic 136 mmHg BP Diastolic 78 mmHg Body Temperature 97.8 F Heart Rate 77 /min Respiratory Rate 17 /min Weight 165.31 lb Weight 74.986 kg O2 % BldC Oximetry 98 % Results Test Acquired Date Facility Test Result H/L Range N [place] Laboratory test finding 03/07/2024 [facility] [address] [place], [place] [id number] [phone] Potassium <pending> CBC W/Diff 03/02/2024 [facility] [address] [place] [address] [phone] WBC 7.4 10^3/M3 3.1-9.2 RBC 3.82 10^6/M3 3.70-5.50 HGB 12.7 GR/DL 11.5-16.1 HCT 38.6 % 34.5-47.8 MCV 101.0 CUMICR High 82.6-95.8 MCH 33.3 PICOGR High 27.9-32.9 MCHC 33.0 % 32.6-35.4 RDW 13.6 % 11.4-14.6 PLT 216 10^3/M3 140-350 MPV 9.2 CUMICR 7.0-10.6 %Neut 65.6 % 40.0-75.0 %Lymph 28.0 % 17.0-45.0 %Ballard 3.9 % 1.0-11.0 %Eos 1.9 % 0.0-6.0 %Baso 0.6 % 0.0-2.0 #Neut 4.8 10^3/M3 1.5-8.0 #Lymph 2.1 10^3/M3 0.8-3.2 #Ballard 0.3 10^3/M3 0.0-0.8 #Eos 0.1 10^3/m3 0.0-0.4 #Baso 0.0 10^3/m3 0.0-0.2 Comp. Met 03/02/2024 [facility] [address] [place] [address] [phone] Glucose 124 mg/dL High 70-110 BUN 18 mg/dL 6-25 Creatinine 0.8 mg/dL 0.5-1.2 Sodium 147 mEq/L High 135-145 Potassium 3.0 mEq/L Low 3.5-5.0 Chloride 117 mEq/L High 95-107 Co-2 23 mEq/L Low 24-31 Alk Phos 69 IU/L 43-122 Alt(SGPT) 11 IU/L 10-40 Ast(Sgot) 13 IU/L 3-42 T.Bilirubin 0.4 mg/dL 0.1-1.3 Calcium 9.5 mg/dL 8.5-10.6 Tot.Protein 5.9 g/dL 5.8-8.0 Albumin 4.0 g/dL 3.0-5.2 Globulin 1.9 g/dL Low 2.0-3.4 GFR 78 ML/MIN/1.73SQM >60 Urinalysis,Cult If Indicated 03/02/2024 [facility] [address] [place] [address] [phone] RFLX Culture COMMENT Laboratory test finding 03/02/2024 [facility] [address] [place] [address] [phone] Magnesium 1.1 mg/dL Low 1.7- 2.8 Urinalysis 03/02/2024 [facility] [address] [place] [address] [phone] Color COMMENT 1 Appearance COMMENT Clear Spec.Grav. COMMENT 1.005-1.025 Leukocytes COMMENT Negative Nitrite COMMENT Negative PH COMMENT 6.0-7.5 Protein COMMENT Negative Urine Glucose COMMENT Negative Ketone COMMENT Negative Urobilinogen COMMENT E.U./DL Normal Bilirubin COMMENT Negative Blood COMMENT Negative WBC-U COMMENT /HPF 0-5/HPF RBC-U COMMENT /HPF 0-5/HPF Bacteria COMMENT None Seen Squamous COMMENT /HPF 0-5/HPF Urinalysis 01/13/2024 [facility] [address] [place] [address] [phone] Color COMMENT 2 Appearance COMMENT Clear Spec.Grav. COMMENT 1.005-1.025 Leukocytes COMMENT Negative Nitrite COMMENT Negative PH COMMENT 6.0-7.5 Protein COMMENT Negative Urine Glucose COMMENT Negative Ketone COMMENT Negative Urobilinogen COMMENT E.U./DL Normal Bilirubin COMMENT Negative Blood COMMENT Negative WBC-U COMMENT /HPF 0-5/HPF RBC-U COMMENT /HPF 0-5/HPF Bacteria COMMENT None Seen Squamous COMMENT /HPF 0-5/HPF Laboratory test finding 01/13/2024 [facility] [address] [place] [address] [phone] Magnesium 0.9 mg/dL Low 1.7-2.8 Tibc 01/13/2024 [facility] [address] [place] [address] [phone] Tibc 298 g /dL 260-400 Transferrin 213 mg/dL 200-400 Iron Panel([employer]) 01/13/2024 [facility] [address] [place] [address] [phone] Iron 48 g /dL 25-140 % Saturation 16 % Low 30-35 Microalbumin Urine 01/13/2024 [facility] [address] [place], [place] [id number] [phone] Urine Creat COMMENT mg/dL Comment Microalbumin COMMENT mg/dL 0.0-1.8 3 ug/mgCREATININE COMMENT ug/mg Low 0-29 4 Hba1c 01/13/2024 [facility] [address] [place] [address] [phone] A1c 4.50 % Low 4.70-6.50 5 Urinalysis,Cul t If Indicated 01/13/2024 [facility] [address] [place] [address] [phone] RFLX Culture COMMENT Laboratory test finding 01/13/2024 [facility] [address] [place] [address] [phone] TSH 1.00 uIU/mL 0.50-6.00 Lipid 01/13/2024 [facility] [address] [place], [place] [id number] [phone] Cholesterol 134 mg/dL 0-200 6 Triglyceride 153 mg/dL High 0-150 7 HDLD 52 mg/dL See Comment 8 Measured LDL 68 mg/dL 0-130 9 Calc VLDL 30.6 mg/dL See Comment 10 Chol/HDL 2.6 RATIO See Comment 11 Non-HDL 82 mg/dL See Comment 12 Comp. Met 01/13/2024 [facility] [address] [place], [place] [id number] [phone] Glucose 100 mg/dL 70-110 BUN 13 mg/dL 6-25 Creatinine 0.8 mg/dL 0.5-1.2 Sodium 142 mEq/L 135-145 Potassium 3.2 mEq/L Low 3.5-5.0 Chloride 113 mEq/L High 95-107 Co-2 19 mEq/L Low 24-31 Alk Phos 55 IU/L 43-122 Alt(SGPT) 13 IU/L 10-40 Ast(Sgot) 15 IU/L 3-42 T.Bilirubin 0.3 mg/dL 0.1-1.3 Calcium 9.1 mg/dL 8.5-10.6 Tot.Protein 6.0 g/dL 5.8-8.0 Albumin 4.2 g/dL 3.0-5.2 Globulin 1.8 g/dL Low 2.0-3.4 GFR 78 ML/MIN/1.73SQM >60 CBC W/Diff 01/13/2024 [facility] [address] [place] [address] [phone] WBC 6.5 10^3/M3 3.1-9.2 RBC 3.49 10^6/M3 Low 3.70-5.50 HGB 12.0 GR/DL 11.5-16.1 HCT 36.4 % 34.5-47.8 MCV 104.4 CUMICR High 82.6-95.8 MCH 34.3 PICOGR High 27.9-32.9 MCHC 32.8 % 32.6-35.4 RDW 15.4 % High 11.4-14.6 PLT 247 10^3/M3 140-350 MPV 9.2 CUMICR 7.0-10.6 %Neut 65.2 % 40.0-75.0 %Lymph 26.7 % 17.0-45.0 %Ballard 3.3 % 1.0-11.0 %Eos 3.7 % 0.0-6.0 %Baso 1.1 % 0.0-2.0 #Neut 4.3 10^3/M3 1.5-8.0 #Lymph 1.7 10^3/M3 0.8-3.2 #Ballard 0.2 10^3/M3 0.0-0.8 #Eos 0.2 10^3/m3 0.0-0.4 #Baso 0.1 10^3/m3 0.0-0.2 1 ORDER PLACED, PER DOCUMENTATION (PER COLORED PAPER) SPECIMEN FOR TESTING NOT ACQUIRED TL 2 ORDER PLACED, PER DOCUMENTATION (PER COLORED PAPER) SPECIMEN FOR TESTING NOT ACQUIRED 5.3.24 CONOR 3 *[facility] [employer] USES MICROALBUMIN/CREATINE RATIO : *<30 ug/mg CREATININE IS CLASSIFIED NORMAL *30-300 ug/mg CREATININE IS CLASSIFIED CLINICAL MICROALBUMINURIA *>300 ug/mg CREATININE IS CLASSIFIED CLINICAL ALBUMINURIA CLASSIFICATION OF A PATIENT SHOULD BE BASED ON TWO OF THREE ABNORMAL RESULTS COLLECTED WITHIN A 3 TO 6 MONTH TIME FRAME* 4 CANNOT CALCULATE RATIO WHEN MALB < 0.7 5 MEAN GLUCOSE IN mg/d L/A1c% POOR CONTROL FAIR CONTROL GOOD CONTROL EXCELLENT CONTROL 360-14 210-9 180-8 120-6 330-13 150-7 90-5 300-12 270-11 240-10 6 CHOLESTEROL Less than 200mg/dl Low risk 201-239 mg/dl Borderline risk Equal to or greater 240mg/dl High risk 7 TRIGLYCERIDES Less than 150mg/dl Normal 150-199mg/dl Borderline 200-499mg/dl High Greater than 500mg/dl Very High 8 HDL <40mg/dl Elevated Risk 41-59mg/dl Risk >=60mg/dl Least Risk 9 LDL <100mg/dl Optimal 100-129mg/dl Near Optimal 130-159mg/dl Borderline High 160-189mg/dl High >=190 Very High 10 VLDL Less than 30mg/dl Normal 11 CHOL/HDL <4.0 Optimal 4.0-5.0 Borderline >6.0 High Risk 12 NON-HDL 30mg/dl higher than LDL Target Procedures Date Code Description Status 03/07/2024 35763 Venipuncture Routine Complet ed 03/02/2024 89773 Venipuncture Routine Complet ed 01/13/2024 51859 Fundus Eye Exam Completed 01/13/2024 32211 Venipuncture Routine Complet ed 01/13/2024 3078F PVRP Diastolic BP <80 mmHg C ompleted 01/13/2024 3075F PVRP Systolic BP 130 To 139 MMHG Completed 01/13/2024 3044F PVRP HGB-A1c <7.0% Completed 01/13/2024 1101F PT SCR Future Fall Risk, No Fall Or 1 W/Out Injury Completed 01/05/2024 1111F D/C Medications Reconciled W/Current Medications In Outpt MR Completed 01/03/2024 1111F D/C Medications Reconciled W/Current Medications In Outpt MR Completed Medical Devices Description No Information Available Encounters Type Date Location Provider Dx Diagnosis Office Visit 01/13/2024 1:00p Mil Jeronimo PA-C Z00.01 Encounter for general adult medical exam w abnormal findings E11.65 Type 2 diabetes millie itus with hyperglycemia E11.42 Type 2 diabetes millie itus with diabetic polyneuropathy E66.01 Morbid (severe) obes ity due to excess calories F33.1 Major depressive dis order, recurrent, moderate I70.0 Atherosclerosis of a macario J43.9 Emphysema, unspecifi ed M46.1 Sacroiliitis, not el sewhere classified 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, right hip I10 Essential (primary) hypertension E78.2 Mixed hyperlipidemia D64.9 Anemia, unspecified E61.2 Magnesium deficiency M70.52 Other bursitis of kn ee, left knee Office Visit 01/05/2024 1:00p Mil diallo MD E11.9 Type 2 diabetes mellitus without complications N17.9 Acute kidney failure , unspecified E43 Unspecified severe p rotein-calorie malnutrition I10 Essential (primary) hypertension E83.42 Hypomagnesemia E87.6 Hypokalemia K52.1 Toxic gastroenteriti s and colitis Office Visit 10/08/2023 10:15a Mil Jeronimo PA-C J01.00 Acute maxillary sinusitis, unspecified J20.9 Acute bronchitis, un specified Assessments Date Code Description Provider 03/07/2024 E87.6 Hypokalemia Lab - [place] 03/02/2024 I10 Essential (primary) hyperten sarwat Mishel Bernabe MD 03/02/2024 I10 Essential (primary) hyperten sarwat Lab - [place] 03/02/2024 E78.2 Mixed hyperlipidemia Mishel Bernabe MD 03/02/2024 E78.2 Mixed hyperlipidemia Lab - [place] 03/02/2024 E11.65 Type 2 diabetes mellitus wit h hyperglycemia Mishel Bernabe MD 03/02/2024 E11.65 Type 2 diabetes mellitus wit h hyperglycemia Lab - [place] 03/02/2024 E61.2 Magnesium deficiency Mishel Bernabe MD 03/02/2024 E61.2 Magnesium deficiency Lab - [place] 01/13/2024 Z00.01 Encounter for [facility] adult medical examination with abnormal findings Ubaldo Jeronimo PA-C 01/13/2024 E11.65 Type 2 diabetes mellitus wit h hyperglycemia Ubaldo Jeronimo PA-C 01/13/2024 E11.42 Type 2 diabetes mellitus with diabetic polyneuropathy Ubaldo Jeronimo PA-C 01/13/2024 E66.01 Morbid (severe) obesity due to excess calories Ubaldo Jeronimo PA-C 01/13/2024 F33.1 Major depressive disorder, recurrent, moderate UbaldoSUKUMAR OrozcoC 01/13/2024 I70.0 Atherosclerosis of aorta Ezequiel adelaSUKUMAR OrozcoC 01/13/2024 J43.9 Emphysema, unspecified Jamarcus MarroquinSUKUMAR LyonsC 01/13/2024 M46.1 Sacroiliitis, not elsewhere classified SUKUMAR LawtonC 01/13/2024 M16.11 Unilateral prima ry osteoarthritis, right hip Ubaldo SUKUMAR McclellanC 01/13/2024 I10 Essential (primary) hyperten sarwat UbaldoSUKUMAR OrozcoC 01/13/2024 E78.2 Mixed hyperlipidemia SUKUMAR LawtonC 01/13/2024 D64.9 Anemia, unspecified UbaldoSUKUMAR SultanaC 01/13/2024 E61.2 Magnesium deficiency SUKUMAR LawtonC 01/13/2024 M70.52 Other bursitis of knee, left knee UbaldoSUKUMAR OrozcoC 01/05/2024 E11.9 Type 2 diabetes mellitus without complications Mishel Bernabe MD 01/05/2024 N17.9 Acute kidney injury (nontrau matic) Mishel Bernabe MD 01/05/2024 E43 Unspecified eduardo re protein-calorie malnutrition Mishel Bernabe MD 01/05/2024 I10 Essential (primary) hyperten sarwat Mishel Bernabe MD 01/05/2024 E83.42 Hypomagnesemia Mishel leggett MD 01/05/2024 E87.6 Hypokalemia Mishel Bernabe MD 01/05/2024 K52.1 Toxic gastroenteritis and co litis Mishel Bernabe MD 10/08/2023 J01.00 Acute maxillary sinusitis, u nspecified Ubaldo Jeronimo PA-C 10/08/2023 J20.9 Acute bronchitis, unspecifie d Ubaldo Jeronimo PA-C Plan of Treatment Future Appointment(s):* 03/13/2024 10:00 am - Ubaldo Jeronimo PA-C at [place] * 04/13/2024 1:30 pm - Ubaldo Jeronimo PA-C at [place] 01/13/2024 - Ubadlo Jeronimo PA-C* Z00.01 Encounter for general adult medical examination with abnormal findings* Comments:* Refuses any further screening recommendations Agreeable to updated lab work Refuses any vaccinations * E11.65 Type 2 diabetes mellitus with hyperglycemia* Comments:* Controlling without daily medication Hide Ozempic due to fear and weight loss Patient verb alizes understanding of care plan / instructions. * Recommendations:* Follow diabetic diet. Continue medications as prescribed. * E11.42 Type 2 diabetes mellitus with diabetic polyneuropathy* Comments:* Continue conservative treatment Patient verbalizes understanding of care plan / instructions. * E66.01 Morbid (severe) obesity due to excess calories* Comments:* Remain with support of the obese contributing and to try to lose weight * F33.1 Major depressive disorder, recurrent, moderate* Comments:* Continue current medication. Denies any suicidal or homicidal ideations symptoms stable * I70.0 Atherosclerosis of aorta* Comments:* Incidental finding on imaging Avoid nicotine Refuses repeat imaging * J43.9 Emphysema, unspecified* Comments:* Patient continues maintenance inhaler Lengthy discussion regarding the importance of cessation
Symptoms stable at the present time with maintenance inhaler and rescue inhaler * M46.1 Sacroiliitis, not elsewhere classified* Comments:* Consider PT Continue conservative treatment * M16.11 Unilateral primary osteoarthritis, right hip* Comments:* Severe right hip DJD Severe left hip DJD * Referral:* Orthopedics, Sports Med/Ortho Surg * Follow up:* Follow up 3-4 months * I10 Essential (primary) hypertension* Comments:* Continue current medication. Low sodium diet BP stable * Recommendations:* Low-salt diet. Exercise. Continue medication as directed. * E78.2 Mixed hyperlipidemia* Comments:* Continue current medication. Decrease sugars and carbs in diet increase protein Patient verbalizes understanding of care plan / instructions. * Recommendations:* Low-fat, low-cholesterol diet. Exercise. * D64.9 Anemia, unspecified* Comments:* Patient verbalizes understanding of care plan / instructions. Further recommendations pendinglab results * E61.2 Magnesium deficiency * M70.52 Other bursitis of knee, left knee* Comments:* Specifically requesting injection Continue conservative treatment * All* New Medication:* Tramadol HCL 50 mg - TAKE 1 TABLET BY MOUTH TWICE A DAY NEEDED FOR SEVERE PAIN Functional Status Description No Information Available Mental Status Description No Information Available Referrals Refer to Reason for Referral Status Appt [facility] Scheduled 02/11/2024 Saima aG PA-C Closed [address] [place] [id number] [phone]
--- OUTSIDE RECORDS SUMMARY | 2024-03-09 07:42 | External Medical Summary | Summary of Care ---
Author Name Unknown Organization [facility] Address [address] [facility] [place] [address] Phone [phone] Care Team Providers Care Reinsurance Clerk Name Role Phone Ubaldo Jeronimo PA-C Primary Care Provide r Encounter Details Date Type Department Care Team (Late st Contact Info) Description 03/06/2024 Population Health External Data Unspecified Department Allergies Active Allergy Reactions Criticality Noted Date Comments Aspirin 09/08/2001 documented as of this encounter (statuses as of 03/07/2024) Medications Medication Sig Dispensed Refills Start Date [...] 4-6 HOURS NEEDED. 5 05/29/2017 Active nystatin 969340 UNIT/GM creamIndications:James matitis APPLY TOPICALLY TO AFFECTED [...] 1 06/10/2018 Active Cholecalciferol (D3-50) 1.25 MG (04707 UT) Capsule 11/22/2017 Active escitalopram (LEXAPRO) 20 MG Tablet 20 mg daily. 11/13/2019 Active Lisinopril-hydroCHLO ROthiazide 20-25 MG per tablet Take by mouth daily. 07/26/2019 Acti ve ibuprofen (MOTRIN) 800 MG Tablet 800 mg 3 times a day as needed. 11/01/2018 Active pantoprazole (PROTONIX) 20 MG TBEC Take 20 mg by mouth 2 times a day. 11/15/2019 Active ondansetron (ZOFRAN) 4 MG Tablet every 8 hours as needed for Nausea. 03/12/2019 Active Semaglutide,0.25 or 0.5MG/DOS, (OZEMPIC, 0.25 OR 0.5 MG/DOSE,) 2 MG/1.5ML SOPN once a week. 02/16/2019 Active sucralfate (CARAFATE) 1 GM Tablet 4 times a day. 11/14/2019 Active Varenicline Tartrate (CHANTIX CONTINUING MONTH RUSS) 1 MG Tablet 06/13/2019 Active traZODone (DESYREL) 150 MG Tablet Active atorvaSTATin (LIPITOR) 40 MG Tablet Take by mouth. 10/16/2019 Active Pregabalin (LYRICA) 150 MG Capsule Take 150 mg by mouth 2 times a day. Active QUEtiapine Fumarate 50 MG Oral Tablet (SEROquel) Take 50 mg by mouth at bedtime. Active documented as of this encounter (statuses as of 03/07/2024) Active Problems Problem Noted Date Diagnosed Date MEDICATION USE AGREEMENT 09/01/2017 Body mass index (BMI) of 45.0 to 49.9 in adult 1 Overview: Per Obesity protocol #1 Unspecified inflammatory spondylopathy, lumbar r egion 06/07/2017 Unspecified inflammatory spondylopathy, lumbar r egion 04/22/2017 KENT RESEARCH OTHER*[id number] 11/27/2015 TERMINATED MEDICATION USAGE AGREEMENT 11/12/2015 Depression 03/01/2015 DDD (degenerative disc disease), lumbar 11/30/19 15 HTN, goal below 140/90 02/02/2012 Tobacco use disorder 02/12/2009 Esophageal reflux 01/07/2009 Anxiety state 01/07/2009 Menstruation, irregular 01/07/2009 Dysmenorrhea 01/07/2009 Absence of menstruation 01/07/2009 documented as of this encounter (statuses as of 03/07/2024) Resolved Problems Problem Noted Date Diagnosed Date [...] as of this encounter (statuses as of 03/07/2024) Immunizations Name Administration Dates Next Due COVID-19 mRNA, LNP-s, No Pre serve, 2-Dose Series (Pfizer) 07/23/2021,12/12/2020,11/16/2020 Pneumococcal Polysaccharide PPV23 (Pneumovax) 11/29/2014 Seasonal Influenza, PF, 6 M & above, IM , (FluLaval or Fluzone) 08/30/2020,06/07/2017 Seasonal Influenza, Quadriva lent, No Preserve, IM 06/19/2016 Seasonal Influenza, Split, I IV3, With Preserve, Inj 05/27/2015,06/28/2010 TDAP (age 10 and older)(Boostrix) 08/25/2016 TDAP, Age 7 and older, IM (Adacel) 06/16/2010(De delld: Patient Refused) documented as of this encounter Social History Tobacco Use Types Packs/Day Years Used Date Smoking Tobacco: Former Cigarettes 0 11/02/1989 - 11/02/2019 Smokeless Tobacco: Never Alcohol Use Standard Drinks/Week Comments No 0 (1 standard drink = 0.6 oz pur e alcohol) Utilities Answer Date Recorded Do you have trouble paying y our heating, water, or electric bill? (Adult - for ages 18 years and over) Not on file 02/29/2024 Is your family able to pay t he heat, water, or electric bill? (Household - for ages 0-17 years) Not on file 02/29/2024 Does your family have access to good internet? (Household - for ages 0-17 years) Not on file 02/29/2024 Social Connections Answer Date Recorded How often do you feel lonely or isolated from those around you? (Adult - for ages 18 years and over) Not on file 02/29/2024 Sex and Gender Information Value Date Recorded [...] 12/31/2014, 12/13, 01/07/2009, Additional history exists Depression Monitoring 06/07/2018 06/07/2017 Diabetes Screening 11/26/2018 11/27/2015, 0 11/27/2015, 03/01/2015, Additional history exists Lipid Panel 11/26/2020 11/27/2015, 02/11, 12/31/2014, Additional history exists COVID-19 Vaccine (4 2022-24 season) 2023 07/23/2021, 12/12/2020, 11/16/2020 DTaP,Tdap,and Td Vaccines (2 - Td or Tdap) 08/25/2026 08/25/2016 Pneumococcal Vaccine: Pediatrics (0 to 5 Years) and At-Risk Patients (6 to 64 Years) Aged Out 11/01/2018, 11/29/2014 No longer eligibl e based on patient's age to complete this topic Influenza Vaccine (FLU shot) Completed 03/2023, 08/30/2020, 08/29/2020, Additional history exists GARDASIL-HPV IMMUNIZATION SERIES Aged Out No longer eligible based on patient's age to complete this topic MENINGOCOCCAL (MENACTRA/MENVEO) Aged Out No longer eligible based on patient's age to complete this topic documented as of this encounter Medical Devices Not on filedocumented as of this encounter Care Teams Reinsurance Clerk Relationship Specialty Start Date End Date Ubaldo Jeronimo PA-C PCP - General Physician Grain Weigher 12/01/19 documented as of this encounter
--- OUTSIDE RECORDS SUMMARY | 2024-03-09 07:42 | External Medical Summary | Continuity of Care Document ---
Author Name Unknown Organization [facility] Address [address] [place] [address] Phone [phone] Care Team Providers Care Director Of Brand Marketing Name Role Phone Kalyan Caldera MD Care Team Information Receive r [phone] Neftaly Paredes M.D. Care Team Information Multifold Operator [phone] Problems Active Problems Provider Date Mixed hyperlipidemia [...] anxiety 10tabs Mishel Bernabe MD 02/29/2024 Klor-Con [id number] Tablets ER 1 by mouth twice daily 180tabs Mishel Bernabe MD 02/24/2024 Magnesium Oxide (Elemental)400mg Tablets 2 tablets twice daily 360tabs Mishel Bernabe MD 01/17/2024 Jsjcugmiypc637pp Tablets One By Mouth Now Repeat One Week as Needed 2tabs Mishel Bernabe MD 01/17/2024 Tramadol SVY11ap Tablets Take 1 Tablet By Mouth Twice A Day as Needed For Severe Pain 45tabs Mishel Bernabe MD 01/13/2024 Trazodone PZB501pz Tablets Take 1 Tablet AT Bedtime 90tabs Mishel Bernabe MD 04/25/2023 Freestyle Yevgeniy 3/Sensor/Glucose Monitoring Neddjc0Idxijd Misc use as directed e11.65 3units Mishel Bernabe MD 12/16/2022 Quetiapine Ifybnetb81tl Tablets Take 1 Tablet By Mouth Everyday AT Bedtime 90tabs Mishel Bernabe MD 11/05/2022 Clotrimazole/Betamet hasone Dipropionate1-0.05% Cream Apply To Affected Area Twice A Day as Needed 135units Mishel Bernabe MD 10/20/2022 Vitamin D3 1,250 mcgCapsule Take 1 Capsule By Mouth Once A Week 12caps E55.9 Mishel Bernabe MD 07/13/2022 Dlmfgwbzhnr85zq Tablets Take 1 Tablet By Mouth AT Bedtime For Sleep 90tabs Mishel Bernabe MD 04/10/2022 Lidocaine Viscous HCL2% Solution apply 2ml to both cheeks, then swish and swallow up to three times daily 300units Mishel Bernabe MD 03/12/2022 Albuterol Sulfate FQF327(90Base) mcg/Act Aerosol Inhale 2 Puffs By Mouth Every 4-6 Hours as Needed Wheezing 25.5units Juventino Sibley MD 12/19/[address] Take 1 Tablet By Mouth Every Day 90tabs K21.0 Mishel Bernabe MD 12/04/2021 Rollator Ultra-LightMisc use as directed 1units Juventino Sibley MD 021 Djgxuljqzg3qt Tablets Take 1 Tablet By Mouth Four Times A Day 360tabs Juventino Sibley MD 12/04/2020 Trelegy Lvnybvu463-21.5-25mc g/Act Aerosol Inhale 1 puff By Mouth Daily 60units Juventino Sibley MD 12/03/2020 Clopidogrel Chqlwlyov63ue Tablets Take 1 Tablet By Mouth Every [...] 100units Rolf Snell JR, MD 11/23/2019 Escitalopram Mxmidsj31ly Tablets Take 1 Tablet By Mouth Every Day 90tabs F33.1 Mishel Bernabe MD 11/13/2019 Atorvastatin Tkgtvdp81jp Tablets Take 1 Tablet By Mouth Every Day 90tabs Juventino Sibley MD 10/16/2019 Ondansetron HCL4mg Tablets Take 1 Tablet By Mouth Every 6-8 Hours as Needed For Nausea 45tabs Mishel Bernabe MD 03/12/2019 Pen [place] 5/16"31G X 8 mm Misc use daily [...] Ralph Braxton, DO 11/03/2017 History Medications Sodium Thjtyhylsfe352nd Tablets Take 1 Tablet By Mouth Every Day Unknown 12/30/2023 - 01/06/2024 Magnesium Jstzi590jy Tablets 1 by mouth twice a day for 5 days. Unknown 12/30/2023 - 01/04/2024 Potassium Chloride JJ17Ekg Tablets ER Take 2 Tablets By Mouth Every Day for 4 days. Unknown 12/30/2023 - 01/04/2024 Amoxicillin/Clavulanate Kspeyvxpb262-117hb Tablets Take 1 Tablet By Mouth Twice A Day For 10 Days 20tabs Mishel Bernabe MD 11/17/2023 - 11/27/2023 Xpapvuczky29cu Tablets two tablets x 5 days then one tablet daily x 5 days 15baljeet Bernabe MD 11/17/2023 - 01/05/2024 Amoxicillin/Clavulanate Pronqggep553-085il Tablets Take 1 Tablet By Mouth Twice A Day For 10 Days 20baljeet Bernabe MD 10/08/2023 - 01/03/2024 Hjuhukcqzs78ba Tablets two tablets x 5 days then one tablet daily x 5 days 15baljeet Bernabe MD 10/08/2023 - 01/05/2024 Cwrnqflp403cr Tablets one by mouth now repeat one week as needed 2baljeet Bernabe MD 10/08/2023 - 01/05/2024 Kkgdztjr785533Wkpn/GM Cream Apply To Affected Area Twice A Day 90units Mishel Bernabe MD 10/05/2023 - 01/05/2024 Medications Administered in Office Medication SIG Qnty Indications Ordering Provider Date Injection Kenalog 10 MG NDC 24995751613Kzknroqly Ubaldo Jeronimo, P A-C 08/19/2023 Injection Kenalog 10 MG NDC 82779819829Fzhnsxvij Ubaldo Jeronimo, P A-C 03/12/2022 Injection Kenalog 10 MG NDC 20354823304Qhrqlivio Ubaldo Jeronimo, P A-C 01/15/2022 Injection Kenalog 10 MG NDC 99769790892Fawsmtfpm Ubaldo Jeronimo, P A-C 10/27/2021 Injection Kenalog 10 MG NDC 62763100848Hkflzyysa Ubaldo Jeronimo, P A-C 07/17/2021 Injection Kenalog 10 MG NDC 02400055744Dojxlnsik Ubaldo Jeronimo, P A-C 04/29/2021 Injection Kenalog 10 MG NDC 16224752904Zquxzidbo Ubaldo Jeronimo, P A-C 02/17/2021 Injection Kenalog 10 MG NDC [id number] Ubaldo Jeronimo, P A-C 12/03/2020 Injection Kenalog 10 MG NDC 31168874685Ssntdwffx Ubaldo Jeronimo, P A-C 08/30/2020 Injection Kenalog 10 MG NDC 19637894345Thdnihzda Ubaldo Landon Lazorka, P A-C 05/30/2020 Injection Kenalog 10 MG NDC 74695780681Pvugmrzru Ubaldo Landon [place]az[place]a, P A-C 02/13/2020 Injection Dexamethasone Sodium Phosphate, 1 MGInjection Ubaldo CaraRd Laz[place]a, PA-C 10/2019 Injection Kenalog 10 MG NDC 20895139946Yoszzkjay Ubaldo Landon Lazorka, P A-C 11/30/2019 Injection Kenalog 10 MG NDC 44264716439Icqiuqyuy Ubaldo Landon Laz[place]a, P A-C 06/21/2018 Injection Kenalog 10 MG NDC [id number] Ubaldo Landon [place]az[place]a, P A-C 06/21/2018 Injection Kenalog 10 MG NDC [id number] Ubaldo Landon Laz[place]a, P A-C 12/02/2017 Injection Kenalog 10 MG NDC 82683176319Ortzwtvcu Ubaldo Landon Lazorka, P A-C 12/02/2017 Injection Dexamethasone Sodium Phosphate, 1 MGInjection Ubaldo CaraRd [place]az[place], PA-C 11/12 Injection Dexamethasone Sodium Phosphate, 1 MGInjection Ubaldo CaraRd [place], PA-C 11/12 Immunizations CPT Code Status Date Vaccine Lot # [id number] Given 08/19/2023 Influenza Virus Vaccine, Quadrivalent (Cciiv4), Derived From Cell [id number] Given 07/23/2021 Pfizer Sars-Cov -2 (Cov-19) vacc 30mcg/0.3ML 12Y+ EMR Doc Only 625[address] Given 07/17/2021 Influenza Virus Vaccine, Quadrivalent (Cciiv4), Derived From 6 Given 12/12/2020 Pfizer Sars-Cov -2 (Cov-19) vacc 30mcg/0.3ML 12Y+ EMR Doc Only 81039 Given 11/16/2020 Pfizer Sars-Cov -2 (Cov-19) vacc 30mcg/0.3ML 12Y+ EMR Doc Only U-FLU Given 08/30/2020 Influenza,Unspecified [id number] Given 08/30/2020 Influenza Virus Vaccine, Quadrivalent (Cciiv4), Derived From 5 Given 06/13/2019 Influenza Virus Vaccine, Quadrivalent (Cciiv4), Derived From Cell [id number] U-FLU Given 06/13/2019 Influenza,Unspecified 53651 Given 11/01/2018 Pneumococcal Vaccine/Pneu movax 23 [id number] Given 09/20/2018 Influenza Virus Vaccine, Quadrivalent (Cciiv4), Derived From Cell U-FLU Given 06/07/2017 Influenza,Unspecified 53068 Given 08/25/2016 Tdap (Tetanus, diphtheria & acel. pertussis) Adacel or Boostrix U-FLU Given 06/19/2016 Influenza,Unspecified U-FLU Given 05/27/2015 Influenza,Unspecified 02869 Given 11/29/2014 Pneumococcal Vaccine/Pneu movax 23 U-FLU Given 06/28/2010 Influenza,Unspecified Vital Signs Date Vital Result Comment 01/13/2024 1:22pm BP Systolic 130 mmHg BP Diastolic 78 mmHg Body Temperature 98.1 F Heart Rate 78 /min Respiratory Rate 22 /min Weight 165.00 lb Weight 74.844 kg Height 54 inches 4'6" BMI (Body Mass Index) 39.8 kg/m2 O2 % BldC Oximetry 97 % [place] Body Weight 100 lb 01/05/2024 12:55pm BP Systolic 136 mmHg BP Diastolic 78 mmHg Body Temperature 97.8 F Heart Rate 77 /min Respiratory Rate 17 /min Weight 165.31 lb Weight 74.986 kg O2 % BldC Oximetry 98 % Results Test Acquired Date Facility Test Result H/L Range [place] Laboratory test finding 03/07/2024 [facility] [address] [place], [place] [id number] [phone] Potassium <pending> CBC W/Diff 03/02/2024 [facility] [address] [place] [address] [phone] WBC 7.4 10^3/M3 3.1-9.2 RBC 3.82 10^6/M3 3.70-5.50 HGB 12.7 GR/DL 11.5-16.1 HCT 38.6 % 34.5-47.8 MCV 101.0 CUMICR High 82.6-95.8 MCH 33.3 PICOGR High 27.9-32.9 MCHC 33.0 % 32.6-35.4 RDW 13.6 % 11.4-14.6 PLT 216 10^3/M3 140-350 MPV 9.2 CUMICR 7.0-10.6 %Neut 65.6 % 40.0-75.0 %Lymph 28.0 % 17.0-45.0 %[place] 3.9 % 1.0-11.0 %Eos 1.9 % 0.0-6.0 %Baso 0.6 % 0.0-2.0 #Neut 4.8 10^3/M3 1.5-8.0 #Lymph 2.1 10^3/M3 0.8-3.2 #[place] 0.3 10^3/M3 0.0-0.8 #Eos 0.1 10^3/m3 0.0-0.4 #Baso 0.0 10^3/m3 0.0-0.2 Comp. Met 03/02/2024 [facility] [address] [place] [address] [phone] Glucose 124 mg/dL High 70-110 BUN 18 [...] 78 ML/MIN/1.73SQM >60 Urinalysis,Cult If Indicated 03/02/2024 [facility] [address] [place] [address] [phone] RFLX Culture COMMENT Laboratory test finding 03/02/2024 [facility] [address] [place] [address] [phone] Magnesium 1.1 mg/dL Low 1.7- 2.8 Urinalysis 03/02/2024 [facility] [address] [place] [address] [phone] Color COMMENT 1 Appearance COMMENT Clear Spec.Grav. COMMENT 1.005-1.025 Leukocytes COMMENT Negative Nitrite COMMENT Negative PH COMMENT 6.0-7.5 Protein COMMENT Negative Urine Glucose COMMENT Negative Ketone COMMENT Negative Urobilinogen COMMENT E.U./DL Normal Bilirubin COMMENT Negative Blood COMMENT Negative WBC-U COMMENT /HPF 0-5/HPF RBC-U COMMENT /HPF 0-5/HPF Bacteria COMMENT None Seen Squamous COMMENT /HPF 0-5/HPF Urinalysis 01/13/2024 [facility] [address] [place] [address] [phone] Color COMMENT 2 Appearance COMMENT Clear Spec.Grav. COMMENT 1.005-1.025 Leukocytes COMMENT Negative Nitrite COMMENT Negative PH COMMENT 6.0-7.5 Protein COMMENT Negative Urine Glucose COMMENT Negative Ketone COMMENT Negative Urobilinogen COMMENT E.U./DL Normal Bilirubin COMMENT Negative Blood COMMENT Negative WBC-U COMMENT /HPF 0-5/HPF RBC-U COMMENT /HPF 0-5/HPF Bacteria COMMENT None Seen Squamous COMMENT /HPF 0-5/HPF Laboratory test finding 01/13/2024 [facility] [address] [place] [address] [phone] Magnesium 0.9 mg/dL Low 1.7-2.8 Tibc 01/13/2024 [facility] [address] [place] [address] [phone] Tibc 298 g /dL 260-400 Transferrin 213 mg/dL 200-400 Iron Panel([employer]) 01/13/2024 [facility] [address] [place] [address] [phone] Iron 48 g /dL 25-140 % Saturation 16 % Low 30-35 Microalbumin Urine 01/13/2024 [facility] [address] [place], [place] [address] [phone] Urine Creat COMMENT mg/dL Comment Microalbumin COMMENT mg/dL 0.0-1.8 3 ug/mgCREATININE COMMENT ug/mg Low 0-29 4 Hba1c 01/13/2024 [facility] [address] [place] [address] [phone] A1c 4.50 % Low 4.70-6.50 5 Urinalysis,Cul t If Indicated 01/13/2024 [facility] [address] [place] [address] [phone] RFLX Culture COMMENT Laboratory test finding 01/13/2024 [facility] [address] [place] [address] [phone] TSH 1.00 uIU/mL 0.50-6.00 Lipid 01/13/2024 [facility] [address] [place], [place] [address] [phone] Cholesterol 134 mg/dL 0-200 6 Triglyceride 153 mg/dL High 0-150 7 HDLD 52 mg/dL See Comment 8 Measured LDL 68 mg/dL 0-130 9 Calc VLDL 30.6 mg/dL See Comment 10 Chol/HDL 2.6 RATIO See Comment 11 Non-HDL 82 mg/dL See Comment 12 Comp. Met 01/13/2024 [facility] [address] [place], [place] [id number] [phone] Glucose 100 mg/dL 70-110 BUN 13 mg/dL [...] GFR 78 ML/MIN/1.73SQM >60 CBC W/Diff 01/13/2024 [facility] [address] [place] [address] [phone] WBC 6.5 10^3/M3 3.1-9.2 RBC 3.49 10^6/M3 Low 3.70-5.50 HGB 12.0 GR/DL 11.5-16.1 HCT 36.4 % 34.5-47.8 MCV 104.4 CUMICR High 82.6-95.8 MCH 34.3 PICOGR High 27.9-32.9 MCHC 32.8 % 32.6-35.4 RDW 15.4 % High 11.4-14.6 PLT 247 10^3/M3 140-350 MPV 9.2 CUMICR 7.0-10.6 %Neut 65.2 % 40.0-75.0 %Lymph 26.7 % 17.0-45.0 %[place] 3.3 % 1.0-11.0 %Eos 3.7 % 0.0-6.0 %Baso 1.1 % 0.0-2.0 #Neut 4.3 10^3/M3 1.5-8.0 #Lymph 1.7 10^3/M3 0.8-3.2 #[place] 0.2 10^3/M3 0.0-0.8 #Eos 0.2 10^3/m3 0.0-0.4 #Baso 0.1 10^3/m3 0.0-0.2 1 ORDER PLACED, PER DOCUMENTATION (PER COLORED PAPER) SPECIMEN FOR TESTING NOT ACQUIRED TL 2 ORDER PLACED, PER DOCUMENTATION (PER COLORED PAPER) SPECIMEN FOR TESTING NOT ACQUIRED 5.3.24 CONOR 3 *[employer] USES MICROALBUMIN/CREATINE RATIO : [...] Target Procedures Date Code Description Status 03/07/2024 12684 Venipuncture Routine Complet ed 03/02/2024 23159 Venipuncture Routine Complet ed 01/13/2024 30330 Fundus Eye Exam Completed 01/13/2024 69062 Venipuncture Routine Complet ed 01/13/2024 3078F PVRP [...] I10 Essential (primary) hyperten sarwat Lab - [place] 03/02/2024 E78.2 Mixed hyperlipidemia Mishel Bernabe MD 03/02/2024 E78.2 Mixed hyperlipidemia Lab - [place] 03/02/2024 E11.65 Type 2 diabetes mellitus wit h hyperglycemia Mishel Bernabe MD 03/02/2024 E11.65 Type 2 diabetes mellitus wit h hyperglycemia Lab - [place] 03/02/2024 E61.2 Magnesium deficiency Mishel Bernabe MD 03/02/2024 E61.2 Magnesium deficiency Lab - [place] 01/13/2024 Z00.01 Encounter for [facility] adult medical examination with abnormal findings Ubaldo [...] 01/13/2024 I10 Essential (primary) hyperten sarwat UbaldoSUKUMAR [facility] 01/13/2024 E78.2 Mixed hyperlipidemia SUKUMAR [place] 01/13/2024 [...] 10:00 am - Ubaldo Jeronimo PA-C at [place] * 04/13/2024 1:30 pm - Ubaldo Jeronimo PA-C at [place] 01/13/2024 - Ubaldo Jeronimo PA-C* Z00.01 Encounter for general adult [...] [facility]t [facility] Scheduled 02/11/2024 Saima Ga PA-C Closed [address] [place] [id number] [phone]
--- OUTSIDE RECORDS SUMMARY | 2024-03-09 07:42 | External Medical Summary | Continuity of Care Document ---
Author Name Unknown Organization [facility] Practice [facility] Address [address] [place] [address] Phone [phone] Care Team Providers Care Film Sorter Name Role Phone Kalyan Caldera MD Care Team Information Receive r [phone] Neftaly Paredes M.D. Care Team Information Lip Reading Teacher [phone] Problems Active Problems Provider Date Mixed hyperlipidemia [...] anxiety 10tabs Mishel Bernabe MD 02/29/2024 Klor-Con [id number] Tablets ER 1 by mouth twice daily 180tabs Mishel Bernabe MD 02/24/2024 Magnesium Oxide (Elemental)400mg Tablets 2 tablets twice daily 360tabs Mishel Bernabe MD 01/17/2024 Yjhfqlpgmph631ag Tablets One By Mouth Now Repeat One Week as Needed 2tabs Mishel Bernabe MD 01/17/2024 Tramadol HHZ32qp Tablets Take 1 Tablet By Mouth Twice A Day as Needed For Severe Pain 45tabs Mishel Bernabe MD 01/13/2024 Trazodone ILQ357id Tablets Take 1 Tablet AT Bedtime 90tabs Mishel Bernabe MD 04/25/2023 Freestyle Yevgeniy 3/Sensor/Glucose Monitoring Nnopke7Khbxic Misc use as directed e11.65 3units Mishel Bernabe MD 12/16/2022 Quetiapine Gqasnaol81yt Tablets Take 1 Tablet By Mouth Everyday AT Bedtime 90tabs Mishel Bernabe MD 11/05/2022 Clotrimazole/Betamet hasone Dipropionate1-0.05% Cream Apply To Affected Area Twice A Day as Needed 135units Mishel Bernabe MD 10/20/2022 Vitamin D3 1,250 mcgCapsule Take 1 Capsule By Mouth Once A Week 12caps E55.9 Mishel Bernabe MD 07/13/2022 Egixhlicwyn22oz Tablets Take 1 Tablet By Mouth AT Bedtime For Sleep 90tabs Mishel Bernabe MD 04/10/2022 Lidocaine Viscous HCL2% Solution apply 2ml to both cheeks, then swish and swallow up to three times daily 300units Mishel Bernabe MD 03/12/2022 Albuterol Sulfate IGE421(90Base) mcg/Act Aerosol Inhale 2 Puffs By Mouth Every 4-6 Hours as Needed Wheezing 25.5units Juventnio Sibley MD 12/19/[address] Take 1 Tablet By Mouth Every Day 90tabs K21.0 Mishel Bernabe MD 12/04/2021 Rollator Ultra-LightMisc use as directed 1units Juventino Sibley MD 021 Dgezfnonnn6wd Tablets Take 1 Tablet By Mouth Four Times A Day 360tabs Juventino Sibley MD 12/04/2020 Trelegy Kypncdb825-69.5-25mc g/Act Aerosol Inhale 1 puff By Mouth Daily 60units Juventino Sibley MD 12/03/2020 Clopidogrel Epjfocxtv38tj Tablets Take 1 Tablet By Mouth Every [...] 100units Rolf Snell JR, MD 11/23/2019 Escitalopram Xxhrirc60rx Tablets Take 1 Tablet By Mouth Every Day 90tabs F33.1 Mishel Bernabe MD 11/13/2019 Atorvastatin Ineijrg07po Tablets Take 1 Tablet By Mouth Every Day 90tabs Juventino Sibley MD 10/16/2019 Ondansetron HCL4mg Tablets Take 1 Tablet By Mouth Every 6-8 Hours as Needed For Nausea 45tabs Mishel Bernabe MD 03/12/2019 Pen Hannacroix 5/16"31G X 8 mm Misc use daily [...] Ralph Braxton, DO 11/03/2017 History Medications Sodium Iymohsatvni090dn Tablets Take 1 Tablet By Mouth Every Day Unknown 12/30/2023 - 01/06/2024 Magnesium Nvfef589yv Tablets 1 by mouth twice a day for 5 days. Unknown 12/30/2023 - 01/04/2024 Potassium Chloride AB82Luk Tablets ER Take 2 Tablets By Mouth Every Day for 4 days. Unknown 12/30/2023 - 01/04/2024 Amoxicillin/Clavulanate Vjqapokoa640-599pt Tablets Take 1 Tablet By Mouth Twice A Day For 10 Days 20tabs Mishel Bernabe MD 11/17/2023 - 11/27/2023 Fcrtiofusf20qa Tablets two tablets x 5 days then one tablet daily x 5 days 15baljeet Bernabe MD 11/17/2023 - 01/05/2024 Amoxicillin/Clavulanate Uynqfmnxq775-519yo Tablets Take 1 Tablet By Mouth Twice A Day For 10 Days 20baljeet Bernabe MD 10/08/2023 - 01/03/2024 Phicblcnio18vu Tablets two tablets x 5 days then one tablet daily x 5 days 15baljeet Bernabe MD 10/08/2023 - 01/05/2024 Fcyzpudp298wz Tablets one by mouth now repeat one week as needed 2baljeet Bernabe MD 10/08/2023 - 01/05/2024 Nibbzxnm344500Vkuh/GM Cream Apply To Affected Area Twice A Day 90units Mishel Bernabe MD 10/05/2023 - 01/05/2024 Medications Administered in Office Medication SIG Qnty Indications Ordering Provider Date Injection Kenalog 10 MG NDC [id number] Ubaldo Jeronimo, P A-C 08/19/2023 Injection Kenalog 10 MG NDC [id number] Ubaldo Jeronimo, P A-C 03/12/2022 Injection Kenalog 10 MG NDC [id number] Ubaldo Jeronimo, P A-C 01/15/2022 Injection Kenalog 10 MG NDC 95213286369Puqnncmra Ubaldo Jeronimo, P A-C 10/27/2021 Injection Kenalog 10 MG NDC [id number] Ubaldo Jeronimo, P A-C 07/17/2021 Injection Kenalog 10 MG NDC [id number] Ubaldo Jeronimo, P A-C 04/29/2021 Injection Kenalog 10 MG NDC [id number] Ubaldo Jeronimo, P A-C 02/17/2021 Injection Kenalog 10 MG NDC [id number] Ubaldo Jeronimo, P A-C 12/03/2020 Injection Kenalog 10 MG NDC [id number] Ubaldo Jeronimo, P A-C 08/30/2020 Injection Kenalog 10 MG NDC [id number] Ubaldo Landon Lazorka, P A-C 05/30/2020 Injection Kenalog 10 MG NDC [id number] Ubaldo Landon Lazorka, P A-C 02/13/2020 Injection Dexamethasone Sodium Phosphate, 1 MGInjection Ubaldo CaraRd Lazorka, PA-C 10/2019 Injection Kenalog 10 MG NDC 21069094988Aycqnkjsf Ubaldo Landon Lazorka, P A-C 11/30/2019 Injection Kenalog 10 MG NDC [id number] Ubaldo Landon Lazorka, P A-C 06/21/2018 Injection Kenalog 10 MG NDC [id number] Ubaldo Landon Lazorka, P A-C 06/21/2018 Injection Kenalog 10 MG NDC 77846240858Crzaegzmi Ubaldo Landon Lazorka, P A-C 12/02/2017 Injection Kenalog 10 MG NDC [id number] Ubaldo Landon Lazorka, P A-C 12/02/2017 Injection Dexamethasone Sodium Phosphate, 1 MGInjection Ubaldo CaraRd Lazorka, PA-C 11/12 Injection Dexamethasone Sodium Phosphate, 1 MGInjection Ubaldo CaraRd Lazorka, PA-C 11/12 Immunizations CPT Code Status Date Vaccine Lot # [id number] Given 08/19/2023 Influenza Virus Vaccine, Quadrivalent (Cciiv4), Derived From Cell [id number] Given 07/23/2021 Pfizer Sars-Cov -2 (Cov-19) vacc 30mcg/0.3ML 12Y+ EMR Doc Only 344[address] Given 07/17/2021 Influenza Virus Vaccine, Quadrivalent (Cciiv4), Derived From 8 Given 12/12/2020 Pfizer Sars-Cov -2 (Cov-19) vacc 30mcg/0.3ML 12Y+ EMR Doc Only 24778 Given 11/16/2020 Pfizer Sars-Cov -2 (Cov-19) vacc 30mcg/0.3ML 12Y+ EMR Doc Only U-FLU Given 08/30/2020 Influenza,Unspecified [phone] 40680 Given 08/30/2020 Influenza Virus Vaccine, Quadrivalent (Cciiv4), Derived From 1 Given 06/13/2019 Influenza Virus Vaccine, Quadrivalent (Cciiv4), Derived From Cell [id number] U-FLU Given 06/13/2019 Influenza,Unspecified 64981 Given 11/01/2018 Pneumococcal Vaccine/Pneu movax 23 [id number] 50941 Given 09/20/2018 Influenza Virus Vaccine, Quadrivalent (Cciiv4), Derived From Cell U-FLU Given 06/07/2017 Influenza,Unspecified 66537 Given 08/25/2016 Tdap (Tetanus, diphtheria & acel. pertussis) Adacel or Boostrix U-FLU Given 06/19/2016 Influenza,Unspecified U-FLU Given 05/27/2015 Influenza,Unspecified 58155 Given 11/29/2014 Pneumococcal Vaccine/Pneu movax 23 U-FLU Given 06/28/2010 Influenza,Unspecified Vital Signs Date Vital Result Comment 01/13/2024 1:22pm BP Systolic 130 mmHg BP Diastolic 78 mmHg Body Temperature 98.1 F Heart Rate 78 /min Respiratory Rate 22 /min Weight 165.00 lb Weight 74.844 kg Height 54 inches 4'6" BMI (Body Mass Index) 39.8 kg/m2 O2 % BldC Oximetry 97 % [place] Body Weight 100 lb 01/05/2024 12:55pm BP Systolic 136 mmHg BP Diastolic 78 mmHg Body Temperature 97.8 F Heart Rate 77 /min Respiratory Rate 17 /min Weight 165.31 lb Weight 74.986 kg O2 % BldC Oximetry 98 % Results Test Acquired Date Facility Test Result H/L Range [place] Laboratory test finding 03/07/2024 [facility] [address] [place] [address] [phone] Potassium 3.2 mEq/L Low 3.5-5.0 1 CBC W/Diff 03/02/2024 [facility]. [address] [place] [address] [phone] WBC 7.4 10^3/M3 3.1-9.2 RBC 3.82 10^6/M3 3.70-5.50 HGB 12.7 GR/DL 11.5-16.1 HCT 38.6 % 34.5-47.8 MCV 101.0 CUMICR High 82.6-95.8 MCH 33.3 PICOGR High 27.9-32.9 MCHC 33.0 % 32.6-35.4 RDW 13.6 % 11.4-14.6 PLT 216 10^3/M3 140-350 MPV 9.2 CUMICR 7.0-10.6 %Neut 65.6 % 40.0-75.0 %Lymph 28.0 % 17.0-45.0 %Howard 3.9 % 1.0-11.0 %Eos 1.9 % 0.0-6.0 %Baso 0.6 % 0.0-2.0 #Neut 4.8 10^3/M3 1.5-8.0 #Lymph 2.1 10^3/M3 0.8-3.2 #Howard 0.3 10^3/M3 0.0-0.8 #Eos 0.1 10^3/m3 0.0-0.4 #Baso 0.0 10^3/m3 0.0-0.2 Comp. Met 03/02/2024 [facility] [address] [place], [place] [id number] [phone] Glucose 124 mg/dL High 70-110 BUN 18 [...] 78 ML/MIN/1.73SQM >60 Urinalysis,Cult If Indicated 03/02/2024 [facility] [address] [place], [place] [id number] [phone] RFLX Culture COMMENT Laboratory test finding 03/02/2024 [facility] [address] [place] [address] [phone] Magnesium 1.1 mg/dL Low 1.7- 2.8 Urinalysis 03/02/2024 [facility] [address] [place] [address] [phone] Color COMMENT 2 Appearance COMMENT Clear Spec.Grav. COMMENT 1.005-1.025 Leukocytes COMMENT Negative Nitrite COMMENT Negative PH COMMENT 6.0-7.5 Protein COMMENT Negative Urine Glucose COMMENT Negative Ketone COMMENT Negative Urobilinogen COMMENT E.U./DL Normal Bilirubin COMMENT Negative Blood COMMENT Negative WBC-U COMMENT /HPF 0-5/HPF RBC-U COMMENT /HPF 0-5/HPF Bacteria COMMENT None Seen Squamous COMMENT /HPF 0-5/HPF Urinalysis 01/13/2024 [facility] [address] [place] [address] [phone] Color COMMENT 3 Appearance COMMENT Clear Spec.Grav. COMMENT 1.005-1.025 Leukocytes COMMENT Negative Nitrite COMMENT Negative PH COMMENT 6.0-7.5 Protein COMMENT Negative Urine Glucose COMMENT Negative Ketone COMMENT Negative Urobilinogen COMMENT E.U./DL Normal Bilirubin COMMENT Negative Blood COMMENT Negative WBC-U COMMENT /HPF 0-5/HPF RBC-U COMMENT /HPF 0-5/HPF Bacteria COMMENT None Seen Squamous COMMENT /HPF 0-5/HPF Laboratory test finding 01/13/2024 [facility] [address] [place] [address] [phone] Magnesium 0.9 mg/dL Low 1.7-2.8 Tibc 01/13/2024 [facility] [address] [place] [address] [phone] Tibc 298 g /dL 260-400 Transferrin 213 mg/dL 200-400 Iron Panel([employer]) 01/13/2024 [facility]. [address] [place] [address] [phone] Iron 48 g /dL 25-140 % Saturation 16 % Low 30-35 Microalbumin Urine 01/13/2024 [facility] [address] [place], [place] [id number] [phone] Urine Creat COMMENT mg/dL Comment Microalbumin COMMENT mg/dL 0.0-1.8 4 ug/mgCREATININE COMMENT ug/mg Low 0-29 5 Hba1c 01/13/2024 [facility] [address] [place] [address] [phone] A1c 4.50 % Low 4.70-6.50 6 Urinalysis,Cul t If Indicated 01/13/2024 [facility] [address] [place] [address] [phone] RFLX Culture COMMENT Laboratory test finding 01/13/2024 [facility] [address] [place] [address] [phone] TSH 1.00 uIU/mL 0.50-6.00 Lipid 01/13/2024 [facility] [address] [place] [address] [phone] Cholesterol 134 mg/dL 0-200 7 Triglyceride 153 mg/dL High 0-150 8 HDLD 52 mg/dL See Comment 9 Measured LDL 68 mg/dL 0-130 10 Calc VLDL 30.6 mg/dL See Comment 11 Chol/HDL 2.6 RATIO See Comment 12 Non-HDL 82 mg/dL See Comment 13 Comp. Met 01/13/2024 [facility] [address] [place] [address] [phone] Glucose 100 mg/dL 70-110 BUN 13 mg/dL [...] GFR 78 ML/MIN/1.73SQM >60 CBC W/Diff 01/13/2024 [facility] [address] [place] [address] [phone] WBC 6.5 10^3/M3 3.1-9.2 RBC 3.49 10^6/M3 Low 3.70-5.50 HGB 12.0 GR/DL 11.5-16.1 HCT 36.4 % 34.5-47.8 MCV 104.4 CUMICR High 82.6-95.8 MCH 34.3 PICOGR High 27.9-32.9 MCHC 32.8 % 32.6-35.4 RDW 15.4 % High 11.4-14.6 PLT 247 10^3/M3 140-350 MPV 9.2 CUMICR 7.0-10.6 %Neut 65.2 % 40.0-75.0 %Lymph 26.7 % 17.0-45.0 %Howard 3.3 % 1.0-11.0 %Eos 3.7 % 0.0-6.0 %Baso 1.1 % 0.0-2.0 #Neut 4.3 10^3/M3 1.5-8.0 #Lymph 1.7 10^3/M3 0.8-3.2 #Howard 0.2 10^3/M3 0.0-0.8 #Eos 0.2 10^3/m3 0.0-0.4 #Baso 0.1 10^3/m3 0.0-0.2 1 fax to [phone] Kalyan Caldera MD 2 ORDER PLACED, PER DOCUMENTATION (PER COLORED PAPER) SPECIMEN FOR TESTING NOT ACQUIRED TL 3 ORDER PLACED, PER DOCUMENTATION (PER COLORED PAPER) SPECIMEN FOR TESTING NOT ACQUIRED 5.3.24 CONOR 4 *THE [employer] [employer] USES MICROALBUMIN/CREATINE RATIO : *<30 ug/mg CREATININE IS CLASSIFIED NORMAL *30-300 ug/mg CREATININE IS CLASSIFIED CLINICAL MICROALBUMINURIA *>300 ug/mg CREATININE IS CLASSIFIED CLINICAL ALBUMINURIA CLASSIFICATION OF A PATIENT SHOULD BE BASED ON TWO OF THREE ABNORMAL RESULTS COLLECTED WITHIN A 3 TO 6 MONTH TIME FRAME* 5 CANNOT CALCULATE RATIO WHEN MALB < 0.7 6 MEAN GLUCOSE IN mg/d L/A1c% POOR CONTROL FAIR CONTROL GOOD CONTROL EXCELLENT CONTROL 360-14 210-9 180-8 120-6 330-13 150-7 90-5 300-12 270-11 240-10 7 CHOLESTEROL Less than 200mg/dl Low risk 201-239 mg/dl Borderline risk Equal to or greater 240mg/dl High risk 8 TRIGLYCERIDES Less than 150mg/dl Normal 150-199mg/dl Borderline 200-499mg/dl High Greater than 500mg/dl Very High 9 HDL <40mg/dl Elevated Risk 41-59mg/dl Risk >=60mg/dl Least Risk 10 LDL <100mg/dl Optimal 100-129mg/dl Near Optimal 130-159mg/dl Borderline High 160-189mg/dl High >=190 Very High 11 VLDL Less than 30mg/dl Normal 12 CHOL/HDL <4.0 Optimal 4.0-5.0 Borderline >6.0 High Risk 13 NON-HDL 30mg/dl higher than LDL Target Procedures Date Code Description Status 03/07/2024 98551 Venipuncture Routine Complet ed 03/02/2024 89520 Venipuncture Routine [facility] ed 01/13/2024 10617 Fundus Eye Exam Completed 01/13/2024 15754 Venipuncture Routine Complet ed 01/13/2024 3078F PVRP [...] I10 Essential (primary) hyperten sarwat Lab - [place] 03/02/2024 E78.2 Mixed hyperlipidemia Mishel Bernabe MD 03/02/2024 E78.2 Mixed hyperlipidemia Lab - [place] 03/02/2024 E11.65 Type 2 diabetes mellitus wit h hyperglycemia Mishel Bernabe MD 03/02/2024 E11.65 Type 2 diabetes mellitus wit h hyperglycemia Lab - [place] 03/02/2024 E61.2 Magnesium deficiency Mishel Bernabe MD 03/02/2024 E61.2 Magnesium deficiency Lab - [place] 01/13/2024 Z00.01 Encounter for [facility] adult medical examination with abnormal findings Ubaldo Jeronimo PA-C 01/13/2024 E11.65 Type 2 diabetes mellitus wit h hyperglycemia Ubaldo Jeronimo PA-C 01/13/2024 E11.42 Type 2 diabetes mellitus with diabetic polyneuropathy Ubaldo Jeronimo PA-C 01/13/2024 E66.01 Morbid (severe) obesity due to excess calories Ubaldo DSUKUMAR LyonsC 01/13/2024 F33.1 Major depressive disorder, recurrent, moderate Ubaldo DRd Jeronimo, SUKUMARC 01/13/2024 I70.0 Atherosclerosis of aorta Ezequiel adela MarroquinBRENDA Lyons-C 01/13/2024 J43.9 Emphysema, unspecified Jamarcus MarroquinBRENDA Lyons-C 01/13/2024 M46.1 Sacroiliitis, not elsewhere classified Ubaldo MarroquinBRENDA Lyons-C 01/13/2024 M16.11 Unilateral prima ry osteoarthritis, right hip Ubaldo DSUKUMAR LyonsC 01/13/2024 I10 Essential (primary) hyperten sarwat Ubaldo MarroquinSUKUMAR LyonsC 01/13/2024 E78.2 Mixed hyperlipidemia Ubaldo DBRENDA Lyons-C 01/13/2024 D64.9 Anemia, unspecified Ubaldo Marroquin BRENDA Lyons-C 01/13/2024 E61.2 Magnesium deficiency Ubaldo MarroquinBRENDA Lyons-C 01/13/2024 M70.52 Other bursitis of knee, left knee Ubaldo DSUKUMAR LyonsC 01/05/2024 E11.9 Type 2 diabetes mellitus without [...] 10/08/2023 J01.00 Acute maxillary sinusitis, u nspecified UbaldoSUKUMAR OrozcoC 10/08/2023 J20.9 Acute bronchitis, unspecifie d Ubaldo Jeronimo PA-C Plan of Treatment Future Appointment(s):* 03/13/2024 10:00 am - Ubaldo Jeronimo PA-C at [place] * 04/13/2024 1:30 pm - Ubaldo Jeronimo PA-C at [place] 01/13/2024 - Ubaldo Jeronimo PA-C* Z00.01 Encounter [...] 02/11/2024 Saima Ga PA-C Closed [address] [place] [id number] [phone]
--- OUTSIDE RECORDS SUMMARY | 2024-03-09 07:42 | External Medical Summary | Continuity of Care Document ---
Author Name Unknown Organization [facility], [facility] Address [address] [place] [address] Phone [phone] Care Team Providers Care Tool Engineer Name Role Phone Kalyan Caldera MD Care Team Information Receive r [phone] Neftaly Paredes M.D. Care Team Information Pan Shaker [phone] Problems Active Problems Provider Date Mixed hyperlipidemia [...] anxiety 10tabs Mishel Bernabe MD 02/29/2024 Klor-Con T1138Hlo Tablets ER 1 by mouth twice daily 180tabs Mishel Bernabe MD 02/24/2024 Magnesium Oxide (Elemental)400mg Tablets 2 tablets twice daily 360tabs Mishel Bernabe MD 01/17/2024 Onzxfdjdhqz590ty Tablets One By Mouth Now Repeat One Week as Needed 2tabs Mishel Bernabe MD 01/17/2024 Tramadol HPL90vg Tablets Take 1 Tablet By Mouth Twice A Day as Needed For Severe Pain 45tabs Mishel Bernabe MD 01/13/2024 Trazodone MWS549zf Tablets Take 1 Tablet AT Bedtime 90tabs Mishel Bernabe MD 04/25/2023 Freestyle Yevgeniy 3/Sensor/Glucose Monitoring Igbquq0Obpboe Misc use as directed e11.65 3units Mishel Bernabe MD 12/16/2022 Quetiapine Mzwhsuwt05vl Tablets Take 1 Tablet By Mouth Everyday AT Bedtime 90tabs Mishel Bernabe MD 11/05/2022 Clotrimazole/Betamet hasone Dipropionate1-0.05% Cream Apply To Affected Area Twice A Day as Needed 135units Mishel Bernabe MD 10/20/2022 Vitamin D3 1,250 mcgCapsule Take 1 Capsule By Mouth Once A Week 12caps E55.9 Mishel Bernabe MD 07/13/2022 Eqeffepgzsc37od Tablets Take 1 Tablet By Mouth AT Bedtime For Sleep 90tabs Mishel Bernabe MD 04/10/2022 Lidocaine Viscous HCL2% Solution apply 2ml to both cheeks, then swish and swallow up to three times daily 300units Mishel Bernabe MD 03/12/2022 Albuterol Sulfate QSS768(90Base) mcg/Act Aerosol Inhale 2 Puffs By Mouth Every 4-6 Hours as Needed Wheezing 25.5units Juventino Sibley MD 12/19/[address] Take 1 Tablet By Mouth Every Day 90tabs K21.0 Misehl Bernabe MD 12/04/2021 Rollator Ultra-LightMisc use as directed 1units Juventino Sibley MD 021 Yrwjtnsgpk3nj Tablets Take 1 Tablet By Mouth Four Times A Day 360tabs Juventino Sibley MD 12/04/2020 Trelegy Igngrec292-81.5-25mc g/Act Aerosol Inhale 1 puff By Mouth Daily 60units Juventino Sibley MD 12/03/2020 Clopidogrel Lsppjybgi69so Tablets Take 1 Tablet By Mouth Every [...] 100units Rolf Snell JR, MD 11/23/2019 Escitalopram Kxnxllt58sv Tablets Take 1 Tablet By Mouth Every Day 90tabs F33.1 Mishel Bernabe MD 11/13/2019 Atorvastatin Aavkhtk74xv Tablets Take 1 Tablet By Mouth Every Day 90tabs Juventino Sibley MD 10/16/2019 Ondansetron HCL4mg Tablets Take 1 Tablet By Mouth Every 6-8 Hours as Needed For Nausea 45tabs Mishel Bernabe MD 03/12/2019 Pen [place] 5/16"31G X 8 mm Misc use daily [...] Ralph Braxton, DO 11/03/2017 History Medications Sodium Qyyqkkpcxav706qj Tablets Take 1 Tablet By Mouth Every Day Unknown 12/30/2023 - 01/06/2024 Magnesium Erpvv514lc Tablets 1 by mouth twice a day for 5 days. Unknown 12/30/2023 - 01/04/2024 Potassium Chloride AO48Kvn Tablets ER Take 2 Tablets By Mouth Every Day for 4 days. Unknown 12/30/2023 - 01/04/2024 Amoxicillin/Clavulanate Ulvsrypcq537-579tt Tablets Take 1 Tablet By Mouth Twice A Day For 10 Days 20tabs Mishel Bernabe MD 11/17/2023 - 11/27/2023 Hlhzwvrzda24yr Tablets two tablets x 5 days then one tablet daily x 5 days 15baljeet Bernabe MD 11/17/2023 - 01/05/2024 Amoxicillin/Clavulanate Brrhybfno280-991mf Tablets Take 1 Tablet By Mouth Twice A Day For 10 Days 20baljeet Bernabe MD 10/08/2023 - 01/03/2024 Ddkqcktggh38ts Tablets two tablets x 5 days then one tablet daily x 5 days 15baljeet Bernabe MD 10/08/2023 - 01/05/2024 Dzhiyxgw599bz Tablets one by mouth now repeat one week as needed 2baljeet Bernabe MD 10/08/2023 - 01/05/2024 Apqshwni641715Rant/GM Cream Apply To Affected Area Twice A Day 90units Mishel Bernabe MD 10/05/2023 - 01/05/2024 Medications Administered in Office Medication SIG Qnty Indications Ordering Provider Date Injection Kenalog 10 MG NDC [id number] Ubaldo Jeronimo, P A-C 08/19/2023 Injection Kenalog 10 MG NDC 82350156547Zcksvnivk Ubaldo Jeronimo, P A-C 03/12/2022 Injection Kenalog 10 MG NDC 97510763507Jiyvqpfvr Ubaldo Jeronimo, P A-C 01/15/2022 Injection Kenalog 10 MG NDC 60224882843Ujpuyxwcx Ubaldo Jeronimo, P A-C 10/27/2021 Injection Kenalog 10 MG NDC 33451823232Wiwfkujey Ubaldo Jeronimo, P A-C 07/17/2021 Injection Kenalog 10 MG NDC 25667305004Xyuizfrrr Ubaldo Jeronimo, P A-C 04/29/2021 Injection Kenalog 10 MG NDC 09273160910Katanksot Ubaldo Jeronimo, P A-C 02/17/2021 Injection Kenalog 10 MG NDC [id number] Ubaldo Jeronimo, P A-C 12/03/2020 Injection Kenalog 10 MG NDC 14671845967Oizwxqsws Ubaldo Jeronimo, P A-C 08/30/2020 Injection Kenalog 10 MG NDC 37891529508Zqzsharnd Ubaldo Landon Lazorka, P A-C 05/30/2020 Injection Kenalog 10 MG NDC 75577599098Vismxhnes Ubaldo Landon [place], P A-C 02/13/2020 Injection Dexamethasone Sodium Phosphate, 1 MGInjection Ubaldo CaraRd Laz[place]a, PA-C 10/2019 Injection Kenalog 10 MG NDC 01998159578Wcamybpsd Ubaldo Landon L[place]a, P A-C 11/30/2019 Injection Kenalog 10 MG NDC 88882460013Ncbfyakvz Ubaldo Landon [place], P A-C 06/21/2018 Injection Kenalog 10 MG NDC 78777529267Usdmjxdtn Ubaldo Landon [place], P A-C 06/21/2018 Injection Kenalog 10 MG NDC [id number] Ubaldo Landon [place], P A-C 12/02/2017 Injection Kenalog 10 MG NDC 07157359399Aaruddgsn Ubaldo Landon [place], P A-C 12/02/2017 Injection Dexamethasone Sodium Phosphate, 1 MGInjection Ubaldo CaraRd [place], PA-C 11/12 Injection Dexamethasone Sodium Phosphate, 1 MGInjection Ubaldo CaraRd [place], PA-C 11/12 Immunizations CPT Code Status Date Vaccine Lot # [id number] Given 08/19/2023 Influenza Virus Vaccine, Quadrivalent (Cciiv4), Derived From Cell [id number] Given 07/23/2021 Pfizer Sars-Cov -2 (Cov-19) vacc 30mcg/0.3ML 12Y+ EMR Doc Only [id number] Given 07/17/2021 Influenza Virus Vaccine, Quadrivalent (Cciiv4), Derived From 3 Given 12/12/2020 Pfizer Sars-Cov -2 (Cov-19) vacc 30mcg/0.3ML 12Y+ EMR Doc Only 67319 Given 11/16/2020 Pfizer Sars-Cov -2 (Cov-19) vacc 30mcg/0.3ML 12Y+ EMR Doc Only U-FLU Given 08/30/2020 Influenza,Unspecified [id number] 17470 Given 08/30/2020 Influenza Virus Vaccine, Quadrivalent (Cciiv4), Derived From 1 Given 06/13/2019 Influenza Virus Vaccine, Quadrivalent (Cciiv4), Derived From Cell [id number] U-FLU Given 06/13/2019 Influenza,Unspecified 02878 Given 11/01/2018 Pneumococcal Vaccine/Pneu movax 23 [id number] 01775 Given 09/20/2018 Influenza Virus Vaccine, Quadrivalent (Cciiv4), Derived From Cell U-FLU Given 06/07/2017 Influenza,Unspecified 94923 Given 08/25/2016 Tdap (Tetanus, diphtheria & acel. pertussis) Adacel or Boostrix U-FLU Given 06/19/2016 Influenza,Unspecified U-FLU Given 05/27/2015 Influenza,Unspecified 89674 Given 11/29/2014 Pneumococcal Vaccine/Pneu movax 23 U-FLU Given 06/28/2010 Influenza,Unspecified Vital Signs Date Vital Result Comment 01/13/2024 1:22pm BP Systolic 130 mmHg BP Diastolic 78 mmHg Body Temperature 98.1 F Heart Rate 78 /min Respiratory Rate 22 /min Weight 165.00 lb Weight 74.844 kg Height 54 inches 4'6" BMI (Body Mass Index) 39.8 kg/m2 O2 % BldC Oximetry 97 % [place] Body Weight 100 lb 01/05/2024 12:55pm BP Systolic 136 mmHg BP Diastolic 78 mmHg Body Temperature 97.8 F Heart Rate 77 /min Respiratory Rate 17 /min Weight 165.31 lb Weight 74.986 kg O2 % BldC Oximetry 98 % Results Test Acquired Date Facility Test Result H/L Range [place] Laboratory test finding 03/07/2024 [facility] [address] [place], [place] [id number] [phone] Potassium <pending> CBC W/Diff 03/02/2024 [facility] [address] [place] [address] [phone] WBC 7.4 10^3/M3 3.1-9.2 RBC 3.82 10^6/M3 3.70-5.50 HGB 12.7 GR/DL 11.5-16.1 HCT 38.6 % 34.5-47.8 MCV 101.0 CUMICR High 82.6-95.8 MCH 33.3 PICOGR High 27.9-32.9 MCHC 33.0 % 32.6-35.4 RDW 13.6 % 11.4-14.6 PLT 216 10^3/M3 140-350 MPV 9.2 CUMICR 7.0-10.6 %Neut 65.6 % 40.0-75.0 %Lymph 28.0 % 17.0-45.0 %Kendall 3.9 % 1.0-11.0 %Eos 1.9 % 0.0-6.0 %Baso 0.6 % 0.0-2.0 #Neut 4.8 10^3/M3 1.5-8.0 #Lymph 2.1 10^3/M3 0.8-3.2 #Kendall 0.3 10^3/M3 0.0-0.8 #Eos 0.1 10^3/m3 0.0-0.4 #Baso 0.0 10^3/m3 0.0-0.2 Comp. Met 03/02/2024 [facility] [address] [place] [address] [phone] Glucose 124 mg/dL High 70-110 BUN 18 [...] 78 ML/MIN/1.73SQM >60 Urinalysis,Cult If Indicated 03/02/2024 [facility] [address] [place] [address] [phone] RFLX Culture COMMENT Laboratory test finding 03/02/2024 [facility] [address] [place] [address] [phone] Magnesium 1.1 mg/dL Low 1.7- 2.8 Urinalysis 03/02/2024 [facility] [address] [place] [address] [phone] Color COMMENT 1 Appearance COMMENT Clear Spec.Grav. COMMENT 1.005-1.025 Leukocytes COMMENT Negative Nitrite COMMENT Negative PH COMMENT 6.0-7.5 Protein COMMENT Negative Urine Glucose COMMENT Negative Ketone COMMENT Negative Urobilinogen COMMENT E.U./DL Normal Bilirubin COMMENT Negative Blood COMMENT Negative WBC-U COMMENT /HPF 0-5/HPF RBC-U COMMENT /HPF 0-5/HPF Bacteria COMMENT None Seen Squamous COMMENT /HPF 0-5/HPF Urinalysis 01/13/2024 [facility] [address] [place] [address] [phone] Color COMMENT 2 Appearance COMMENT Clear Spec.Grav. COMMENT 1.005-1.025 Leukocytes COMMENT Negative Nitrite COMMENT Negative PH COMMENT 6.0-7.5 Protein COMMENT Negative Urine Glucose COMMENT Negative Ketone COMMENT Negative Urobilinogen COMMENT E.U./DL Normal Bilirubin COMMENT Negative Blood COMMENT Negative WBC-U COMMENT /HPF 0-5/HPF RBC-U COMMENT /HPF 0-5/HPF Bacteria COMMENT None Seen Squamous COMMENT /HPF 0-5/HPF Laboratory test finding 01/13/2024 [facility] [address] [place] [address] [phone] Magnesium 0.9 mg/dL Low 1.7-2.8 Tibc 01/13/2024 [facility] [address] [place] [address] [phone] Tibc 298 g /dL 260-400 Transferrin 213 mg/dL 200-400 Iron Panel([employer]) 01/13/2024 [facility] [address] [place] [address] [phone] Iron 48 g /dL 25-140 % Saturation 16 % Low 30-35 Microalbumin Urine 01/13/2024 [facility] [address] [place], [place] [id number] [phone] Urine Creat COMMENT mg/dL Comment Microalbumin COMMENT mg/dL 0.0-1.8 3 ug/mgCREATININE COMMENT ug/mg Low 0-29 4 Hba1c 01/13/2024 [facility] [address] [place] [address] [phone] A1c 4.50 % Low 4.70-6.50 5 Urinalysis,Cul t If Indicated 01/13/2024 [facility] [address] [place] [address] [phone] RFLX Culture COMMENT Laboratory test finding 01/13/2024 [facility] [address] [place] [address] [phone] TSH 1.00 uIU/mL 0.50-6.00 Lipid 01/13/2024 [facility] [address] [place], [place] [address] [phone] Cholesterol 134 mg/dL 0-200 6 Triglyceride 153 mg/dL High 0-150 7 HDLD 52 mg/dL See Comment 8 Measured LDL 68 mg/dL 0-130 9 Calc VLDL 30.6 mg/dL See Comment 10 Chol/HDL 2.6 RATIO See Comment 11 Non-HDL 82 mg/dL See Comment 12 Comp. Met 01/13/2024 [facility] [address] [place], [place] [id number] [phone] Glucose 100 mg/dL 70-110 BUN 13 mg/dL [...] GFR 78 ML/MIN/1.73SQM >60 CBC W/Diff 01/13/2024 [facility] [address] [place] [address] [phone] WBC 6.5 10^3/M3 3.1-9.2 RBC 3.49 10^6/M3 Low 3.70-5.50 HGB 12.0 GR/DL 11.5-16.1 HCT 36.4 % 34.5-47.8 MCV 104.4 CUMICR High 82.6-95.8 MCH 34.3 PICOGR High 27.9-32.9 MCHC 32.8 % 32.6-35.4 RDW 15.4 % High 11.4-14.6 PLT 247 10^3/M3 140-350 MPV 9.2 CUMICR 7.0-10.6 %Neut 65.2 % 40.0-75.0 %Lymph 26.7 % 17.0-45.0 %Kendall 3.3 % 1.0-11.0 %Eos 3.7 % 0.0-6.0 %Baso 1.1 % 0.0-2.0 #Neut 4.3 10^3/M3 1.5-8.0 #Lymph 1.7 10^3/M3 0.8-3.2 #Kendall 0.2 10^3/M3 0.0-0.8 #Eos 0.2 10^3/m3 0.0-0.4 #Baso 0.1 10^3/m3 0.0-0.2 1 ORDER PLACED, PER DOCUMENTATION (PER COLORED PAPER) SPECIMEN FOR TESTING NOT ACQUIRED TL 2 ORDER PLACED, PER DOCUMENTATION (PER COLORED PAPER) SPECIMEN FOR TESTING NOT ACQUIRED 5.3.24 CONOR 3 *THE [employer] USES MICROALBUMIN/CREATINE RATIO : [...] Target Procedures Date Code Description Status 03/07/2024 21618 Venipuncture Routine Complet ed 03/02/2024 25794 Venipuncture Routine Complet ed 01/13/2024 08485 Fundus Eye Exam Completed 01/13/2024 89015 Venipuncture Routine Complet ed 01/13/2024 3078F PVRP [...] I10 Essential (primary) hyperten sarwat Lab - [place] 03/02/2024 E78.2 Mixed hyperlipidemia Mishel Bernabe MD 03/02/2024 E78.2 Mixed hyperlipidemia Lab - [place] 03/02/2024 E11.65 Type 2 diabetes mellitus wit h hyperglycemia Mishel Bernabe MD 03/02/2024 E11.65 Type 2 diabetes mellitus wit h hyperglycemia Lab - [place] 03/02/2024 E61.2 Magnesium deficiency Mishel Bernabe MD 03/02/2024 E61.2 Magnesium deficiency Lab - [place] 01/13/2024 Z00.01 Encounter for [facility] adult medical examination with abnormal findings Ubaldo Jeronimo PA-C 01/13/2024 E11.65 Type 2 diabetes mellitus wit h hyperglycemia Ubaldo Jeronimo PA-C 01/13/2024 E11.42 Type 2 diabetes mellitus with diabetic polyneuropathy Ubaldo Jeronimo PA-C 01/13/2024 E66.01 Morbid (severe) obesity due to excess calories Ubaldo Jreonimo PA-C 01/13/2024 F33.1 Major depressive disorder, recurrent, [...] 10:00 am - Ubaldo Jeronimo PA-C at [place] * 04/13/2024 1:30 pm - Ubaldo Jeronimo PA-C at [place] 01/13/2024 - Ubaldo Jeronimo PA-C* Z00.01 Encounter [...] 02/11/2024 Saima Ga PA-C Closed [address] [place] [phone]
--- OUTSIDE RECORDS SUMMARY | 2024-03-09 07:42 | External Medical Summary | Continuity of Care Document ---
Author Name Unknown Organization [facility] Address [address] [place] [address] Phone [phone] Care Team Providers Care Child Welfare Specialist Name Role Phone Kalyan Caldera MD Care Team Information Receive [phone] Neftaly Paredes M.D. Care Team Information Mine Wedge Sawyer [phone] Problems Active Problems Provider Date Mixed hyperlipidemia [...] Jeronimo PA-C Onset: 11/01/2018 Screening mammography Ubaldo Jeroinmo PA-C On set: 02/16/2019 Screening for malignant [...] anxiety 10tabs Mishel Bernabe MD 02/29/2024 Klor-Con [id number] Tablets ER 1 by mouth twice daily 180tabs Mishel Bernabe MD 02/24/2024 Magnesium Oxide (Elemental)400mg Tablets 2 tablets twice daily 360tabs Mishel Bernabe MD 01/17/2024 Qkfbmvcbans264cl Tablets One By Mouth Now Repeat One Week as Needed 2tabs Mishel Bernabe MD 01/17/2024 Tramadol AZP20gj Tablets Take 1 Tablet By Mouth Twice A Day as Needed For Severe Pain 45tabs Mishel Bernabe MD 01/13/2024 Trazodone HXX881jb Tablets Take 1 Tablet AT Bedtime 90tabs Mishel Bernabe MD 04/25/2023 Freestyle Yevgeniy 3/Sensor/Glucose Monitoring Wtthab1Axwykn Misc use as directed e11.65 3units Mishel Bernabe MD 12/16/2022 Quetiapine Yzpdwmzi84fn Tablets Take 1 Tablet By Mouth Everyday AT Bedtime 90tabs Mishel Bernabe MD 11/05/2022 Clotrimazole/Betamet hasone Dipropionate1-0.05% Cream Apply To Affected Area Twice A Day as Needed 135units Mishel Bernabe MD 10/20/2022 Vitamin D3 1,250 mcgCapsule Take 1 Capsule By Mouth Once A Week 12caps E55.9 Mishel Bernabe MD 07/13/2022 Blnqxgqaxoe35ku Tablets Take 1 Tablet By Mouth AT Bedtime For Sleep 90tabs Mishel Bernabe MD 04/10/2022 Lidocaine Viscous HCL2% Solution apply 2ml to both cheeks, then swish and swallow up to three times daily 300units Mishel Bernabe MD 03/12/2022 Albuterol Sulfate GZJ930(90Base) mcg/Act Aerosol Inhale 2 Puffs By Mouth Every 4-6 Hours as Needed Wheezing 25.5units Juventino Sibley MD 12/19/[address] Take 1 Tablet By Mouth Every Day 90tabs K21.0 Mishel Bernabe MD 12/04/2021 Rollator Ultra-LightMisc use as directed 1units Juventino Sibley MD 021 Syglwpvdge1zp Tablets Take 1 Tablet By Mouth Four Times A Day 360tabs Juventino Sibley MD 12/04/2020 Trelegy Nydhvev730-53.5-25mc g/Act Aerosol Inhale 1 puff By Mouth Daily 60units Juventino Sibley MD 12/03/2020 Clopidogrel Axbquzptf91os Tablets Take 1 Tablet By Mouth Every [...] 100units Rolf Snell JR, MD 11/23/2019 Escitalopram Jqndult98av Tablets Take 1 Tablet By Mouth Every Day 90tabs F33.1 Mishel Bernabe MD 11/13/2019 Atorvastatin Ckhcsqa39xr Tablets Take 1 Tablet By Mouth Every Day 90tabs Juventino Sibley MD 10/16/2019 Ondansetron HCL4mg Tablets Take 1 Tablet By Mouth Every 6-8 Hours as Needed For Nausea 45tabs Mishel Bernabe MD 03/12/2019 Pen [place]xton 5/16"31G X 8 mm Misc use daily [...] Ralph Braxton, DO 11/03/2017 History Medications Sodium Biehcdwsqdx131km Tablets Take 1 Tablet By Mouth Every Day Unknown 12/30/2023 - 01/06/2024 Magnesium Ixwrh396mu Tablets 1 by mouth twice a day for 5 days. Unknown 12/30/2023 - 01/04/2024 Potassium Chloride OS41Rbr Tablets ER Take 2 Tablets By Mouth Every Day for 4 days. Unknown 12/30/2023 - 01/04/2024 Amoxicillin/Clavulanate Dnxlldzec577-835ro Tablets Take 1 Tablet By Mouth Twice A Day For 10 Days 20tabs Mishel Bernabe MD 11/17/2023 - 11/27/2023 Tkxcrrrzyt49un Tablets two tablets x 5 days then one tablet daily x 5 days 15baljeet Bernabe MD 11/17/2023 - 01/05/2024 Amoxicillin/Clavulanate Qtakbqbrm225-340ge Tablets Take 1 Tablet By Mouth Twice A Day For 10 Days 20baljeet Bernabe MD 10/08/2023 - 01/03/2024 Etawtqxexo66cz Tablets two tablets x 5 days then one tablet daily x 5 days 15baljeet Bernabe MD 10/08/2023 - 01/05/2024 Sreuulgu528xv Tablets one by mouth now repeat one week as needed 2baljeet Bernabe MD 10/08/2023 - 01/05/2024 Nysvqpox897907Gvzq/GM Cream Apply To Affected Area Twice A Day 90units Mishel Bernabe MD 10/05/2023 - 01/05/2024 Medications Administered in Office Medication SIG Qnty Indications Ordering Provider Date Injection Kenalog 10 MG NDC [id number] Ubaldo Jeronimo, P A-C 08/19/2023 Injection Kenalog 10 MG NDC 43406638082Bdzhzratt Ubaldo Jeronimo, P A-C 03/12/2022 Injection Kenalog 10 MG NDC [id number] Ubaldo Jeronimo, P A-C 01/15/2022 Injection Kenalog 10 MG NDC 23943304982Nuseaqwhn Ubaldo Jeronimo, P A-C 10/27/2021 Injection Kenalog 10 MG NDC 68478639647Diarpukzj Ubaldo Jeronimo, P A-C 07/17/2021 Injection Kenalog 10 MG NDC 15333298772Zwqoafzaa Ubaldo Jeronimo, P A-C 04/29/2021 Injection Kenalog 10 MG NDC 31121608968Oikklstso Ubaldo Jeronimo, P A-C 02/17/2021 Injection Kenalog 10 MG NDC 46580573790Dijpqrjut Ubaldo Jeronimo, P A-C 12/03/2020 Injection Kenalog 10 MG NDC 00937053074Rjbtlcjte Ubaldo Jeronimo, P A-C 08/30/2020 Injection Kenalog 10 MG NDC 87388342185Aghwqgjwr Ubaldo Landon Lazorka, P A-C 05/30/2020 Injection Kenalog 10 MG NDC 16994922077Hgprmvrpj Ubaldo Landon [place], P A-C 02/13/2020 Injection Dexamethasone Sodium Phosphate, 1 MGInjection Ubaldo CaraRd Laz[place]a, PA-C 10/2019 Injection Kenalog 10 MG NDC 94408743137Rwvyftzbl Ubaldo Landon Laz[place]a, P A-C 11/30/2019 Injection Kenalog 10 MG NDC 21476609285Lswszzpyr Ubaldo Landon [place], P A-C 06/21/2018 Injection Kenalog 10 MG NDC 41595936596Hsdydiwyx Ubaldo Landon Laz[place]a, P A-C 06/21/2018 Injection Kenalog 10 MG NDC 30499788001Gmgapznnr Ubaldo Landon [place]az[place]a, P A-C 12/02/2017 Injection Kenalog 10 MG NDC 48468448456Wyksebpwp Ubaldo Landon Laz[place]a, P A-C 12/02/2017 Injection Dexamethasone Sodium Phosphate, 1 MGInjection Ubaldo CaraRd [place]az[place], PA-C 11/12 Injection Dexamethasone Sodium Phosphate, 1 MGInjection Ubaldo CaraRd [place], PA-C 11/12 Immunizations CPT Code Status Date Vaccine Lot # [id number] Given 08/19/2023 Influenza Virus Vaccine, Quadrivalent (Cciiv4), Derived From Cell [id number] Given 07/23/2021 Pfizer Sars-Cov -2 (Cov-19) vacc 30mcg/0.3ML 12Y+ EMR Doc Only 18901 Given 07/17/2021 Influenza Virus Vaccine, Quadrivalent (Cciiv4), Derived From 5 Given 12/12/2020 Pfizer Sars-Cov -2 (Cov-19) vacc 30mcg/0.3ML 12Y+ EMR Doc Only 18895 Given 11/16/2020 Pfizer Sars-Cov -2 (Cov-19) vacc 30mcg/0.3ML 12Y+ EMR Doc Only U-FLU Given 08/30/2020 Influenza,Unspecified [id number] 20090 Given 08/30/2020 Influenza Virus Vaccine, Quadrivalent (Cciiv4), Derived From 4 Given 06/13/2019 Influenza Virus Vaccine, Quadrivalent (Cciiv4), Derived From Cell [id number] U-FLU Given 06/13/2019 Influenza,Unspecified 48877 Given 11/01/2018 Pneumococcal Vaccine/Pneu movax 23 [id number] Given 09/20/2018 Influenza Virus Vaccine, Quadrivalent (Cciiv4), Derived From Cell U-FLU Given 06/07/2017 Influenza,Unspecified 07970 Given 08/25/2016 Tdap (Tetanus, diphtheria & acel. pertussis) Adacel or Boostrix U-FLU Given 06/19/2016 Influenza,Unspecified U-FLU Given 05/27/2015 Influenza,Unspecified 83858 Given 11/29/2014 Pneumococcal Vaccine/Pneu movax 23 U-FLU Given 06/28/2010 Influenza,Unspecified Vital Signs Date Vital Result Comment 01/13/2024 1:22pm BP Systolic 130 mmHg BP Diastolic 78 mmHg Body Temperature 98.1 F Heart Rate 78 /min Respiratory Rate 22 /min Weight 165.00 lb Weight 74.844 kg Height 54 inches 4'6" BMI (Body Mass Index) 39.8 kg/m2 O2 % BldC Oximetry 97 % [place] Body Weight 100 lb 01/05/2024 12:55pm BP Systolic 136 mmHg BP Diastolic 78 mmHg Body Temperature 97.8 F Heart Rate 77 /min Respiratory Rate 17 /min Weight 165.31 lb Weight 74.986 kg O2 % BldC Oximetry 98 % Results Test Acquired Date Facility Test Result H/L Range [place] Laboratory test finding 03/07/2024 [facility] [address] [place], [place] [id number] [phone] Potassium <pending> CBC W/Diff 03/02/2024 [facility] [address] [place] [address] [phone] WBC 7.4 10^3/M3 3.1-9.2 RBC 3.82 10^6/M3 3.70-5.50 HGB 12.7 GR/DL 11.5-16.1 HCT 38.6 % 34.5-47.8 MCV 101.0 CUMICR High 82.6-95.8 MCH 33.3 PICOGR High 27.9-32.9 MCHC 33.0 % 32.6-35.4 RDW 13.6 % 11.4-14.6 PLT 216 10^3/M3 140-350 MPV 9.2 CUMICR 7.0-10.6 %Neut 65.6 % 40.0-75.0 %Lymph 28.0 % 17.0-45.0 %[place] 3.9 % 1.0-11.0 %Eos 1.9 % 0.0-6.0 %Baso 0.6 % 0.0-2.0 #Neut 4.8 10^3/M3 1.5-8.0 #Lymph 2.1 10^3/M3 0.8-3.2 #[place] 0.3 10^3/M3 0.0-0.8 #Eos 0.1 10^3/m3 0.0-0.4 #Baso 0.0 10^3/m3 0.0-0.2 Comp. Met 03/02/2024 [facility] [address] [place] [address] [phone] Glucose 124 mg/dL High 70-110 BUN 18 [...] 78 ML/MIN/1.73SQM >60 Urinalysis,Cult If Indicated 03/02/2024 [facility] [address] [place] [address] [phone] RFLX Culture COMMENT Laboratory test finding 03/02/2024 [facility] [address] [place] [address] [phone] Magnesium 1.1 mg/dL Low 1.7- 2.8 Urinalysis 03/02/2024 [facility] [address] [place] [address] [phone] Color COMMENT 1 Appearance COMMENT Clear Spec.Grav. COMMENT 1.005-1.025 Leukocytes COMMENT Negative Nitrite COMMENT Negative PH COMMENT 6.0-7.5 Protein COMMENT Negative Urine Glucose COMMENT Negative Ketone COMMENT Negative Urobilinogen COMMENT E.U./DL Normal Bilirubin COMMENT Negative Blood COMMENT Negative WBC-U COMMENT /HPF 0-5/HPF RBC-U COMMENT /HPF 0-5/HPF Bacteria COMMENT None Seen Squamous COMMENT /HPF 0-5/HPF Urinalysis 01/13/2024 [facility] [address] [place] [address] [phone] Color COMMENT 2 Appearance COMMENT Clear Spec.Grav. COMMENT 1.005-1.025 Leukocytes COMMENT Negative Nitrite COMMENT Negative PH COMMENT 6.0-7.5 Protein COMMENT Negative Urine Glucose COMMENT Negative Ketone COMMENT Negative Urobilinogen COMMENT E.U./DL Normal Bilirubin COMMENT Negative Blood COMMENT Negative WBC-U COMMENT /HPF 0-5/HPF RBC-U COMMENT /HPF 0-5/HPF Bacteria COMMENT None Seen Squamous COMMENT /HPF 0-5/HPF Laboratory test finding 01/13/2024 [facility] [address] [place] [address] [phone] Magnesium 0.9 mg/dL Low 1.7-2.8 Tibc 01/13/2024 [facility] [address] [place] [address] [phone] Tibc 298 g /dL 260-400 Transferrin 213 mg/dL 200-400 Iron Panel([employer]) 01/13/2024 [facility] [address] [place] [address] [phone] Iron 48 g /dL 25-140 % Saturation 16 % Low 30-35 Microalbumin Urine 01/13/2024 [facility] [address] [place], [place] [phone] Urine Creat COMMENT mg/dL Comment Microalbumin COMMENT mg/dL 0.0-1.8 3 ug/mgCREATININE COMMENT ug/mg Low 0-29 4 Hba1c 01/13/2024 [facility] [address] [place] [address] [phone] A1c 4.50 % Low 4.70-6.50 5 Urinalysis,Cul t If Indicated 01/13/2024 [facility] [address] [place] [address] [phone] RFLX Culture COMMENT Laboratory test finding 01/13/2024 [facility] [address] [place] [address] [phone] TSH 1.00 uIU/mL 0.50-6.00 Lipid 01/13/2024 [facility] [address] [place], [place] [phone] Cholesterol 134 mg/dL 0-200 6 Triglyceride 153 mg/dL High 0-150 7 HDLD 52 mg/dL See Comment 8 Measured LDL 68 mg/dL 0-130 9 Calc VLDL 30.6 mg/dL See Comment 10 Chol/HDL 2.6 RATIO See Comment 11 Non-HDL 82 mg/dL See Comment 12 Comp. Met 01/13/2024 [facility] [address] [place], [place] [phone] Glucose 100 mg/dL 70-110 BUN 13 mg/dL [...] GFR 78 ML/MIN/1.73SQM >60 CBC W/Diff 01/13/2024 [facility] [address] [place] [address] [phone] WBC 6.5 10^3/M3 3.1-9.2 RBC 3.49 10^6/M3 Low 3.70-5.50 HGB 12.0 GR/DL 11.5-16.1 HCT 36.4 % 34.5-47.8 MCV 104.4 CUMICR High 82.6-95.8 MCH 34.3 PICOGR High 27.9-32.9 MCHC 32.8 % 32.6-35.4 RDW 15.4 % High 11.4-14.6 PLT 247 10^3/M3 140-350 MPV 9.2 CUMICR 7.0-10.6 %Neut 65.2 % 40.0-75.0 %Lymph 26.7 % 17.0-45.0 %[place] 3.3 % 1.0-11.0 %Eos 3.7 % 0.0-6.0 %Baso 1.1 % 0.0-2.0 #Neut 4.3 10^3/M3 1.5-8.0 #Lymph 1.7 10^3/M3 0.8-3.2 #[place] 0.2 10^3/M3 0.0-0.8 #Eos 0.2 10^3/m3 0.0-0.4 #Baso 0.1 10^3/m3 0.0-0.2 1 ORDER PLACED, PER DOCUMENTATION (PER COLORED PAPER) SPECIMEN FOR TESTING NOT ACQUIRED TL 2 ORDER PLACED, PER DOCUMENTATION (PER COLORED PAPER) SPECIMEN FOR TESTING NOT ACQUIRED 5.3.24 CONOR 3 *THE [employer] USES MICROALBUMIN/CREATINE RATIO : [...] Target Procedures Date Code Description Status 03/07/2024 71336 Venipuncture Routine Complet ed 03/02/2024 47247 Venipuncture Routine Complet ed 01/13/2024 82169 Fundus Eye Exam Completed 01/13/2024 68648 Venipuncture Routine Complet ed 01/13/2024 3078F PVRP [...] I10 Essential (primary) hyperten sarwat [facility] - [place] 03/02/2024 E78.2 Mixed hyperlipidemia Mishel Bernabe MD 03/02/2024 E78.2 Mixed hyperlipidemia Lab - [place] 03/02/2024 E11.65 Type 2 diabetes mellitus wit h hyperglycemia Mishel Bernabe MD 03/02/2024 E11.65 Type 2 diabetes mellitus wit h hyperglycemia Lab - [place] 03/02/2024 E61.2 Magnesium deficiency Mishel Bernabe MD 03/02/2024 E61.2 Magnesium deficiency Lab - [place] 01/13/2024 Z00.01 Encounter for [facility] adult medical examination with abnormal [...] 10:00 am - Ubaldo Jeronimo PA-C at [place] * 04/13/2024 1:30 pm - Ubaldo Jeronimo PA-C at [place] 01/13/2024 - Ubaldo Jeronimo PA-C* Z00.01 Encounter [...] 02/11/2024 Saima Ga PA-C Closed [address] [place] [id number] [phone]
--- OUTSIDE RECORDS SUMMARY | 2024-03-09 07:43 | External Medical Summary | Continuity of Care Document ---
Author Name Unknown Organization [facility] Address [address] [place] [address] Phone [phone] Problems Active Problems Provider Date Mixed hyperlipidemia [...] anxiety 10tabs Mishel Bernabe MD 02/29/2024 Klor-Con [id number] Tablets ER 1 by mouth twice daily 180tabs Mishel Bernabe MD 02/24/2024 Magnesium Oxide (Elemental)400mg Tablets 2 tablets twice daily 360tabs Mishel Bernabe MD 01/17/2024 Balynfzjbkh378rj Tablets One By Mouth Now Repeat One Week as Needed 2tabs Mishel Bernabe MD 01/17/2024 Tramadol NMF42jx Tablets Take 1 Tablet By Mouth Twice A Day as Needed For Severe Pain 45tabs Mishel Bernabe MD 01/13/2024 Trazodone KYC768zc Tablets Take 1 Tablet AT Bedtime 90tabs Mishel Bernabe MD 04/25/2023 Freestyle Yevgeniy 3/Sensor/Glucose Monitoring Khedzz1Hznlzg Misc use as directed e11.65 3units Mishel Bernabe MD 12/16/2022 Quetiapine Wkxtyfww89ps Tablets Take 1 Tablet By Mouth Everyday AT Bedtime 90tabs Mishel Bernabe MD 11/05/2022 Clotrimazole/Betamet hasone Dipropionate1-0.05% Cream Apply To Affected Area Twice A Day as Needed 135units Mishel Bernabe MD 10/20/2022 Vitamin D3 1,250 mcgCapsule Take 1 Capsule By Mouth Once A Week 12caps E55.9 Mishel Bernabe MD 07/13/2022 Mhfdxynacxg69fh Tablets Take 1 Tablet By Mouth AT Bedtime For Sleep 90tabs Mishel Bernabe MD 04/10/2022 Lidocaine Viscous HCL2% Solution apply 2ml to both cheeks, then swish and swallow up to three times daily 300units Mishel Bernabe MD 03/12/2022 Albuterol Sulfate JHN059(90Base) mcg/Act Aerosol Inhale 2 Puffs By Mouth Every 4-6 Hours as Needed Wheezing 25.5units Juventino Sibley MD 12/19/[address] Take 1 Tablet By Mouth Every Day 90tabs K21.0 Mishel Bernabe MD 12/04/2021 Rollator Ultra-LightMisc use as directed 1units Juventino Sibley MD 021 Qrnlnzdren9xw Tablets Take 1 Tablet By Mouth Four Times A Day 360tabs Juventino Sibley MD 12/04/2020 Trelegy Sgmzawd305-58.5-25mc g/Act Aerosol Inhale 1 puff By Mouth Daily 60units Juventino Sibley MD 12/03/2020 Clopidogrel Jgsnfhwoe49bo Tablets Take 1 Tablet By Mouth Every Day 90tabs Juventino Sibley MD 03/24/2020 Triamcinolone Acetonide0.1% Cream Apply To Affected Area Twice A Day Until Resolved--Then Use When Flaring 30units Rolf Snell JR, MD 11/30/2019 Uberseq 2w/Device Kit test sugars as advised dx: e11.65 1units Rolf Snell JR, MD 11/23/2019 Onetouch Ultrasoft LancetsMisc use up to 2 times daily Dx: E11.9 100units Rolf Snell JR, MD 11/23/2019 Onetouch UltraStrips Use To Test Twice Daily Dx: E11.65 100units Rolf Snell JR, MD 11/23/2019 Escitalopram Xmnvwqb99gy Tablets Take 1 Tablet By Mouth Every Day 90tabs F33.1 Mishel Bernabe MD 11/13/2019 Atorvastatin Rgosmhu68id Tablets Take 1 Tablet By Mouth Every Day 90tabs Juventino Sibley MD 10/16/2019 Ondansetron HCL4mg Tablets Take 1 Tablet By Mouth Every 6-8 Hours as Needed For Nausea 45tabs Mishel Bernabe MD 03/12/2019 Pen [place] 5/16"31G X 8 mm Misc use daily [...] Ralph Braxton, DO 11/03/2017 History Medications Sodium Jqwdfuxjetd663yz Tablets Take 1 Tablet By Mouth Every Day Unknown 12/30/2023 - 01/06/2024 Magnesium Ljqdl067xi Tablets 1 by mouth twice a day for 5 days. Unknown 12/30/2023 - 01/04/2024 Potassium Chloride GZ63Nxb Tablets ER Take 2 Tablets By Mouth Every Day for 4 days. Unknown 12/30/2023 - 01/04/2024 Amoxicillin/Clavulanate Iezxveuko439-311qr Tablets Take 1 Tablet By Mouth Twice A Day For 10 Days 20tabs Mishel Bernabe MD 11/17/2023 - 11/27/2023 Wvjfegefiy00ow Tablets two tablets x 5 days then one tablet daily x 5 days 15tabs Mishel Bernabe MD 11/17/2023 - 01/05/2024 Amoxicillin/Clavulanate Zgpqgccfv510-020gf Tablets Take 1 Tablet By Mouth Twice A Day For 10 Days 20tabs Mishel Bernabe MD 10/08/2023 - 01/03/2024 Hsdfwknjsr07ll Tablets two tablets x 5 days then one tablet daily x 5 days 15tacristopher Bernabe MD 10/08/2023 - 01/05/2024 Ipeheslk276wn Tablets one by mouth now repeat one week as needed 2tacristopher Bernabe MD 10/08/2023 - 01/05/2024 Uqnypcee577661Gdex/GM Cream Apply To Affected Area Twice A Day 90units Mishel Bernabe MD 10/05/2023 - 01/05/2024 Medications Administered in Office Medication SIG Qnty Indications Ordering Provider Date Injection Kenalog 10 MG NDC [id number] Ubaldo Jeronimo, P A-C 08/19/2023 Injection Kenalog 10 MG NDC [id number] Ubaldo Jeronimo, P A-C 03/12/2022 Injection Kenalog 10 MG NDC [id number] Ubaldo Jeronimo, P A-C 01/15/2022 Injection Kenalog 10 MG NDC [id number] Ubaldo Jeronimo, P A-C 10/27/2021 Injection Kenalog 10 MG NDC [id number] Ubaldo Jeronimo, P A-C 07/17/2021 Injection Kenalog 10 MG NDC 25089634133Njpjuyeou Ubaldo Jeronimo, P A-C 04/29/2021 Injection Kenalog 10 MG NDC [id number] Ubaldo Jeronimo, P A-C 02/17/2021 Injection Kenalog 10 MG NDC [id number] Ubaldo Jeronimo, P A-C 12/03/2020 Injection Kenalog 10 MG NDC [id number] Ubaldo Jeronimo, P A-C 08/30/2020 Injection Kenalog 10 MG NDC [id number] Ubaldo Jeronimo, P A-C 05/30/2020 Injection Kenalog 10 MG NDC [id number] Ubaldo Jeronimo, P A-C 02/13/2020 Injection Dexamethasone Sodium Phosphate, 1 MGInjection Ubaldo Landon Lazorka, PA-C 10/2019 Injection Kenalog 10 MG NDC [id number] Ubaldo Landon Lazdafnea, P A-C 11/30/2019 Injection Kenalog 10 MG NDC [id number] Ubaldo Landon Lazorka, P A-C 06/21/2018 Injection Kenalog 10 MG NDC [id number] Ubaldo Landon Lazorka, P A-C 06/21/2018 Injection Kenalog 10 MG NDC [id number] Ubaldo Landon Lazorka, P A-C 12/02/2017 Injection Kenalog 10 MG NDC [id number] Ubaldo Landon Lazorka, P A-C 12/02/2017 Injection Dexamethasone Sodium Phosphate, 1 MGInjection Ubaldo Landon Lazorka, PA-C 11/12 Injection Dexamethasone Sodium Phosphate, 1 MGInjection Ubaldo Landon Lazorka, PA-C 11/12 Immunizations CPT Code Status Date Vaccine Lot # [id number] Given 08/19/2023 Influenza Virus Vaccine, Quadrivalent (Cciiv4), Derived From Cell [id number] Given 07/23/2021 Pfizer Sars-Cov -2 (Cov-19) vacc 30mcg/0.3ML 12Y+ EMR Doc Only [id number] Given 07/17/2021 Influenza Virus Vaccine, Quadrivalent (Cciiv4), Derived From 5 Given 12/12/2020 Pfizer Sars-Cov -2 (Cov-19) vacc 30mcg/0.3ML 12Y+ EMR Doc Only 90948 Given 11/16/2020 Pfizer Sars-Cov -2 (Cov-19) vacc 30mcg/0.3ML 12Y+ EMR Doc Only U-FLU Given 08/30/2020 Influenza,Unspecified [id number] 46946 Given 08/30/2020 Influenza Virus Vaccine, Quadrivalent (Cciiv4), Derived From 3 Given 06/13/2019 Influenza Virus Vaccine, Quadrivalent (Cciiv4), Derived From Cell [id number] U-FLU Given 06/13/2019 Influenza,Unspecified 11047 Given 11/01/2018 Pneumococcal Vaccine/Pneu movax 23 [id number] Given 09/20/2018 Influenza Virus Vaccine, Quadrivalent (Cciiv4), Derived From Cell U-FLU Given 06/07/2017 Influenza,Unspecified 78291 Given 08/25/2016 Tdap (Tetanus, diphtheria & acel. pertussis) Adacel or Boostrix U-FLU Given 06/19/2016 Influenza,Unspecified U-FLU Given 05/27/2015 Influenza,Unspecified 48541 Given 11/29/2014 Pneumococcal Vaccine/Pneu movax 23 U-FLU Given 06/28/2010 Influenza,Unspecified Vital Signs Date Vital Result Comment 01/13/2024 1:22pm BP Systolic 130 mmHg BP Diastolic 78 mmHg Body Temperature 98.1 F Heart Rate 78 /min Respiratory Rate 22 /min Weight 165.00 lb Weight 74.844 kg Height 54 inches 4'6" BMI (Body Mass Index) 39.8 kg/m2 O2 % BldC Oximetry 97 % [place] Body Weight 100 lb 01/05/2024 12:55pm BP Systolic 136 mmHg BP Diastolic 78 mmHg Body Temperature 97.8 F Heart Rate 77 /min Respiratory Rate 17 /min Weight 165.31 lb Weight 74.986 kg O2 % BldC Oximetry 98 % Results Test Acquired Date Facility Test Result H/L [place] Laboratory test finding 03/02/2024 [facility] [address] [place] [address] [phone] Magnesium <pending> Urinalysis 01/13/2024 [facility] [address] [place], [place] [id number] [phone] Color COMMENT 1 Appearance COMMENT Clear Spec.Grav. COMMENT 1.005-1.025 Leukocytes COMMENT Negative Nitrite COMMENT Negative PH COMMENT 6.0-7.5 Protein COMMENT Negative Urine Glucose COMMENT Negative Ketone COMMENT Negative Urobilinogen COMMENT E.U./DL Normal Bilirubin COMMENT Negative Blood COMMENT Negative WBC-U COMMENT /HPF 0-5/HPF RBC-U COMMENT /HPF 0-5/HPF Bacteria COMMENT None Seen Squamous COMMENT /HPF 0-5/HPF Laboratory test finding 01/13/2024 [facility] [address] [place], [place] [id number] [phone] Magnesium 0.9 mg/dL Low 1.7-2.8 Tibc 01/13/2024 [facility] [address] [place] [address] [phone] Tibc 298 g /dL 260-400 Transferrin 213 mg/dL 200-400 Iron Panel([employer]) 01/13/2024 [facility] [address] [place] [address] [phone] Iron 48 g /dL 25-140 % Saturation 16 % Low 30-35 Microalbumin Urine 01/13/2024 [facility]. [address] [place] [address] [phone] Urine Creat COMMENT mg/dL Comment Microalbumin COMMENT mg/dL 0.0-1.8 2 ug/mgCREATININE COMMENT ug/mg Low 0-29 3 Hba1c 01/13/2024 [facility] [address] [place] [address] [phone] A1c 4.50 % Low 4.70-6.50 4 Urinalysis,Cul t If Indicated 01/13/2024 [facility] [address] [place] [address] [phone] RFLX Culture COMMENT Laboratory test finding 01/13/2024 [facility] [address] [place] [address] [phone] TSH 1.00 uIU/mL 0.50-6.00 Lipid 01/13/2024 [facility] [address] [place] [address] [phone] Cholesterol 134 mg/dL 0-200 5 Triglyceride 153 mg/dL High 0-150 6 HDLD 52 mg/dL See Comment 7 Measured LDL 68 mg/dL 0-130 8 Calc VLDL 30.6 mg/dL See Comment 9 Chol/HDL 2.6 RATIO See Comment 10 Non-HDL 82 mg/dL See Comment 11 Comp. Met 01/13/2024 [facility] [address] [place] [address] [phone] Glucose 100 mg/dL 70-110 BUN 13 mg/dL [...] GFR 78 ML/MIN/1.73SQM >60 CBC W/Diff 01/13/2024 [facility] [address] [place] [address] [phone] WBC 6.5 10^3/M3 3.1-9.2 RBC 3.49 10^6/M3 Low 3.70-5.50 HGB 12.0 GR/DL 11.5-16.1 HCT 36.4 % 34.5-47.8 MCV 104.4 CUMICR High 82.6-95.8 MCH 34.3 PICOGR High 27.9-32.9 MCHC 32.8 % 32.6-35.4 RDW 15.4 % High 11.4-14.6 PLT 247 10^3/M3 140-350 MPV 9.2 CUMICR 7.0-10.6 %Neut 65.2 % 40.0-75.0 %Lymph 26.7 % 17.0-45.0 %[place] 3.3 % 1.0-11.0 %Eos 3.7 % 0.0-6.0 %Baso 1.1 % 0.0-2.0 #Neut 4.3 10^3/M3 1.5-8.0 #Lymph 1.7 10^3/M3 0.8-3.2 #[place]arton 0.2 10^3/M3 0.0-0.8 #Eos 0.2 10^3/m3 0.0-0.4 #Baso 0.1 10^3/m3 0.0-0.2 1 ORDER PLACED, PER DOCUMENTATION (PER COLORED PAPER) SPECIMEN FOR TESTING NOT ACQUIRED 5.3.24 CONOR 2 *[employer] USES MICROALBUMIN/CREATINE RATIO : *<30 ug/mg CREATININE IS CLASSIFIED NORMAL *30-300 ug/mg CREATININE IS CLASSIFIED CLINICAL MICROALBUMINURIA *>300 ug/mg CREATININE IS CLASSIFIED CLINICAL ALBUMINURIA CLASSIFICATION OF A PATIENT SHOULD BE BASED ON TWO OF THREE ABNORMAL RESULTS COLLECTED WITHIN A 3 TO 6 MONTH TIME FRAME* 3 CANNOT CALCULATE RATIO WHEN MALB < 0.7 4 MEAN GLUCOSE IN mg/d L/A1c% POOR CONTROL FAIR CONTROL GOOD CONTROL EXCELLENT CONTROL 360-14 210-9 180-8 120-6 330-13 150-7 90-5 300-12 270-11 240-10 5 CHOLESTEROL Less than 200mg/dl Low risk 201-239 mg/dl Borderline risk Equal to or greater 240mg/dl High risk 6 TRIGLYCERIDES Less than 150mg/dl Normal 150-199mg/dl Borderline 200-499mg/dl High Greater than 500mg/dl Very High 7 HDL <40mg/dl Elevated Risk 41-59mg/dl Risk >=60mg/dl Least Risk 8 LDL <100mg/dl Optimal 100-129mg/dl Near Optimal 130-159mg/dl Borderline High 160-189mg/dl High >=190 Very High 9 VLDL Less than 30mg/dl Normal 10 CHOL/HDL <4.0 Optimal 4.0-5.0 Borderline >6.0 High Risk 11 NON-HDL 30mg/dl higher than LDL Target Procedures Date Code Description Status 03/02/2024 08019 Venipuncture Routine [facility] ed 01/13/2024 17625 Fundus Eye Exam Completed 01/13/2024 56887 Venipuncture Routine [facility] ed 01/13/2024 3078F PVRP Diastolic BP <80 [...] un specified Assessments Date Code Description Provider 03/02/2024 I10 Essential (primary) hyperten sarwat [facility] - [place] 03/02/2024 E78.2 Mixed hyperlipidemia Lab - [place] 03/02/2024 E11.65 Type 2 diabetes mellitus wit h hyperglycemia Lab - [place] 03/02/2024 E61.2 Magnesium deficiency Lab - [place] 01/13/2024 Z00.01 Encounter for ge neral adult medical examination with abnormal findings Ubaldo Jeronimo PA-C 01/13/2024 E11.65 Type 2 diabetes mellitus wit h hyperglycemia Ubaldo Jeronimo PA-C 01/13/2024 E11.42 Type 2 diabetes mellitus with diabetic polyneuropathy Ubaldo Jeronimo PA-C 01/13/2024 E66.01 Morbid (severe) obesity due to excess calories UbaldoSUKUMAR OrozcoC 01/13/2024 F33.1 Major depressive disorder, recurrent, moderate Ubaldo Dipesh Jeronimo, SUKUMARC 01/13/2024 I70.0 Atherosclerosis of aorta Ezequiel adelasera Jeronimo, BRENDA-C 01/13/2024 J43.9 Emphysema, unspecified Ezequielsamantha zamora Dipesh Jeronimo, BRENDA-C 01/13/2024 M46.1 Sacroiliitis, not elsewhere classified Ubaldo SUKUMAR McclellanC 01/13/2024 M16.11 Unilateral prima ry osteoarthritis, right hip SUKUMAR LawtonC 01/13/2024 I10 Essential (primary) hyperten sarwat UbaldoSUKUMAR OrozcoC 01/13/2024 E78.2 Mixed hyperlipidemia SUKUMAR LawtonC 01/13/2024 D64.9 Anemia, unspecified Ubaldo Cara Jeronimo, BRENDA-C 01/13/2024 E61.2 Magnesium deficiency Ubaldo SUKUMAR McclellanC 01/13/2024 M70.52 Other bursitis of knee, left [...] 10/08/2023 J01.00 Acute maxillary sinusitis, u nspecified SUKUMAR LawtonC 10/08/2023 J20.9 Acute bronchitis, unspecifie d Ubaldo Jeronimo PA-C Plan of Treatment Future Appointment(s):* 03/13/2024 10:00 am - Ubaldo Jeronimo PA-C at [place] * 04/13/2024 1:30 pm - Ubalod Jeronimo PA-C at [place] 01/13/2024 - Ubaldo Jeronimo PA-C* Z00.01 Encounter [...] 02/11/2024 Saima Ga PA-C Closed 4 Gastroenterology [facility] [place] [address] [place] [address] [phone]
--- OUTSIDE RECORDS SUMMARY | 2024-03-09 07:43 | External Medical Summary | Continuity of Care Document ---
Author Name Unknown Organization [facility] Address [address] [place] [address] Phone [phone] Problems Active Problems Provider Date Mixed hyperlipidemia [...] anxiety 10tabs Mishel Bernabe MD 02/29/2024 Klor-Con [id number] Tablets ER 1 by mouth twice daily 180tabs Mishel Bernabe MD 02/24/2024 Magnesium Oxide (Elemental)400mg Tablets 2 tablets twice daily 360tabs Mishel Bernabe MD 01/17/2024 Pollsqurffk123iz Tablets One By Mouth Now Repeat One Week as Needed 2tabs Mishel Bernabe MD 01/17/2024 Tramadol NOX59wn Tablets Take 1 Tablet By Mouth Twice A Day as Needed For Severe Pain 45tabs Mishel Bernabe MD 01/13/2024 Trazodone RSD988bv Tablets Take 1 Tablet AT Bedtime 90tabs Mishel Bernabe MD 04/25/2023 Freestyle Yevgeniy 3/Sensor/Glucose Monitoring Idpsfs5Ytooxi Misc use as directed e11.65 3units Mishel Bernabe MD 12/16/2022 Quetiapine Bomkvsmo67pa Tablets Take 1 Tablet By Mouth Everyday AT Bedtime 90tabs Mishel Bernabe MD 11/05/2022 Clotrimazole/Betamet hasone Dipropionate1-0.05% Cream Apply To Affected Area Twice A Day as Needed 135units Mishel Bernabe MD 10/20/2022 Vitamin D3 1,250 mcgCapsule Take 1 Capsule By Mouth Once A Week 12caps E55.9 Mishel Bernabe MD 07/13/2022 Wykppycsxwg86il Tablets Take 1 Tablet By Mouth AT Bedtime For Sleep 90tabs Mishel Bernabe MD 04/10/2022 Lidocaine Viscous HCL2% Solution apply 2ml to both cheeks, then swish and swallow up to three times daily 300units Mishel Bernabe MD 03/12/2022 Albuterol Sulfate XLG409(90Base) mcg/Act Aerosol Inhale 2 Puffs By Mouth Every 4-6 Hours as Needed Wheezing 25.5units Juventino Sibley MD 12/19/[address] Take 1 Tablet By Mouth Every Day 90tabs K21.0 Mishel Bernabe MD 12/04/2021 Rollator Ultra-LightMisc use as directed 1units Juventino Sibley MD 021 Zxgrleyygg3fv Tablets Take 1 Tablet By Mouth Four Times A Day 360tabs Juventino Sibley MD 12/04/2020 Trelegy Utjpsqj585-53.5-25mc g/Act Aerosol Inhale 1 puff By Mouth Daily 60units Juventino Sibley MD 12/03/2020 Clopidogrel Ipfqzhdxv11jm Tablets Take 1 Tablet By Mouth Every Day 90tabs Juventino Sibley MD 03/24/2020 Triamcinolone Acetonide0.1% Cream Apply To Affected Area Twice A Day Until Resolved--Then Use When Flaring 30units oRlf Snell JR, MD 11/30/2019 Freedom Meditech 2w/Device Kit test sugars as advised dx: e11.65 1units Rolf Snell JR, MD 11/23/2019 Onetouch Ultrasoft LancetsMisc use up to 2 times daily Dx: E11.9 100units Rolf Snell JR, MD 11/23/2019 Onetouch UltraStrips Use To Test Twice Daily Dx: E11.65 100units Rolf Snell JR, MD 11/23/2019 Escitalopram Bvifjsr20ba Tablets Take 1 Tablet By Mouth Every Day 90tabs F33.1 Mishel Bernabe MD 11/13/2019 Atorvastatin Numvrdw73yh Tablets Take 1 Tablet By Mouth Every Day 90tabs Juventino Sibley MD 10/16/2019 Ondansetron HCL4mg Tablets Take 1 Tablet By Mouth Every 6-8 Hours as Needed For Nausea 45tabs Mishel Bernabe MD 03/12/2019 Pen Vidor 5/16"31G X 8 mm Misc use daily [...] Ralph Braxton, DO 11/03/2017 History Medications Sodium Vvvazwqvuye714ds Tablets Take 1 Tablet By Mouth Every Day Unknown 12/30/2023 - 01/06/2024 Magnesium Avdua228zb Tablets 1 by mouth twice a day for 5 days. Unknown 12/30/2023 - 01/04/2024 Potassium Chloride TB07Kwt Tablets ER Take 2 Tablets By Mouth Every Day for 4 days. Unknown 12/30/2023 - 01/04/2024 Amoxicillin/Clavulanate Slwiltozi876-816si Tablets Take 1 Tablet By Mouth Twice A Day For 10 Days 20tabs Mishel Bernabe MD 11/17/2023 - 11/27/2023 Yvljzdyjtb76rq Tablets two tablets x 5 days then one tablet daily x 5 days 15tabs Mishel Bernabe MD 11/17/2023 - 01/05/2024 Amoxicillin/Clavulanate Mafsjkgaw188-823kf Tablets Take 1 Tablet By Mouth Twice A Day For 10 Days 20tabs Mishel Benrabe MD 10/08/2023 - 01/03/2024 Leevrxutqo57tm Tablets two tablets x 5 days then one tablet daily x 5 days 15tacristopher Bernabe MD 10/08/2023 - 01/05/2024 Qstyvvpo198di Tablets one by mouth now repeat one week as needed 2tacristopher Bernabe MD 10/08/2023 - 01/05/2024 Gfdrauow748607Otgf/GM Cream Apply To Affected Area Twice A Day 90units Mishel Bernabe MD 10/05/2023 - 01/05/2024 Medications Administered in Office Medication SIG Qnty Indications Ordering Provider Date Injection Kenalog 10 MG NDC [id number] Ubaldo Jeronimo, P A-C 08/19/2023 Injection Kenalog 10 MG NDC [id number] Ubaldo Jeronimo, P A-C 03/12/2022 Injection Kenalog 10 MG NDC 94406998080Egehiurlb Ubaldo Jeronimo, P A-C 01/15/2022 Injection Kenalog 10 MG NDC 24808753296Awjlygtkl Ubaldo Jeronimo, P A-C 10/27/2021 Injection Kenalog 10 MG NDC [id number] Ubaldo Jeronimo, P A-C 07/17/2021 Injection Kenalog 10 MG NDC 70433883032Oforhovxh Ubaldo Jeronimo, P A-C 04/29/2021 Injection Kenalog 10 MG NDC 47194887532Vmwreefwj Ubaldo Jeronimo, P A-C 02/17/2021 Injection Kenalog 10 MG NDC [id number] Ubaldo Jeronimo, P A-C 12/03/2020 Injection Kenalog 10 MG NDC 48080579958Nlqzyicnn Ubaldo Jeronimo, P A-C 08/30/2020 Injection Kenalog 10 MG NDC [id number] Ubaldo Jeronimo, P A-C 05/30/2020 Injection Kenalog 10 MG NDC [id number] Ubaldo Jeronimo, P A-C 02/13/2020 Injection Dexamethasone Sodium Phosphate, 1 MGInjection Ubaldo Landon Lazorka, PA-C 10/2019 Injection Kenalog 10 MG NDC 56527721220Jkipgfmje Ubaldo Landon Lazdafnea, P A-C 11/30/2019 Injection Kenalog 10 MG NDC 57719008759Ojdtaxziz Ubaldo Landon Lazorka, P A-C 06/21/2018 Injection Kenalog 10 MG NDC [id number] Ubaldo Landon [place]a, P A-C 06/21/2018 Injection Kenalog 10 MG NDC 70046342940Eutwrmbpk Ubaldo Landon [place]a, P A-C 12/02/2017 Injection Kenalog 10 MG NDC 98709651467Snsogibqi Ubaldo Landon Laz[place]a, P A-C 12/02/2017 Injection Dexamethasone Sodium Phosphate, 1 MGInjection Ubaldo Landon [place], PA-C 11/12 Injection Dexamethasone Sodium Phosphate, 1 MGInjection Ubaldo Landon [place], PA-C 11/12 Immunizations CPT Code Status Date Vaccine Lot # [id number] Given 08/19/2023 Influenza Virus Vaccine, Quadrivalent (Cciiv4), Derived From Cell [id number] Given 07/23/2021 Pfizer Sars-Cov -2 (Cov-19) vacc 30mcg/0.3ML 12Y+ EMR Doc Only [id number] Given 07/17/2021 Influenza Virus Vaccine, Quadrivalent (Cciiv4), Derived From 7 Given 12/12/2020 Pfizer Sars-Cov -2 (Cov-19) vacc 30mcg/0.3ML 12Y+ EMR Doc Only [id number] Given 11/16/2020 Pfizer Sars-Cov -2 (Cov-19) vacc 30mcg/0.3ML 12Y+ EMR Doc Only U-FLU Given 08/30/2020 Influenza,Unspecified [id number] 10448 Given 08/30/2020 Influenza Virus Vaccine, Quadrivalent (Cciiv4), Derived From 4 Given 06/13/2019 Influenza Virus Vaccine, Quadrivalent (Cciiv4), Derived From Cell [id number] U-FLU Given 06/13/2019 Influenza,Unspecified 44336 Given 11/01/2018 Pneumococcal Vaccine/Pneu movax 23 [id number] Given 09/20/2018 Influenza Virus Vaccine, Quadrivalent (Cciiv4), Derived From Cell U-FLU Given 06/07/2017 Influenza,Unspecified 42920 Given 08/25/2016 Tdap (Tetanus, diphtheria & acel. pertussis) Adacel or Boostrix U-FLU Given 06/19/2016 Influenza,Unspecified U-FLU Given 05/27/2015 Influenza,Unspecified 00886 Given 11/29/2014 Pneumococcal Vaccine/Pneu movax 23 U-FLU Given 06/28/2010 Influenza,Unspecified Vital Signs Date Vital Result Comment 01/13/2024 1:22pm BP Systolic 130 mmHg BP Diastolic 78 mmHg Body Temperature 98.1 F Heart Rate 78 /min Respiratory Rate 22 /min Weight 165.00 lb Weight 74.844 kg Height 54 inches 4'6" BMI (Body Mass Index) 39.8 kg/m2 O2 % BldC Oximetry 97 % [place] Body Weight 100 lb 01/05/2024 12:55pm BP Systolic 136 mmHg BP Diastolic 78 mmHg Body Temperature 97.8 F Heart Rate 77 /min Respiratory Rate 17 /min Weight 165.31 lb Weight 74.986 kg O2 % BldC Oximetry 98 % Results Test Acquired Date Facility Test Result H/L Range N ote Comp. Met 03/02/2024 [facility] [address] [place] [address] [phone] Glucose 124 mg/dL High 70-110 BUN 18 [...] 78 ML/MIN/1.73SQM >60 Urinalysis,Cult If Indicated 03/02/2024 [facility] [address] [place] [address] [phone] RFLX Culture COMMENT Laboratory test finding 03/02/2024 [facility] [address] [place] [address] [phone] Magnesium 1.1 mg/dL Low 1.7- 2.8 Urinalysis 03/02/2024 [facility] [address] [place] [address] [phone] Color COMMENT 1 Appearance COMMENT Clear Spec.Grav. COMMENT 1.005-1.025 Leukocytes COMMENT Negative Nitrite COMMENT Negative PH COMMENT 6.0-7.5 Protein COMMENT Negative Urine Glucose COMMENT Negative Ketone COMMENT Negative Urobilinogen COMMENT E.U./DL Normal Bilirubin COMMENT Negative Blood COMMENT Negative WBC-U COMMENT /HPF 0-5/HPF RBC-U COMMENT /HPF 0-5/HPF Bacteria COMMENT None Seen Squamous COMMENT /HPF 0-5/HPF CBC W/Diff 03/02/2024 [facility] [address] [place] [address] [phone] WBC 7.4 10^3/M3 3.1-9.2 RBC 3.82 10^6/M3 3.70-5.50 HGB 12.7 GR/DL 11.5-16.1 HCT 38.6 % 34.5-47.8 MCV 101.0 CUMICR High 82.6-95.8 MCH 33.3 PICOGR High 27.9-32.9 MCHC 33.0 % 32.6-35.4 RDW 13.6 % 11.4-14.6 PLT 216 10^3/M3 140-350 MPV 9.2 CUMICR 7.0-10.6 %Neut 65.6 % 40.0-75.0 %Lymph 28.0 % 17.0-45.0 %Galax 3.9 % 1.0-11.0 %Eos 1.9 % 0.0-6.0 %Baso 0.6 % 0.0-2.0 #Neut 4.8 10^3/M3 1.5-8.0 #Lymph 2.1 10^3/M3 0.8-3.2 #Galax 0.3 10^3/M3 0.0-0.8 #Eos 0.1 10^3/m3 0.0-0.4 #Baso 0.0 10^3/m3 0.0-0.2 Urinalysis 01/13/2024 [facility] [address] [place] [address] [phone] Color COMMENT 2 Appearance COMMENT Clear Spec.Grav. COMMENT 1.005-1.025 Leukocytes COMMENT Negative Nitrite COMMENT Negative PH COMMENT 6.0-7.5 Protein COMMENT Negative Urine Glucose COMMENT Negative Ketone COMMENT Negative Urobilinogen COMMENT E.U./DL Normal Bilirubin COMMENT Negative Blood COMMENT Negative WBC-U COMMENT /HPF 0-5/HPF RBC-U COMMENT /HPF 0-5/HPF Bacteria COMMENT None Seen Squamous COMMENT /HPF 0-5/HPF Laboratory test finding 01/13/2024 [facility] [address] [place] [address] [phone] Magnesium 0.9 mg/dL Low 1.7-2.8 Tibc 01/13/2024 [facility] [address] [place] [address] [phone] Tibc 298 g /dL 260-400 Transferrin 213 mg/dL 200-400 Iron Panel([employer]) 01/13/2024 [facility] [address] [place] [address] [phone] Iron 48 g /dL 25-140 % Saturation 16 % Low 30-35 Microalbumin Urine 01/13/2024 [facility] [address] [place] [address] [phone] Urine Creat COMMENT mg/dL Comment Microalbumin COMMENT mg/dL 0.0-1.8 3 ug/mgCREATININE COMMENT ug/mg Low 0-29 4 Hba1c 01/13/2024 [facility] [address] [place] [address] [phone] A1c 4.50 % Low 4.70-6.50 5 Urinalysis,Cul t If Indicated 01/13/2024 [facility] [address] [place] [address] [phone] RFLX Culture COMMENT Laboratory test finding 01/13/2024 [facility] [address] [place] [address] [phone] TSH 1.00 uIU/mL 0.50-6.00 Lipid 01/13/2024 [facility] [address] [place] [address] [phone] Cholesterol 134 mg/dL 0-200 6 Triglyceride 153 mg/dL High 0-150 7 HDLD 52 mg/dL See Comment 8 Measured LDL 68 mg/dL 0-130 9 Calc VLDL 30.6 mg/dL See Comment 10 Chol/HDL 2.6 RATIO See Comment 11 Non-HDL 82 mg/dL See Comment 12 Comp. Met 01/13/2024 [facility] [address] [place], [place] [id number] [phone] Glucose 100 mg/dL 70-110 BUN 13 mg/dL [...] GFR 78 ML/MIN/1.73SQM >60 CBC W/Diff 01/13/2024 [facility] [address] [place], [place] [id number] [phone] WBC 6.5 10^3/M3 3.1-9.2 RBC 3.49 10^6/M3 Low 3.70-5.50 HGB 12.0 GR/DL 11.5-16.1 HCT 36.4 % 34.5-47.8 MCV 104.4 CUMICR High 82.6-95.8 MCH 34.3 PICOGR High 27.9-32.9 MCHC 32.8 % 32.6-35.4 RDW 15.4 % High 11.4-14.6 PLT 247 10^3/M3 140-350 MPV 9.2 CUMICR 7.0-10.6 %Neut 65.2 % 40.0-75.0 %Lymph 26.7 % 17.0-45.0 %Galax 3.3 % 1.0-11.0 %Eos 3.7 % 0.0-6.0 %Baso 1.1 % 0.0-2.0 #Neut 4.3 10^3/M3 1.5-8.0 #Lymph 1.7 10^3/M3 0.8-3.2 #Galax 0.2 10^3/M3 0.0-0.8 #Eos 0.2 10^3/m3 0.0-0.4 #Baso 0.1 10^3/m3 0.0-0.2 1 ORDER PLACED, PER DOCUMENTATION (PER COLORED PAPER) SPECIMEN FOR TESTING NOT ACQUIRED TL 2 ORDER PLACED, PER DOCUMENTATION (PER COLORED PAPER) SPECIMEN FOR TESTING NOT ACQUIRED 5.3.24 CONOR 3 *[facility] [employer] USES MICROALBUMIN/CREATINE RATIO : [...] Target Procedures Date Code Description Status 03/02/2024 64444 Venipuncture Routine [facility] ed 01/13/2024 63281 Fundus Eye Exam Completed 01/13/2024 35624 Venipuncture Routine [facility] ed 01/13/2024 3078F PVRP Diastolic BP [...] s and colitis Office Visit 10/08/2023 10:15a [facility] Ubaldo Jeronimo PA-C J01.00 Acute maxillary sinusitis, unspecified J20.9 Acute bronchitis, un specified Assessments Date Code Description Provider 03/02/2024 I10 Essential (primary) hyperten sarwat Bernabe MD 03/02/2024 I10 Essential (primary) hyperten sarwat [facility] - [place] 03/02/2024 E78.2 Mixed hyperlipidemia Mishel Bernabe MD 03/02/2024 E78.2 Mixed hyperlipidemia Lab - [place] 03/02/2024 E11.65 Type 2 diabetes mellitus wit h hyperglycemia Mishel Bernabe MD 03/02/2024 E11.65 Type 2 diabetes mellitus wit h hyperglycemia Lab - [place] 03/02/2024 E61.2 Magnesium deficiency Mishel Bernabe MD 03/02/2024 E61.2 Magnesium deficiency Lab - [place] 01/13/2024 Z00.01 [facility] Ubaldo Jeronimo PA-C 01/13/2024 E11.65 Type 2 diabetes mellitus wit h hyperglycemia Ubaldo Jeronimo PA-C 01/13/2024 E11.42 Type 2 diabetes mellitus with diabetic polyneuropathy Ubaldo Jeronimo PA-C 01/13/2024 E66.01 Morbid (severe) obesity due to excess calories Ubaldo Jeronimo PA-C 01/13/2024 F33.1 Major depressive disorder, recurrent, moderate Ubaldo Jeronimo PA-C 01/13/2024 I70.0 Atherosclerosis of aorta Ezequiel Jeronimo PA-C 01/13/2024 J43.9 Emphysema, unspecified Jamarcus Jeronimo PA-C 01/13/2024 M46.1 Sacroiliitis, not elsewhere classified Ubaldo Jeronimo PA-C 01/13/2024 M16.11 Unilateral prima ry osteoarthritis, right hip Ubaldo Jeronimo PA-C 01/13/2024 I10 Essential (primary) hyperten sarwat Ubaldo Jeronimo PA-C 01/13/2024 E78.2 Mixed hyperlipidemia Ubaldo Jeronimo PA-C 01/13/2024 D64.9 Anemia, unspecified Ubaldo Jeronimo PA-C 01/13/2024 E61.2 Magnesium deficiency Ubaldo Jeronimo PA-C 01/13/2024 M70.52 Other bursitis of knee, left knee Ubaldo Jeronimo PA-C 01/05/2024 E11.9 Type 2 diabetes mellitus without [...] 10:00 am - Ubaldo Jeronimo PA-C at [place] * 04/13/2024 1:30 pm - Ubaldo Jeronimo PA-C at [facility] 01/13/2024 - Ubaldo Jeronimo PA-C* Z00.01 Encounter [...] 02/11/2024 Saima Ga PA-C Closed [address] [place] [phone]
--- OUTSIDE RECORDS SUMMARY | 2024-03-09 07:43 | External Medical Summary | Continuity of Care Document ---
Author Name Unknown Organization [facility] Address [address] [place] [address] Phone [phone] Problems Active Problems Provider Date Mixed hyperlipidemia [...] anxiety 10tabs Mishel Bernabe MD 02/29/2024 Klor-Con [id number] Tablets ER 1 by mouth twice daily 180tabs Mishel Benrabe MD 02/24/2024 Magnesium Oxide (Elemental)400mg Tablets 2 tablets twice daily 360tabs Mishel Bernabe MD 01/17/2024 Jzjjvkcrqmx224ua Tablets One By Mouth Now Repeat One Week as Needed 2tabs Mishel Bernabe MD 01/17/2024 Tramadol JTM74ob Tablets Take 1 Tablet By Mouth Twice A Day as Needed For Severe Pain 45tabs Mishel Bernabe MD 01/13/2024 Trazodone UAH204it Tablets Take 1 Tablet AT Bedtime 90tabs Mishel Bernabe MD 04/25/2023 Freestyle Yevgeniy 3/Sensor/Glucose Monitoring Ywwoaf7Btsbmn Misc use as directed e11.65 3units Mishel Bernabe MD 12/16/2022 Quetiapine Moilrgcq92eo Tablets Take 1 Tablet By Mouth Everyday AT Bedtime 90tabs Mishel Bernabe MD 11/05/2022 Clotrimazole/Betamet hasone Dipropionate1-0.05% Cream Apply To Affected Area Twice A Day as Needed 135units Mishel Bernabe MD 10/20/2022 Vitamin D3 1,250 mcgCapsule Take 1 Capsule By Mouth Once A Week 12caps E55.9 Mishel Bernabe MD 07/13/2022 Fidnkqpbdsf71qz Tablets Take 1 Tablet By Mouth AT Bedtime For Sleep 90tabs Mishel Bernabe MD 04/10/2022 Lidocaine Viscous HCL2% Solution apply 2ml to both cheeks, then swish and swallow up to three times daily 300units Mishel Bernabe MD 03/12/2022 Albuterol Sulfate OER416(90Base) mcg/Act Aerosol Inhale 2 Puffs By Mouth Every 4-6 Hours as Needed Wheezing 25.5units Juventino Sibley MD 12/19/[address] Take 1 Tablet By Mouth Every Day 90tabs K21.0 Mishel Bernabe MD 12/04/2021 Rollator Ultra-LightMisc use as directed 1units Juventino Sibley MD 021 Gdljzlkabq9ez Tablets Take 1 Tablet By Mouth Four Times A Day 360tabs Juventino Sibley MD 12/04/2020 Trelegy Idkfmkl093-64.5-25mc g/Act Aerosol Inhale 1 puff By Mouth Daily 60units Juventino Sibley MD 12/03/2020 Clopidogrel Lrglchqlo90ev Tablets Take 1 Tablet By Mouth Every Day 90tabs Juventino Sibley MD 03/24/2020 Triamcinolone Acetonide0.1% Cream Apply To Affected Area Twice A Day Until Resolved--Then Use When Flaring 30units Rolf Snell JR, MD 11/30/2019 [employer] 2w/Device Kit test sugars as advised dx: e11.65 1units Rolf Snell JR, MD 11/23/2019 Onetouch Ultrasoft LancetsMisc use up to 2 times daily Dx: E11.9 100units Rolf Snell JR, MD 11/23/2019 Onetouch UltraStrips Use To Test Twice Daily Dx: E11.65 100units Rolf Snell JR, MD 11/23/2019 Escitalopram Uvtuoff42hi Tablets Take 1 Tablet By Mouth Every Day 90tabs F33.1 Mishel Bernabe MD 11/13/2019 Atorvastatin Ttsszno54oh Tablets Take 1 Tablet By Mouth Every Day 90tabs Juventino Sibley MD 10/16/2019 Ondansetron HCL4mg Tablets Take 1 Tablet By Mouth Every 6-8 Hours as Needed For Nausea 45tabs Mishel Bernabe MD 03/12/2019 Pen [place] 5/16"31G X 8 mm Misc use daily [...] sugars daily and when symptomatic 60units Ralph rBaxton, DO 11/03/2017 History Medications Sodium Bkothkhudjl994bo Tablets Take 1 Tablet By Mouth Every Day Unknown 12/30/2023 - 01/06/2024 Magnesium Kxkht964vd Tablets 1 by mouth twice a day for 5 days. Unknown 12/30/2023 - 01/04/2024 Potassium Chloride XS19Xvy Tablets ER Take 2 Tablets By Mouth Every Day for 4 days. Unknown 12/30/2023 - 01/04/2024 Amoxicillin/Clavulanate Dmxnrvmhr577-131eh Tablets Take 1 Tablet By Mouth Twice A Day For 10 Days 20tabs Mishel Bernabe MD 11/17/2023 - 11/27/2023 Ganjomiwwk15eg Tablets two tablets x 5 days then one tablet daily x 5 days 15tabs Mishel Bernabe MD 11/17/2023 - 01/05/2024 Amoxicillin/Clavulanate Cafmuhesx434-323db Tablets Take 1 Tablet By Mouth Twice A Day For 10 Days 20tabs Mishel Bernabe MD 10/08/2023 - 01/03/2024 Vtbofjvasi14nz Tablets two tablets x 5 days then one tablet daily x 5 days 15tacristopher Bernabe MD 10/08/2023 - 01/05/2024 Somaqvzy853bc Tablets one by mouth now repeat one week as needed 2tacristopher Bernabe MD 10/08/2023 - 01/05/2024 Kohxqhyf370125Quwo/GM Cream Apply To Affected Area Twice A Day 90units Mishel Bernabe MD 10/05/2023 - 01/05/2024 Medications Administered in Office Medication SIG Qnty Indications Ordering Provider Date Injection Kenalog 10 MG NDC [id number] Ubaldo Jeronimo, P A-C 08/19/2023 Injection Kenalog 10 MG NDC 56265058843Hvbfcbtge Ubaldo Jeronimo, P A-C 03/12/2022 Injection Kenalog 10 MG NDC [id number] Ubaldo Jeronimo, P A-C 01/15/2022 Injection Kenalog 10 MG NDC 85758799236Gswpzdlof Ubaldo Jeronimo, P A-C 10/27/2021 Injection Kenalog 10 MG NDC [id number] Ubaldo Jeronimo, P A-C 07/17/2021 Injection Kenalog 10 MG NDC 18430601951Ajtmqmgog Ubaldo Jeronimo, P A-C 04/29/2021 Injection Kenalog 10 MG NDC [id number] Ubaldo Jeronimo, P A-C 02/17/2021 Injection Kenalog 10 MG NDC [id number] Ubaldo Jeronimo, P A-C 12/03/2020 Injection Kenalog 10 MG NDC [id number] Ubaldo Jeronimo, P A-C 08/30/2020 Injection Kenalog 10 MG NDC [id number] Ubaldo Jeronimo, P A-C 05/30/2020 Injection Kenalog 10 MG NDC [id number] Ubaldo Jeronimo, P A-C 02/13/2020 Injection Dexamethasone Sodium Phosphate, 1 MGInjection Ubaldo Landon Lazorka, PA-C 10/2019 Injection Kenalog 10 MG NDC 13574091710Vwdwnklds Ubaldo Landon Lazdafnea, P A-C 11/30/2019 Injection Kenalog 10 MG NDC [id number] Ubaldo Landon Lazorka, P A-C 06/21/2018 Injection Kenalog 10 MG NDC [id number] Ubaldo Landon Lazorka, P A-C 06/21/2018 Injection Kenalog 10 MG NDC 56080585503Cqdvwmdxl Ubaldo Landon Lazorka, P A-C 12/02/2017 Injection Kenalog 10 MG NDC [id number] Ubaldo Landon Lazorka, P A-C 12/02/2017 Injection Dexamethasone Sodium Phosphate, 1 MGInjection Ubaldo Landon Lazorka, PA-C 11/12 Injection Dexamethasone Sodium Phosphate, 1 MGInjection Ubaldo Landon Lazorka, PA-C 11/12 Immunizations CPT Code Status Date Vaccine Lot # [id number] Given 08/19/2023 Influenza Virus Vaccine, Quadrivalent (Cciiv4), Derived From Cell [id number] Given 07/23/2021 Pfizer Sars-Cov -2 (Cov-19) vacc 30mcg/0.3ML 12Y+ EMR Doc Only [id number] Given 07/17/2021 Influenza Virus Vaccine, Quadrivalent (Cciiv4), Derived From 1 Given 12/12/2020 Pfizer Sars-Cov -2 (Cov-19) vacc 30mcg/0.3ML 12Y+ EMR Doc Only 67822 Given 11/16/2020 Pfizer Sars-Cov -2 (Cov-19) vacc 30mcg/0.3ML 12Y+ EMR Doc Only U-FLU Given 08/30/2020 Influenza,Unspecified [id number] 35601 Given 08/30/2020 Influenza Virus Vaccine, Quadrivalent (Cciiv4), Derived From 9 Given 06/13/2019 Influenza Virus Vaccine, Quadrivalent (Cciiv4), Derived From Cell [id number] U-FLU Given 06/13/2019 Influenza,Unspecified 69590 Given 11/01/2018 Pneumococcal Vaccine/Pneu movax 23 [id number] 82425 Given 09/20/2018 Influenza Virus Vaccine, Quadrivalent (Cciiv4), Derived From Cell U-FLU Given 06/07/2017 Influenza,Unspecified 25028 Given 08/25/2016 Tdap (Tetanus, diphtheria & acel. pertussis) Adacel or Boostrix U-FLU Given 06/19/2016 Influenza,Unspecified U-FLU Given 05/27/2015 Influenza,Unspecified 41401 Given 11/29/2014 Pneumococcal Vaccine/Pneu movax 23 U-FLU Given 06/28/2010 Influenza,Unspecified Vital Signs Date Vital Result Comment 01/13/2024 1:22pm BP Systolic 130 mmHg BP Diastolic 78 mmHg Body Temperature 98.1 F Heart Rate 78 /min Respiratory Rate 22 /min Weight 165.00 lb Weight 74.844 kg Height 54 inches 4'6" BMI (Body Mass Index) 39.8 kg/m2 O2 % BldC Oximetry 97 % Alicia Body Weight 100 lb 01/05/2024 12:55pm BP Systolic 136 mmHg BP Diastolic 78 mmHg Body Temperature 97.8 F Heart Rate 77 /min Respiratory Rate 17 /min Weight 165.31 lb Weight 74.986 kg O2 % BldC Oximetry 98 % Results Test Acquired Date Facility Test Result H/L Range N ote Comp. Met 03/02/2024 [facility] [address] [place] [address] [phone] Glucose 124 mg/dL High 70-110 BUN 18 [...] 78 ML/MIN/1.73SQM >60 Urinalysis,Cult If Indicated 03/02/2024 [facility] [address] [place] [address] [phone] RFLX Culture COMMENT Laboratory test finding 03/02/2024 [facility] [address] [place] [address] [phone] Magnesium 1.1 mg/dL Low 1.7- 2.8 Urinalysis 03/02/2024 [facility] [address] [place] [address] [phone] Color COMMENT 1 Appearance COMMENT Clear Spec.Grav. COMMENT 1.005-1.025 Leukocytes COMMENT Negative Nitrite COMMENT Negative PH COMMENT 6.0-7.5 Protein COMMENT Negative Urine Glucose COMMENT Negative Ketone COMMENT Negative Urobilinogen COMMENT E.U./DL Normal Bilirubin COMMENT Negative Blood COMMENT Negative WBC-U COMMENT /HPF 0-5/HPF RBC-U COMMENT /HPF 0-5/HPF Bacteria COMMENT None Seen Squamous COMMENT /HPF 0-5/HPF CBC W/Diff 03/02/2024 [facility] [address] [place] [address] [phone] WBC 7.4 10^3/M3 3.1-9.2 RBC 3.82 10^6/M3 3.70-5.50 HGB 12.7 GR/DL 11.5-16.1 HCT 38.6 % 34.5-47.8 MCV 101.0 CUMICR High 82.6-95.8 MCH 33.3 PICOGR High 27.9-32.9 MCHC 33.0 % 32.6-35.4 RDW 13.6 % 11.4-14.6 PLT 216 10^3/M3 140-350 MPV 9.2 CUMICR 7.0-10.6 %Neut 65.6 % 40.0-75.0 %Lymph 28.0 % 17.0-45.0 %Power 3.9 % 1.0-11.0 %Eos 1.9 % 0.0-6.0 %Baso 0.6 % 0.0-2.0 #Neut 4.8 10^3/M3 1.5-8.0 #Lymph 2.1 10^3/M3 0.8-3.2 #Power 0.3 10^3/M3 0.0-0.8 #Eos 0.1 10^3/m3 0.0-0.4 #Baso 0.0 10^3/m3 0.0-0.2 Urinalysis 01/13/2024 [facility] [address] [place] [address] [phone] Color COMMENT 2 Appearance COMMENT Clear Spec.Grav. COMMENT 1.005-1.025 Leukocytes COMMENT Negative Nitrite COMMENT Negative PH COMMENT 6.0-7.5 Protein COMMENT Negative Urine Glucose COMMENT Negative Ketone COMMENT Negative Urobilinogen COMMENT E.U./DL Normal Bilirubin COMMENT Negative Blood COMMENT Negative WBC-U COMMENT /HPF 0-5/HPF RBC-U COMMENT /HPF 0-5/HPF Bacteria COMMENT None Seen Squamous COMMENT /HPF 0-5/HPF Laboratory test finding 01/13/2024 [facility] [address] [place] [address] [phone] Magnesium 0.9 mg/dL Low 1.7-2.8 Tibc 01/13/2024 [facility] [address] [place] [address] [phone] Tibc 298 g /dL 260-400 Transferrin 213 mg/dL 200-400 Iron Panel([employer]) 01/13/2024 [facility]. [address] [place] [address] [phone] Iron 48 g /dL 25-140 % Saturation 16 % Low 30-35 Microalbumin Urine 01/13/2024 [facility]. [address] [place] [address] [phone] Urine Creat COMMENT mg/dL Comment Microalbumin COMMENT mg/dL 0.0-1.8 3 ug/mgCREATININE COMMENT ug/mg Low 0-29 4 Hba1c 01/13/2024 [facility] [address] [place] [address] [phone] A1c 4.50 % Low 4.70-6.50 5 Urinalysis,Cul t If Indicated 01/13/2024 [facility] [address] [place] [address] [phone] RFLX Culture COMMENT Laboratory test finding 01/13/2024 [facility] [address] [place] [address] [phone] TSH 1.00 uIU/mL 0.50-6.00 Lipid 01/13/2024 [facility] [address] [place] [address] [phone] Cholesterol 134 mg/dL 0-200 6 Triglyceride 153 mg/dL High 0-150 7 HDLD 52 mg/dL See Comment 8 Measured LDL 68 mg/dL 0-130 9 Calc VLDL 30.6 mg/dL See Comment 10 Chol/HDL 2.6 RATIO See Comment 11 Non-HDL 82 mg/dL See Comment 12 Comp. Met 01/13/2024 [facility] [address] [place], [place] [id number] [phone] Glucose 100 mg/dL 70-110 BUN 13 mg/dL [...] GFR 78 ML/MIN/1.73SQM >60 CBC W/Diff 01/13/2024 [facility] [address] [place], [place] [id number] [phone] WBC 6.5 10^3/M3 3.1-9.2 RBC 3.49 10^6/M3 Low 3.70-5.50 HGB 12.0 GR/DL 11.5-16.1 HCT 36.4 % 34.5-47.8 MCV 104.4 CUMICR High 82.6-95.8 MCH 34.3 PICOGR High 27.9-32.9 MCHC 32.8 % 32.6-35.4 RDW 15.4 % High 11.4-14.6 PLT 247 10^3/M3 140-350 MPV 9.2 CUMICR 7.0-10.6 %Neut 65.2 % 40.0-75.0 %Lymph 26.7 % 17.0-45.0 %Power 3.3 % 1.0-11.0 %Eos 3.7 % 0.0-6.0 %Baso 1.1 % 0.0-2.0 #Neut 4.3 10^3/M3 1.5-8.0 #Lymph 1.7 10^3/M3 0.8-3.2 #Power 0.2 10^3/M3 0.0-0.8 #Eos 0.2 10^3/m3 0.0-0.4 #Baso 0.1 10^3/m3 0.0-0.2 1 ORDER PLACED, PER DOCUMENTATION (PER COLORED PAPER) SPECIMEN FOR TESTING NOT ACQUIRED TL 2 ORDER PLACED, PER DOCUMENTATION (PER COLORED PAPER) SPECIMEN FOR TESTING NOT ACQUIRED 5.3.24 CONOR 3 *[facility] USES MICROALBUMIN/CREATINE RATIO : [...] Target Procedures Date Code Description Status 03/02/2024 19572 Venipuncture Routine [facility] ed 01/13/2024 21711 Fundus Eye Exam Completed 01/13/2024 19873 Venipuncture Routine [facility] ed 01/13/2024 3078F PVRP Diastolic BP <80 [...] s and colitis Office Visit 10/08/2023 10:15a [facility] Ubaldo Jeronimo PA-C J01.00 Acute maxillary sinusitis, unspecified J20.9 Acute bronchitis, un specified Assessments Date Code Description Provider 03/02/2024 I10 Essential (primary) hyperten sarwat Bernabe MD 03/02/2024 I10 Essential (primary) hyperten sarwat Lab - [facility] 03/02/2024 E78.2 Mixed hyperlipidemia Mishel Bernabe MD 03/02/2024 E78.2 Mixed hyperlipidemia Lab - [place] 03/02/2024 E11.65 Type 2 diabetes mellitus wit h hyperglycemia Mishel Bernabe MD 03/02/2024 E11.65 Type 2 diabetes mellitus wit h hyperglycemia Lab - [facility] 03/02/2024 E61.2 Magnesium deficiency Mishel Bernabe MD 03/02/2024 E61.2 Magnesium deficiency Lab - [place] 01/13/2024 Z00.[facility] Ubaldo [...] 10:00 am - Ubaldo Jeronimo PA-C at [facility] * 04/13/2024 1:30 pm - Ubaldo Jeronimo PA-C at [facility] 01/13/2024 - Ubaldo Jeronimo PA-C* Z00.01 Encounter [...] 02/11/2024 Saima Ga PA-C Closed [address] [place] [phone]
--- OUTSIDE RECORDS SUMMARY | 2024-03-09 07:43 | External Medical Summary | Continuity of Care Document ---
Author Name Unknown Organization [facility] Address [address] [place] [address] Phone [phone] Problems Active Problems Provider Date Mixed hyperlipidemia [...] anxiety 10tabs Mishel Bernabe MD 02/29/2024 Klor-Con [id number] Tablets ER 1 by mouth twice daily 180tabs Mishel Bernabe MD 02/24/2024 Magnesium Oxide (Elemental)400mg Tablets 2 tablets twice daily 360tabs Mishel Bernabe MD 01/17/2024 Qrgvxjbcvsc608hy Tablets One By Mouth Now Repeat One Week as Needed 2tabs Mishel Bernabe MD 01/17/2024 Tramadol SVE33ra Tablets Take 1 Tablet By Mouth Twice A Day as Needed For Severe Pain 45tabs Mishel Bernabe MD 01/13/2024 Trazodone MBX836lu Tablets Take 1 Tablet AT Bedtime 90tabs Mishel Bernabe MD 04/25/2023 Freestyle Yevgeniy 3/Sensor/Glucose Monitoring Tbtmro6Xwtuvr Misc use as directed e11.65 3units Mishel Bernabe MD 12/16/2022 Quetiapine Taualxdn65sk Tablets Take 1 Tablet By Mouth Everyday AT Bedtime 90tabs Mishel Bernabe MD 11/05/2022 Clotrimazole/Betamet hasone Dipropionate1-0.05% Cream Apply To Affected Area Twice A Day as Needed 135units Mishel Bernabe MD 10/20/2022 Vitamin D3 1,250 mcgCapsule Take 1 Capsule By Mouth Once A Week 12caps E55.9 Mishel Bernabe MD 07/13/2022 Sbpyxwrweat33ir Tablets Take 1 Tablet By Mouth AT Bedtime For Sleep 90tabs Mishel Bernabe MD 04/10/2022 Lidocaine Viscous HCL2% Solution apply 2ml to both cheeks, then swish and swallow up to three times daily 300units Mishel Bernabe MD 03/12/2022 Albuterol Sulfate VPT267(90Base) mcg/Act Aerosol Inhale 2 Puffs By Mouth Every 4-6 Hours as Needed Wheezing 25.5units Juventino Sibley MD 12/19/[address] Take 1 Tablet By Mouth Every Day 90tabs K21.0 Mishel Bernabe MD 12/04/2021 Rollator Ultra-LightMisc use as directed 1units Juventino Sibley MD 021 Mthuyoilji3ii Tablets Take 1 Tablet By Mouth Four Times A Day 360tabs Juventino Sibley MD 12/04/2020 Trelegy Slnuzqy842-88.5-25mc g/Act Aerosol Inhale 1 puff By Mouth Daily 60units Juventino Sibley MD 12/03/2020 Clopidogrel Obgnstlzu06ui Tablets Take 1 Tablet By Mouth Every Day 90tabs Juventino Sibley MD 03/24/2020 Triamcinolone Acetonide0.1% Cream Apply To Affected Area Twice A Day Until Resolved--Then Use When Flaring 30units Rolf Snell JR, MD 11/30/2019 [employer] 2w/Device Kit test sugars as advised dx: e11.65 1units Rolf Snell JR, MD 11/23/2019 Onetouch Ultrasoft LancetsMisc use up to 2 times daily Dx: E11.9 100units Rolf Snell JR, MD 11/23/2019 Onetouch UltraStrips Use To Test Twice Daily Dx: E11.65 100units Rolf Snell JR, MD 11/23/2019 Escitalopram Fufzvrg47us Tablets Take 1 Tablet By Mouth Every Day 90tabs F33.1 Mishel Bernabe MD 11/13/2019 Atorvastatin Swlwjbb81va Tablets Take 1 Tablet By Mouth Every Day 90tabs Juventino Sibley MD 10/16/2019 Ondansetron HCL4mg Tablets Take 1 Tablet By Mouth Every 6-8 Hours as Needed For Nausea 45tabs Mishel Bernabe MD 03/12/2019 Pen [place] 5/16"31G X 8 mm Misc use daily [...] Ralph Braxton, DO 11/03/2017 History Medications Sodium Mhjervolgcd393zy Tablets Take 1 Tablet By Mouth Every Day Unknown 12/30/2023 - 01/06/2024 Magnesium Ldaqd089ya Tablets 1 by mouth twice a day for 5 days. Unknown 12/30/2023 - 01/04/2024 Potassium Chloride NJ22Ktq Tablets ER Take 2 Tablets By Mouth Every Day for 4 days. Unknown 12/30/2023 - 01/04/2024 Amoxicillin/Clavulanate Ggbnhsqnm980-886yo Tablets Take 1 Tablet By Mouth Twice A Day For 10 Days 20tabs Mishel Bernabe MD 11/17/2023 - 11/27/2023 Ehdbhaclyy53zv Tablets two tablets x 5 days then one tablet daily x 5 days 15tabs Mishel Bernabe MD 11/17/2023 - 01/05/2024 Amoxicillin/Clavulanate Dlxhwhzbu645-392cp Tablets Take 1 Tablet By Mouth Twice A Day For 10 Days 20tabs Mishel Bernabe MD 10/08/2023 - 01/03/2024 Bflaykqars81ov Tablets two tablets x 5 days then one tablet daily x 5 days 15tacristopher Bernabe MD 10/08/2023 - 01/05/2024 Xyvjdnaz375fy Tablets one by mouth now repeat one week as needed 2tacristopher Bernabe MD 10/08/2023 - 01/05/2024 Phkcrrts305155Noex/GM Cream Apply To Affected Area Twice A Day 90units Mishel Bernabe MD 10/05/2023 - 01/05/2024 Medications Administered in Office Medication SIG Qnty Indications Ordering Provider Date Injection Kenalog 10 MG NDC [id number] Ubaldo Jeronimo, P A-C 08/19/2023 Injection Kenalog 10 MG NDC [id number] Ubaldo Jeronimo, P A-C 03/12/2022 Injection Kenalog 10 MG NDC 65027994697Ixpvhkgdq Ubaldo Jeronimo, P A-C 01/15/2022 Injection Kenalog 10 MG NDC 69267225630Kpxndhyqk Ubaldo Jeronimo, P A-C 10/27/2021 Injection Kenalog 10 MG NDC 05361327011Jrzmdctdx Ubaldo Jeronimo, P A-C 07/17/2021 Injection Kenalog 10 MG NDC [id number] Ubaldo Jeronimo, P A-C 04/29/2021 Injection Kenalog 10 MG NDC [id number] Ubaldo Jeronimo, P A-C 02/17/2021 Injection Kenalog 10 MG NDC 69911172283Brnixqndg Ubaldo Jeronimo, P A-C 12/03/2020 Injection Kenalog 10 MG NDC 49179801634Nfmnguymh Ubaldo Jeronimo, P A-C 08/30/2020 Injection Kenalog 10 MG NDC [id number] Ubaldo Jeronimo, P A-C 05/30/2020 Injection Kenalog 10 MG NDC 85761631374Qxiqpcvko Ubaldo Jeronimo, P A-C 02/13/2020 Injection Dexamethasone Sodium Phosphate, 1 MGInjection Ubaldo Landon Lazorka, PA-C 10/2019 Injection Kenalog 10 MG NDC 85246999475Yubgrhjkh Ubaldo Landon Lazdafnea, P A-C 11/30/2019 Injection Kenalog 10 MG NDC 69431105458Tbxtettzj Ubaldo Landon Lazorka, P A-C 06/21/2018 Injection Kenalog 10 MG NDC [id number] Ubaldo Landon Lazorka, P A-C 06/21/2018 Injection Kenalog 10 MG NDC [id number] Ubaldo Landon Lazorka, P A-C 12/02/2017 Injection Kenalog 10 MG NDC [id number] Ubaldo Landon Lazorka, P A-C 12/02/2017 Injection Dexamethasone Sodium Phosphate, 1 MGInjection Ubaldo Landon Lazorka, PA-C 11/12 Injection Dexamethasone Sodium Phosphate, 1 MGInjection Ubaldo Landon Lazorka, PA-C 11/12 Immunizations CPT Code Status Date Vaccine Lot # [id number] Given 08/19/2023 Influenza Virus Vaccine, Quadrivalent (Cciiv4), Derived From Cell [id number] Given 07/23/2021 Pfizer Sars-Cov -2 (Cov-19) vacc 30mcg/0.3ML 12Y+ EMR Doc Only 67485 Given 07/17/2021 Influenza Virus Vaccine, Quadrivalent (Cciiv4), Derived From 0 Given 12/12/2020 Pfizer Sars-Cov -2 (Cov-19) vacc 30mcg/0.3ML 12Y+ EMR Doc Only 68047 Given 11/16/2020 Pfizer Sars-Cov -2 (Cov-19) vacc 30mcg/0.3ML 12Y+ EMR Doc Only U-FLU Given 08/30/2020 Influenza,Unspecified [id number] Given 08/30/2020 Influenza Virus Vaccine, Quadrivalent (Cciiv4), Derived From 0 Given 06/13/2019 Influenza Virus Vaccine, Quadrivalent (Cciiv4), Derived From Cell [id number] U-FLU Given 06/13/2019 Influenza,Unspecified 55040 Given 11/01/2018 Pneumococcal Vaccine/Pneu movax 23 [id number] 11044 Given 09/20/2018 Influenza Virus Vaccine, Quadrivalent (Cciiv4), Derived From Cell U-FLU Given 06/07/2017 Influenza,Unspecified 33708 Given 08/25/2016 Tdap (Tetanus, diphtheria & acel. pertussis) Adacel or Boostrix U-FLU Given 06/19/2016 Influenza,Unspecified U-FLU Given 05/27/2015 Influenza,Unspecified 06110 Given 11/29/2014 Pneumococcal Vaccine/Pneu movax 23 U-FLU Given 06/28/2010 Influenza,Unspecified Vital Signs Date Vital Result Comment 01/13/2024 1:22pm BP Systolic 130 mmHg BP Diastolic 78 mmHg Body Temperature 98.1 F Heart Rate 78 /min Respiratory Rate 22 /min Weight 165.00 lb Weight 74.844 kg Height 54 inches 4'6" BMI (Body Mass Index) 39.8 kg/m2 O2 % BldC Oximetry 97 % [place] Body Weight 100 lb 01/05/2024 12:55pm BP Systolic 136 mmHg BP Diastolic 78 mmHg Body Temperature 97.8 F Heart Rate 77 /min Respiratory Rate 17 /min Weight 165.31 lb Weight 74.986 kg O2 % BldC Oximetry 98 % Results Test Acquired Date Facility Test Result H/L Range N ote Comp. Met 03/02/2024 [facility] [address] [place] [address] [phone] Glucose 124 mg/dL High 70-110 BUN 18 [...] 78 ML/MIN/1.73SQM >60 Urinalysis,Cult If Indicated 03/02/2024 [facility] [address] [place] [address] [phone] RFLX Culture COMMENT Laboratory test finding 03/02/2024 [facility] [address] [place] [address] [phone] Magnesium 1.1 mg/dL Low 1.7- 2.8 Urinalysis 03/02/2024 [facility] [address] [place] [address] [phone] Color COMMENT 1 Appearance COMMENT Clear Spec.Grav. COMMENT 1.005-1.025 Leukocytes COMMENT Negative Nitrite COMMENT Negative PH COMMENT 6.0-7.5 Protein COMMENT Negative Urine Glucose COMMENT Negative Ketone COMMENT Negative Urobilinogen COMMENT E.U./DL Normal Bilirubin COMMENT Negative Blood COMMENT Negative WBC-U COMMENT /HPF 0-5/HPF RBC-U COMMENT /HPF 0-5/HPF Bacteria COMMENT None Seen Squamous COMMENT /HPF 0-5/HPF CBC W/Diff 03/02/2024 [facility] [address] [place] [address] [phone] WBC 7.4 10^3/M3 3.1-9.2 RBC 3.82 10^6/M3 3.70-5.50 HGB 12.7 GR/DL 11.5-16.1 HCT 38.6 % 34.5-47.8 MCV 101.0 CUMICR High 82.6-95.8 MCH 33.3 PICOGR High 27.9-32.9 MCHC 33.0 % 32.6-35.4 RDW 13.6 % 11.4-14.6 PLT 216 10^3/M3 140-350 MPV 9.2 CUMICR 7.0-10.6 %Neut 65.6 % 40.0-75.0 %Lymph 28.0 % 17.0-45.0 %Gillespie 3.9 % 1.0-11.0 %Eos 1.9 % 0.0-6.0 %Baso 0.6 % 0.0-2.0 #Neut 4.8 10^3/M3 1.5-8.0 #Lymph 2.1 10^3/M3 0.8-3.2 #Gillespie 0.3 10^3/M3 0.0-0.8 #Eos 0.1 10^3/m3 0.0-0.4 #Baso 0.0 10^3/m3 0.0-0.2 Urinalysis 01/13/2024 [facility] [address] [place] [address] [phone] Color COMMENT 2 Appearance COMMENT Clear Spec.Grav. COMMENT 1.005-1.025 Leukocytes COMMENT Negative Nitrite COMMENT Negative PH COMMENT 6.0-7.5 Protein COMMENT Negative Urine Glucose COMMENT Negative Ketone COMMENT Negative Urobilinogen COMMENT E.U./DL Normal Bilirubin COMMENT Negative Blood COMMENT Negative WBC-U COMMENT /HPF 0-5/HPF RBC-U COMMENT /HPF 0-5/HPF Bacteria COMMENT None Seen Squamous COMMENT /HPF 0-5/HPF Laboratory test finding 01/13/2024 [facility] [address] [place] [address] [phone] Magnesium 0.9 mg/dL Low 1.7-2.8 Tibc 01/13/2024 [facility] [address] [place] [address] [phone] Tibc 298 g /dL 260-400 Transferrin 213 mg/dL 200-400 Iron Panel([employer]) 01/13/2024 [facility] [address] [place] [address] [phone] Iron 48 g /dL 25-140 % Saturation 16 % Low 30-35 Microalbumin Urine 01/13/2024 [facility] [address] [place] [address] [phone] Urine Creat COMMENT mg/dL Comment Microalbumin COMMENT mg/dL 0.0-1.8 3 ug/mgCREATININE COMMENT ug/mg Low 0-29 4 Hba1c 01/13/2024 [facility] [address] [place] [address] [phone] A1c 4.50 % Low 4.70-6.50 5 Urinalysis,Cul t If Indicated 01/13/2024 [facility] [address] [place] [address] [phone] RFLX Culture COMMENT Laboratory test finding 01/13/2024 [facility] [address] [place] [address] [phone] TSH 1.00 uIU/mL 0.50-6.00 Lipid 01/13/2024 [facility] [address] [place] [address] [phone] Cholesterol 134 mg/dL 0-200 6 Triglyceride 153 mg/dL High 0-150 7 HDLD 52 mg/dL See Comment 8 Measured LDL 68 mg/dL 0-130 9 Calc VLDL 30.6 mg/dL See Comment 10 Chol/HDL 2.6 RATIO See Comment 11 Non-HDL 82 mg/dL See Comment 12 Comp. Met 01/13/2024 [facility] [address] [place], [place] [id number] [phone] Glucose 100 mg/dL 70-110 BUN 13 mg/dL [...] GFR 78 ML/MIN/1.73SQM >60 CBC W/Diff 01/13/2024 [facility] [address] [place], [place] [id number] [phone] WBC 6.5 10^3/M3 3.1-9.2 RBC 3.49 10^6/M3 Low 3.70-5.50 HGB 12.0 GR/DL 11.5-16.1 HCT 36.4 % 34.5-47.8 MCV 104.4 CUMICR High 82.6-95.8 MCH 34.3 PICOGR High 27.9-32.9 MCHC 32.8 % 32.6-35.4 RDW 15.4 % High 11.4-14.6 PLT 247 10^3/M3 140-350 MPV 9.2 CUMICR 7.0-10.6 %Neut 65.2 % 40.0-75.0 %Lymph 26.7 % 17.0-45.0 %Gillespie 3.3 % 1.0-11.0 %Eos 3.7 % 0.0-6.0 %Baso 1.1 % 0.0-2.0 #Neut 4.3 10^3/M3 1.5-8.0 #Lymph 1.7 10^3/M3 0.8-3.2 #Gillespie 0.2 10^3/M3 0.0-0.8 #Eos 0.2 10^3/m3 0.0-0.4 #Baso 0.1 10^3/m3 0.0-0.2 1 ORDER PLACED, PER DOCUMENTATION (PER COLORED PAPER) SPECIMEN FOR TESTING NOT ACQUIRED TL 2 ORDER PLACED, PER DOCUMENTATION (PER COLORED PAPER) SPECIMEN FOR TESTING NOT ACQUIRED 5.3.24 CONOR 3 *[facility] [employer] [facility] USES MICROALBUMIN/CREATINE RATIO : [...] Target Procedures Date Code Description Status 03/02/2024 22510 Venipuncture Routine [facility] ed 01/13/2024 58396 Fundus Eye Exam Completed 01/13/2024 69548 Venipuncture Routine [facility] ed 01/13/2024 3078F PVRP Diastolic [...] s and colitis Office Visit 10/08/2023 10:15a [place] Ubaldo Jeronimo PA-C J01.00 Acute maxillary sinusitis, unspecified J20.9 Acute bronchitis, un specified Assessments Date Code Description Provider 03/02/2024 I10 Essential (primary) hyperten sarwat Bernabe MD 03/02/2024 I10 Essential (primary) hyperten sarwat Lab - [place] 03/02/2024 E78.2 Mixed hyperlipidemia Mishel Bernabe MD 03/02/2024 E78.2 Mixed hyperlipidemia Lab - [place] 03/02/2024 E11.65 Type 2 diabetes mellitus wit h hyperglycemia Mishel Bernabe MD 03/02/2024 E11.65 Type 2 diabetes mellitus wit h hyperglycemia Lab - [place] 03/02/2024 E61.2 Magnesium deficiency Mishel Bernabe MD 03/02/2024 E61.2 Magnesium deficiency Lab - [place] 01/13/2024 Z00.01 [facility] [...] 10:00 am - Ubaldo Jeronimo PA-C at [place] * 04/13/2024 1:30 pm - Ubaldo Jeronimo PA-C at [place] 01/13/2024 - Ubaldo Jeronimo PA-C* Z00.01 Encounter [...] 02/11/2024 Saima Ga PA-C Closed [address] [place] [id number] [phone]
--- OUTSIDE RECORDS SUMMARY | 2024-03-09 07:43 | External Medical Summary | Continuity of Care Document ---
Author Name Unknown Organization [facility] Practice [facility] Address [address] [place] [address] Phone [phone] Problems Active Problems Provider Date Mixed hyperlipidemia [...] ritis of the pelvic region and thigh Ubalod Jeronimo PA-C Onset: 06/21/2018 Gastro-esophageal reflux dis [...] anxiety 10tabs Mishel Bernabe MD 02/29/2024 Klor-Con [id number] Tablets ER 1 by mouth twice daily 180tabs Mishel Bernabe MD 02/24/2024 Magnesium Oxide (Elemental)400mg Tablets 2 tablets twice daily 360tabs Mishel Bernabe MD 01/17/2024 Imrahzkbwij784ti Tablets One By Mouth Now Repeat One Week as Needed 2tabs Mishel Bernabe MD 01/17/2024 Tramadol LYA22yc Tablets Take 1 Tablet By Mouth Twice A Day as Needed For Severe Pain 45tabs Mishel Bernabe MD 01/13/2024 Trazodone SPN779xv Tablets Take 1 Tablet AT Bedtime 90tabs Mishel Bernabe MD 04/25/2023 Freestyle Yevgeniy 3/Sensor/Glucose Monitoring Zoavbi4Grdwwz Misc use as directed e11.65 3units Mishel Bernabe MD 12/16/2022 Quetiapine Xsfvcwye76wt Tablets Take 1 Tablet By Mouth Everyday AT Bedtime 90tabs Mishel Bernabe MD 11/05/2022 Clotrimazole/Betamet hasone Dipropionate1-0.05% Cream Apply To Affected Area Twice A Day as Needed 135units Mishel Bernabe MD 10/20/2022 Vitamin D3 1,250 mcgCapsule Take 1 Capsule By Mouth Once A Week 12caps E55.9 Mishel Bernabe MD 07/13/2022 Cagdtjbitbe97gj Tablets Take 1 Tablet By Mouth AT Bedtime For Sleep 90tabs Mishel Bernabe MD 04/10/2022 Lidocaine Viscous HCL2% Solution apply 2ml to both cheeks, then swish and swallow up to three times daily 300units Mishel Bernabe MD 03/12/2022 Albuterol Sulfate TCJ220(90Base) mcg/Act Aerosol Inhale 2 Puffs By Mouth Every 4-6 Hours as Needed Wheezing 25.5units Juventino Sibley MD 12/19/[address] Take 1 Tablet By Mouth Every Day 90tabs K21.0 Mishel Bernabe MD 12/04/2021 Rollator Ultra-LightMisc use as directed 1units Juventino Sibley MD 021 Qfeogmgmif3kw Tablets Take 1 Tablet By Mouth Four Times A Day 360tabs Juventino Sibley MD 12/04/2020 Trelegy Dmsqncf077-52.5-25mc g/Act Aerosol Inhale 1 puff By Mouth Daily 60units Juventino Sibley MD 12/03/2020 Clopidogrel Rtxfmraiw56lc Tablets Take 1 Tablet By Mouth Every Day 90tabs Juventino Sibley MD 03/24/2020 Triamcinolone Acetonide0.1% Cream Apply To Affected Area Twice A Day Until Resolved--Then Use When Flaring 30units Rolf Snell JR, MD 11/30/2019 Xceleron (Chapter 11) 2w/Device Kit test sugars as advised dx: e11.65 1units Rolf Snell JR, MD 11/23/2019 Onetouch Ultrasoft LancetsMisc use up to 2 times daily Dx: E11.9 100units Rolf Snell JR, MD 11/23/2019 Onetouch UltraStrips Use To Test Twice Daily Dx: E11.65 100units Rolf Snell JR, MD 11/23/2019 Escitalopram Mqbrndl46kg Tablets Take 1 Tablet By Mouth Every Day 90tabs F33.1 Mishel Bernabe MD 11/13/2019 Atorvastatin Nwafmce28do Tablets Take 1 Tablet By Mouth Every Day 90tabs Juventino Sibely MD 10/16/2019 Ondansetron HCL4mg Tablets Take 1 Tablet By Mouth Every 6-8 Hours as Needed For Nausea 45tabs Mishel Bernabe MD 03/12/2019 Pen [place] 5/16"31G X 8 mm Misc use daily [...] Ralph Braxton, DO 11/03/2017 History Medications Sodium Nohjvousnjd158yg Tablets Take 1 Tablet By Mouth Every Day Unknown 12/30/2023 - 01/06/2024 Magnesium Rhdcp624oy Tablets 1 by mouth twice a day for 5 days. Unknown 12/30/2023 - 01/04/2024 Potassium Chloride QZ08Fid Tablets ER Take 2 Tablets By Mouth Every Day for 4 days. Unknown 12/30/2023 - 01/04/2024 Amoxicillin/Clavulanate Otkflfhnk640-270xe Tablets Take 1 Tablet By Mouth Twice A Day For 10 Days 20tabs Mishel Bernabe MD 11/17/2023 - 11/27/2023 Jsiwnhzubm74fz Tablets two tablets x 5 days then one tablet daily x 5 days 15tabs Mishel Bernabe MD 11/17/2023 - 01/05/2024 Amoxicillin/Clavulanate Wrjzqytew380-737iq Tablets Take 1 Tablet By Mouth Twice A Day For 10 Days 20tabs Mishel Bernabe MD 10/08/2023 - 01/03/2024 Rdnluewmgb24ti Tablets two tablets x 5 days then one tablet daily x 5 days 15tacristopher Bernabe MD 10/08/2023 - 01/05/2024 Itgqxtji064uc Tablets one by mouth now repeat one week as needed 2tacristopher Bernabe MD 10/08/2023 - 01/05/2024 Icpprooz022796Dmfx/GM Cream Apply To Affected Area Twice A Day 90units Mishel Bernabe MD 10/05/2023 - 01/05/2024 Medications Administered in Office Medication SIG Qnty Indications Ordering Provider Date Injection Kenalog 10 MG NDC [id number] Ubaldo Jeronimo, P A-C 08/19/2023 Injection Kenalog 10 MG NDC 93070792802Hdahruyrp Ubaldo Jeronimo, P A-C 03/12/2022 Injection Kenalog 10 MG NDC 54831771941Kdtjvwszr Ubaldo Jeronimo, P A-C 01/15/2022 Injection Kenalog 10 MG NDC 01142230154Jfwhzyecl Ubaldo Jeronimo, P A-C 10/27/2021 Injection Kenalog 10 MG NDC 40894354096Yivwanmca Ubaldo Jeronimo, P A-C 07/17/2021 Injection Kenalog 10 MG NDC 61481718122Oqstwvchv Ubaldo Jeronimo, P A-C 04/29/2021 Injection Kenalog 10 MG NDC 76339418547Gpxfbuxfg Ubaldo Jeronimo, P A-C 02/17/2021 Injection Kenalog 10 MG NDC 93603564548Gvjdgsbkj Ubaldo Jeronimo, P A-C 12/03/2020 Injection Kenalog 10 MG NDC 67212628108Zmauaagls Ubaldo Jeronimo, P A-C 08/30/2020 Injection Kenalog 10 MG NDC 76919930949Oblzhivcf Ubaldo Jeronimo, P A-C 05/30/2020 Injection Kenalog 10 MG NDC 98317790900Qptdcxprp Ubaldo Jeronimo, P A-C 02/13/2020 Injection Dexamethasone Sodium Phosphate, 1 MGInjection Ubaldo Landon Lazorka, PA-C 10/2019 Injection Kenalog 10 MG NDC 28667283942Ecfszxtvc Ubaldo Landon Lazdafnea, P A-C 11/30/2019 Injection Kenalog 10 MG NDC 42941729879Fivekjaiy Ubaldo Landon Lazorka, P A-C 06/21/2018 Injection Kenalog 10 MG NDC 60600876866Ifvguelqo Ubaldo Landon Lazorka, P A-C 06/21/2018 Injection Kenalog 10 MG NDC 78226696910Xbreskgmg Ubaldo Landon Lazorka, P A-C 12/02/2017 Injection Kenalog 10 MG NDC 17892595174Qxdufjcnc Ubaldo Landon Lazorka, P A-C 12/02/2017 Injection Dexamethasone Sodium Phosphate, 1 MGInjection Ubaldo Landon Lazorka, PA-C 11/12 Injection Dexamethasone Sodium Phosphate, 1 MGInjection Ubaldo Landon Lazorka, PA-C 11/12 Immunizations CPT Code Status Date Vaccine Lot # [id number] Given 08/19/2023 Influenza Virus Vaccine, Quadrivalent (Cciiv4), Derived From Cell [id number] Given 07/23/2021 Pfizer Sars-Cov -2 (Cov-19) vacc 30mcg/0.3ML 12Y+ EMR Doc Only 93160 Given 07/17/2021 Influenza Virus Vaccine, Quadrivalent (Cciiv4), Derived From 9 Given 12/12/2020 Pfizer Sars-Cov -2 (Cov-19) vacc 30mcg/0.3ML 12Y+ EMR Doc Only 10312 Given 11/16/2020 Pfizer Sars-Cov -2 (Cov-19) vacc 30mcg/0.3ML 12Y+ EMR Doc Only U-FLU Given 08/30/2020 Influenza,Unspecified [id number] 14027 Given 08/30/2020 Influenza Virus Vaccine, Quadrivalent (Cciiv4), Derived From 9 Given 06/13/2019 Influenza Virus Vaccine, Quadrivalent (Cciiv4), Derived From Cell [id number] U-FLU Given 06/13/2019 Influenza,Unspecified 28030 Given 11/01/2018 Pneumococcal Vaccine/Pneu movax 23 [id number] 43353 Given 09/20/2018 Influenza Virus Vaccine, Quadrivalent (Cciiv4), Derived From Cell U-FLU Given 06/07/2017 Influenza,Unspecified 49770 Given 08/25/2016 Tdap (Tetanus, diphtheria & acel. pertussis) Adacel or Boostrix U-FLU Given 06/19/2016 Influenza,Unspecified U-FLU Given 05/27/2015 Influenza,Unspecified 96099 Given 11/29/2014 Pneumococcal Vaccine/Pneu movax 23 U-FLU Given 06/28/2010 Influenza,Unspecified Vital Signs Date Vital Result Comment 01/13/2024 1:22pm BP Systolic 130 mmHg BP Diastolic 78 mmHg Body Temperature 98.1 F Heart Rate 78 /min Respiratory Rate 22 /min Weight 165.00 lb Weight 74.844 kg Height 54 inches 4'6" BMI (Body Mass Index) 39.8 kg/m2 O2 % BldC Oximetry 97 % [place] Body Weight 100 lb 01/05/2024 12:55pm BP Systolic 136 mmHg BP Diastolic 78 mmHg Body Temperature 97.8 F Heart Rate 77 /min Respiratory Rate 17 /min Weight 165.31 lb Weight 74.986 kg O2 % BldC Oximetry 98 % Results Test Acquired Date Facility Test Result H/L [place] Laboratory test finding 03/02/2024 [facility] [address] [place] [address] [phone] Magnesium <pending> Urinalysis 01/13/2024 [facility] [address] [place], [place] [id number] [phone] Color COMMENT 1 Appearance COMMENT Clear Spec.Grav. COMMENT 1.005-1.025 Leukocytes COMMENT Negative Nitrite COMMENT Negative PH COMMENT 6.0-7.5 Protein COMMENT Negative Urine Glucose COMMENT Negative Ketone COMMENT Negative Urobilinogen COMMENT E.U./DL Normal Bilirubin COMMENT Negative Blood COMMENT Negative WBC-U COMMENT /HPF 0-5/HPF RBC-U COMMENT /HPF 0-5/HPF Bacteria COMMENT None Seen Squamous COMMENT /HPF 0-5/HPF Laboratory test finding 01/13/2024 [facility] [address] [place], [place] [id number] [phone] Magnesium 0.9 mg/dL Low 1.7-2.8 Tibc 01/13/2024 [facility] [address] [place] [address] [phone] Tibc 298 g /dL 260-400 Transferrin 213 mg/dL 200-400 Iron Panel([facility]) 01/13/2024 Count includes the [facility]. [address] [place] [address] [phone] Iron 48 g /dL 25-140 % Saturation 16 % Low 30-35 Microalbumin Urine 01/13/2024 [facility] [address] [place] [address] [phone] Urine Creat COMMENT mg/dL Comment Microalbumin COMMENT mg/dL 0.0-1.8 2 ug/mgCREATININE COMMENT ug/mg Low 0-29 3 Hba1c 01/13/2024 [facility] [address] [place] [address] [phone] A1c 4.50 % Low 4.70-6.50 4 Urinalysis,Cul t If Indicated 01/13/2024 [facility] [address] [place] [address] [phone] RFLX Culture COMMENT Laboratory test finding 01/13/2024 [facility] [address] [place] [address] [phone] TSH 1.00 uIU/mL 0.50-6.00 Lipid 01/13/2024 [facility] [address] [place] [address] [phone] Cholesterol 134 mg/dL 0-200 5 Triglyceride 153 mg/dL High 0-150 6 HDLD 52 mg/dL See Comment 7 Measured LDL 68 mg/dL 0-130 8 Calc VLDL 30.6 mg/dL See Comment 9 Chol/HDL 2.6 RATIO See Comment 10 Non-HDL 82 mg/dL See Comment 11 Comp. Met 01/13/2024 [facility] [address] [place] [address] [phone] Glucose 100 mg/dL 70-110 BUN 13 mg/dL [...] 78 ML/MIN/1.73SQM >60 CBC W/Diff 01/13/2024 [facility] [address] [place] [address] [phone] WBC 6.5 10^3/M3 3.1-9.2 RBC 3.49 10^6/M3 Low 3.70-5.50 HGB 12.0 GR/DL 11.5-16.1 HCT 36.4 % 34.5-47.8 MCV 104.4 CUMICR High 82.6-95.8 MCH 34.3 PICOGR High 27.9-32.9 MCHC 32.8 % 32.6-35.4 RDW 15.4 % High 11.4-14.6 PLT 247 10^3/M3 140-350 MPV 9.2 CUMICR 7.0-10.6 %Neut 65.2 % 40.0-75.0 %Lymph 26.7 % 17.0-45.0 %[place] 3.3 % 1.0-11.0 %Eos 3.7 % 0.0-6.0 %Baso 1.1 % 0.0-2.0 #Neut 4.3 10^3/M3 1.5-8.0 #Lymph 1.7 10^3/M3 0.8-3.2 #[place] 0.2 10^3/M3 0.0-0.8 #Eos 0.2 10^3/m3 0.0-0.4 #Baso 0.1 10^3/m3 0.0-0.2 1 ORDER PLACED, PER DOCUMENTATION (PER COLORED PAPER) SPECIMEN FOR TESTING NOT ACQUIRED 5.3.24 CONOR 2 *THE [employer] USES MICROALBUMIN/CREATINE RATIO : [...] Target Procedures Date Code Description Status 03/02/2024 43920 Venipuncture Routine [facility] ed 01/13/2024 91202 Fundus Eye Exam Completed 01/13/2024 84568 Venipuncture Routine [facility] ed 01/13/2024 3078F PVRP Diastolic BP <80 [...] I10 Essential (primary) hyperten sarwat [facility] - [place] 03/02/2024 E78.2 Mixed hyperlipidemia Lab - [place] 03/02/2024 E11.65 Type 2 diabetes mellitus wit h hyperglycemia Lab - [place] 03/02/2024 E61.2 Magnesium deficiency Lab - [facility] [...] sarwat UbaldoSUKUMAR OrozcoC 01/13/2024 E78.2 Mixed hyperlipidemia SUKUAMR LawtonC 01/13/2024 D64.9 Anemia, unspecified Ubaldo Cara [...] 10:00 am - Ubaldo Jeronimo PA-C at [place] * 04/13/2024 1:30 pm - Ubaldo Jeronimo PA-C at [place] 01/13/2024 - Ubaldo Jeronimo PA-C* Z00.01 Encounter [...] 02/11/2024 Saima Ga PA-C Closed 4 [facility] [place] [address] [place] [address] [phone]
[2024-03-09 08:18] LABS: iSTAT Creatinine 0.7 mg/dl (0.6-1.3); iSTAT Hemoglobin 12.6 g/dl (12.0-16.0); iSTAT Ionized Calcium 1.31 mmol/l (1.12-1.32); iSTAT Potassium 3.4 mmol/L (3.3-5.0)
--- NOTE | 2024-03-09 08:42 | Operative Report ---
PG Post Operative Report Pre & Post Diagnosis Operation Date: 03/09/24 07:00 Pre-Op Diagnosis: Right Hip Degenerative Joint Disease Post-Op Diagnosis: Right Hip Degenerative Joint Disease I identified the patient and participated in the time-out.: Yes Procedure Operation Date: 03/09/24 07:00 Actual Procedures p Right Total Hip Arthroplasty(Right) - Kalyan Caldera MD Surgeon Kalyan Caldera MD Shirt Trimmer Lashon Ramires PA-C Estimated Blood Loss 150 Findings Consistent with Post-Op Diagnosis Specimens Right femoral head sent for pathology. Anesthesia Type Spinal MAC Complications none Disposition Accompanied Patient To Recovery: No Indications Patient is a 58-year-old female is had a several year history of increasing right hip pain discomfort. She been through extensive conservative treatment which became less successful over time. As she underwent a successful weight loss program and continues to be limited by her pain. X-rays show advanced hip arthritis. She elected proceed with surgical treatment. Description of Procedure Operative implants consist of: 1 Biomet G7 size 54 mm acetabular shell. 2. 6.5 cancellous acetabular screws 1 at 35 mm in length and 1 to 25 mm length. 3. [place] hole awning assembler. 4. Highly cross-linked polyethylene liner with a 54 mm outer diameter and 36 mm inner diameter. 5. DePuy Corail size 12 femoral stem. 6. +5/36 mm ceramic articular ball. The patient was taken to the operating, identified, placed on the operating table in supine position. All contact areas were appropriately padded. IV antibiotics tried by anesthesia team. A spinal anesthetic and been implemented holding area. Medina catheter was placed in sterile fashion. The patient then placed in left lateral decubitus position. Axillary roll was placed. Stulberg hip positioner was used for positioning. The right hip and leg were then prepped and draped in usual sterile fashion. A posterolateral approach to the right hip was then performed to a curvilinear incision centered over the greater trochanter. Sharp dissection carried through subcutaneous tissue down to level the IT band gluteal fascia but the IT band gluteal fascia incised longitudinally in line with skin incision. The underlying greater bursa was excised. Taken off the posterior aspect of the hip as a single layer. Great care was taken throughout the procedure to protect the sciatic nerve at all times. Hip was internally rotated and dislocated. A femoral neck osteotomy cut was made with Final Cut about 14 mm above the lesser trochanter. Femoral head was removed and sent for pathology. The femur was retracted anteriorly. Attention drawn the acetabulum. The acetabular labrum was excised. The pulmonary fat was excised. Sequential reaming the acetabular was then performed again with size 45 and progressing up to 53. I did ream a little bit with a 54 reamer and then placed a 54 mm Biomet acetabular shell in about 40 degrees lateral opening and 20 degrees of an teversion. It was fixed with two 6.5 screws. Large anterior osteophyte was removed. Trial liner was placed. Attention drawn the femur. The proximal femur was then with a Gecko Audio cutter followed by canal finderThe piriformis and external rotators along with the posterior hip joint capsule were then. Broached beginning the size 8 and progressing up to a 12. Got excellent fitted to 12. I then trialed the hip and the +5 articular ball provide full stability, appropriate leg lengths and equal soft tissue tension. We elect to place these implants. All trial implants were removed. [place] hole awning assembler was placed. Highly cross- linked polyethylene liner was placed. A size 12 KLA femoral stem was impacted in position. A +5/36 mm ceramic articular ball was placed. Hip was located and once again found to be stable. Attention drawn toward closing. The wound was irrigated cosigns pulsatile lavage solution. I injected locally with 60 cc of half percent Marcaine with epinephrine. The posterior capsule and external rotators were then repaired through drill holes in the posterior trochanter with #2 Tycron suture. The IT band gluteal fascia then closed in 1 PDS suture in a running fashion. The subcutaneous tissues then closed with 2 layers of the deep layer #1 Vicryl suture in the subcu tissues with 2-0 Dexon suture in a buried interrupted fashion. Skin was closed with skin tony. Leg was then cleaned and dried and a sterile dressing with Xeroform, 4 fours, sterile ABD and foam tape was applied. Patient then transferred to the recovery room in stable condition. Patient tolerated procedure well and there were no complications. Lashon Ramires, my physician assistant professor of theater, was present for the entire procedure. Her assistance was required for proper patient positioning, prepping draping, surgical exposure, retraction, perform the technical details of the operation, placement of the implants, closure of the incision site and placement of the sterile bandage. I attest to the content of the Intraoperative Record and any orders documented therein. Any exceptions are noted below.
--- NOTE | 2024-03-09 09:13 | XRay Report ---
SINGLE VIEW PELVIS; SINGLE VIEW RIGHT HIP CLINICAL HISTORY: Postoperative examination. FINDINGS: An AP portable view of the hips and pelvis with a crosstable lateral portable view of the r ight hip are compared to study dated 02/17/2024. A bipolar right hip arthroplasty is in near-anatomic a lignment. At least 2 cortical lag screws transfix the acetabular cup. No acute fracture is identified . There are expected postoperative changes overlying the right hip including skin clips, subcutaneous gas, and soft tissue swelling. Mild degenerative change is noted in the left hip. Surgical clips are seen in the pelvis. A Medina catheter is in place. IMPRESSION: Expected postoperative findings status post right hip arthroplasty. No acute fracture is seen. ACT 112: Negative or not required by law. Electronically signed by: Dave Giraldo M.D. 03/09/2024 9:12 AM
--- NOTE | 2024-03-09 09:29 | Anesthesiology Progress Note ---
Date of Service March 09, 2024 Anesthesia Post Procedure Vital Signs Vital Signs: Temp Pulse Pulse Resp BP Pulse Ox O2 Del Method 03/09/24 09:10 36.4 C L 74 16 142/68 H 96 Room Air 03/09/24 09:00 66 16 141/67 H 97 Room Air 03/09/24 08:50 79 18 139/63 94 Room Air 03/09/24 08:40 77 22 124/76 94 Room Air 03/09/24 08:30 36.1 C L 76 18 122/61 97 Room Air 03/09/24 05:34 36.5 C 55 L 20 129/64 99 Room Air Pain Intensity Right Hip: Pain Intensity: 7 Transfer of Care Handoff Completed per policy Notes Mental Status: alert / awake / arousable and participated in evaluation Patient Amnestic to Procedure: Yes Nausea / Vomiting: adequately controlled Pain: adequately controlled Airway Patency, RR, SpO2: stable & adequate BP & HR: stable & adequate Hydration State: stable & adequate Anesthetic Complications: no major complications apparent
[2024-03-09] MEDS ORDERED: METOCLOPRAMIDE HCL INJ 5 MG/ML 2 ML VIAL IV PRN (09:37)
[2024-03-09] MEDS ORDERED: ALUMINUM/MAGNESIUM SUSP 30 ML UDC PO PRN (09:37)
[2024-03-09] MEDS ORDERED: NON-FORMULARY MEDICATION (Fluticasone-Umeclidin-Vilanter [Trelegy Ellipta] 200-62.5-25 mcg INH PRN (09:37)
[2024-03-09] MEDS ORDERED: NYSTATIN CR 15 GM TUBE EXT PRN (09:37)
[2024-03-09] MEDS ORDERED: MAGNESIUM HYDROXIDE SUSP 30 ML UDC PO PRN (09:37)
[2024-03-09] MEDS ORDERED: ALBUTEROL HFA 8 GM INHALER INH PRN (09:37)
[2024-03-09] MEDS ORDERED: SENNA 8.6 MG TAB PO SCH (09:37)
[2024-03-09] MEDS ORDERED: NALOXONE HCL 0.4 MG/1 ML VIAL/CARP IV PRN (09:37)
[2024-03-09] MEDS ORDERED: bisacodyL 10 MG SUPP PR PRN (09:37)
[2024-03-09] MEDS: traMADol HCL 50 MG TABLET PO PRN (10:04)
[2024-03-09] MEDS: SODIUM CHLORIDE 0.9% 1,000 ML IV SCH (10:32)
[2024-03-09] MEDS: ESCITALOPRAM OXALATE 20 MG TAB PO SCH (12:47)
[2024-03-09] MEDS: PANTOprazole 40 MG TAB PO SCH (12:47)
[2024-03-09] MEDS: DOCUSATE SODIUM 100 MG CAP PO SCH (12:48)
[2024-03-09] MEDS: SUCRALFATE 1 GM TAB PO SCH (12:48)
[2024-03-09] MEDS: ASPIRIN 81 MG ECTAB PO SCH (12:48)
[2024-03-09] MEDS: MULTIVITAMIN TAB PO SCH (12:49)
[2024-03-09] MEDS: MAGNESIUM OXIDE 400 MG TAB PO SCH (12:49)
[2024-03-09] MEDS: CYCLOBENZAPRINE HCL 10 MG TAB PO PRN (13:06)
[2024-03-09] MEDS: HYDROmorphone INJ 0.5 MG/0.5 ML SYR IV PRN (15:19)
[2024-03-09] MEDS: TRANEXAMIC ACID / 0.7% NACL 1,000 MG/100 ML BAG IV SCH (15:25)
[2024-03-09] MEDS: ceFAZolin 1000MG 1,000 MG/7.5 ML SYR IV SCH (15:25)
[2024-03-09] MEDS: Scopolamine CHECK PATCH PLACEMENT SCH (16:00)
[2024-03-09] MEDS: ASCORBIC ACID 500 MG TAB PO SCH (18:42)
[2024-03-09] MEDS: KETOROLAC 30 MG/ML VIAL IV SCH (18:45)
[2024-03-09] MEDS: SENNA 8.6 MG TAB PO SCH (20:50)
[2024-03-09] MEDS: traZODone HCL 50 MG TAB PO SCH (20:50)
[2024-03-10 06:47] LABS: Basophils # (auto) 0.02 K/uL (0.00-0.20); Basophils % (auto) 0.2 %; Eosinophils # (auto) 0.01 K/uL (0.00-0.50); Eosinophils % (auto) 0.1 %; Hematocrit (blood only) 30.2 % (37.0-47.0); Hemoglobin 10.6 g/dl (12.0-16.0); Immature Granulocytes # (auto) 0.05 K/uL (0.01-0.20); Immature Granulocytes % (auto) 0.5 %; Lymphocytes % (auto) 15.6 %; Mean Corpuscular Hemoglobin 33.7 pg (25.0-34.0); Mean Corpuscular Hgb Conc 35.1 g/dL (32.0-36.0); Mean Corpuscular Volume 95.9 fL (80.0-100.0); Mean Platelet Volume 10.9 fL (9.4-12.4); Monocytes # (auto) 0.81 K/uL (0.11-0.59); Monocytes % (auto) 7.4 %; Neutrophils # (auto) 8.34 K/uL (1.40-6.50); Neutrophils % (auto) 76.2 %; Platelet Count 184 K/uL (130-400); RDW Standard Deviation 42.3 fL (36.4-46.3); Red Blood Count 3.15 M/uL (4.20-5.40); White Blood Count 10.93 K/ul (4.8-10.8)
[2024-03-10 07:09] LABS: BUN Creatinine Ratio 19.2 (10-20); Calcium 8.3 mg/dl (8.6-10.3); Creatinine Clr Calc Pharmacy 79.4 ml/min; Est GFR (African American) 96.4 ml/min; Est GFR (Non-African American) 83.2 ml/min
--- NOTE | 2024-03-10 07:15 | Orthopedic Progress Note ---
Date of Service March 10, 2024 Assessment & Plan (1) Status post right hip replacement: Plan: 58-year-old female postop day 1 from right replacement doing pretty well. Pain is controlled. Hips located. She is neurologically intact. Plan: 1. DVT prophylaxis including thigh-high teds, SCDs, aspirin twice a day. 2. PT/OT. Weight-bear as. Right total hip protocol. 3. Pain control done okay with current pain regimen. 4. Disposition plan to discharge home with some home health later today if she does okay in therapy. Admission and Anticipated Discharge Date Admission Date: March 09, 2024 Subjective 58-year-old female postop day 1 from right total hip replacement. She is doing pretty well. Having a little bit more pain this morning. She did take a pain pill last night which seemed to help. Had no chest pain or shortness of breath. Not feeling dizzy or lightheaded. Physical Exam Physical Exam: Physical examination reveals a pleasant middle-age female. She is lying in bed looks pretty comfortable. Examination of right hip and leg reveals the dressing be clean dry and intact. Leg lengths are equal. She can dorsiflex and plantarflex her foot appropriately. She is neurologically intact. Thigh is soft and supple. Respiratory: normal respiratory effort, lungs clear to auscultation Cardiovascular: RRR, no murmur, no edema Gastrointestinal (Abdomen): normal bowel sounds, soft, nontender, no hepatosplenomegaly Results & Data Vital Signs (Past 12 Hours) Vital Signs Temp Pulse Resp BP Pulse Ox O2 Del Method 03/10/24 03:13 36.5 C 46 L 16 133/58 L 97 Room Air 03/09/24 23:20 36.5 C 56 L 16 113/67 97 Room Air 03/09/24 20:00 Room Air 03/09/24 19:30 36.9 C 61 18 131/70 99 Room Air Laboratory Results Hemoglobin is 10.6. Hematocrit is 30.2. Potassium is 3.4. Electrolytes are stable
[2024-03-10 07:38] VITALS: BP 133/74; RESP 18; TEMP 98.2; O2SAT 100
[2024-03-10 07:40] VITALS: PULSE 50
[2024-03-10] MEDS: dexAMETHasone 10 MG in SYRINGE 0 ML IV SCH (09:26)
[2024-03-10] MEDS: CLOPIDOGREL BISULFATE 75 MG TAB PO SCH (09:27)
[2024-03-10] MEDS: ERGOCALCIFEROL 1250 MCG (50,000 UNITS) CAP PO SCH (09:28)
[2024-03-10] MEDS: FLUTICASONE FUROATE 200MCG 14 PUFFS/INHALER INH SCH (09:28)
[2024-03-10] MEDS: UMECLIDINIUM/VILANTEROL 62.5/25MCG 7 PUFFS/INHALER INH SCH (09:30)
--- OUTSIDE RECORDS SUMMARY | 2024-03-10 20:33 | External Medical Summary | Continuity of Care Document ---
Author Name Unknown Organization [facility], [facility] Address [address] [place] [address] Phone [phone] Care Team Providers Care Employee Representative Name Role Phone Kalyan Caldera MD Care Team Information Receive r [phone] Neftaly Paredes M.D. 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 [phone] Problems Active Problems Provider Date Mixed hyperlipidemia [...] anxiety 10tabs Mishel Bernabe MD 02/29/2024 Klor-Con [id number] Tablets ER 1 by mouth twice daily 180tabs Mishel Bernabe MD 02/24/2024 Magnesium Oxide (Elemental)400mg Tablets 2 tablets twice daily 360tabs Mishel Bernabe MD 01/17/2024 Azjldxegmmb851cs Tablets One By Mouth Now Repeat One Week as Needed 2tabs Mishel Bernabe MD 01/17/2024 Tramadol VXC50xs Tablets Take 1 Tablet By Mouth Twice A Day as Needed For Severe Pain 45tabs Mishel Bernabe MD 01/13/2024 Trazodone FZM653il Tablets Take 1 Tablet AT Bedtime 90tabs Mishel Bernabe MD 04/25/2023 Freestyle Yevgeniy 3/Sensor/Glucose Monitoring Suyqww8Lzubqj Misc use as directed e11.65 3units Mishel Bernabe MD 12/16/2022 Quetiapine Lmbyeyhk03br Tablets Take 1 Tablet By Mouth Everyday AT Bedtime 90tabs Mishel Bernabe MD 11/05/2022 Clotrimazole/Betamet hasone Dipropionate1-0.05% Cream Apply To Affected Area Twice A Day as Needed 135units Mishel Bernabe MD 10/20/2022 Vitamin D3 1,250 mcgCapsule Take 1 Capsule By Mouth Once A Week 12caps E55.9 Mishel Bernabe MD 07/13/2022 Dfqnhlttkxe03py Tablets Take 1 Tablet By Mouth AT Bedtime For Sleep 90tabs Mishel Bernabe MD 04/10/2022 Lidocaine Viscous HCL2% Solution apply 2ml to both cheeks, then swish and swallow up to three times daily 300units Mishel Bernabe MD 03/12/2022 Albuterol Sulfate JQW482(90Base) mcg/Act Aerosol Inhale 2 Puffs By Mouth Every 4-6 Hours as Needed Wheezing 25.5units Juventino Sibley MD 12/19/[address] Take 1 Tablet By Mouth Every Day 90tabs K21.0 Mishel Bernabe MD 12/04/2021 Rollator Ultra-LightMisc use as directed 1units Juventino Sibley MD 021 Kmugftanvy3id Tablets Take 1 Tablet By Mouth Four Times A Day 360tabs Juventino Sibley MD 12/04/2020 Trelegy Tentupk075-27.5-25mc g/Act Aerosol Inhale 1 puff By Mouth Daily 60units Juventino Sibley MD 12/03/2020 Clopidogrel Gcradrajx71hp Tablets Take 1 Tablet By Mouth Every [...] 100units Rolf Snell JR, MD 11/23/2019 Escitalopram Vqolnar53re Tablets Take 1 Tablet By Mouth Every Day 90tabs F33.1 Mishel Bernabe MD 11/13/2019 Atorvastatin Cvchitb76zp Tablets Take 1 Tablet By Mouth Every Day 90tabs Juventino Sibley MD 10/16/2019 Ondansetron HCL4mg Tablets Take 1 Tablet By Mouth Every 6-8 Hours as Needed For Nausea 45tabs Mishel Bernabe MD 03/12/2019 Pen [place] 5/16"31G X 8 mm Misc use daily [...] Ralph Braxton, DO 11/03/2017 History Medications Sodium Doaiffketje774la Tablets Take 1 Tablet By Mouth Every Day Unknown 12/30/2023 - 01/06/2024 Magnesium Celjm371nu Tablets 1 by mouth twice a day for 5 days. Unknown 12/30/2023 - 01/04/2024 Potassium Chloride WR39Vdw Tablets ER Take 2 Tablets By Mouth Every Day for 4 days. Unknown 12/30/2023 - 01/04/2024 Amoxicillin/Clavulanate Apouibfdl592-247yg Tablets Take 1 Tablet By Mouth Twice A Day For 10 Days 20tabs Mishel Bernabe MD 11/17/2023 - 11/27/2023 Vdbzaszeti65au Tablets two tablets x 5 days then one tablet daily x 5 days 15baljeet Bernabe MD 11/17/2023 - 01/05/2024 Amoxicillin/Clavulanate Fvstljzmp837-876rz Tablets Take 1 Tablet By Mouth Twice A Day For 10 Days 20baljeet Bernabe MD 10/08/2023 - 01/03/2024 Xufdiykrwx07nc Tablets two tablets x 5 days then one tablet daily x 5 days 15baljeet Bernabe MD 10/08/2023 - 01/05/2024 Nijzirms184ab Tablets one by mouth now repeat one week as needed 2baljeet Bernabe MD 10/08/2023 - 01/05/2024 Hwhyeyht282560Ebcw/GM Cream Apply To Affected Area Twice A Day 90units Mishel Bernabe MD 10/05/2023 - 01/05/2024 Medications Administered in Office Medication SIG Qnty Indications Ordering Provider Date Injection Kenalog 10 MG NDC [id number] Ubaldo Jeronimo, P A-C 08/19/2023 Injection Kenalog 10 MG NDC 73699455454Vyowdziuy Ubaldo Jeronimo, P A-C 03/12/2022 Injection Kenalog 10 MG NDC 30161964798Ziuhwvulj Ubaldo Jeronimo, P A-C 01/15/2022 Injection Kenalog 10 MG NDC 87931855134Amnleqgrq Ubaldo Jeronimo, P A-C 10/27/2021 Injection Kenalog 10 MG NDC 51845433041Wnuqidnjv Ubaldo Jeronimo, P A-C 07/17/2021 Injection Kenalog 10 MG NDC 56379195680Zgrtkukra Ubaldo Jeronimo, P A-C 04/29/2021 Injection Kenalog 10 MG NDC 04599304979Yqcucyhhd Ubaldo Jeronimo, P A-C 02/17/2021 Injection Kenalog 10 MG NDC 97552029489Zslgjwdfk Ubaldo Jeronimo, P A-C 12/03/2020 Injection Kenalog 10 MG NDC 75297464905Zfilvuoke Ubaldo Jeronimo, P A-C 08/30/2020 Injection Kenalog 10 MG NDC 67772487243Xgoqcbiax Ubaldo Landon Lazorka, P A-C 05/30/2020 Injection Kenalog 10 MG NDC 79815811543Eugldzdzr Ubaldo Landon [place], P A-C 02/13/2020 Injection Dexamethasone Sodium Phosphate, 1 MGInjection Ubaldo CaraRd Laz[place]a, PA-C 10/2019 Injection Kenalog 10 MG NDC 96907104853Bdqloqfio Ubaldo Landon [place], P A-C 11/30/2019 Injection Kenalog 10 MG NDC 54516434969Hqwltlsmn Ubaldo Landon [place], P A-C 06/21/2018 Injection Kenalog 10 MG NDC 51625403324Jvasubats Ubaldo Landon [place], P A-C 06/21/2018 Injection Kenalog 10 MG NDC 58268187807Xyglpguqv Ubaldo Landon [place], P A-C 12/02/2017 Injection Kenalog 10 MG NDC 70927083976Kwqyddera Ubaldo Landon [place], P A-C 12/02/2017 Injection Dexamethasone Sodium Phosphate, 1 MGInjection Ubaldo CaraRd [place], PA-C 11/12 Injection Dexamethasone Sodium Phosphate, 1 MGInjection Ubaldo CaraRd [place], PA-C 11/12 Immunizations CPT Code Status Date Vaccine Lot # [id number] Given 08/19/2023 Influenza Virus Vaccine, Quadrivalent (Cciiv4), Derived From Cell [id number] Given 07/23/2021 Pfizer Sars-Cov -2 (Cov-19) vacc 30mcg/0.3ML 12Y+ EMR Doc Only [id number] Given 07/17/2021 Influenza Virus Vaccine, Quadrivalent (Cciiv4), Derived From 4 Given 12/12/2020 Pfizer Sars-Cov -2 (Cov-19) vacc 30mcg/0.3ML 12Y+ EMR Doc Only 46541 Given 11/16/2020 Pfizer Sars-Cov -2 (Cov-19) vacc 30mcg/0.3ML 12Y+ EMR Doc Only U-FLU Given 08/30/2020 Influenza,Unspecified [id number] Given 08/30/2020 Influenza Virus Vaccine, Quadrivalent (Cciiv4), Derived From 7 Given 06/13/2019 Influenza Virus Vaccine, Quadrivalent (Cciiv4), Derived From Cell [id number] U-FLU Given 06/13/2019 Influenza,Unspecified 24395 Given 11/01/2018 Pneumococcal Vaccine/Pneu movax 23 [id number] Given 09/20/2018 Influenza Virus Vaccine, Quadrivalent (Cciiv4), Derived From Cell U-FLU Given 06/07/2017 Influenza,Unspecified 91871 Given 08/25/2016 Tdap (Tetanus, diphtheria & acel. pertussis) Adacel or Boostrix U-FLU Given 06/19/2016 Influenza,Unspecified U-FLU Given 05/27/2015 Influenza,Unspecified 52676 Given 11/29/2014 Pneumococcal Vaccine/Pneu movax 23 U-FLU Given 06/28/2010 Influenza,Unspecified Vital Signs Date Vital Result Comment 01/13/2024 1:22pm BP Systolic 130 mmHg BP Diastolic 78 mmHg Body Temperature 98.1 F Heart Rate 78 /min Respiratory Rate 22 /min Weight 165.00 lb Weight 74.844 kg Height 54 inches 4'6" BMI (Body Mass Index) 39.8 kg/m2 O2 % BldC Oximetry 97 % [place] Body Weight 100 lb 01/05/2024 12:55pm BP Systolic 136 mmHg BP Diastolic 78 mmHg Body Temperature 97.8 F Heart Rate 77 /min Respiratory Rate 17 /min Weight 165.31 lb Weight 74.986 kg O2 % BldC Oximetry 98 % Results Test Acquired Date Facility Test Result H/L Range [place] Laboratory test finding 03/07/2024 [facility] [address] [place] [address] [phone] Potassium 3.2 mEq/L Low 3.5-5.0 1 CBC W/Diff 03/02/2024 [facility] [address] [place] [address] [phone] WBC 7.4 10^3/M3 3.1-9.2 RBC 3.82 10^6/M3 3.70-5.50 HGB 12.7 GR/DL 11.5-16.1 HCT 38.6 % 34.5-47.8 MCV 101.0 CUMICR High 82.6-95.8 MCH 33.3 PICOGR High 27.9-32.9 MCHC 33.0 % 32.6-35.4 RDW 13.6 % 11.4-14.6 PLT 216 10^3/M3 140-350 MPV 9.2 CUMICR 7.0-10.6 %Neut 65.6 % 40.0-75.0 %Lymph 28.0 % 17.0-45.0 %[place]ala 3.9 % 1.0-11.0 %Eos 1.9 % 0.0-6.0 %Baso 0.6 % 0.0-2.0 #Neut 4.8 10^3/M3 1.5-8.0 #Lymph 2.1 10^3/M3 0.8-3.2 #Zavala 0.3 10^3/M3 0.0-0.8 #Eos 0.1 10^3/m3 0.0-0.4 #Baso 0.0 10^3/m3 0.0-0.2 Comp. Met 03/02/2024 [facility] [address] [place], [place] [id number] [phone] Glucose 124 mg/dL High 70-110 BUN 18 [...] 78 ML/MIN/1.73SQM >60 Urinalysis,Cult If Indicated 03/02/2024 [facility] [address] [place], [place] [id number] [phone] RFLX Culture COMMENT Laboratory test finding 03/02/2024 [facility] [address] [place] [address] [phone] Magnesium 1.1 mg/dL Low 1.7- 2.8 Urinalysis 03/02/2024 [facility] [address] [place] [address] [phone] Color COMMENT 2 Appearance COMMENT Clear Spec.Grav. COMMENT 1.005-1.025 Leukocytes COMMENT Negative Nitrite COMMENT Negative PH COMMENT 6.0-7.5 Protein COMMENT Negative Urine Glucose COMMENT Negative Ketone COMMENT Negative Urobilinogen COMMENT E.U./DL Normal Bilirubin COMMENT Negative Blood COMMENT Negative WBC-U COMMENT /HPF 0-5/HPF RBC-U COMMENT /HPF 0-5/HPF Bacteria COMMENT None Seen Squamous COMMENT /HPF 0-5/HPF Urinalysis 01/13/2024 [facility] [address] [place] [address] [phone] Color COMMENT 3 Appearance COMMENT Clear Spec.Grav. COMMENT 1.005-1.025 Leukocytes COMMENT Negative Nitrite COMMENT Negative PH COMMENT 6.0-7.5 Protein COMMENT Negative Urine Glucose COMMENT Negative Ketone COMMENT Negative Urobilinogen COMMENT E.U./DL Normal Bilirubin COMMENT Negative Blood COMMENT Negative WBC-U COMMENT /HPF 0-5/HPF RBC-U COMMENT /HPF 0-5/HPF Bacteria COMMENT None Seen Squamous COMMENT /HPF 0-5/HPF Laboratory test finding 01/13/2024 [facility] [address] [place] [address] [phone] Magnesium 0.9 mg/dL Low 1.7-2.8 Tibc 01/13/2024 [facility] [address] [place] [address] [phone] Tibc 298 g /dL 260-400 Transferrin 213 mg/dL 200-400 Iron Panel([employer]) 01/13/2024 [facility] [address] [place] [address] [phone] Iron 48 g /dL 25-140 % Saturation 16 % Low 30-35 Microalbumin Urine 01/13/2024 [facility] [address] [place], [place] [id number] [phone] Urine Creat COMMENT mg/dL Comment Microalbumin COMMENT mg/dL 0.0-1.8 4 ug/mgCREATININE COMMENT ug/mg Low 0-29 5 Hba1c 01/13/2024 [facility] [address] [place] [address] [phone] A1c 4.50 % Low 4.70-6.50 6 Urinalysis,Cul t If Indicated 01/13/2024 [facility] [address] [place] [address] [phone] RFLX Culture COMMENT Laboratory test finding 01/13/2024 [facility] [address] [place] [address] [phone] TSH 1.00 uIU/mL 0.50-6.00 Lipid 01/13/2024 [facility] [address] [place] [address] [phone] Cholesterol 134 mg/dL 0-200 7 Triglyceride 153 mg/dL High 0-150 8 HDLD 52 mg/dL See Comment 9 Measured LDL 68 mg/dL 0-130 10 Calc VLDL 30.6 mg/dL See Comment 11 Chol/HDL 2.6 RATIO See Comment 12 Non-HDL 82 mg/dL See Comment 13 Comp. Met 01/13/2024 [facility] [address] [place] [address] [phone] Glucose 100 mg/dL 70-110 BUN 13 mg/dL [...] GFR 78 ML/MIN/1.73SQM >60 CBC W/Diff 01/13/2024 [facility] [address] [place] [address] [phone] WBC 6.5 10^3/M3 3.1-9.2 RBC 3.49 10^6/M3 Low 3.70-5.50 HGB 12.0 GR/DL 11.5-16.1 HCT 36.4 % 34.5-47.8 MCV 104.4 CUMICR High 82.6-95.8 MCH 34.3 PICOGR High 27.9-32.9 MCHC 32.8 % 32.6-35.4 RDW 15.4 % High 11.4-14.6 PLT 247 10^3/M3 140-350 MPV 9.2 CUMICR 7.0-10.6 %Neut 65.2 % 40.0-75.0 %Lymph 26.7 % 17.0-45.0 %[place]ala 3.3 % 1.0-11.0 %Eos 3.7 % 0.0-6.0 %Baso 1.1 % 0.0-2.0 #Neut 4.3 10^3/M3 1.5-8.0 #Lymph 1.7 10^3/M3 0.8-3.2 #Zavala 0.2 10^3/M3 0.0-0.8 #Eos 0.2 10^3/m3 0.0-0.4 #Baso 0.1 10^3/m3 0.0-0.2 1 fax to [phone] Kalyan Caldera MD 2 ORDER PLACED, PER DOCUMENTATION (PER COLORED PAPER) SPECIMEN FOR TESTING NOT ACQUIRED TL 3 ORDER PLACED, PER DOCUMENTATION (PER COLORED PAPER) SPECIMEN FOR TESTING NOT ACQUIRED 5.3.24 CONOR 4 *[employer] USES MICROALBUMIN/CREATINE RATIO : [...] Target Procedures Date Code Description Status 03/07/2024 62440 Venipuncture Routine Complet ed 03/02/[address] [facility] ed 01/13/2024 13147 Fundus Eye Exam Completed 01/13/2024 68703 Venipuncture Routine Complet ed 01/13/2024 3078F PVRP [...] Date Code Description Provider 03/07/2024 E87.6 Hypokalemia Mishel Bernabe MD 03/07/2024 E87.6 Hypokalemia Lab - [facility] 03/02/2024 I10 Essential (primary) hyperten sarwat Mishel Bernabe MD 03/02/2024 I10 Essential (primary) hyperten sarwat Lab - [place] 03/02/2024 E78.2 Mixed hyperlipidemia Mishel Bernabe MD 03/02/2024 E78.2 Mixed hyperlipidemia Lab - [place] 03/02/2024 E11.65 Type 2 diabetes mellitus wit h hyperglycemia Mishel Bernabe MD 03/02/2024 E11.65 Type 2 diabetes mellitus wit h hyperglycemia Lab - [place] 03/02/2024 E61.2 Magnesium deficiency Mishel Bernabe MD 03/02/2024 E61.2 Magnesium deficiency Lab - [place] 01/13/2024 Z00.01 [facility] abnormal findings Ubaldo Jeronimo PA-C 01/13/2024 E11.65 Type 2 diabetes mellitus wit h hyperglycemia Ubaldo Jeronimo PA-C 01/13/2024 E11.42 Type 2 diabetes mellitus with diabetic polyneuropathy Ubaldo DSUKUMAR LyonsC 01/13/2024 E66.01 Morbid (severe) obesity due to excess calories Ubaldo DSUKUMAR LyonsC 01/13/2024 F33.1 Major depressive disorder, recurrent, moderate Ubaldo DSUKUMAR LyonsC 01/13/2024 I70.0 Atherosclerosis of aorta Ezequiel adelaSUKUMAR OrozcoC 01/13/2024 J43.9 Emphysema, unspecified Jamarcus MarroquinBRENDA LyonsC 01/13/2024 M46.1 Sacroiliitis, not elsewhere classified Ubaldo MarroquinSUKUMAR LyonsC 01/13/2024 M16.11 Unilateral prima ry osteoarthritis, right hip Ubaldo SUKUMAR McclellanC 01/13/2024 I10 Essential (primary) hyperten sarwat Ubaldo SUKUMAR McclellanC 01/13/2024 E78.2 Mixed hyperlipidemia SUKUMAR LawtonC 01/13/2024 D64.9 Anemia, unspecified Ubaldo Marroquin BRENDA LyonsC 01/13/2024 E61.2 Magnesium deficiency Ubaldo BRENDA McclellanC 01/13/2024 M70.52 Other bursitis of knee, [...] 10:00 am - Ubaldo Jeronimo PA-C at [place] * 04/13/2024 1:30 pm - Ubaldo Jeronimo PA-C at [place] 01/13/2024 - Ubaldo Jeronimo PA-C* Z00.01 Encounter [...] 02/11/2024 Saima Ga PA-C Closed [address] [place] [address] [place] [address] [phone]
== END 2024-03-10 12:37 | disposition home health service (06) ==
LOC: 3E 05:07 → ASU 05:07